=== PATIENT | male | born 1950 | race Caucasian/White ===

== ENCOUNTER 2023-10-10 11:59 | Observation (INO) ==
--- NOTE | 2023-10-10 12:56 | XRay Report ---
XR chest 1V portable HISTORY: weakness COMPARISON: Chest 01/03/2022. FINDINGS: No pneumothorax. No pleural effusions. There is a large hiatus hernia, unchanged. Left basi lar linear densities favor subsegmental atelectasis. The heart is stable in size. No evidence for pul monary edema. No acute fractures. IMPRESSION: No significant change compared to the prior study. No acute process. Large hiatus hernia again noted. ACT 112: Negative or not required by law. Electronically signed by: Damion Cantu M.D. 10/10/2023 12:55 PM
[2023-10-10 13:09] LABS: Basophils # (auto) 0.03 K/uL (0.00-0.20); Basophils % (auto) 0.5 %; Eosinophils # (auto) 0.03 K/uL (0.00-0.50); Eosinophils % (auto) 0.5 %; Hematocrit (blood only) 45.9 % (42.0-52.0); Immature Granulocytes # (auto) 0.02 K/uL (0.01-0.20); Immature Granulocytes % (auto) 0.3 %; Lymphocytes # (auto) 0.99 K/uL (1.20-3.40); Lymphocytes % (auto) 15.6 %; Mean Corpuscular Hemoglobin 31.4 pg (25.0-34.0); Mean Corpuscular Hgb Conc 32.7 g/dL (32.0-36.0); Mean Corpuscular Volume 96.2 fL (80.0-100.0); Mean Platelet Volume 10.4 fL (9.4-12.4); Monocytes # (auto) 0.91 K/uL (0.11-0.59); Monocytes % (auto) 14.3 %; Neutrophils # (auto) 4.38 K/uL (1.40-6.50); Neutrophils % (auto) 68.8 %; Platelet Count 143 K/uL (130-400); RDW Coefficient of Variation 15.2 % (11.5-14.5); RDW Standard Deviation 53.4 fL (36.4-46.3); Red Blood Count 4.77 M/uL (4.70-6.10); White Blood Count 6.36 K/ul (4.8-10.8)
[2023-10-10] MEDS: SODIUM CHLORIDE 0.9% 1,000 ML IV SCH (13:12)
[2023-10-10 13:32] LABS: Albumin Globulin Ratio 1.2 (0.9-2); Albumin Level 3.7 gm/dl (3.4-5.0); BUN Creatinine Ratio 29.5 (10-20); Bilirubin,Total 0.5 mg/dl (0.2-1.0); Creatinine Clr Calc Pharmacy 42.1 ml/min; Est GFR (African American) 57.5 ml/min; Est GFR (Non-African American) 49.6 ml/min; Globulin 3.1 gm/dl (2.5-4.0); Magnesium 2.2 mg/dl (1.7-2.4); Potassium 3.5 mmol/L (3.5-5.1); Total Protein 6.8 gm/dl (6.0-8.3)
[2023-10-10 13:35] LABS: Troponin I High Sensitivity 11.6 pg/ml (0-20)
[2023-10-10 13:44] LABS: Thyroid Stimulating Hormone 2.517 uIu/ml (0.300-4.500)
[2023-10-10 13:54] LABS: Appearance Urine Clear (Clear); Bacteria Urine Automated None Seen (None Seen); Bilirubin Urine Negative (Negative); Blood Urine Negative (Negative); Cast Urine Automated 0-2 /lpf (0-2); Color Urine Yellow; Epithelial Cell Urine Auto 0-2 /hpf (0-2); Glucose Urine UA Negative (Negative); Ketones Urine Negative (Negative); Leukocyte Esterase Urine Negative (Negative); Nitrite Urine Negative (Negative); Protein Urine 1+ (Negative); RBC Urine Automated 0-2 /hpf (0-2); Specific Gravity Urine 1.019 (1.000-1.030); Urobilinogen Urine Negative (Negative); WBC Urine Automated 0-5 /hpf (0-5); pH Urine 6.5 (4.5-7.5)
[2023-10-10] MEDS: OPTIRAY 320 125ml IV ONE (13:55)
--- NOTE | 2023-10-10 14:10 | Emergency Department Note ---
Impression & Plan Unresponsive, Hypotension ED Provider Note NAME: CARI HOWELL AGE: 73 SEX: Male INFORMANT: Patient and ED PROVIDER(S): Paul Whitaker MD CHIEF COMPLAINT: Unresponsiveness PLAN: Disposition: Admitted Outpatient prescription management: none Referral: None MEDICAL DECISION MAKING: Patient presented because of an unresponsive episode. His therapist on scene had found fairly significant hypotension and he was mildly hypotensive but improving rapidly for EMS. His mental status improved as his blood pressure improved as well. Workup was initiated. His ECG did not show any ischemia. Cardiac monitoring showed no dysrhythmia. His CBC was unremarkable without anemia or leukocytosis. Chemistry panel did not reveal any gross abnormalities other. Cardiac troponin was negative. The patient underwent CT imaging of the head and chest. Chest x-ray was also done. The patient has a hiatal hernia. CT head was negative for acute process. Discussed the cystic lesion noted on the skull. No prior history. No PE noted or other acute abnormality seen on chest CT. On reassessment the patient was still feeling well and was actually becoming more hypertensive. He did not receive direct treatment for this due to concerns about causing another episode of hypotension. His blood pressure did started to come down albeit still somewhat hypertensive. Given the episode of being unresponsive with very low blood pressures I discussed further management in the hospital with the family and patient. They were in agreement. Consultation was made with the [facility] service. Patient was evaluated in the ER and admitted for further management. Care/management discussed with: research and development manager Level of care consideration(s): After review of the information above and other included data, I feel the patient requires escalation of care to admission. Triage Nursing notes: reviewed and agree them. Vital Signs: reviewed and remarkable for hypertension Additional History obtained from: none Chronic Medical/Social Conditions affecting care: Parkinson disease Prior/ Outside/ External records reviewed: none Differential Diagnosis: Infection, dehydration, metabolic abnormality, hypo/hyperglycemia, electrolyte disturbance, anemia, hypoxia, cardiac sources, intracerebral event, toxicologic, neurologic, as well as other pathologies. Diagnostics, independently interpreted by me: ECG: Twelve-lead ECG was sinus bradycardia [address] elevation or depression. No PACs or PVCs Cardiac Monitoring: Cardiac monitoring ordered by me: The patient was placed on continuous cardiac monitoring and observed. It revealed a normal sinus rhythm at 60 beats per minute without ectopy or evidence of dysrhythmia. Medical decision rules: none Imaging studies: Head CT: A noncontrast CT scan of the head was performed and was negative for tumor, fracture, intracranial hemorrhage, or other acute pathology. Cystic lesion noted in the right frontal skull. I refer you to the EMR for further details. HPI: 73 year old Male arrives for evaluation of an unresponsive episode. This started less than an hour prior to arrival and is noted to last about 30 minutes or so. is present and helps with history. Patient does not remember the episode nor the ambulance ride to the hospital. Patient was with his speech therapist today at home. He became unresponsive. Speech therapy did take his blood pressure and noted it to be 51 systolic. states blood pressure was repeated and was still low. She contacted cardiology and was referred to the ER. EMS was summoned. Blood pressure was improving for EMS as it was 100 systolic and then normal. Patient's mental status improved with improving blood pressure. The patient also notes the following associated symptoms, none. The patient has been given no medication for relieving factors. Current pain is rated as 0/10. Pt denies headache, fevers, chills, diaphoresis, visual changes, neck pain, chest pain, breathing difficulties, nausea, vomiting, abdominal pain, back pain, melena, hematochezia, urinary symptoms, numbness, weakness, lymphadenopathy, rash, or other complaints. PAST MEDICAL HISTORY: See Below, Parkinson disease PAST SURGICAL HISTORY: See Below, SOCIAL HISTORY: See Below, HOME MEDICATIONS: See Below ALLERGIES: See Below VITALS: See Below PHYSICAL EXAMINATION: GENERAL: Awake, alert, well-appearing, in no distress HENT: Normocephalic, atraumatic. Oropharynx unremarkable. EYES: Normal conjunctiva. Sclera non-icteric. NECK: Inspection normal. Non-tender. Supple. No nuchal rigidity. FROM. No masses. RESPIRATORY: Clear to auscultation. No wheezes. No rales. Normal respiratory effort. CARDIAC: Normal rate. Normal rhythm. No murmurs. No rubs. Extremities warm and well perfused. Pulses equal. No JVD. GI: Soft, non-distended. No tenderness to palpation. No rebound or guarding. No masses. RECTAL: Deferred. MUSCULOSKELETAL: Atraumatic. Chest examination reveals no tenderness. The back is symmetrical on inspection without obvious abnormality. There is no CVA tenderness to palpation. No joint edema. LOWER EXTREMITIES: Calves are equal size bilaterally. Chronic venous discoloration. There is some slight asymmetry with the left lower extremity being slightly larger than the right. NEURO: Masked facies of Parkinson's normal sensorium. No sensory or motor deficits noted. SKIN: No rash or jaundice noted. PROCEDURES: none CRITICAL CARE: none OBSERVATION NOTE: none Past Med/Surg History Problem List (Updated 10/10/23 @ 16:31 by Damari De Leon PA-C) HTN (hypertension) Rheumatoid arthritis Parkinson's disease dementia BPH loc w urin obs/LUTS Transient hypotension Unresponsive episode Hypotension (Acute) Unresponsive (Acute) Chronic diastolic (congestive) heart failure Leg pain Chronic venous insufficiency Venous ulcer of both lower extremities with varicose veins Medical History (Updated 10/10/23 @ 16:31 by Damari De Leon PA-C) Nonrheumatic mitral valve regurgitation Spinal stenosis Surgical History Hx of laminectomy Social History Smoking Status: Never smoker Preferred Language: Urdu Feels Safe at Home: Yes Allergies Allergies Allergy/AdvReac Type Severity Reaction Status Date / Time No Known Allergies Allergy Verified 10/10/23 15:19 Home Meds Home Medications Medication Instructions Recorded Confirmed finasteride 5 mg tablet (Proscar) 5 mg PO QPM 12/03/20 10/10/23 leflunomide 20 mg tablet (Arava) 20 mg PO QAM 12/03/20 10/10/23 prednisone 5 mg tablet 5 mg PO QAM 12/03/20 10/10/23 carbamazepine 200 mg tablet 200 mg PO QID 08/03/21 10/10/23 (Tegretol) levothyroxine 75 mcg tablet 75 mcg PO DAILYBB 08/03/21 10/10/23 (Synthroid) tamsulosin 0.4 mg capsule 0.4 mg PO QPM 08/03/21 10/10/23 zonisamide 100 mg capsule 100 mg PO HS 08/03/21 10/10/23 (Zonegran) carbidopa 25 mg-levodopa 100 mg 3 tab PO QID 02/07/22 10/10/23 tablet ferrous sulfate 325 mg (65 mg 325 mg PO Q OTHER DAY 08/21/23 10/10/23 iron) tablet (FeroSul) melatonin 5 mg tablet 10 mg PO HS 08/21/23 10/10/23 entacapone 200 mg tablet 200 mg PO QID 10/10/23 10/10/23 Results & Data (ED) Vital Signs Vital Signs - 24 hr 10/10/23 12:21 10/10/23 12:27 10/10/23 12:27 Temperature 36.5 C Temperature Source Oral Pulse Rate 63 60 Pulse Rate [Right Finger] Pulse Rhythm Regular Pulse Rhythm [Right Finger] Pulse Strength Normal Pulse Strength [Right Finger] Respiratory Rate 16 Respiratory Effort / Characteristics Non-Labored Spontaneous Respiratory Depth Normal Respiratory Pattern Regular Blood Pressure 141/93 H Blood Pressure [Right Arm] Blood Pressure Mean 109 Blood Pressure Mean [Right Arm] Blood Pressure Position Semi-fowlers Blood Pressure Position [Right Arm] Pulse Oximetry 98 95 Oxygen Delivery Method Room Air Room Air Sepsis Recent Fever Within 48 Hours No Sepsis New/Unexplained Change in Mental Status N/A Sepsis Action Taken by Nursing No Action Required 10/10/23 12:27 10/10/23 12:27 10/10/23 14:15 Temperature 36.5 C 36.8 C Temperature Source Oral Oral Pulse Rate 60 Pulse Rate [Right Finger] 60 60 Pulse Rhythm Regular Pulse Rhythm [Right Finger] Regular Regular Pulse Strength Pulse Strength [Right Finger] Normal Normal Respiratory Rate 20 20 20 Respiratory Effort / Characteristics Non-Labored Spontaneous Non-Labored Spontaneous Respiratory Depth Normal Normal Respiratory Pattern Regular Regular Blood Pressure Blood Pressure [Right Arm] 141/93 H 202/109 H Blood Pressure Mean Blood Pressure Mean [Right Arm] 109 140 Blood Pressure Position Blood Pressure Position [Right Arm] Semi-fowlers Semi-fowlers Pulse Oximetry 95 96 96 Oxygen Delivery Method Room Air Room Air Room Air Sepsis Recent Fever Within 48 Hours Sepsis New/Unexplained Change in Mental Status Sepsis Action Taken by Nursing 10/10/23 15:51 Temperature Temperature Source Pulse Rate Pulse Rate [Right Finger] 69 Pulse Rhythm Pulse Rhythm [Right Finger] Pulse Strength Pulse Strength [Right Finger] Respiratory Rate 18 Respiratory Effort / Characteristics Respiratory Depth Respiratory Pattern Blood Pressure Blood Pressure [Right Arm] 133/87 Blood Pressure Mean Blood Pressure Mean [Right Arm] 102 Blood Pressure Position Blood Pressure Position [Right Arm] Pulse Oximetry 95 Oxygen Delivery Method Sepsis Recent Fever Within 48 Hours Sepsis New/Unexplained Change in Mental Status Sepsis Action Taken by Nursing Laboratory Data 10/10/23 12:24 10/10/23 12:24 Lab Results 10/10/23 10/10/23 Range/Units 12:24 13:33 WBC 6.36 (4.8-10.8) K/ul RBC 4.77 (4.70-6.10) M/uL Hgb 15.0 (14.0-18.0) g/dl Hct 45.9 (42.0-52.0) % MCV 96.2 (80.0-100.0) fL MCH 31.4 (25.0-34.0) pg MCHC 32.7 (32.0-36.0) g/dL RDW Std Deviation 53.4 H (36.4-46.3) fL RDW Coeff of Armne 15.2 H (11.5-14.5) % Plt Count 143 (130-400) K/uL MPV 10.4 (9.4-12.4) fL Immature Gran % (Auto) 0.3 % Neut % (Auto) 68.8 % Lymph % (Auto) 15.6 % [place] % (Auto) 14.3 % Eos % (Auto) 0.5 % Baso % (Auto) 0.5 % Neut # (Auto) 4.38 (1.40-6.50) K/uL Lymph # (Auto) 0.99 L (1.20-3.40) K/uL [place] # (Auto) 0.91 H (0.11-0.59) K/uL Eos # (Auto) 0.03 (0.00-0.50) K/uL Baso # (Auto) 0.03 (0.00-0.20) K/uL Immature Gran # (Auto) 0.02 (0.01-0.20) K/uL Sodium 145 (136-145) mmol/L Potassium 3.5 (3.5-5.1) mmol/L Chloride 112 H (98-107) mmol/L Carbon Dioxide 27 (21-32) mmol/L Anion Gap 6 (3-11) BUN 41 H (6-23) mg/dl Creatinine 1.39 (0.6-1.4) mg/dl Est Cr Clr Drug Dosing 42.1 ml/min Est GFR ( Amer) 57.5 ml/min Est GFR (Non-Af Amer) 49.6 ml/min BUN/Creatinine Ratio 29.5 H (10-20) Glucose 80 (70-99(Fasting)) mg/dl Calcium 9.0 (8.6-10.3) mg/dl Magnesium 2.2 (1.7-2.4) mg/dl Total Bilirubin 0.5 (0.2-1.0) mg/dl AST 21 (13-39) U/L ALT 8 (7-52) U/L Alkaline Phosphatase 71 (34-104) U/L Troponin I High Sens 11.6 (0-20) pg/ml Total Protein 6.8 (6.0-8.3) gm/dl Albumin 3.7 (3.4-5.0) gm/dl Globulin 3.1 (2.5-4.0) gm/dl Albumin/Globulin Ratio 1.2 (0.9-2) TSH 2.517 (0.300-4.500) uIu/ml Urine Color Yellow Urine Appearance Clear (Clear) Urine pH 6.5 (4.5-7.5) Ur Specific Mobile 1.019 (1.000-1.030) Urine Protein 1+ H (Negative) Urine Glucose (UA) Negative (Negative) Urine Ketones Negative (Negative) Urine Blood Negative (Negative) Urine Nitrite Negative (Negative) Urine Bilirubin Negative (Negative) Urine Urobilinogen Negative (Negative) Ur Leukocyte Esterase Negative (Negative) Urine WBC (Auto) 0-5 (0-5) /hpf Urine RBC (Auto) 0-2 (0-2) /hpf U Hyaline Cast (Auto) 0-2 (0-2) /lpf U Epithel Cells (Auto) 0-2 (0-2) /hpf Urine Bacteria (Auto) None Seen (None Seen) Administered Medications Sodium Chloride (Nss) 1,000 mls @ 125 mls/hr IV .Q8H JACQUES Stop: 10/10/23 20:29 Last Admin: 10/10/23 13:12 Dose: 125 mls/hr Documented By: CAW Discontinued Medications Ioversol (Optiray 320 125ml) 120 ml IV ONCE ONE Stop: 10/10/23 13:55 Last Admin: 10/10/23 13:55 Dose: 120 ml Documented By: [facility] Imaging Data Radiologist's Impression: Chest X-Ray 10/10/23 12:23 XR chest 1V portable HISTORY: weakness COMPARISON: Chest 01/03/2022. FINDINGS: No pneumothorax. No pleural effusions. There is a large hiatus hernia, unchanged. Left basilar linear densities favor subsegmental atelectasis. The heart is stable in size. No evidence for pulmonary edema. No acute fractures. IMPRESSION: No significant change compared to the prior study. No acute process. Large hiatus hernia again noted. ACT 112: Negative or not required by law. Electronically signed by: Damion Cantu M.D. 10/10/2023 12:[address] 10/10/23 12:23 CT OF THE HEAD WITHOUT CONTRAST CLINICAL HISTORY: Altered mental status. COMPARISON STUDY: No previous studies for comparison. TECHNIQUE: Helical axial images of the head were obtained without IV contrast. Automated exposure control was utilized for the study. A dose lowering technique was utilized adhering to the principles of ALARA. FINDINGS: No acute intracranial hemorrhage, midline shift or mass effect is present. The ventricular system is unremarkable. The basal cisterns are patent. No extra-axial collections are present. There are no findings to suggest acute dural sinus thrombosis or acute territorial infarct. Mucous retention cyst within the right maxillary sinus is partially imaged. There is a 1.9 cm lytic right frontal bone lesion on image 21 of 32. There is associated periostitis and scalp soft tissue thickening/swelling. No additional calvarial lesions are identified. IMPRESSION: 1. No acute intracranial findings. 2.. 1.9 cm lytic right frontal bone lesion with associated periostitis and scalp soft tissue thickening. This is pathologically indeterminate. If palpable, clinical follow-up to ensure stability is recommended. Otherwise, a follow-up head CT in 3 months to ensure stability is recommended. ACT 112: Negative or not required by law. Electronically signed by: Joe Jones M.D. 10/10/2023 2:14 PM Chest CTA 10/10/23 12:28 CT angio chest PE protocol CLINICAL HISTORY: hypotension, eval for PE TECHNIQUE: Multidetector row helical CT of the chest was performed with angiographic protocol. Coronal and sagittal reformations were obtained. Coronal and sagittal MIPS were obtained from the axial data set and were submitted for review. Automated dose lowering techniques and/or adjustment according to patient size were utilized for this exam. CT DOSE: 1517.47 mGy.cm Comparison: Comparison is made to chest radiograph 10/10/2023 FINDINGS: Lungs and pleura: Atelectasis is seen in the bilateral lung bases. Heart and pericardium: Heart size is normal. No pericardial effusion. Vessels: No evidence of pulmonary embolism. Severe atherosclerotic disease is seen. Mediastinum and lea: Unremarkable. Chest wall and lower neck: Unremarkable. Abdomen: Hyperdense right renal lesion is seen. There is a 31 mm hypodensity in the liver. Bones: Degenerative changes in the thoracic spine. IMPRESSION: 1. No acute abnormality and in particular no evidence of pulmonary embolus. 2. There is a 31 mm hypodensity in the liver. If not previously evaluated, a nonemergent liver protocol CT or MRI can be performed. 3. Hyperdense right renal lesion is favored to represent hemorrhagic/proteinaceous cyst. ACT 112: Negative or not required by law. Electronically signed by: Elias Tejada M.D. 10/10/2023 2:21 PM Discharge Plan Visit Data Chief Complaint: Lethargic Stated Complaint: LETHARGIC ED Provider: Paul Whitaker Discharge Problem: Unresponsive, Hypotension Forms Stand Alone Forms: My [facility] Prescriptions Prescriptions: No Action finasteride [Proscar] 5 mg tablet 5 mg PO QPM Rx Instructions: take 1/2 hour before supper leflunomide [Arava] 20 mg tablet 20 mg PO QAM prednisone 5 mg tablet 5 mg PO QAM carbidopa-levodopa 25-100 mg tablet 3 tab PO QID Rx Instructions: TAKES AT 0630, 0900, 1200, 1700 levothyroxine [Synthroid] 75 mcg tablet 75 mcg PO DAILYBB zonisamide [Zonegran] 100 mg capsule 100 mg PO HS tamsulosin 0.4 mg capsule 0.4 mg PO QPM Rx Instructions: take 1/2 hour before supper carbamazepine [Tegretol] 200 mg tablet 200 mg PO QID Rx Instructions: 0630, 1200, 1700, 2200 melatonin 5 mg tablet 10 mg PO HS ferrous sulfate [FeroSul] 325 mg (65 mg iron) tablet 325 mg PO Q OTHER DAY entacapone 200 mg tablet 200 mg PO QID Rx Instructions: 0630, 0800, 1200, 1700 Referrals Referrals: Emerald Dutton MD [Primary Care Provider] -
--- NOTE | 2023-10-10 14:16 | CT Scan Report ---
CT OF THE HEAD WITHOUT CONTRAST CLINICAL HISTORY: Altered mental status. COMPARISON STUDY: No previous studies for comparison. TECHNIQUE: Helical axial images of the head were obtained without IV contrast. Automated exposure con trol was utilized for the study. A dose lowering technique was utilized adhering to the principles o f ALARA. FINDINGS: No acute intracranial hemorrhage, midline shift or mass effect is present. The ventricular system is unremarkable. The basal cisterns are patent. No extra-axial collections are present. There are no findings to suggest acute dural sinus thrombosis or acute territorial infarct. Mucous retentio n cyst within the right maxillary sinus is partially imaged. There is a 1.9 cm lytic right frontal bautista ne lesion on image 21 of 32. There is associated periostitis and scalp soft tissue thickening/swellin g. No additional calvarial lesions are identified. IMPRESSION: 1. No acute intracranial findings. 2.. 1.9 cm lytic right frontal bone lesion with associated periostitis and scalp soft tissue thickeni ng. This is pathologically indeterminate. If palpable, clinical follow-up to ensure stability is frank mmended. Otherwise, a follow-up head CT in 3 months to ensure stability is recommended. ACT 112: Negative or not required by law. Electronically signed by: Joe Jones M.D. 10/10/2023 2:14 PM
--- NOTE | 2023-10-10 14:23 | CT Scan Report ---
CT angio chest PE protocol CLINICAL HISTORY: hypotension, eval for PE TECHNIQUE: Multidetector row helical CT of the chest was performed with angiographic protocol. Watts l and sagittal reformations were obtained. Coronal and sagittal MIPS were obtained from the axial julio a set and were submitted for review. Automated dose lowering techniques and/or adjustment according to patient size were utilized for this exam. CT DOSE: 1517.47 mGy.cm Comparison: Comparison is made to chest radiograph 10/10/2023 FINDINGS: Lungs and pleura: Atelectasis is seen in the bilateral lung bases. Heart and pericardium: Heart size is normal. No pericardial effusion. Vessels: No evidence of pulmonary embolism. Severe atherosclerotic disease is seen. Mediastinum and lea: Unremarkable. Chest wall and lower neck: Unremarkable. Abdomen: Hyperdense right renal lesion is seen. There is a 31 mm hypodensity in the liver. Bones: Degenerative changes in the thoracic spine. IMPRESSION: 1. No acute abnormality and in particular no evidence of pulmonary embolus. 2. There is a 31 mm hypodensity in the liver. If not previously evaluated, a nonemergent liver roman col CT or MRI can be performed. 3. Hyperdense right renal lesion is favored to represent hemorrhagic/proteinaceous cyst. ACT 112: Negative or not required by law. Electronically signed by: Elias Tejada M.D. 10/10/2023 2:21 PM
--- NOTE | 2023-10-10 16:26 | History & Physical Report ---
Date of Service October 10, 2023 Assessment & Plan (1) Acute metabolic encephalopathy: (2) Unresponsive episode: (3) Transient hypotension: Plan: This is a 73yo M with a PMH of Parkinson's disease, Seizure disorder, hypothyroidism, rheumatoid arthritis, chronic diastolic heart failure, HALLIE, BPH, hypogonadism on testosterone every 2 weeks and other medical problems listed below who presents after unresponsive episode and low blood pressure at home. BP normalized since arrival, most recently 133/87, continue gentle IV fluids Ddx autonomic dysfunction vs seizure vs presyncope CT head without acute intracranial findings Afebrile, no leukocytosis UA unremarkable TSH WNL Not on any antihypertensives EEG, 2D echo, orthostatics, blood culture pending although no s/sx of infection at this time Continue remainder of 1 L fluids resuscitation (4) Chronic diastolic (congestive) heart failure: Plan: noting some BLE edema, discoloration so obtaining BLE venous dopplers Will limit fluid resuscitation to 1L total, monitor volume status closely (5) Chronic venous insufficiency: Plan: Continue compression stockings (6) Rheumatoid arthritis: Plan: Continue 5mg prednisone daily, Arava Follows with [facility] rheum (7) Parkinson's disease dementia: Plan: Follows with [facility] neuro. Continue Sinemet, Entacapone PT/OT evaluations Ambulates with a walker/wheelchair at baseline (8) BPH loc w urin obs/LUTS: Plan: Continue finasteride, tamsulosin Bladder scan PRN (9) Abnormal CT scan, chest: Plan: There is a 31 mm hypodensity in the liver (hypodense liver lesions thought to be hemangiomas noted on CT from 2020). Per radiology, a nonemergent liver protocol CT or MRI can be performed - will defer to PCP Hyperdense right renal lesion also noted - is favored to represent hemorrhagic/proteinaceous cyst (hyperdense right renal mass 1.8 x 1.4 cm noted on 2020 CT abd/pelvis) - PCP for follow up (10) Abnormal CT scan, head: Plan: Per head CT, 1.9 cm lytic right frontal bone lesion with associated periostitis and scalp soft tissue thickening. This is pathologically indeterminate. If palpable, clinical follow-up to ensure stability is recommended. Otherwise, a follow-up head CT in 3 months to ensure stability is recommended - discussed with patient and . Recommend PCP follow up DVT Ppx: SQ heparin Code status: FULL PCP: [facility] Dispo: Obs tele Patient seen in collaboration with Dr. Estrada. Please see addendum. I spent a total of 75 minutes coordinating, documenting, and providing care for this patient excluding time spent in the performance of separately billed services. History of Present Illness Chief Complaint: low BP Primary Care Provider: Emerald Dutton MD This is a 73yo M with a PMH of Parkinson's disease, Seizure disorder, hypothy roidism, rheumatoid arthritis, chronic diastolic heart failure, HALLIE, BPH, hypogonadism on testosterone every 2 weeks and other medical problems listed below who presents after unresponsive episode and low blood pressure at home. History obtained from and daughter at bedside as patient is lethargic. Was in normal state of health this morning, and showered, dressed and ate breakfast as usual. When home speech therapist arrived around 10:30am, he was notably lethargic and non responsive verbally. Denies gilma loss of consciousness but states he was slouched over. Was able to drink some Gatorade, seemed to be sleeping. Denies any bowel or bladder incontinence. No new recent medication changes. BP was checked and was low with SBP reportedly in 50s. Not on any blood pressure medications. Got up a lot overnight to use the restroom. feels that patient may have overexerted himself that morning. SBP here on arrival was 200 and most recent BP 133/87. Has only been receiving IV fluids. Allergies Allergy/AdvReac Type Severity Reaction Status Date / Time No Known Allergies Allergy Verified 10/10/23 15:19 Home Medications Medication Instructions Recorded Confirmed Type finasteride 5 mg tablet (Proscar) 5 mg PO QPM 12/03/20 10/10/23 History leflunomide 20 mg tablet (Arava) 20 mg PO QAM 12/03/20 10/10/23 History prednisone 5 mg tablet 5 mg PO QAM 12/03/20 10/10/23 History carbamazepine 200 mg tablet 200 mg PO QID 08/03/21 10/10/23 History (Tegretol) levothyroxine 75 mcg tablet 75 mcg PO DAILYBB 08/03/21 10/10/23 History (Synthroid) tamsulosin 0.4 mg capsule 0.4 mg PO QPM 08/03/21 10/10/23 History zonisamide 100 mg capsule 100 mg PO HS 08/03/21 10/10/23 History (Zonegran) carbidopa 25 mg-levodopa 100 mg 3 tab PO QID 02/07/22 10/10/23 History tablet ferrous sulfate 325 mg (65 mg 325 mg PO Q OTHER DAY 08/21/23 10/10/23 History iron) tablet (FeroSul) melatonin 5 mg tablet 10 mg PO HS 08/21/23 10/10/23 History entacapone 200 mg tablet 200 mg PO QID 10/10/23 10/10/23 History Past Med/Surg History Problem List (Updated 10/10/23 @ 18:55 by Damari De Leon PA-C) Abnormal CT scan, chest Abnormal CT scan, head HTN (hypertension) Rheumatoid arthritis Parkinson's disease dementia BPH loc w urin obs/LUTS Transient hypotension Unresponsive episode Hypotension (Acute) Unresponsive (Acute) Chronic diastolic (congestive) heart failure Leg pain Chronic venous insufficiency Venous ulcer of both lower extremities with varicose veins Medical History Nonrheumatic mitral valve regurgitation Spinal stenosis Surgical History Hx of laminectomy Family History (Updated 10/10/23 @ 18:48 by Damari De Leon PA-C) Other Leukemia Lung cancer Social History Smoking Status: Never smoker Preferred Language: Scottish Feels Safe at Home: Yes Review of Systems Review of Systems: Unobtainable due to cognitive status Physical Exam Physical Exam: Please see Dr. Estrada's addendum for physical exam. Results & Data Results & Data Vital Signs (Past 12 Hours) Vital Signs Temp Pulse Pulse Resp BP BP Pulse Ox 10/10/23 15:51 69 18 133/87 95 10/10/23 14:15 36.8 C 60 20 202/109 H 96 10/10/23 12:27 60 20 96 10/10/23 12:27 36.5 C 60 20 141/93 H 95 10/10/23 12:27 95 10/10/23 12:27 36.5 C 60 16 141/93 H 98 10/10/23 12:21 63 O2 Del Method 10/10/23 15:51 10/10/23 14:15 Room Air 10/10/23 12:27 Room Air 10/10/23 12:27 Room Air 10/10/23 12:27 Room Air 10/10/23 12:27 Room Air 10/10/23 12:21 Laboratory Results Short CBC 10/10/23 Range/Units 12:24 WBC 6.36 (4.8-10.8) K/ul Hgb 15.0 (14.0-18.0) g/dl Hct 45.9 (42.0-52.0) % Plt Count 143 (130-400) K/uL BMP 10/10/23 12:24 Sodium 145 Potassium 3.5 Chloride 112 H Carbon Dioxide 27 BUN 41 H Creatinine 1.39 Glucose 80 Calcium 9.0 Liver Function 10/10/23 Range/Units 12:24 Total Bilirubin 0.5 (0.2-1.0) mg/dl AST 21 (13-39) U/L ALT 8 (7-52) U/L Alkaline Phosphatase 71 (34-104) U/L Albumin 3.7 (3.4-5.0) gm/dl Urine 10/10/23 Range/Units 13:33 Urine Color Yellow Urine Appearance Clear (Clear) Urine pH 6.5 (4.5-7.5) Ur Specific [place] 1.019 (1.000-1.030) Urine Protein 1+ H (Negative) Urine Glucose (UA) Negative (Negative) Diagnostic Findings Chest X-Ray 10/10/23 12:23 XR chest 1V portable HISTORY: weakness COMPARISON: Chest 01/03/2022. FINDINGS: No pneumothorax. No pleural effusions. There is a large hiatus hernia, unchanged. Left basilar linear densities favor subsegmental atelectasis. The heart is stable in size. No evidence for pulmonary edema. No acute fractures. IMPRESSION: No significant change compared to the prior study. No acute process. Large hiatu s hernia again noted. ACT 112: Negative or not required by law. Electronically signed by: Damion Cantu M.D. 10/10/2023 12:[address] 10/10/23 12:23 CT OF THE HEAD WITHOUT CONTRAST CLINICAL HISTORY: Altered mental status. COMPARISON STUDY: No previous studies for comparison. TECHNIQUE: Helical axial images of the head were obtained without IV contrast. Automated exposure control was utilized for the study. A dose lowering technique was utilized adhering to the principles of ALARA. FINDINGS: No acute intracranial hemorrhage, midline shift or mass effect is present. The ventricular system is unremarkable. The basal cisterns are patent. No extra-axial collections are present. There are no findings to suggest acute dural sinus thrombosis or acute territorial infarct. Mucous retention cyst within the right maxillary sinus is partially imaged. There is a 1.9 cm lytic right frontal bone lesion on image 21 of 32. There is associated periostitis and scalp soft tissue thickening/swelling. No additional calvarial lesions are identified. IMPRESSION: 1. No acute intracranial findings. 2.. 1.9 cm lytic right frontal bone lesion with associated periostitis and scalp soft tissue thickening. This is pathologically indeterminate. If palpable, clinical follow-up to ensure stability is recommended. Otherwise, a follow-up head CT in 3 months to ensure stability is recommended. ACT 112: Negative or not required by law. Electronically signed by: Joe Jones M.D. 10/10/2023 2:14 PM Chest CTA 10/10/23 12:28 CT angio chest PE protocol CLINICAL HISTORY: hypotension, eval for PE TECHNIQUE: Multidetector row helical CT of the chest was performed with angiographic protocol. Coronal and sagittal reformations were obtained. Coronal and sagittal MIPS were obtained from the axial data set and were submitted for review. Automated dose lowering techniques and/or adjustment according to patient size were utilized for this exam. CT DOSE: 1517.47 mGy.cm Comparison: Comparison is made to chest radiograph 10/10/2023 FINDINGS: Lungs and pleura: Atelectasis is seen in the bilateral lung bases. Heart and pericardium: Heart size is normal. No pericardial effusion. Vessels: No evidence of pulmonary embolism. Severe atherosclerotic disease is seen. Mediastinum and lea: Unremarkable. Chest wall and lower neck: Unremarkable. Abdomen: Hyperdense right renal lesion is seen. There is a 31 mm hypodensity in the liver. Bones: Degenerative changes in the thoracic spine. IMPRESSION: 1. No acute abnormality and in particular no evidence of pulmonary embolus. 2. There is a 31 mm hypodensity in the liver. If not previously evaluated, a nonemergent liver protocol CT or MRI can be performed. 3. Hyperdense right renal lesion is favored to represent hemorrhagic/proteinaceous cyst. ACT 112: Negative or not required by law. Electronically signed by: Elias Tejada M.D. 10/10/2023 2:21 PM Supervising Physician Co-Signing Physician Notes Patient is a 73-year-old male with history of rheumatoid arthritis, Parkinson's, diastolic heart failure, chronic venous stasis and other medical problems presents with history of unresponsive episode associated with low blood pressure while at home. Patient was noted to be lethargic and most of the history is obtained from patient's family. No known history of seizure-like activity, recent infections. Patient's blood pressure was labile. Please review HPI for complete details of presentation. Blood work fairly unremarkable. CT head showed no acute intracranial findings. Noted light thick right frontal bone lesion--incidental finding. CT chest showed 2.1 cm hypodensity in the liver, hypodense right renal lesion. Patient is admitted for management of possible syncopal episode secondary to orthostatic hypotension. Blood pressure stable during my evaluation. Orthostatics positive while in ED. Venous Doppler showed no signs of DVT. Agree with further workup including echo, EEG. Fall precautions, PT OT as able. Needs further workup for frontal bone lesion, hepatic and renal lesions as outpatient. Continue compression stockings for chronic venous stasis. ? Autonomic dysfunction secondary to Parkinson's. Physical Exam: Vitals signs as noted above General Appearance:Moderately built and nourished, no apparent distress, Elderly Head: normocephalic, Atraumatic Eyes: normal inspection, EOMI Neck: supple, Trachea midline Respiratory/Chest: Normal breath sounds, CTA, No accessory muscle use Cardiovascular: S1, S2, No murmur Abdomen/GI:Soft, Non tender, Bowel sounds present Extremities/Musculoskeletal:normal inspection, 2+ B/LE LE edema, +Venous stasis changes Neurologic/Psych:AAOX2, grossly no focal neurological deficits Skin: normal color, warm I personally interviewed and examined at bedside. Patient's care is coordinated with Damari De Leon PA-C. I have reviewed the advanced practitioner's documentation, and I agree with plan of care. Please refer to the documentation above for details of patient's presentation and for discussion of other issues. I spent a total [id number] coordinating, documenting, and providing care for this patient excluding time spent in the performance of separately billed services.
--- NOTE | 2023-10-10 16:43 | Electrocardiogram Report ---
Test Reason : Blood Pressure : / mmHG Vent. Rate : 058 BPM Atrial Rate : 058 BPM P-R Int : 134 ms QRS Dur : 078 ms QT Int : 392 ms P-R-T Axes : 036 024 036 degrees QTc Int : 384 ms Sinus bradycardia Possible Left atrial enlargement Borderline ECG When compared with ECG of 03-JAN-2022 10:54, No significant change was found Confirmed by Cory Gil ([id number]) on 10/10/2023 4:43:42 PM Referred By: REFERRED SELF Confirmed By:Cory Gli
[2023-10-10] MEDS ORDERED: ONDANSETRON INJ 2 MG/ML 2 ML VIAL IV PRN (17:16)
[2023-10-10] MEDS ORDERED: POLYETHYLENE (MIRALAX) 17 GM PACK PO PRN (17:16)
[2023-10-10] MEDS ORDERED: ACETAMINOPHEN 325 MG TAB PO PRN (17:16)
--- NOTE | 2023-10-10 18:16 | Ultrasound Report ---
BILATERAL LOWER EXTREMITY VENOUS DOPPLER CLINICAL HISTORY: stasis changes and edema COMPARISON STUDY: None available at time of interpretation. TECHNIQUE: Sonography of the deep venous system of the bilateral lower extremities was performed. Co mpression and augmentation were evaluated. FINDINGS: The bilateral common femoral, superficial femoral and popliteal veins were compressible. A ugmentation was normal. Flow was shown within the deep calf vessels. IMPRESSION: No evidence of deep venous thrombus within the bilateral lower extremities. ACT 112: Negative or not required by law. Electronically signed by: Joe Jones M.D. 10/10/2023 6:15 PM
[2023-10-10] MEDS: CARBIDOPA/LEVODOPA 25/100MG TAB PO SCH (21:51)
[2023-10-10] MEDS: ZONISAMIDE 100 MG CAPSULE PO SCH (21:51)
[2023-10-10] MEDS: HEPARIN SOD 5,000 UNIT/0.5 ML VIAL SQ SCH (21:51)
[2023-10-10] MEDS: carBAMazepine 200 MG TABLET PO SCH (21:51)
[2023-10-10] MEDS: ENTACAPONE 200 MG TAB PO SCH (21:51)
[2023-10-10] MEDS: TAMSULOSIN HCL 0.4 MG CAP PO SCH (21:51)
[2023-10-10] MEDS: FINASTERIDE 5 MG TAB PO SCH (21:51)
[2023-10-11] MEDS: LEVOTHYROXINE SODIUM 75 MCG TABLET PO SCH (06:09)
[2023-10-11 07:52] LABS: Hematocrit (blood only) 42.1 % (42.0-52.0); Hemoglobin 13.6 g/dl (14.0-18.0); Mean Corpuscular Hemoglobin 30.4 pg (25.0-34.0); Mean Corpuscular Hgb Conc 32.3 g/dL (32.0-36.0); Mean Corpuscular Volume 94.2 fL (80.0-100.0); Platelet Count 127 K/uL (130-400); RDW Coefficient of Variation 15.1 % (11.5-14.5); RDW Standard Deviation 53.1 fL (36.4-46.3); Red Blood Count 4.47 M/uL (4.70-6.10); White Blood Count 5.02 K/ul (4.8-10.8)
[2023-10-11 08:11] LABS: BUN Creatinine Ratio 28.7 (10-20); Calcium 8.3 mg/dl (8.6-10.3); Creatinine Clr Calc Pharmacy 50.9 ml/min; Est GFR (African American) 72.3 ml/min; Est GFR (Non-African American) 62.3 ml/min; Potassium 3.7 mmol/L (3.5-5.1)
[2023-10-11] MEDS: FERROUS SULFATE 325 MG TAB PO SCH (08:29)
[2023-10-11] MEDS: predniSONE 5 MG TAB PO SCH (08:29)
[2023-10-11] MEDS: LEFLUNOMIDE 10 MG TAB PO SCH (08:29)
--- NOTE | 2023-10-11 14:50 | XCELERA ---
[id number]
[2023-10-11] MEDS: NSS + 20MEQ KCL 20 MEQ/1,000 ML BAG IV SCH (16:32)
--- NOTE | 2023-10-11 16:41 | Hospitalist Progress Note ---
Date of Service October 11, 2023 Assessment & Plan (1) Acute metabolic encephalopathy: (2) Unresponsive episode: (3) Transient hypotension: Plan: This is a 73yo M with a PMH of Parkinson's disease, Seizure disorder, hypothyroidism, rheumatoid arthritis, chronic diastolic heart failure, HALLIE, BPH, hypogonadism on testosterone every 2 weeks and other medical problems listed below who presents after unresponsive episode and low blood pressure at home. Likely secondary to orthostatic hypotension Possible dehydration BP normalized since arrival, most recently 133/87, continue gentle IV fluids Ddx autonomic dysfunction with history of parkinsonism, doubt any seizures CT head without acute intracranial findings Afebrile, no leukocytosis UA unremarkable TSH WNL Not on any antihypertensives EEG, 2D echo, orthostatics, blood culture pending although no s/sx of infection at this time Continue remainder of 1 L fluids resuscitation Clinically much better this afternoon Remains orthostatic Will give more IV fluid and was advised to drink more fluid No more episodes of hypotension and/or loss of consciousness Will get PT and OT evaluation and possible discharge tomorrow (4) Chronic diastolic (congestive) heart failure: Plan: noting some BLE edema, discoloration so obtaining BLE venous dopplers Will limit fluid resuscitation to 1L total, monitor volume status closely History of diastolic heart failure will be cautious with intravenous fluid (5) Chronic venous insufficiency: Plan: Continue compression stockings (6) Rheumatoid arthritis: Plan: Continue 5mg prednisone daily, Arava Follows with [facility] rheum (7) Parkinson's disease dementia: Plan: Follows with [facility] neuro. Continue Sinemet, Entacapone PT/OT evaluations Ambulates with a walker/wheelchair at baseline (8) BPH loc w urin obs/LUTS: Plan: Continue finasteride, tamsulosin Bladder scan PRN (9) Abnormal CT scan, chest: Plan: There is a 31 mm hypodensity in the liver (hypodense liver lesions thought to be hemangiomas noted on CT from 2020). Per radiology, a nonemergent liver protocol CT or MRI can be performed - will defer to PCP Hyperdense right renal lesion also noted - is favored to represent hemorrhagic/proteinaceous cyst (hyperdense right renal mass 1.8 x 1.4 cm noted on 2020 CT abd/pelvis) - PCP for follow up (10) Abnormal CT scan, head: Plan: Per head CT, 1.9 cm lytic right frontal bone lesion with associated periostitis and scalp soft tissue thickening. This is pathologically indeterminate. If palpable, clinical follow-up to ensure stability is recommended. Otherwise, a follow-up head CT in 3 months to ensure stability is recommended - discussed with patient and . Recommend PCP follow up DVT Ppx: SQ heparin Code status: FULL PCP: [facility] Dispo: Obs tele Admission and Anticipated Discharge Date Admission Date: October 10, 2023 Subjective 10/11/2023 The patient was seen and examined in telemetry unit in the presence of the daughter and the He has been feeling much better since admission Has an episode of syncope likely secondary to postural hypotension Has been feeling better but he still remains orthostatic Review of Systems Review of Systems: All systems reviewed and are unremarkable except as noted below Physical Exam 2 Physical Exam: Sitting on a chair without any acute distress Constitutional: well developed, well nourished, + ill appearing and average body habitus Eyes: PERRL, conjunctivae normal, anicteric sclerae ENMT: external ear and nose normal, oropharynx normal Neck: trachea midline, no thyromegaly Respiratory: no respiratory distress Auscultation: + crackles; + lungs not clear to auscultation Cardiovascular: Rate/Rhythm: regular rate and regular rhythm; not tachycardic Heart Sounds: normal S1 and normal S2; no murmur Extremities: no edema Gastrointestinal (Abdomen): Inspection/Auscultation: normal bowel sounds; abdomen not distended Percussion/Palpation: abdomen soft; abdomen nontender Musculoskeletal: No acute arthritis involving any of the joints Neurologic: normal touch/pain/proprioception and moves all extremities; no focal motor deficits Lymphatic: no cervical or axillary lymphadenopathy Results & Data Results & Data Vital Signs (Past 12 Hours) Vital Signs Temp Pulse Resp BP Pulse Ox O2 Del Method 10/11/23 10:55 36.6 C 60 16 108/65 95 Room Air 10/11/23 08:30 36.9 C 68 16 176/91 H 93 Room Air 10/11/23 08:00 Room Air Laboratory Results Short CBC 10/11/23 Range/Units 07:14 WBC 5.02 (4.8-10.8) K/ul Hgb 13.6 L (14.0-18.0) g/dl Hct 42.1 (42.0-52.0) % Plt Count 127 L (130-400) K/uL BMP 10/11/23 07:14 Sodium 142 Potassium 3.7 Chloride 113 H Carbon Dioxide 25 BUN 33 H Creatinine 1.15 Glucose 87 Calcium 8.3 L Medications Administered Current Inpatient Medications Acetaminophen (Acetaminophen 325 Mg Tab) 650 mg PO Q4H PRN PRN Reason: Pain or Fever Stop: 11/09/23 17:15 Carbamazepine (Carbamazepine 200 Mg Tablet) 200 mg PO QID [facility] Stop: 11/09/23 20:59 Last Admin: 10/11/23 14:41 Dose: 200 mg Carbidopa/Levodopa (Carbidopa/Levodopa 25/100mg Tab) 3 tab PO QID [facility] Stop: 11/09/23 20:59 Last Admin: 10/11/23 13:07 Dose: 3 tab Entacapone (Entacapone 200 Mg Tab) 200 mg PO QID [facility] Stop: 11/09/23 20:59 Last Admin: 10/11/23 13:07 Dose: 200 mg Ferrous Sulfate (Ferrous Sulfate 325 Mg Tab) 325 mg PO Q2D [facility] Stop: 11/10/23 08:59 Last Admin: 10/11/23 08:29 Dose: 325 mg Finasteride (Finasteride 5 Mg Tab) 5 mg PO QPM [facility] Stop: 11/09/23 20:59 Last Admin: 10/10/23 21:51 Dose: 5 mg Heparin Sodium (Porcine) (Heparin Sod 5,000 Unit/0.5 Ml Vial) 5,000 units SQ Q8 [facility] Stop: 11/09/23 21:59 Last Admin: 10/11/23 13:07 Dose: Not Given Potassium Chloride/Sodium Chloride (Normal Saline W/20 Meq Kcl) 20 meq in 1,000 mls @ 100 mls/hr IV .Q10H [facility]; Protocol Stop: 10/12/23 20:29 Last Admin: 10/11/23 16:32 Dose: 100 mls/hr Leflunomide (Leflunomide 10 Mg Tab) 20 mg PO QAM [facility] Stop: 11/10/23 08:59 Last Admin: 10/11/23 08:29 Dose: 20 mg Levothyroxine Sodium (Levothyroxine Sodium 75 Mcg Tablet) 75 mcg PO DAILYBB [facility] Stop: 11/10/23 06:29 Last Admin: 10/11/23 06:09 Dose: 75 mcg Ondansetron HCl (Ondansetron Inj 2 Mg/Ml 2 Ml Vial) 4 mg IV Q6H PRN PRN Reason: Nausea Stop: 11/09/23 17:15 Polyethylene Glycol (Polyethylene (Miralax) 17 Gm Pack) 17 gm PO DAILY PRN PRN Reason: Constipation Stop: 11/09/23 17:15 Prednisone (Prednisone 5 Mg Tab) 5 mg PO QAM [facility] Stop: 11/10/23 08:59 Last Admin: 10/11/23 08:29 Dose: 5 mg Tamsulosin HCl (Tamsulosin Hcl 0.4 Mg Cap) 0.4 mg PO QPM [facility] Stop: 11/09/23 20:59 Last Admin: 10/10/23 21:51 Dose: 0.4 mg Zonisamide (Zonisamide 100 Mg Capsule) 100 mg PO HS [facility] Stop: 11/09/23 20:59 Last Admin: 10/10/23 21:51 Dose: 100 mg
[2023-10-12 06:39] LABS: Basophils # (auto) 0.03 K/uL (0.00-0.20); Basophils % (auto) 0.6 %; Eosinophils # (auto) 0.04 K/uL (0.00-0.50); Eosinophils % (auto) 0.7 %; Hematocrit (blood only) 39.8 % (42.0-52.0); Hemoglobin 12.8 g/dl (14.0-18.0); Immature Granulocytes # (auto) 0.04 K/uL (0.01-0.20); Immature Granulocytes % (auto) 0.7 %; Lymphocytes # (auto) 1.25 K/uL (1.20-3.40); Lymphocytes % (auto) 23.1 %; Mean Corpuscular Hemoglobin 30.7 pg (25.0-34.0); Mean Corpuscular Hgb Conc 32.2 g/dL (32.0-36.0); Mean Corpuscular Volume 95.4 fL (80.0-100.0); Monocytes # (auto) 0.58 K/uL (0.11-0.59); Monocytes % (auto) 10.7 %; Neutrophils # (auto) 3.46 K/uL (1.40-6.50); Neutrophils % (auto) 64.2 %; Platelet Count 118 K/uL (130-400); RDW Coefficient of Variation 15.3 % (11.5-14.5); RDW Standard Deviation 53.9 fL (36.4-46.3); Red Blood Count 4.17 M/uL (4.70-6.10)
[2023-10-12 07:06] LABS: BUN Creatinine Ratio 25.2 (10-20); Calcium 7.6 mg/dl (8.6-10.3); Creatinine Clr Calc Pharmacy 49.1 ml/min; Est GFR (African American) 69.3 ml/min; Est GFR (Non-African American) 59.8 ml/min
--- NOTE | 2023-10-12 12:51 | Electrocardiogram Report ---
Test Reason : Blood Pressure : / mmHG Vent. Rate : 072 BPM Atrial Rate : 072 BPM P-R Int : 150 ms QRS Dur : 090 ms QT Int : 366 ms P-R-T Axes : 073 056 052 degrees QTc Int : 400 ms Normal sinus rhythm Normal ECG When compared with ECG of 10-OCT-2023 13:05, No significant change was found Confirmed by Cory Gil ([id number]) on 10/12/2023 12:50:55 PM Referred By: REFERRED SELF Confirmed By:Cory Gil
--- NOTE | 2023-10-12 13:34 | Hospitalist Progress Note ---
Date of Service October 12, 2023 Assessment & Plan (1) Acute metabolic encephalopathy: (2) Unresponsive episode: (3) Transient hypotension: Plan: This is a 73yo M with a PMH of Parkinson's disease, Seizure disorder, hypothyroidism, rheumatoid arthritis, chronic diastolic heart failure, HALLIE, BPH, hypogonadism on testosterone every 2 weeks and other medical problems listed below who presents after unresponsive episode and low blood pressure at home. Likely secondary to orthostatic hypotension Possible dehydration BP normalized since arrival, most recently 133/87, continue gentle IV fluids Ddx autonomic dysfunction with history of parkinsonism, doubt any seizures CT head without acute intracranial findings Afebrile, no leukocytosis UA unremarkable TSH WNL Not on any antihypertensives EEG, 2D echo, orthostatics, blood culture pending although no s/sx of infection at this time Continue remainder of 1 L fluids resuscitation Clinically much better this afternoon Remains orthostatic Will give more IV fluid and was advised to drink more fluid No more episodes of hypotension and/or loss of consciousness Clinically much better today following IV fluid administration He has been eating and drinking reasonably Does not have any more orthostatic change and/or symptoms Strongly advised to drink more fluid at home Awaiting physical therapy evaluation if not possible ambulation with the nurse prior to discharge Will be discharged home this afternoon (4) Chronic diastolic (congestive) heart failure: Plan: noting some BLE edema, discoloration so obtaining BLE venous dopplers Will limit fluid resuscitation to 1L total, monitor volume status closely History of diastolic heart failure will be cautious with intravenous fluid No signs and or symptoms of fluid overload (5) Chronic venous insufficiency: Plan: Continue compression stockings (6) Rheumatoid arthritis: Plan: Continue 5mg prednisone daily, Arava Follows with [facility] rheum (7) Parkinson's disease dementia: Plan: Follows with [facility] neuro. Continue Sinemet, Entacapone PT/OT evaluations Ambulates with a walker/wheelchair at baseline (8) BPH loc w urin obs/LUTS: Plan: Continue finasteride, tamsulosin Bladder scan PRN (9) Abnormal CT scan, chest: Plan: There is a 31 mm hypodensity in the liver (hypodense liver lesions thought to be hemangiomas noted on CT from 2019). Per radiology, a nonemergent liver protocol CT or MRI can be performed - will defer to PCP Hyperdense right renal lesion also noted - is favored to represent hemorrhagic/proteinaceous cyst (hyperdense right renal mass 1.8 x 1.4 cm noted on 2019 CT abd/pelvis) - PCP for follow up (10) Abnormal CT scan, head: Plan: Per head CT, 1.9 cm lytic right frontal bone lesion with associated periostitis and scalp soft tissue thickening. This is pathologically indeterminate. If palpable, clinical follow-up to ensure stability is recommended. Otherwise, a follow-up head CT in 3 months to ensure stability is recommended - discussed with patient and . Recommend PCP follow up DVT Ppx: SQ heparin Code status: FULL PCP: [facility] Dispo: Obs tele Discussed with the daughter about the abnormal findings on the scans Will instruct the patient to have a repeat test in about 3 months to monitor dose elations Admission and Anticipated Discharge Date Admission Date: October 10, 2023 Subjective 10/11/2023 The patient was seen and examined in telemetry unit in the presence of the daughter and the He has been feeling much better since admission Has an episode of syncope likely secondary to postural hypotension Has been feeling better but he still remains orthostatic 10/12/2023 The patient was seen and examined in telemetry unit in presence of the daughter He has been feeling much better He does not have any more orthostatic symptoms or change He will be discharged home this afternoon Review of Systems Review of Systems: All systems reviewed and are unremarkable except as noted below Physical Exam Physical Exam: Sitting on a chair without any acute distress Constitutional: well developed, well nourished, + ill appearing and average body habitus Eyes: PERRL, conjunctivae normal, anicteric sclerae ENMT: external ear and nose normal, oropharynx normal Neck: trachea midline, no thyromegaly Respiratory: no respiratory distress Auscultation: + crackles; + lungs not clear to auscultation Cardiovascular: Rate/Rhythm: regular rate and regular rhythm; not tachycardic Heart Sounds: normal S1 and normal S2; no murmur Extremities: no edema Gastrointestinal (Abdomen): Inspection/Auscultation: normal bowel sounds; abdomen not distended Percussion/Palpation: abdomen soft; abdomen nontender Musculoskeletal: No acute arthritis involving any of the joints Neurologic: normal touch/pain/proprioception and moves all extremities; no focal motor deficits Lymphatic: no cervical or axillary lymphadenopathy Results & Data Results & Data Vital Signs (Past 12 Hours) Vital Signs Temp Pulse Pulse Resp BP Pulse Ox O2 Del Method 10/12/23 12:01 36.3 C L 54 L 18 133/68 95 Room Air 10/12/23 08:00 36.4 C L 63 18 191/99 H 95 Room Air 10/12/23 06:10 54 L 10/12/23 02:47 36.6 C 53 L 18 143/82 H 94 Room Air Laboratory Results Short CBC 10/12/23 Range/Units 05:57 WBC 5.40 (4.8-10.8) K/ul Hgb 12.8 L (14.0-18.0) g/dl Hct 39.8 L (42.0-52.0) % Plt Count 118 L (130-400) K/uL BMP 10/12/23 05:57 Sodium 139 Potassium 4.0 Chloride 112 H Carbon Dioxide 25 BUN 30 H Creatinine 1.19 Glucose 84 Calcium 7.6 L Medications Administered Current Inpatient Medications Acetaminophen (Acetaminophen 325 Mg Tab) 650 mg PO Q4H PRN PRN Reason: Pain or Fever Stop: 11/09/23 17:15 Carbamazepine (Carbamazepine 200 Mg Tablet) 200 mg PO QID [facility] Stop: 11/09/23 20:59 Last Admin: 10/12/23 12:17 Dose: 200 mg Carbidopa/Levodopa (Carbidopa/Levodopa 25/100mg Tab) 3 tab PO QID [facility] Stop: 11/09/23 20:59 Last Admin: 10/12/23 12:18 Dose: 3 tab Entacapone (Entacapone 200 Mg Tab) 200 mg PO QID [facility] Stop: 11/09/23 20:59 Last Admin: 10/12/23 12:18 Dose: 200 mg Ferrous Sulfate (Ferrous Sulfate 325 Mg Tab) 325 mg PO Q2D JACQUES Stop: 11/10/23 08:59 Last Admin: 10/11/23 08:29 Dose: 325 mg Finasteride (Finasteride 5 Mg Tab) 5 mg PO QPM [facility] Stop: 11/09/23 20:59 Last Admin: 10/11/23 21:25 Dose: 5 mg Heparin Sodium (Porcine) (Heparin Sod 5,000 Unit/0.5 Ml Vial) 5,000 units SQ Q8 JACQUES Stop: 11/09/23 21:59 Last Admin: 10/12/23 05:27 Dose: 5,000 units Potassium Chloride/Sodium Chloride (Normal Saline W/20 Meq Kcl) 20 meq in 1,000 mls @ 100 mls/hr IV .Q10H [facility]; Protocol Stop: 10/12/23 20:29 Last Admin: 10/12/23 12:17 Dose: 100 mls/hr Leflunomide (Leflunomide 10 Mg Tab) 20 mg PO QAM [facility] Stop: 11/10/23 08:59 Last Admin: 10/12/23 08:03 Dose: 20 mg Levothyroxine Sodium (Levothyroxine Sodium 75 Mcg Tablet) 75 mcg PO DAILYBB [facility] Stop: 11/10/23 06:29 Last Admin: 10/12/23 05:27 Dose: 75 mcg Ondansetron HCl (Ondansetron Inj 2 Mg/Ml 2 Ml Vial) 4 mg IV Q6H PRN PRN Reason: Nausea Stop: 11/09/23 17:15 Polyethylene Glycol (Polyethylene (Miralax) 17 Gm Pack) 17 gm PO DAILY PRN PRN Reason: Constipation Stop: 11/09/23 17:15 Prednisone (Pred[facility] 5 Mg Tab) [facility] Stop: 11/10/23 08:59 Last Admin: 10/12/23 08:03 Dose: 5 mg Tamsulosin HCl (Tamsulosin Hcl 0.4 Mg Cap) 0.4 mg PO QPM [facility] Stop: 11/09/23 20:59 Last Admin: 10/11/23 21:25 Dose: 0.4 mg Zonisamide (Zonisamide 100 Mg Capsule) 100 mg PO [facility] Stop: 11/09/23 20:59 Last Admin: 10/11/23 21:25 Dose: 100 mg
--- NOTE | 2023-11-12 08:37 | Discharge Summary ---
Date of Service November 12, 2023 Very delayed documentation for discharge on 10/12/2023 Admission HPI Per Admitting Provider This is a 73yo M with a PMH of Parkinson's disease, Seizure disorder, hypothyroidism, rheumatoid arthritis, chronic diastolic heart failure, HALLIE, BPH, hypogonadism on testosterone every 2 weeks and other medical problems listed below who presents after unresponsive episode and low blood pressure at home. History obtained from and daughter at bedside as patient is lethargic. Was in normal state of health this morning, and showered, dressed and ate breakfast as usual. When home speech therapist arrived around 10:30am, he was notably lethargic and non responsive verbally. Denies gilma loss of consciousness but states he was slouched over. Was able to drink some Gatorade, seemed to be sleeping. Denies any bowel or bladder incontinence. No new recent medication changes. BP was checked and was low with SBP reportedly in 50s. Not on any blood pressure medications. Got up a lot overnight to use the restroom. feels that patient may have overexerted himself that morning. SBP here on arrival was 200 and most recent BP 133/87. Has only been receiving IV fluids. Admission Exam Per Admitting Provider Vitals signs as noted above General Appearance:Moderately built and nourished, no apparent distress, Elderly Head: normocephalic, Atraumatic Eyes: normal inspection, EOMI Neck: supple, Trachea midline Respiratory/Chest: Normal breath sounds, CTA, No accessory muscle use Cardiovascular: S1, S2, No murmur Abdomen/GI:Soft, Non tender, Bowel sounds present Extremities/Musculoskeletal:normal inspection, 2+ B/LE LE edema, +Venous stasis changes Neurologic/Psych:AAOX2, grossly no focal neurological deficits Skin: normal color, warm Principal Diagnosis Acute metabolic encephalopathy-resolved, transient hypotension likely secondary to dehydration, Parkinson disease, rheumatoid arthritis Discharge Exam Sitting on a chair without any acute distress Constitutional well developed, well nourished, + ill appearing and average body habitus Eyes PERRL, conjunctivae normal, anicteric sclerae ENMT external ear and nose normal, oropharynx normal Neck trachea midline, no thyromegaly Respiratory no respiratory distress Auscultation: + crackles; + lungs not clear to auscultation Cardiovascular Rate/Rhythm: regular rate and regular rhythm; not tachycardic Heart Sounds: normal S1 and normal S2; no murmur Extremities: no edema Gastrointestinal (Abdomen) Inspection/Auscultation: normal bowel sounds; abdomen not distended Percussion/Palpation: abdomen soft; abdomen nontender Neurologic normal touch/pain/proprioception and moves all extremities; no focal motor deficits Lymphatic no cervical or axillary lymphadenopathy Discharge Data Allergies Allergy/AdvReac Type Severity Reaction Status Date / Time No Known Allergies Allergy Verified 10/10/23 15:19 Ordered Studies 10/10/23 12:23 CT head/brain wo con Stat 10/10/23 12:28 CT angio chest PE protocol Stat 10/10/23 16:40 US venous doppler LE BI Routine Hospital Course (1) Acute metabolic encephalopathy: (2) Unresponsive episode: (3) Transient hypotension: This is a 73yo M with a PMH of Parkinson's disease, Seizure disorder, hypothyroidism, rheumatoid arthritis, chronic diastolic heart failure, HALLIE, BPH, hypogonadism on testosterone every 2 weeks and other medical problems listed below who presents after unresponsive episode and low blood pressure at home. Likely secondary to orthostatic hypotension Possible dehydration BP normalized since arrival, most recently 133/87, continue gentle IV fluids Ddx autonomic dysfunction with history of parkinsonism, doubt any seizures CT head without acute intracranial findings Afebrile, no leukocytosis UA unremarkable TSH WNL Not on any antihypertensives EEG, 2D echo, orthostatics, blood culture pending although no s/sx of infection at this time Continue remainder of 1 L fluids resuscitation Clinically much better this afternoon Remains orthostatic Will give more IV fluid and was advised to drink more fluid No more episodes of hypotension and/or loss of consciousness Clinically much better today following IV fluid administration He has been eating and drinking reasonably Does not have any more orthostatic change and/or symptoms Strongly advised to drink more fluid at home Awaiting physical therapy evaluation if not possible ambulation with the nurse prior to discharge Will be discharged home this afternoon (4) Chronic diastolic (congestive) heart failure: noting some BLE edema, discoloration so obtaining BLE venous dopplers Will limit fluid resuscitation to 1L total, monitor volume status closely History of diastolic heart failure will be cautious with intravenous fluid No signs and or symptoms of fluid overload (5) Chronic venous insufficiency: Continue compression stockings (6) Rheumatoid arthritis: Continue 5mg prednisone daily, Arava Follows with [facility] (7) Parkinson's disease dementia: Follows with [facility] neuro. Continue Sinemet, Entacapone PT/OT evaluations Ambulates with a walker/wheelchair at baseline (8) BPH loc w urin obs/LUTS: Continue finasteride, tamsulosin Bladder scan PRN (9) Abnormal CT scan, chest: There is a 31 mm hypodensity in the liver (hypodense liver lesions thought to be hemangiomas noted on CT from 2019). Per radiology, a nonemergent liver protocol CT or MRI can be performed - will defer to PCP Hyperdense right renal lesion also noted - is favored to represent hemorrhagic/proteinaceous cyst (hyperdense right renal mass 1.8 x 1.4 cm noted on 2020 CT abd/pelvis) - PCP for follow up (10) Abnormal CT scan, head: Per head CT, 1.9 cm lytic right frontal bone lesion with associated periostitis and scalp soft tissue thickening. This is pathologically indeterminate. If palpable, clinical follow-up to ensure stability is recommended. Otherwise, a follow-up head CT in 3 months to ensure stability is recommended - discussed with patient and . Recommend PCP follow up DVT Ppx: SQ heparin Code status: FULL PCP: [facility] Dispo: Obs tele Discussed with the daughter about the abnormal findings on the scans Will instruct the patient to have a repeat test in about 3 months to monitor dose elations Total Time Total Time Spent Total Time Spent (In Minutes): 35 minutes Discharge Plan Discharge Items Patient Disposition: Home - Self-Care Reason For Visit: AMS, TRANSIENT HYPOTENSION Discharge Diagnosis: Acute metabolic encephalopathy-resolved, transient hypotension likely secondary to dehydration, Parkinson disease, rheumatoid arthritis Condition on Discharge: Good Activity: As commented below Activity Comment: Continue home PT and OT Non-emergency contact: Primary Care Provider Call non-emergency contact if: you have any medication questions and your symptoms worsen Follow-up/Referrals: Emerald Dutton MD [Primary Care Provider] - (Your doctor's office will give you a call with an appointment within 7 days) Diet: Regular Diet Texture: Easy to Chew Addtl Attending Provider Instructions: Please take precautions to avoid falls Take your medications as advised Try to drink more fluid Keep appointments with your healthcare providers You will need to have follow-up scans for hypodense liver lesion and lytic right frontal bone lesion Pending Studies at Discharge: No Stand-Alone Forms: My [employer], Smoking Cessation Medications and DC Order Prescriptions: Continued finasteride [Proscar] 5 mg tablet 5 mg PO QPM Rx Instructions: take 1/2 hour before supper leflunomide [Arava] 20 mg tablet 20 mg PO QAM carbidopa-levodopa 25-100 mg tablet 3 tab PO QID Rx Instructions: TAKES AT 0630, 0900, 1200, 1700 levothyroxine [Synthroid] 75 mcg tablet 75 mcg PO DAILYBB zonisamide [Zonegran] 100 mg capsule 100 mg PO HS tamsulosin 0.4 mg capsule 0.4 mg PO QPM Hold Instructions: Until further recommendations from urology Rx Instructions: take 1/2 hour before supper carbamazepine [Tegretol] 200 mg tablet 200 mg PO QID Rx Instructions: 0630, 1200, 1700, 2200 melatonin 5 mg tablet 10 mg PO HS ferrous sulfate [FeroSul] 325 mg (65 mg iron) tablet 325 mg PO Q OTHER DAY entacapone 200 mg tablet 200 mg PO QID Rx Instructions: 0630, 0800, 1200, 1700 No Action acetaminophen [Tylenol] 325 mg Tablet 500 mg PO QID PRN (Reason: Breakthrough Pain, Mild) prednisone 10 mg Tablet 10 mg PO DAILY Qty: 30 0RF ergocalciferol (vitamin D2) 1,250 mcg (50,000 unit) Capsule 1,250 mcg PO Q7D Qty: 3 0RF Rx Instructions: Every Sunday Discharge Orders: Discharge Order (Routine); Ordered 10/12/23 Ordered By: Solomon Pablo Admission Data Admit Date/Time: 10/10/23 16:17 Attending Provider: Solomon Pablo Admit Provider: Louis Estrada Primary Care Provider: Emerald Dutton Other Providers: Louis Estrada Other Interventions: Discharge Summary Assessment (RN) Last Done: 10/12/23 14:52
== END 2023-10-12 16:57 | disposition home or self-care (01) ==
LOC: ED 11:59 → EDINP 11:59 → SUATTDRO 16:17 → 4W 22:55

== ENCOUNTER 2023-10-29 16:26 | Inpatient (IN) ==
--- NOTE | 2023-10-29 16:34 | ED Triage Note ---
Date of Service October 29, 2023 Provider in Triage Author: Steven Washington History of Present Illness This patient was briefly evaluated while in triage. An abbreviated physical exam was performed. This patient is a 73-year-old Male who presents to the ED with complaint of trouble staying awake and not feeling well. The patient denies any pain anywhere, including chest pain, back pain or abdominal pain. The reports that his blood pressure was 61/44 and 62/49. The reports that he was also here about 2-1/2 weeks ago with a low blood pressure. Physical Exam CONSTITUTIONAL: Healthy and well nourished. Patient has a low spoken voice. HEENT: No scleral icterus or conjunctival injection. RESPIRATORY: Clear to auscultation bilaterally with no wheezing, crackles, rhonchi or stridor. CARDIOVASCULAR: Bradycardic rhythm with no murmurs, rubs or gallops. GASTROINTESTINAL: Bowel sounds present in all quadrants. INTEGUMENTARY: No rash or other significant dermatologic conditions noted. HEMATOLOGIC: No ecchymosis or petechiae. Initial orders for labs and / or imaging were placed and patient was placed in the waiting area until a bed is available. Please see further documentation for the full ED course.
[2023-10-29] MEDS: SODIUM CHLORIDE 0.9% 1,000 ML IV SCH (16:45)
[2023-10-29 17:28] LABS: Basophils # (auto) 0.03 K/uL (0.00-0.20); Basophils % (auto) 0.6 %; Eosinophils # (auto) 0.02 K/uL (0.00-0.50); Eosinophils % (auto) 0.4 %; Hematocrit (blood only) 41.8 % (42.0-52.0); Hemoglobin 13.8 g/dl (14.0-18.0); Immature Granulocytes # (auto) 0.04 K/uL (0.01-0.20); Immature Granulocytes % (auto) 0.8 %; Lymphocytes # (auto) 0.85 K/uL (1.20-3.40); Lymphocytes % (auto) 16.5 %; Mean Corpuscular Hemoglobin 31.4 pg (25.0-34.0); Mean Platelet Volume 9.9 fL (9.4-12.4); Monocytes # (auto) 0.56 K/uL (0.11-0.59); Monocytes % (auto) 10.9 %; Neutrophils # (auto) 3.64 K/uL (1.40-6.50); Neutrophils % (auto) 70.8 %; Platelet Count 137 K/uL (130-400); RDW Coefficient of Variation 14.8 % (11.5-14.5); RDW Standard Deviation 51.8 fL (36.4-46.3); White Blood Count 5.14 K/ul (4.8-10.8)
[2023-10-29 17:29] LABS: Albumin Level 3.4 gm/dl (3.4-5.0); BUN Creatinine Ratio 30.9 (10-20); Bilirubin Direct 0.1 mg/dl (0-0.2); Bilirubin,Total 0.5 mg/dl (0.2-1.0); Calcium 8.5 mg/dl (8.6-10.3); Creatinine Clr Calc Pharmacy 42.1 ml/min; Est GFR (African American) 57.5 ml/min; Est GFR (Non-African American) 49.6 ml/min; Magnesium 2.3 mg/dl (1.7-2.4); Potassium 3.7 mmol/L (3.5-5.1); Total Protein 6.2 gm/dl (6.0-8.3)
[2023-10-29 17:35] LABS: Troponin I High Sensitivity 6.8 pg/ml (0-20)
[2023-10-29 17:41] LABS: Partial Thromboplastin Time 27 Seconds (21-31); Prothrombin Time 10.5 Seconds (9.0-12.0)
--- NOTE | 2023-10-29 17:41 | Electrocardiogram Report ---
Test Reason : Blood Pressure : / mmHG Vent. Rate : 048 BPM Atrial Rate : 048 BPM P-R Int : 172 ms QRS Dur : 100 ms QT Int : 448 ms P-R-T Axes : 066 045 055 degrees QTc Int : 400 ms Sinus bradycardia Possible Left atrial enlargement Nonspecific ST abnormality Abnormal ECG When compared with ECG of 11-OCT-2023 04:52, Vent. rate has decreased BY 24 BPM Confirmed by Matt Albarran ([id number]) on 10/29/2023 5:40:54 PM Referred By: Confirmed By:Alberto Albarran
--- NOTE | 2023-10-29 17:56 | CT Scan Report ---
CT head/brain wo con CLINICAL HISTORY: 73 years-old Male with ams. Acutely altered mental status TECHNIQUE: Multiple axial CT images of the head were obtained without contrast. A dose lowering tech nique was utilized adhering to the principles of ALARA. CT DOSE: 1406.31 mGy.cm COMPARISON: 10/10/2023 FINDINGS: No acute intracranial hemorrhage, midline shift, intracranial mass, hydrocephalus, territorial ischem ia or abnormal extra-axial collection. Involutional changes. The study is motion degraded. The calvarium is intact. Stable lucent 1.9 cm lesion within the right frontal bone, image 28 series 5 .Mild adjacent soft tissue prominence. Mild polypoid mucosal thickening of the right maxillary sinus. IMPRESSION: 1. No acute intracranial abnormality. 2. Stable 1.9 cm lucent lesion of the right frontal bone. ACT 112: Negative or not required by law. The above report was generated using voice recognition software. It may contain grammatical, syntax o r spelling errors. Electronically signed by: Juancho Alcantara M.D. 10/29/2023 5:54 PM
[2023-10-29 18:15] LABS: Adenovirus PCR Not Detected (NotDetected); Bordetella parapertussis PCR Not Detected (NotDetected); Bordetella pertussis PCR Not Detected (NotDetected); Chlamydia pneumoniae PCR Not Detected (NotDetected); Coronavirus 229E PCR Not Detected (NotDetected); Coronavirus CoV-2 (COVID19)PCR Not Detected (NotDetected); Coronavirus HKU1 PCR Not Detected (NotDetected); Coronavirus NL63 PCR Not Detected (NotDetected); Coronavirus OC43PCR Not Detected (NotDetected); Human Metapneumovirus PCR Not Detected (NotDetected); Influenza A PCR Not Detected (NotDetected); Influenza B PCR Not Detected (NotDetected); Mycoplasma pneumoniae PCR Not Detected (NotDetected); Parainfluenza Virus 1 PCR Not Detected (NotDetected); Parainfluenza Virus 2 PCR Not Detected (NotDetected); Parainfluenza Virus 3 PCR Not Detected (NotDetected); Parainfluenza Virus 4 PCR Not Detected (NotDetected); Respiratory Syncytial VirusPCR Not Detected (NotDetected); Rhinovirus/Enterovirus PCR Not Detected (NotDetected)
--- NOTE | 2023-10-29 18:34 | XRay Report ---
XR chest 1V portable HISTORY: 73 years-old Male Sepsis acute sepsis COMPARISON: 10/10/2023 TECHNIQUE: AP view of the chest FINDINGS: Cardiac silhouette is enlarged. Large hiatal hernia. No pneumothorax or overt pulmonary edema. Small left pleural effusion with mild left basilar opacities. Bones appear grossly intact. The patient is m ildly rotated. IMPRESSION: 1. Cardiomegaly without pulmonary edema. 2. Large hiatal hernia. 3. Small pleural effusion with mild left basilar consolidation. ACT 112: Negative or not required by law. The above report was generated using voice recognition software. It may contain grammatical, syntax o r spelling errors. Electronically signed by: Juancho Alcantara M.D. 10/29/2023 6:33 PM
[2023-10-29 19:01] LABS: Appearance Urine Clear (Clear); Bacteria Urine Automated None Seen (None Seen); Bilirubin Urine Negative (Negative); Blood Urine Negative (Negative); Color Urine Dark Yellow; Epithelial Cell Urine Auto 0-2 /hpf (0-2); Glucose Urine UA Negative (Negative); Ketones Urine Trace (Negative); Leukocyte Esterase Urine Negative (Negative); Nitrite Urine Negative (Negative); Protein Urine 1+ (Negative); Specific Gravity Urine 1.021 (1.000-1.030); Urobilinogen Urine Negative (Negative)
[2023-10-29 19:22] LABS: Base Excess VBG -1.1 mEq/L; HCO3 VBG 24 mmol/L; Oxygen Saturation VBG 98.3 %; PCO2 VBG 42 mmHg (38-50); PO2 VBG 88 mmHg; pH VBG 7.37 (7.36-7.41)
[2023-10-29] MEDS: CEFEPIME 2,000 MG/20 ML VIAL IV STA (19:38)
[2023-10-29 19:59] LABS: Thyroid Stimulating Hormone 2.94 uIu/ml (0.300-4.500)
[2023-10-29] MEDS: carBAMazepine 200 MG TABLET PO STA (21:07)
--- NOTE | 2023-10-29 21:07 | History & Physical Report ---
Date of Service October 29, 2023 Assessment & Plan (1) Hypotension: Plan: 73-year-old male with past medical history significant for hypothyroidism, male hypogonadism, chronic diastolic CHF, history of liver hemangioma, nonrheumatic mitral valve regurgitation, iron deficiency, constipation, BPH, diverticulum of bladder, hip arthritis, Parkinson disease, simple partial seizures, rheumatoid arthritis of multiple sites with negative rheumatoid factor, history of lumbar laminectomy, periodic limb movements of sleep, long-term use of steroids for rheumatoid arthritis ambulates with walker comes because of hypotension and hypothermia. As per patient ate his breakfast some small amount of lunch and took a shower and slept and when the occupational therapist came he told that he was not feeling well and when checked his blood pressure it was low, systolic in 60s and was brought in here.In [place] initially blood pressure low but improved with the fluids.He was also found to hypothermic currently on Janine hugger. and family in the room. Patient is speaking in low volume but is alert and oriented x 3. Denies any headache. No blurred vision or double vision. Sometimes gets runny nose. No sore throat. No cough. No headaches. No chest pain or shortness of breath. No nausea. No abdominal pain. Last few days having some urinary incontinence. states he has appointment with urology. Normal bowel movements. Patient is also having bradycardia. Patient was in the hospital in the first week of September with acute metabolic encephalopathy and unresponsive episode and hypotension at that time thought to be dehydration and orthostatic hypotension and is blood pressure improved with gentle fluids. Echo okay at that time. CTA chest no PE at that time. Hypotension similar episode in the recent past possible dehydration possible orthostatic hypotension currently improved with the fluids rule out infectious process UA is okay, procalcitonin level okay continue gentle fluids empirically placed on Zosyn and Doxy follow cultures question of possible side effect from Tegretol follow Tegretol levels recent echo was okay monitor on telemetry patient on prednisone and random cortisol was 8 for now we will place on the empiric stress dose IV hydrocortisone consult cardiology in a.m. for further recommendations hypothermia TSH is okay continue Ajnine hugger antibiotics as above close monitor bradycardia will check for Lyme screen avoid AV lalito blocking agents consult cardiology in a.m. chronic diastolic CHF getting gentle fluids monitor for volume overload. history of Parkinson's on carbidopa levodopa, entacapone history of seizures on zonisamide and Tegretol follow levels can consider changing Tegretol rheumatoid arthritis on steroids will hold leflunomide for now hypothyroidism on Synthyroid tsh ok BPH on Flomax and Proscar having some urinary incontinence monitor for retention . Male hypogonadism gets testosterone shots every 2 weeks liver lesions and frontal lobe bone lesions needs follow-up DVT prophylaxis heparin subcu disposition telemetry full code History of Present Illness Chief Complaint: Hypertension and hypothermia Primary Care Provider: Emerald Dutton MD 73-year-old male with past medical history significant for hypothyroidism, male hypogonadism, chronic diastolic CHF, history of liver hemangioma, nonrheumatic mitral valve regurgitation, iron deficiency, constipation, BPH, diverticulum of bladder, hip arthritis, Parkinson disease, simple partial seizures, rheumatoid arthritis of multiple sites with negative rheumatoid factor, history of lumbar laminectomy, periodic limb movements of sleep, long- term use of steroids for rheumatoid arthritis ambulates with walker comes because of hypotension and hypothermia. As per patient ate his breakfast some small amount of lunch and took a shower and slept and when the occupational therapist came he told that he was not feeling well and when checked his blood pressure it was low, systolic in 60s and was brought in here.In Er initially blood pressure low but improved with the fluids.He was also found to hypothermic currently on Janine hugger. and family in the room. Patient is speaking in low volume but is alert and oriented x 3. Denies any headache. No blurred vision or double vision. Sometimes gets runny nose. No sore throat. No cough. No headaches. No chest pain or shortness of breath. No nausea. No abdominal pain. Last few days having some urinary incontinence. states he has appointment with urology. Normal bowel movements. Patient is also having bradycardia. Patient was in the hospital in the first week of September with acute metabolic encephalopathy and unresponsive episode and hypotension at that time thought to be dehydration and orthostatic hypotension and is blood pressure improved with gentle fluids. Echo okay at that time. CTA chest no PE at that time. Past medical history. As mentioned above Past surgical history. Left total knee arthroplasty. Right finger hand tendon repair. Lumbar laminectomy. Repair of inguinal hernia. Repair of nasal septum. Social history. No smoking. No alcohol use. No drug use. Family history. Father had leukemia. Mother had lung cancer. Brother had Viral encephalitis. Allergies Allergy/AdvReac Type Severity Reaction Status Date / Time No Known Allergies Allergy Verified 10/10/23 15:19 Home Medications Medication Instructions Recorded Confirmed Type finasteride 5 mg tablet (Proscar) 5 mg PO QPM 12/03/20 10/29/23 History leflunomide 20 mg tablet (Arava) 20 mg PO QAM 12/03/20 10/29/23 History prednisone 5 mg tablet 5 mg PO QAM 12/03/20 10/29/23 History carbamazepine 200 mg tablet 200 mg PO QID 08/03/21 10/29/23 History (Tegretol) levothyroxine 75 mcg tablet 75 mcg PO DAILYBB 08/03/21 10/29/23 History (Synthroid) tamsulosin 0.4 mg capsule 0.4 mg PO QPM 08/03/21 10/29/23 History zonisamide 100 mg capsule 100 mg PO HS 08/03/21 10/29/23 History (Zonegran) carbidopa 25 mg-levodopa 100 mg 3 tab PO QID 02/07/22 10/29/23 History tablet ferrous sulfate 325 mg (65 mg 325 mg PO Q OTHER DAY 08/21/23 10/29/23 History iron) tablet (FeroSul) melatonin 5 mg tablet 10 mg PO HS 08/21/23 10/29/23 History entacapone 200 mg tablet 200 mg PO QID 10/10/23 10/29/23 History acetaminophen 325 mg tablet 500 mg PO QID PRN Breakthrough 10/29/23 10/29/23 History (Tylenol) Pain, Mild Past Med/Surg History Problem List (Updated 10/29/23 @ 21:31 by Moody Parker MD) Hypothermia (Acute) Abnormal CT scan, chest Abnormal CT scan, head HTN (hypertension) Rheumatoid arthritis Parkinson's disease dementia BPH loc w urin obs/LUTS Transient hypotension Unresponsive episode Hypotension (Acute) Unresponsive (Acute) Chronic diastolic (congestive) heart failure Leg pain Chronic venous insufficiency Venous ulcer of both lower extremities with varicose veins Medical History Nonrheumatic mitral valve regurgitation Spinal stenosis Surgical History Hx of laminectomy Family History Other Leukemia Lung cancer Social History Smoking Status: Never smoker Second Hand Exposure: No; Do You Dip or Chew Tobacco: No; Hx Alcohol Use: No Hx Substance Use: No Preferred Language: Thai Communication Ability: Effective Hot Patcher Required: No Beliefs That Will Affect Care: None Current Living Situation: Spouse Other Information That Helps Us Care for You: No Feels Safe at Home: Yes Safety Concerns: Feels Safe At This Time Assistive Devices: Glasses and Walker Review of Systems Review of Systems: All systems reviewed & are unremarkable except as noted in HPI & below Physical Exam Physical Exam: General- adult Head- atraumatic Eyes- PERRL. ENT- oropharynx dry. Neck- supple, no JVD. Lungs- clear to auscultation no wheezing or crackles Heart- regular rhythm bradycardia ; no murmur, no gallop. Abdomen- normal bowel sounds, soft, nontender, no distension Extremities- pretibial edema present , no erythema seen. Neuro- alert, oriented x 3; PERRL, Speaks in low volumes no facial palsy; no dysarthria; moves extremities. Results & Data Results & Data Vital Signs (Past 12 Hours) Vital Signs Temp Pulse Pulse Resp BP BP Pulse Ox 10/29/23 19:28 44 L 14 95 10/29/23 19:17 34.7 C L 45 L 14 93 10/29/23 19:15 130/79 10/29/23 19:11 34.7 C L 43 L 14 94 10/29/23 19:02 34.6 C L 45 L 14 89 L 10/29/23 19:00 134/79 10/29/23 18:47 34.5 C L 45 L 14 90 10/29/23 18:44 34.5 C L 46 L 17 90 10/29/23 18:20 34.2 C L 44 L 13 93 10/29/23 18:02 34.2 C L 47 L 24 93 10/29/23 18:00 138/75 10/29/23 17:44 48 L 16 92 10/29/23 17:31 47 L 10/29/23 17:29 47 L 15 94 06/10/24 17:21 122/71 10/29/23 16:49 34.7 C L 50 L 12 106/70 95 10/29/23 16:26 35.3 C L 55 L 18 85/54 L 95 O2 Del Method O2 Flow Rate 10/29/23 19:28 Nasal Cannula 2 10/29/23 19:17 10/29/23 19:15 10/29/23 19:11 10/29/23 19:02 10/29/23 19:00 10/29/23 18:47 10/29/23 18:44 10/29/23 18:20 10/29/23 18:02 10/29/23 18:00 10/29/23 17:44 10/29/23 17:31 10/29/23 17:29 10/29/23 17:21 10/29/23 16:49 Room Air 10/29/23 16:26 Diagnostic Findings Laboratory Results WBC 5.14 K/ul (4.8-10.8) 10/29/23 16:41 RBC 4.40 M/uL (4.70-6.10) L 10/29/23 16:41 Hgb 13.8 g/dl (14.0-18.0) L 10/29/23 16:41 Hct 41.8 % (42.0-52.0) L 10/29/23 16:41 MCV 95.0 fL (80.0-100.0) 10/29/23 16:41 MCH 31.4 pg (25.0-34.0) 10/29/23 16:41 MCHC 33.0 g/dL (32.0-36.0) 10/29/23 16:41 RDW Std Deviation 51.8 fL (36.4-46.3) H 10/29/23 16:41 RDW Coeff of Armen 14.8 % (11.5-14.5) H 10/29/23 16:41 Plt Count 137 K/uL (130-400) 10/29/23 16:41 MPV 9.9 fL (9.4-12.4) 10/29/23 16:41 Immature Gran % (Auto) 0.8 % 10/29/23 16:41 Neut % (Auto) 70.8 % 10/29/23 16:41 Lymph % (Auto) 16.5 % 10/29/23 16:41 [place] % (Auto) 10.9 % 10/29/23 16:41 Eos % (Auto) 0.4 % 10/29/23 16:41 Baso % (Auto) 0.6 % 10/29/23 16:41 Neut # (Auto) 3.64 K/uL (1.40-6.50) 10/29/23 16:41 Lymph # (Auto) 0.85 K/uL (1.20-3.40) L 10/29/23 16:41 [place] # (Auto) 0.56 K/uL (0.11-0.59) 10/29/23 16:41 Eos # (Auto) 0.02 K/uL (0.00-0.50) 10/29/23 16:41 Baso # (Auto) 0.03 K/uL (0.00-0.20) 10/29/23 16:41 Immature Gran # (Auto) 0.04 K/uL (0.01-0.20) 10/29/23 16:41 PT 10.5 Seconds (9.0-12.0) 10/29/23 16:41 INR 1.0 (0.9-1.1) 10/29/23 16:41 APTT 27 Seconds (21-31) 10/29/23 16:41 PTT Ratio 1.0 10/29/23 16:41 VBG pH 7.37 (7.36-7.41) 10/29/23 19:13 VBG pCO2 42 mmHg (38-50) 10/29/23 19:13 VBG pO2 88 mmHg 10/29/23 19:13 VBG HCO3 24 mmol/L 10/29/23 19:13 VBG O2 Saturation 98.3 % 10/29/23 19:13 VBG Base Excess -1.1 mEq/L 10/29/23 19:13 Sodium 139 mmol/L (136-145) 10/29/23 16:41 Potassium 3.7 mmol/L (3.5-5.1) 10/29/23 16:41 Chloride 107 mmol/L (98-107) 10/29/23 16:41 Carbon Dioxide 27 mmol/L (21-32) 10/29/23 16:41 Anion Gap 5 (3-11) 10/29/23 16:41 BUN 43 mg/dl (6-23) H 10/29/23 16:41 Creatinine 1.39 mg/dl (0.6-1.4) 10/29/23 16:41 Est Cr Clr Drug Dosing 42.1 ml/min 10/29/23 16:41 Est GFR ( Amer) 57.5 ml/min 10/29/23 16:41 Est GFR (Non-Af Amer) 49.6 ml/min 10/29/23 16:41 BUN/Creatinine Ratio 30.9 (10-20) H 10/29/23 16:41 Glucose 159 mg/dl (70-99(Fasting)) H 10/29/23 16:41 Lactate 2.0 mmol/L (0.4-2.0) 10/29/23 16:58 Calcium 8.5 mg/dl (8.6-10.3) L 10/29/23 16:41 Magnesium 2.3 mg/dl (1.7-2.4) 10/29/23 16:41 Total Bilirubin 0.5 mg/dl (0.2-1.0) 10/29/23 16:41 Direct Bilirubin 0.1 mg/dl (0-0.2) 10/29/23 16:41 AST 16 U/L (13-39) 10/29/23 16:41 ALT 3 U/L (7-52) L 10/29/23 16:41 Alkaline Phosphatase 65 U/L (34-104) 10/29/23 16:41 Ammonia 34.0 umol/L (18-72) 10/29/23 19:13 Troponin I High Sens 6.8 pg/ml (0-20) 10/29/23 16:41 Total Protein 6.2 gm/dl (6.0-8.3) 10/29/23 16:41 Albumin 3.4 gm/dl (3.4-5.0) 10/29/23 16:41 Procalcitonin 0.02 ng/ml (0-0.5) 10/29/23 16:41 TSH 2.940 uIu/ml (0.300-4.500) 10/29/23 16:41 Random Cortisol 8.27 mcg/dl 10/29/23 16:41 Urine Color Dark Yellow 10/29/23 18:33 Urine Appearance Clear (Clear) 10/29/23 18:33 Urine pH 7.0 (4.5-7.5) 10/29/23 18:33 Ur Specific [place] 1.021 (1.000-1.030) 10/29/23 18:33 Urine Protein 1+ (Negative) H 10/29/23 18:33 Urine Glucose (UA) Negative (Negative) 10/29/23 18: Urine Ketones Trace (Negative) H 10/29/23 18: Urine Blood Negative (Negative) 10/29/23 18: Urine Nitrite Negative (Negative) 10/29/23 18: Urine Bilirubin Negative (Negative) 10/29/23 18: Urine Urobilinogen Negative (Negative) 10/29/23 18: Ur Leukocyte Esterase Negative (Negative) 10/29/23 18:33 Urine WBC (Auto) 6-10 /hpf (0-5) H 10/29/23 18:33 Urine RBC (Auto) 6-10 /hpf (0-2) H 10/29/23 18:33 U Hyaline Cast (Auto) 3-5 /lpf (0-2) H 10/29/23 18:33 U Epithel Cells (Auto) 0-2 /hpf (0-2) 10/29/23 18:33 Urine Bacteria (Auto) None Seen (None Seen) 10/29/23 18:33 Adenovirus (PCR) Not Detected (NotDetected) 10/29/23 16:57 B. pertussis DNA (PCR) Not Detected (NotDetected) 10/29/23 16:57 B.parapertussis DNA PCR Not Detected (NotDetected) 10/29/23 16:57 C. pneumoniae DNA (PCR) Not Detected (NotDetected) 10/29/23 16:57 Coronavirus OC43 (PCR) Not Detected (NotDetected) 10/29/23 16:57 Coronavirus HKU1 (PCR) Not Detected (NotDetected) 10/29/23 16:57 Coronavirus 229E (PCR) Not Detected (NotDetected) 10/29/23 16:57 SARS-CoV-2 (PCR) Not Detected (NotDetected) 10/29/23 16:57 Coronavirus NL63 (PCR) Not Detected (NotDetected) 10/29/23 16:57 Human Metapneumovir PCR Not Detected (NotDetected) 10/29/23 16:57 Influenza Type A (PCR) Not Detected (NotDetected) 10/29/23 16:57 Influenza Type B (PCR) Not Detected (NotDetected) 10/29/23 16:57 M. pneumoniae (PCR) Not Detected (NotDetected) 10/29/23 16:57 Parainfluenza 1 (PCR) Not Detected (NotDetected) 10/29/23 16:57 Parainfluenza 2 (PCR) Not Detected (NotDetected) 10/29/23 16:57 Parainfluenza 3 (PCR) Not Detected (NotDetected) 10/29/23 16:57 Parainfluenza 4 (PCR) Not Detected (NotDetected) 10/29/23 16:57 RSV (PCR) Not Detected (NotDetected) 10/29/23 16:57 Entero/Rhino (PCR) Not Detected (NotDetected) 10/29/23 16:57 Impressions Chest X-Ray 10/29/23 16:42 XR chest 1V portable HISTORY: 73 years-old Male Sepsis acute sepsis COMPARISON: 10/10/2023 TECHNIQUE: AP view of the chest FINDINGS: Cardiac silhouette is enlarged. Large hiatal hernia. No pneumothorax or overt pulmonary edema. Small left pleural effusion with mild left basilar opacities. Bones appear grossly intact. The patient is mildly rotated. IMPRESSION: 1. Cardiomegaly without pulmonary edema. 2. Large hiatal hernia. 3. Small pleural effusion with mild left basilar consolidation. ACT 112: Negative or not required by law. The above report was generated using voice recognition software. It may contain grammatical, syntax or spelling errors. Electronically signed by: Juancho Alcantara M.D. 10/29/2023 6:[address] 10/29/23 16:47 CT head/brain wo con CLINICAL HISTORY: 73 years-old Male with ams. Acutely altered mental status TECHNIQUE: Multiple axial CT images of the head were obtained without contrast. A dose lowering technique was utilized adhering to the principles of ALARA. CT DOSE: 1406.31 mGy.cm COMPARISON: 10/10/2023 FINDINGS: No acute intracranial hemorrhage, midline shift, intracranial mass, hydrocephalus, territorial ischemia or abnormal extra-axial collection. Involutional changes. The study is motion degraded. The calvarium is intact. Stable lucent 1.9 cm lesion within the right frontal bone, image 28 series 5.Mild adjacent soft tissue prominence. Mild polypoid mucosal thickening of the right maxillary sinus. IMPRESSION: 1. No acute intracranial abnormality. 2. Stable 1.9 cm lucent lesion of the right frontal bone. ACT 112: Negative or not required by law. The above report was generated using voice recognition software. It may contain grammatical, syntax or spelling errors. Electronically signed by: Juancho Alcantara M.D. 10/29/2023 5:54 PM ECG Additional Comments: ECG. Sinus bradycardia rate of 48. Possible left atrial lodgment. Nonspecific ST abnormalities. QTc 400. Code Status & VTE Plan VTE Prophylaxis Plan VTE Prophylaxis will be ordered: Yes
[2023-10-29] MEDS: TAMSULOSIN HCL 0.4 MG CAP PO ONE (21:08)
[2023-10-29] MEDS: CARBIDOPA/LEVODOPA 25/100MG TAB PO STA (21:08)
[2023-10-29] MEDS ORDERED: NON-FORMULARY PATIENT'S OWN MED SCH (21:30)
--- NOTE | 2023-10-29 21:32 | Emergency Department Note ---
History of Present Illness General Chief complaint: Hypotension Stated complaint: Low blood pressure Time Seen by Provider: 10/29/23 16:41 Source: patient and family () History of Present Illness Provider complaint: Weakness low blood pressure Onset (ago): day(s) 1 73-year-old male presents emergency department with for weakness and low blood pressure. reports that the patient was extremely weak today and had difficulty staying awake. reported that PT OT arrived to the house today and they told him his blood pressure was low and recommended that he come to the emergency department. No recent falls or traumas. Mild cough. No vomiting. Home Medications Medication Instructions Recorded Confirmed Type finasteride 5 mg tablet (Proscar) 5 mg PO QPM 12/03/20 10/29/23 History leflunomide 20 mg tablet (Arava) 20 mg PO QAM 12/03/20 10/29/23 History prednisone 5 mg tablet 5 mg PO QAM 12/03/20 10/29/23 History carbamazepine 200 mg tablet 200 mg PO QID 08/03/21 10/29/23 History (Tegretol) levothyroxine 75 mcg tablet 75 mcg PO DAILYBB 08/03/21 10/29/23 History (Synthroid) tamsulosin 0.4 mg capsule 0.4 mg PO QPM 08/03/21 10/29/23 History zonisamide 100 mg capsule 100 mg PO HS 08/03/21 10/29/23 History (Zonegran) carbidopa 25 mg-levodopa 100 mg 3 tab PO QID 02/07/22 10/29/23 History tablet ferrous sulfate 325 mg (65 mg 325 mg PO Q OTHER DAY 08/21/23 10/29/23 History iron) tablet (FeroSul) melatonin 5 mg tablet 10 mg PO HS 08/21/23 10/29/23 History entacapone 200 mg tablet 200 mg PO QID 10/10/23 10/29/23 History acetaminophen 325 mg tablet 500 mg PO QID PRN Breakthrough 10/29/23 10/29/23 History (Tylenol) Pain, Mild Allergies Allergy/AdvReac Type Severity Reaction Status Date / Time No Known Allergies Allergy Verified 10/10/23 15:19 Past Med/Surg History Problem List (Updated 10/29/23 @ 21:31 by Moody Parker MD) Hypothermia (Acute) Abnormal CT scan, chest Abnormal CT scan, head HTN (hypertension) Rheumatoid arthritis Parkinson's disease dementia BPH loc w urin obs/LUTS Transient hypotension Unresponsive episode Hypotension (Acute) Unresponsive (Acute) Chronic diastolic (congestive) heart failure Leg pain Chronic venous insufficiency Venous ulcer of both lower extremities with varicose veins Medical History Nonrheumatic mitral valve regurgitation Spinal stenosis Surgical History Hx of laminectomy Family History Other Leukemia Lung cancer Social History Smoking Status: Never smoker Second Hand Exposure: No; Do You Dip or Chew Tobacco: No; Hx Alcohol Use: No Hx Substance Use: No Preferred Language: French Communication Ability: Effective Training Instructor Required: No Beliefs That Will Affect Care: None Current Living Situation: Spouse Feels Safe at Home: Yes Assistive Devices: Walker Physical Exam Vital Signs Vital Signs - 24 hr 10/29/23 16:26 10/29/23 16:49 10/29/23 17:21 Temperature 35.3 C L 34.7 C L Temperature Source Temporal Artery Scan Rectal Pulse Rate 55 L Pulse Rate [Apical] 50 L Pulse Rate from SpO2 Sensor Respiratory Rate 18 12 Respiratory Effort / Characteristics Non-Labored Spontaneous Respiratory Depth Normal Respiratory Pattern Regular Blood Pressure 85/54 L 122/71 Blood Pressure [Left Arm] 106/70 Blood Pressure Mean 64 81 Blood Pressure Mean [Left Arm] 82 Blood Pressure Position [Left Arm] Semi-fowlers Pulse Oximetry 95 95 Oxygen Delivery Method Room Air Oxygen Flow Rate Sepsis Recent Fever Within 48 Hours No Sepsis New/Unexplained Change in Mental Status No Sepsis Action Taken by Nursing Physician Notified 10/29/23 17:29 10/29/23 17:31 10/29/23 17:44 Temperature Temperature Source Pulse Rate 47 L 47 L 48 L Pulse Rate [Apical] Pulse Rate from SpO2 Sensor 46 L 48 L Respiratory Rate 15 16 Respiratory Effort / Characteristics Respiratory Depth Respiratory Pattern Blood Pressure Blood Pressure [Left Arm] Blood Pressure Mean Blood Pressure Mean [Left Arm] Blood Pressure Position [Left Arm] Pulse Oximetry 94 92 Oxygen Delivery Method Oxygen Flow Rate Sepsis Recent Fever Within 48 Hours Sepsis New/Unexplained Change in Mental Status Sepsis Action Taken by Nursing 10/29/23 18:00 10/29/23 18:02 10/29/23 18:20 Temperature 34.2 C L 34.2 C L Temperature Source Pulse Rate 47 L 44 L Pulse Rate [Apical] Pulse Rate from SpO2 Sensor 47 L 44 L Respiratory Rate 24 13 Respiratory Effort / Characteristics Respiratory Depth Respiratory Pattern Blood Pressure 138/75 Blood Pressure [Left Arm] Blood Pressure Mean 89 Blood Pressure Mean [Left Arm] Blood Pressure Position [Left Arm] Pulse Oximetry 93 93 Oxygen Delivery Method Oxygen Flow Rate Sepsis Recent Fever Within 48 Hours Sepsis New/Unexplained Change in Mental Status Sepsis Action Taken by Nursing 10/29/23 18:44 10/29/23 18:47 10/29/23 19:00 Temperature 34.5 C L 34.5 C L Temperature Source Pulse Rate 46 L 45 L Pulse Rate [Apical] Pulse Rate from SpO2 Sensor 45 L 45 L Respiratory Rate 17 14 Respiratory Effort / Characteristics Respiratory Depth Respiratory Pattern Blood Pressure 134/79 Blood Pressure [Left Arm] Blood Pressure Mean 107 Blood Pressure Mean [Left Arm] Blood Pressure Position [Left Arm] Pulse Oximetry 90 90 Oxygen Delivery Method Oxygen Flow Rate Sepsis Recent Fever Within 48 Hours Sepsis New/Unexplained Change in Mental Status Sepsis Action Taken by Nursing 10/29/23 19:02 10/29/23 19:11 10/29/23 19:15 Temperature 34.6 C L 34.7 C L Temperature Source Pulse Rate 45 L 43 L Pulse Rate [Apical] Pulse Rate from SpO2 Sensor 45 L 44 L Respiratory Rate 14 14 Respiratory Effort / Characteristics Respiratory Depth Respiratory Pattern Blood Pressure 130/79 Blood Pressure [Left Arm] Blood Pressure Mean 102 Blood Pressure Mean [Left Arm] Blood Pressure Position [Left Arm] Pulse Oximetry 89 L 94 Oxygen Delivery Method Oxygen Flow Rate Sepsis Recent Fever Within 48 Hours Sepsis New/Unexplained Change in Mental Status Sepsis Action Taken by Nursing 10/29/23 19:17 10/29/23 19:28 10/29/23 20:52 Temperature 34.7 C L Temperature Source Pulse Rate 45 L 44 L 56 L Pulse Rate [Apical] Pulse Rate from SpO2 Sensor 45 L Respiratory Rate 14 14 Respiratory Effort / Characteristics Respiratory Depth Respiratory Pattern Blood Pressure Blood Pressure [Left Arm] Blood Pressure Mean Blood Pressure Mean [Left Arm] Blood Pressure Position [Left Arm] Pulse Oximetry 93 95 Oxygen Delivery Method Nasal Cannula Oxygen Flow Rate 2 Sepsis Recent Fever Within 48 Hours Sepsis New/Unexplained Change in Mental Status Sepsis Action Taken by Nursing Physical Exam HENT: Exam performed. - Head: Normocephalic and atraumatic. EYES: Conjunctivae and EOM are normal. Pupils are equal, round, and reactive to light. Right eye exhibits no discharge. Left eye exhibits no discharge. No scleral icterus. NECK: Normal range of motion. Neck supple. CV: Normal rate, regular rhythm, normal heart sounds and intact distal pulses. There is no peripheral edema. Palpable radial pulses bue. PULM/CHEST: Rhonchi bilaterally. ABD: The abdomen is soft. There is no tenderness. There is no rebound, no guarding NEURO: Motor and sensation grossly intact. Course Course 1640: The patient was evaluated in room A3. A complete history and physical exam was performed Cardiac monitoring: An order was placed for continuous cardiac monitoring. The monitor shows a rate of 60 with sinus rhythm interpreted by me Patient was found to have a low rectal temperature. Janine hugger will be applied to the patient. Blood pressure stable no tachycardia. 1910: Patient's temperature is improving with Janine hugger. Labs show white blood cell count 5.14. Hemoglobin 13.8. Coagulation studies within normal limits. VBG within normal limits. Procalcitonin within normal limits. Urinalysis shows no bacteria. BioFire negative. CT of the head shows no ICH. Chest x-ray formally read shows cardiomegaly without pulmonary edema and small pleural effusion with mild left basilar consolidation. Patient does not appear to be septic however he is still hypothermic. Empiric antibiotics cefepime ordered while blood cultures are pending. Patient will be admitted to the [facility] team. Administered Medications Discontinued Medications Carbamazepine (Carbamazepine 200 Mg Tablet) 200 mg PO NOW STA Stop: 10/29/23 20:31 Last Admin: 10/29/23 21:07 Dose: Not Given Documented By: Carbidopa/Levodopa (Carbidopa/Levodopa 25/100mg Tab) 3 tab PO NOW STA Stop: 10/29/23 20:31 Last Admin: 10/29/23 21:08 Dose: 3 tab Documented By: Sodium Chloride (Nss) 1,000 mls @ 999 mls/hr IV .Q1H1M JACQUES Stop: 10/29/23 17:45 Last Infusion: 10/29/23 18:27 Dose: Infused Documented By: Admin: 10/29/23 16:45 Dose: 999 mls/hr Documented By: Cefepime HCl (Maxipime) 2,000 mg in 20 mls @ 5 mls/min IV NOW STA; Protocol Stop: 10/29/23 19:11 Last Admin: 10/29/23 19:38 Dose: 5 mls/min Documented By: TEDDY Tamsulosin HCl (Tamsulosin Hcl 0.4 Mg Cap) 0.4 mg PO NOW ONE Stop: 10/29/23 20:31 Last Admin: 10/29/23 21:08 Dose: 0.4 mg Documented By: Critical Care Time Critical Care Time: Yes Total Critical Care Time: 47 I have personally spent greater than 47 minutes of critical care time in the direct management of this patient. This includes bedside care, interpretation of diagnostic studies, and testing, discussion with consultants, patient, and family members, and other required patient management activities. This 47 minutes is in excess of all separately billable procedures. Medical Decision Making Laboratory Data Attestation: I reviewed the patient's lab results. 10/29/23 16:41 10/29/23 16:41 Lab Results 10/29/23 10/29/23 10/29/23 Range/Units 16:41 16:57 16:58 WBC 5.14 (4.8-10.8) K/ul RBC 4.40 L (4.70-6.10) M/uL Hgb 13.8 L (14.0-18.0) g/dl Hct 41.8 L (42.0-52.0) % MCV 95.0 (80.0-100.0) fL MCH 31.4 (25.0-34.0) pg MCHC 33.0 (32.0-36.0) g/dL RDW Std Deviation 51.8 H (36.4-46.3) fL RDW Coeff of Armen 14.8 H (11.5-14.5) % Plt Count 137 (130-400) K/uL MPV 9.9 (9.4-12.4) fL Immature Gran % (Auto) 0.8 % Neut % (Auto) 70.8 % Lymph % (Auto) 16.5 % Hooker % (Auto) 10.9 % Eos % (Auto) 0.4 % Baso % (Auto) 0.6 % Neut # (Auto) 3.64 (1.40-6.50) K/uL Lymph # (Auto) 0.85 L (1.20-3.40) K/uL Hooker # (Auto) 0.56 (0.11-0.59) K/uL Eos # (Auto) 0.02 (0.00-0.50) K/uL Baso # (Auto) 0.03 (0.00-0.20) K/uL Immature Gran # (Auto) 0.04 (0.01-0.20) K/uL PT 10.5 (9.0-12.0) Seconds INR 1.0 (0.9-1.1) APTT 27 (21-31) Seconds PTT Ratio 1.0 VBG pH (7.36-7.41) VBG pCO2 (38-50) mmHg VBG pO2 mmHg VBG HCO3 mmol/L VBG O2 Saturation % VBG Base Excess mEq/L Sodium 139 (136-145) mmol/L Potassium 3.7 (3.5-5.1) mmol/L Chloride 107 (98-107) mmol/L Carbon Dioxide 27 (21-32) mmol/L Anion Gap 5 (3-11) BUN 43 H (6-23) mg/dl Creatinine 1.39 (0.6-1.4) mg/dl Est Cr Clr Drug Dosing 42.1 ml/min Est GFR ( Amer) 57.5 ml/min Est GFR (Non-Af Amer) 49.6 ml/min BUN/Creatinine Ratio 30.9 H (10-20) Glucose 159 H (70-99(Fasting)) mg/dl Lactate 2.0 (0.4-2.0) mmol/L Calcium 8.5 L (8.6-10.3) mg/dl Magnesium 2.3 (1.7-2.4) mg/dl Total Bilirubin 0.5 (0.2-1.0) mg/dl Direct Bilirubin 0.1 (0-0.2) mg/dl AST 16 (13-39) U/L ALT 3 L (7-52) U/L Alkaline Phosphatase 65 (34-104) U/L Ammonia (18-72) umol/L Troponin I High Sens 6.8 (0-20) pg/ml Total Protein 6.2 (6.0-8.3) gm/dl Albumin 3.4 (3.4-5.0) gm/dl Procalcitonin 0.02 (0-0.5) ng/ml TSH 2.940 (0.300-4.500) uIu/ml Random Cortisol 8.27 mcg/dl Urine Color Urine Appearance (Clear) Urine pH (4.5-7.5) Ur Specific [place] (1.000-1.030) Urine Protein (Negative) Urine Glucose (UA) (Negative) Urine Ketones (Negative) Urine Blood (Negative) Urine Nitrite (Negative) Urine Bilirubin (Negative) Urine Urobilinogen (Negative) Ur Leukocyte Esterase (Negative) Urine WBC (Auto) (0-5) /hpf Urine RBC (Auto) (0-2) /hpf U Hyaline Cast (Auto) (0-2) /lpf U Epithel Cells (Auto) (0-2) /hpf Urine Bacteria (Auto) (None Seen) Adenovirus (PCR) Not Detected (NotDetected) B. pertussis DNA (PCR) Not Detected (NotDetected) B.parapertussis DNA PCR Not Detected (NotDetected) C. pneumoniae DNA (PCR) Not Detected (NotDetected) Coronavirus OC43 (PCR) Not Detected (NotDetected) Coronavirus HKU1 (PCR) Not Detected (NotDetected) Coronavirus 229E (PCR) Not Detected (NotDetected) SARS-CoV-2 (PCR) Not Detected (NotDetected) Coronavirus NL63 (PCR) Not Detected (NotDetected) Human Metapneumovir PCR Not Detected (NotDetected) Influenza Type A (PCR) Not Detected (NotDetected) Influenza Type B (PCR) Not Detected (NotDetected) M. pneumoniae (PCR) Not Detected (NotDetected) Parainfluenza 1 (PCR) Not Detected (NotDetected) Parainfluenza 2 (PCR) Not Detected (NotDetected) Parainfluenza 3 (PCR) Not Detected (NotDetected) Parainfluenza 4 (PCR) Not Detected (NotDetected) RSV (PCR) Not Detected (NotDetected) Entero/Rhino (PCR) Not Detected (NotDetected) 10/29/23 10/29/23 Range/Units 18:33 19:13 WBC (4.8-10.8) K/ul RBC (4.70-6.10) M/uL Hgb (14.0-18.0) g/dl Hct (42.0-52.0) % MCV (80.0-100.0) fL MCH (25.0-34.0) pg MCHC (32.0-36.0) g/dL RDW Std Deviation (36.4-46.3) fL RDW Coeff of Armen (11.5-14.5) % Plt Count (130-400) K/uL MPV (9.4-12.4) fL Immature Gran % (Auto) % Neut % (Auto) % Lymph % (Auto) % Hooker % (Auto) % Eos % (Auto) % Baso % (Auto) % Neut # (Auto) (1.40-6.50) K/uL Lymph # (Auto) (1.20-3.40) K/uL [place] # (Auto) (0.11-0.59) K/uL Eos # (Auto) (0.00-0.50) K/uL Baso # (Auto) (0.00-0.20) K/uL Immature Gran # (Auto) (0.01-0.20) K/uL PT (9.0-12.0) Seconds INR (0.9-1.1) APTT (21-31) Seconds PTT Ratio VBG pH 7.37 (7.36-7.41) VBG pCO2 42 (38-50) mmHg VBG pO2 88 mmHg VBG HCO3 24 mmol/L VBG O2 Saturation 98.3 % VBG Base Excess -1.1 mEq/L Sodium (136-145) mmol/L Potassium (3.5-5.1) mmol/L Chloride (98-107) mmol/L Carbon Dioxide (21-32) mmol/L Anion Gap (3-11) BUN (6-23) mg/dl Creatinine (0.6-1.4) mg/dl Est Cr Clr Drug Dosing ml/min Est GFR ( Amer) ml/min Est GFR (Non-Af Amer) ml/min BUN/Creatinine Ratio (10-20) Glucose (70-99(Fasting)) mg/dl Lactate (0.4-2.0) mmol/L Calcium (8.6-10.3) mg/dl Magnesium (1.7-2.4) mg/dl Total Bilirubin (0.2-1.0) mg/dl Direct Bilirubin (0-0.2) mg/dl AST (13-39) U/L ALT (7-52) U/L Alkaline Phosphatase (34-104) U/L Ammonia 34.0 (18-72) umol/L Troponin I High Sens (0-20) pg/ml Total Protein (6.0-8.3) gm/dl Albumin (3.4-5.0) gm/dl Procalcitonin (0-0.5) ng/ml TSH (0.300-4.500) uIu/ml Random Cortisol mcg/dl Urine Color Dark Yellow Urine Appearance Clear (Clear) Urine pH 7.0 (4.5-7.5) Ur Specific [place] 1.021 (1.000-1.030) Urine Protein 1+ H (Negative) Urine Glucose (UA) Negative (Negative) Urine Ketones Trace H (Negative) Urine Blood Negative (Negative) Urine Nitrite Negative (Negative) Urine Bilirubin Negative (Negative) Urine Urobilinogen Negative (Negative) Ur Leukocyte Esterase Negative (Negative) Urine WBC (Auto) 6-10 H (0-5) /hpf Urine RBC (Auto) 6-10 H (0-2) /hpf U Hyaline Cast (Auto) 3-5 H (0-2) /lpf U Epithel Cells (Auto) 0-2 (0-2) /hpf Urine Bacteria (Auto) None Seen (None Seen) Adenovirus (PCR) (NotDetected) B. pertussis DNA (PCR) (NotDetected) B.parapertussis DNA PCR (NotDetected) C. pneumoniae DNA (PCR) (NotDetected) Coronavirus OC43 (PCR) (NotDetected) Coronavirus HKU1 (PCR) (NotDetected) Coronavirus 229E (PCR) (NotDetected) SARS-CoV-2 (PCR) (NotDetected) Coronavirus NL63 (PCR) (NotDetected) Human Metapneumovir PCR (NotDetected) Influenza Type A (PCR) (NotDetected) Influenza Type B (PCR) (NotDetected) M. pneumoniae (PCR) (NotDetected) Parainfluenza 1 (PCR) (NotDetected) Parainfluenza 2 (PCR) (NotDetected) Parainfluenza 3 (PCR) (NotDetected) Parainfluenza 4 (PCR) (NotDetected) RSV (PCR) (NotDetected) Entero/Rhino (PCR) (NotDetected) Imaging Data Attestation: I personally reviewed and interpreted this imaging study as follows: My Impression: CT head: No ICH Radiologist's Impression: Chest X-Ray 10/29/23 16:42 XR chest 1V portable HISTORY: 73 years-old Male Sepsis acute sepsis COMPARISON: 10/10/2023 TECHNIQUE: AP view of the chest FINDINGS: Cardiac silhouette is enlarged. Large hiatal hernia. No pneumothorax or overt pulmonary edema. Small left pleural effusion with mild left basilar opacities. Bones appear grossly intact. The patient is mildly rotated. IMPRESSION: 1. Cardiomegaly without pulmonary edema. 2. Large hiatal hernia. 3. Small pleural effusion with mild left basilar consolidation. ACT 112: Negative or not required by law. The above report was generated using voice recognition software. It may contain grammatical, syntax or spelling errors. Electronically signed by: Juancho Alcantara M.D. 10/29/2023 6:[address] 10/29/23 16:47 CT head/brain wo con CLINICAL HISTORY: 73 years-old Male with ams. Acutely altered mental status TECHNIQUE: Multiple axial CT images of the head were obtained without contrast. A dose lowering technique was utilized adhering to the principles of ALARA. CT DOSE: 1406.31 mGy.cm COMPARISON: 10/10/2023 FINDINGS: No acute intracranial hemorrhage, midline shift, intracranial mass, hydrocephalus, territorial ischemia or abnormal extra-axial collection. Involutional changes. The study is motion degraded. The calvarium is intact. Stable lucent 1.9 cm lesion within the right frontal bone, image 28 series 5.Mild adjacent soft tissue prominence. Mild polypoid mucosal thickening of the right maxillary sinus. IMPRESSION: 1. No acute intracranial abnormality. 2. Stable 1.9 cm lucent lesion of the right frontal bone. ACT 112: Negative or not required by law. The above report was generated using voice recognition software. It may contain grammatical, syntax or spelling errors. Electronically signed by: Juancho Alcantara M.D. 10/29/2023 5:54 PM ECG Data Attestation: I personally reviewed and interpreted this ECG as follows: Additional Comments: EKG #1 at 1646: Sinus bradycardia with rate of 48. ID QRS and QTc intervals within normal limits. No ST elevation or ST depression. EKG #2 at 2106: Sinus rhythm with rate of 60. ID QRS and QTc intervals within normal limits. No ST elevation or ST depression. [facility] Narrative 1641: The patient was evaluated in room A3. A complete history and physical exam was performed Cardiac monitoring: An order was placed for continuous cardiac monitoring. The monitor shows a rate of 60 with sinus rhythm interpreted by me Patient was found to have a low rectal temperature. Janine hugger will be applied to the patient. Blood pressure is stable. No tachycardia. 1910: Patient's temperature is improving with Janine hugger. Labs show white blood cell count 5.14. Hemoglobin 13.8. Coagulation studies within normal limits. VBG within normal limits. Procalcitonin within normal limits. Urinalysis shows no bacteria. BioFire negative. CT of the head shows no ICH. Chest x-ray formally read shows cardiomegaly without pulmonary edema and small pleural effusion with mild left basilar consolidation. Patient does not appear to be septic however he is still hypothermic. Empiric antibiotics cefepime ordered while blood cultures are pending. Patient will be admitted to the [facility] team. Impression & Plan Hypothermia Discharge Plan Visit Data Chief Complaint: Hypotension Stated Complaint: Low blood pressure ED Provider: Moody Parker Discharge Problem: Hypothermia Patient Disposition: Admitted As Inpatient Forms Stand Alone Forms: My [facility] Prescriptions Prescriptions: No Action finasteride [Proscar] 5 mg tablet 5 mg PO QPM Rx Instructions: take 1/2 hour before supper leflunomide [Arava] 20 mg tablet 20 mg PO QAM prednisone 5 mg tablet 5 mg PO QAM carbidopa-levodopa 25-100 mg tablet 3 tab PO QID Rx Instructions: TAKES AT 0630, 0900, 1200, 1700 levothyroxine [Synthroid] 75 mcg tablet 75 mcg PO DAILYBB zonisamide [Zonegran] 100 mg capsule 100 mg PO HS tamsulosin 0.4 mg capsule 0.4 mg PO QPM Rx Instructions: take 1/2 hour before supper carbamazepine [Tegretol] 200 mg tablet 200 mg PO QID Rx Instructions: 0630, 1200, 1700, 2200 melatonin 5 mg tablet 10 mg PO HS ferrous sulfate [FeroSul] 325 mg (65 mg iron) tablet 325 mg PO Q OTHER DAY entacapone 200 mg tablet 200 mg PO QID Rx Instructions: 0630, 0800, 1200, 1700 acetaminophen [Tylenol] 325 mg Tablet 500 mg PO QID PRN (Reason: Breakthrough Pain, Mild) Referrals Referrals: Emerald Dutton MD [Primary Care Provider] - Discharge Problem: Hypothermia Qualifiers: Encounter type: initial encounter Qualified Code(s): T68.XXXA - Hypothermia, initial encounter
[2023-10-29] MEDS: ZONISAMIDE 100 MG CAPSULE PO ONE (22:14)
[2023-10-29] MEDS: ENTACAPONE 200 MG TAB PO ONE (22:14)
[2023-10-29] MEDS ORDERED: ZONISAMIDE 100 MG PO SCH (22:43)
[2023-10-29] MEDS ORDERED: NITROGLYCERIN SL 0.4 MG/TAB TAB SL PRN (22:43)
[2023-10-29] MEDS ORDERED: POLYETHYLENE (MIRALAX) 17 GM PACK PO PRN (22:43)
[2023-10-29] MEDS: FINASTERIDE 5 MG TAB PO STA (23:35)
[2023-10-29] MEDS: HEPARIN SOD 5,000 UNIT/0.5 ML VIAL SQ SCH (23:35)
[2023-10-29] MEDS: MELATONIN 3 MG TAB PO STA (23:43)
[2023-10-29] MEDS: HYDROCORTISONE SOD SUCCINATE 100 MG/2 ML VIAL IV STA (23:43)
[2023-10-30] MEDS: SODIUM CHLORIDE 0.9% 1,000 ML IV SCH (00:04)
[2023-10-30] MEDS: PIPERACILLIN/TAZOBACTAM 4.5 GM/100 ML BAG IV STA (01:03)
[2023-10-30] MEDS: DOXYCYCLINE HYCLATE 100 MG in DEXTROSE 5% MINI-B 100 ML IV SCH (01:50)
[2023-10-30] MEDS: ACETAMINOPHEN 325 MG TAB PO PRN (04:53)
[2023-10-30] MEDS: PIPERACILLIN/TAZOBACTAM 4.5 GM in DEXTROSE 5% MINI-B 100 ML IV SCH (04:53)
[2023-10-30] MEDS: CARBIDOPA/LEVODOPA 25/100MG TAB PO SCH (06:39)
[2023-10-30] MEDS: carBAMazepine 200 MG TABLET PO SCH (06:39)
[2023-10-30] MEDS: ENTACAPONE 200 MG TAB PO SCH (06:40)
[2023-10-30] MEDS: LEVOTHYROXINE SODIUM 75 MCG TABLET PO SCH (06:41)
[2023-10-30] MEDS: oxyCODONE HCL IR 5 MG TAB (IMMEDIATE RELEASE) PO STA (07:15)
[2023-10-30 07:45] LABS: Basophils # (auto) 0.02 K/uL (0.00-0.20); Basophils % (auto) 0.2 %; Eosinophils # (auto) 0.01 K/uL (0.00-0.50); Eosinophils % (auto) 0.1 %; Hematocrit (blood only) 42.7 % (42.0-52.0); Hemoglobin 13.9 g/dl (14.0-18.0); Immature Granulocytes # (auto) 0.05 K/uL (0.01-0.20); Immature Granulocytes % (auto) 0.6 %; Lymphocytes # (auto) 0.59 K/uL (1.20-3.40); Lymphocytes % (auto) 7.4 %; Mean Corpuscular Hemoglobin 30.9 pg (25.0-34.0); Mean Corpuscular Hgb Conc 32.6 g/dL (32.0-36.0); Mean Corpuscular Volume 94.9 fL (80.0-100.0); Mean Platelet Volume 9.9 fL (9.4-12.4); Monocytes # (auto) 0.63 K/uL (0.11-0.59); Monocytes % (auto) 7.9 %; Neutrophils # (auto) 6.71 K/uL (1.40-6.50); Neutrophils % (auto) 83.8 %; Platelet Count 130 K/uL (130-400); RDW Coefficient of Variation 14.6 % (11.5-14.5); RDW Standard Deviation 50.4 fL (36.4-46.3); White Blood Count 8.01 K/ul (4.8-10.8)
[2023-10-30] MEDS ORDERED: HYDROCORTISONE SOD SUCCINATE 100 MG/2 ML VIAL IV SCH (08:00)
[2023-10-30 08:04] LABS: BUN Creatinine Ratio 27.9 (10-20); Calcium 8.2 mg/dl (8.6-10.3); Creatinine Clr Calc Pharmacy 52.7 ml/min; Est GFR (African American) 75.4 ml/min; Est GFR (Non-African American) 65.1 ml/min; Magnesium 1.9 mg/dl (1.7-2.4); Potassium 3.8 mmol/L (3.5-5.1)
[2023-10-30] MEDS: FERROUS SULFATE 325 MG TAB PO SCH (08:56)
[2023-10-30] MEDS: HYDROCORTISONE SOD 50 MG in SYRINGE 0 ML IV SCH (08:56)
[2023-10-30] MEDS: LEFLUNOMIDE 10 MG TAB PO SCH (08:56)
[2023-10-30] MEDS ORDERED: ENTACAPONE 200 MG TAB PO SCH (09:00)
--- NOTE | 2023-10-30 15:00 | Cardiology Consultation ---
Date of Consultation October 30, 2023 Assessment & Plan (1) Hypotension: (2) Chronic diastolic (congestive) heart failure: (3) Chronic venous insufficiency: Plan 1. Hypotension: The patient documented hypotension which appears to have responded well to volume administration and stress dose steroids. He has had several of these episodes over the years, 1 just a few weeks ago. These generally associated with fatigue, lethargy and some mental status changes. Unclear precipitant. Not positional in nature. This could certainly be related to an occult infection insomnia on chronic steroids was adrenally insufficient, but no infection has been identified. Procalcitonin is normal. On empiric antibiotics in any event. I do not think this is likely cardiac in nature. No compensatory rise in heart rate. Known to have normal cardiac function. Think this is more related to autonomic dysfunction. The symptoms appear to occur at rest and are not associated with compensatory rise in heart rate. Possibly exacerbated by some of his medications, including tamsulosin. He should continue conservative measures which involves liberalizing sodium intake, maintaining good hydration in using compression stockings. Get plasma norepinephrine level can be drawn in the morning to see if he would benefit from midodrine, droxidopa or atomoxetine. 2. Chronic heart failure with preserved ejection fraction: He appears well compensated. Seems most of his symptoms in the past related to lower extremity edema. This was likely a combination heart failure and venous insufficiency. He has not been on daily or regular diuretics. I do not believe he requires any additional diuretic therapy. He will with volume administration there has been no symptoms of dyspnea, pulmonary congestion or lower extremity edema. History of Present Illness Reason for Consultation: Hypotension Requesting Physician: Ryan Attending Physician: Solomon Pablo MD History of Present Illness The patient is a 73-year-old gentleman with a history of heart failure with preserved ejection fraction, venous insufficiency and valvular heart disease who was admitted to the hospital with an episode hypotension. Patient also suffers from Parkinson's disease. According to his was present for today's interview he had been feeling well for most of the day. However, when it was time for occupational therapy he would become quite tired and lethargic. He was also less responsive. He was noted by the occupational therapist to have a systolic blood pressure in the 60s and was subsequently transported to the hospital for evaluation. Patient received volume administration as well as stress dose steroids. He was started empirically on antibiotics for possible infection. His hemodynamics improved significantly. According to family members were present for today's interview he is also more interactive today and has more energy. However, still quite lethargic and not his usual self. Patient was admitted to the hospital in September for similar symptoms. At that time he was administered IV fluids and discharged. According to the the patient is generally active and ambulatory at home. He did describe some symptoms of dizziness there were unknown to his . However, these episodes occur at rest according to the patient. He is not seem to have difficulty getting up or down out of bed or chair. He is ambulatory with a walker at home. Generally speaking he is quite interactive. No recent history of fevers or chills. No breathing difficulty. No coughing. No sense of palpitation. He does have a history of lower extremity edema, but this appears to have been well controlled subsequent to venous ablation and use of compression stockings. He reports eating and drinking normally. Allergies Allergy/AdvReac Type Severity Reaction Status Date / Time No Known Allergies Allergy Verified 10/10/23 15:19 Home Medications Medication Instructions Recorded Confirmed Type finasteride 5 mg tablet (Proscar) 5 mg PO QPM 12/03/20 10/29/23 History leflunomide 20 mg tablet (Arava) 20 mg PO QAM 12/03/20 10/29/23 History prednisone 5 mg tablet 5 mg PO QAM 12/03/20 10/29/23 History carbamazepine 200 mg tablet 200 mg PO QID 08/03/21 10/29/23 History (Tegretol) levothyroxine 75 mcg tablet 75 mcg PO DAILYBB 08/03/21 10/29/23 History (Synthroid) tamsulosin 0.4 mg capsule 0.4 mg PO QPM 08/03/21 10/29/23 History zonisamide 100 mg capsule 100 mg PO HS 08/03/21 10/29/23 History (Zonegran) carbidopa 25 mg-levodopa 100 mg 3 tab PO QID 02/07/22 10/29/23 History tablet ferrous sulfate 325 mg (65 mg 325 mg PO Q OTHER DAY 08/21/23 10/29/23 History iron) tablet (FeroSul) melatonin 5 mg tablet 10 mg PO HS 08/21/23 10/29/23 History entacapone 200 mg tablet 200 mg PO QID 10/10/23 10/29/23 History acetaminophen 325 mg tablet 500 mg PO QID PRN Breakthrough 10/29/23 10/29/23 History (Tylenol) Pain, Mild Patient History Medical History Nonrheumatic mitral valve regurgitation Spinal stenosis Surgical History Hx of laminectomy Family History Other Leukemia Lung cancer Social History Smoking Status: Never smoker Second Hand Exposure: No; Do You Dip or Chew Tobacco: No; Hx Alcohol Use: No Hx Substance Use: No Preferred Language: Pakistani Communication Ability: Effective [employer] Supervisor Required: No Beliefs That Will Affect Care: None Current Living Situation: Spouse Other Information That Helps Us Care for You: No Feels Safe at Home: Yes Safety Concerns: Feels Safe At This Time Assistive Devices: Glasses, Walker and Wheelchair Review of Systems Review of Systems: Per HPI. Patient reportedly has some difficulty moving his right arm earlier today. Currently normal. Physical Exam Physical Exam: The patient is alert and oriented. Mood and affect appeared normal. He answered all questions appropriately. He seems lethargic. Poor posture. HEENT: Pupils are equal and reactive to light and accommodation. Extraocular movements are intact. The sclerae are anicteric. Periorbital edema noted Neuro: Cranial nerves intact Lungs: Clear to auscultation bilaterally. He has good air movement without use of accessory muscles. No rales wheezes or rhonchi. Cardiac: Heart demonstrates a regular rate and rhythm. Normal S1 and S2. No murmurs on examination. Pulses: The patient has palpable radial pulses bilaterally that are equal in intensity Extremities: There was no evidence of hypoperfusion. There is no cyanosis or clubbing. There is no edema. Skin: I did not appreciate any rashes on examination today. Results & Data Vital Signs (Past 12 Hours) Vital Signs Temp Pulse Pulse Resp BP BP BP 10/30/23 12:12 37.2 C 10/30/23 11:53 57 L 18 107/66 10/30/23 09:06 68 10 L 113/73 10/30/23 09:03 71 13 10/30/23 08:00 54 L 14 103/58 L 10/30/23 07:39 60 10/30/23 07:15 68 19 10/30/23 07:12 54 L 126/72 10/30/23 03:05 93 H 12 132/72 Pulse Ox O2 Del Method O2 Flow Rate 10/30/23 12:12 10/30/23 11:53 93 Room Air 10/30/23 09:06 93 Room Air 10/30/23 09:03 94 10/30/23 08:00 95 Nasal Cannula 2 10/30/23 07:39 10/30/23 07:15 98 10/30/23 07:12 96 2 10/30/23 03:05 93 Room Air Laboratory Results Abnormal Lab Results 10/29/23 10/29/23 10/29/23 16:41 16:57 16:58 WBC 5.14 RBC 4.40 L Hgb 13.8 L Hct 41.8 L MCV 95.0 MCH 31.4 MCHC 33.0 RDW Std Deviation 51.8 H RDW Coeff of Armen 14.8 H Plt Count 137 MPV 9.9 Immature Gran % (Auto) 0.8 Neut % (Auto) 70.8 Lymph % (Auto) 16.5 [place] % (Auto) 10.9 Eos % (Auto) 0.4 Baso % (Auto) 0.6 Neut # (Auto) 3.64 Lymph # (Auto) 0.85 L [place] # (Auto) 0.56 Eos # (Auto) 0.02 Baso # (Auto) 0.03 Immature Gran # (Auto) 0.04 PT 10.5 INR 1.0 APTT 27 PTT Ratio 1.0 VBG pH VBG pCO2 VBG pO2 VBG HCO3 VBG O2 Saturation VBG Base Excess Sodium 139 Potassium 3.7 Chloride 107 Carbon Dioxide 27 Anion Gap 5 BUN 43 H Creatinine 1.39 Est Cr Clr Drug Dosing 42.1 Est GFR ( Amer) 57.5 Est GFR (Non-Af Amer) 49.6 BUN/Creatinine Ratio 30.9 H Glucose 159 H Lactate 2.0 Calcium 8.5 L Magnesium 2.3 Total Bilirubin 0.5 Direct Bilirubin 0.1 AST 16 ALT 3 L Alkaline Phosphatase 65 Ammonia Troponin I High Sens 6.8 Total Protein 6.2 Albumin 3.4 25-OH Vitamin D Total Procalcitonin 0.02 TSH 2.940 Random Cortisol 8.27 Cortisol AM Sample Urine Color Urine Appearance Urine pH Ur Specific [place] Urine Protein Urine Glucose (UA) Urine Ketones Urine Blood Urine Nitrite Urine Bilirubin Urine Urobilinogen Ur Leukocyte Esterase Urine WBC (Auto) Urine RBC (Auto) U Hyaline Cast (Auto) U Epithel Cells (Auto) Urine Bacteria (Auto) Adenovirus (PCR) Not Detected B. pertussis DNA (PCR) Not Detected B.parapertussis DNA PCR Not Detected Lyme Disease Screen C. pneumoniae DNA (PCR) Not Detected Coronavirus OC43 (PCR) Not Detected Coronavirus HKU1 (PCR) Not Detected Coronavirus 229E (PCR) Not Detected SARS-CoV-2 (PCR) Not Detected Coronavirus NL63 (PCR) Not Detected Human Metapneumovir PCR Not Detected Influenza Type A (PCR) Not Detected Influenza Type B (PCR) Not Detected M. pneumoniae (PCR) Not Detected Parainfluenza 1 (PCR) Not Detected Parainfluenza 2 (PCR) Not Detected Parainfluenza 3 (PCR) Not Detected Parainfluenza 4 (PCR) Not Detected RSV (PCR) Not Detected Entero/Rhino (PCR) Not Detected 10/29/23 10/29/23 10/30/23 18:33 19:13 07:08 WBC 8.01 RBC 4.50 L Hgb 13.9 L Hct 42.7 MCV 94.9 MCH 30.9 MCHC 32.6 RDW Std Deviation 50.4 H RDW Coeff of Armen 14.6 H Plt Count 130 MPV 9.9 Immature Gran % (Auto) 0.6 Neut % (Auto) 83.8 Lymph % (Auto) 7.4 [place] % (Auto) 7.9 Eos % (Auto) 0.1 Baso % (Auto) 0.2 Neut # (Auto) 6.71 H Lymph # (Auto) 0.59 L [place] # (Auto) 0.63 H Eos # (Auto) 0.01 Baso # (Auto) 0.02 Immature Gran # (Auto) 0.05 PT INR APTT PTT Ratio VBG pH 7.37 VBG pCO2 42 VBG pO2 88 VBG HCO3 24 VBG O2 Saturation 98.3 VBG Base Excess -1.1 Sodium 137 Potassium 3.8 Chloride 107 Carbon Dioxide 24 Anion Gap 6 BUN 31 H Creatinine 1.11 Est Cr Clr Drug Dosing 52.7 Est GFR ( Amer) 75.4 Est GFR (Non-Af Amer) 65.1 BUN/Creatinine Ratio 27.9 H Glucose 121 H Lactate Calcium 8.2 L Magnesium 1.9 Total Bilirubin Direct Bilirubin AST ALT Alkaline Phosphatase Ammonia 34.0 Troponin I High Sens Total Protein Albumin 25-OH Vitamin D Total 21.4 L Procalcitonin TSH Random Cortisol Cortisol AM Sample 12.03 Urine Color Dark Yellow Urine Appearance Clear Urine pH 7.0 Ur Specific [place] 1.021 Urine Protein 1+ H Urine Glucose (UA) Negative Urine Ketones Trace H Urine Blood Negative Urine Nitrite Negative Urine Bilirubin Negative Urine Urobilinogen Negative Ur Leukocyte Esterase Negative Urine WBC (Auto) 6-10 H Urine RBC (Auto) 6-10 H U Hyaline Cast (Auto) 3-5 H U Epithel Cells (Auto) 0-2 Urine Bacteria (Auto) None Seen Adenovirus (PCR) B. pertussis DNA (PCR) B.parapertussis DNA PCR Lyme Disease Screen Negative C. pneumoniae DNA (PCR) Coronavirus OC43 (PCR) Coronavirus HKU1 (PCR) Coronavirus 229E (PCR) SARS-CoV-2 (PCR) Coronavirus NL63 (PCR) Human Metapneumovir PCR Influenza Type A (PCR) Influenza Type B (PCR) M. pneumoniae (PCR) Parainfluenza 1 (PCR) Parainfluenza 2 (PCR) Parainfluenza 3 (PCR) Parainfluenza 4 (PCR) RSV (PCR) Entero/Rhino (PCR) Diagnostic Findings Chest x-ray obtained the time admission did not reveal any pulmonary edema. He had hiatal hernia and cardiomegaly. Head CT obtained the time admission did not reveal any acute intracranial process. Echocardiogram 10/11/2023: Normal LV systolic function with ejection fraction of 60 65%. No significant valvular heart disease. ECG Additional Comments: EKG obtained the time admission revealed sinus bradycardia. PG Care Time/CCT Total # of Minutes Spent Total Time Spent with Patient: Total time spent is greater than 50% in coordination of care (as documented) at patient's floor/unit and/or counseling patient: Coding Level of Care Code 35631 INT INP/OBS CARE 3/75MIN Diagnoses Hypotension I95.9 Chronic diastolic (congestive) heart failure I50.32 Chronic venous insufficiency I87.2
[2023-10-30] MEDS: FINASTERIDE 5 MG TAB PO SCH (16:28)
[2023-10-30] MEDS: TAMSULOSIN HCL 0.4 MG CAP PO SCH (16:28)
--- NOTE | 2023-10-30 16:53 | Hospitalist Progress Note ---
Date of Service October 30, 2023 Assessment & Plan (1) Hypotension: Plan: 73-year-old male with past medical history significant for hypothyroidism, male hypogonadism, chronic diastolic CHF, history of liver hemangioma, nonrheumatic mitral valve regurgitation, iron deficiency, constipation, BPH, diverticulum of bladder, hip arthritis, Parkinson disease, simple partial seizures, rheumatoid arthritis of multiple sites with negative rheumatoid factor, history of lumbar laminectomy, periodic limb movements of sleep, long-term use of steroids for rheumatoid arthritis ambulates with walker comes because of hypotension and hypothermia. As per patient ate his breakfast some small amount of lunch and took a shower and slept and when the occupational therapist came he told that he was not feeling well and when checked his blood pressure it was low, systolic in 60s and was brought in here.In Er initially blood pressure low but improved with the fluids.He was also found to hypothermic currently on Janine hugger. and family in the room. Patient is speaking in low volume but is alert and oriented x 3. Denies any headache. No blurred vision or double vision. Sometimes gets runny nose. No sore throat. No cough. No headaches. No chest pain or shortness of breath. No nausea. No abdominal pain. Last few days having some urinary incontinence. states he has appointment with urology. Normal bowel movements. Patient is also having bradycardia. Patient was in the hospital in the first week of September with acute metabolic encephalopathy and unresponsive episode and hypotension at that time thought to be dehydration and orthostatic hypotension and is blood pressure improved with gentle fluids. Echo okay at that time. CTA chest no PE at that time. Hypotension Possible neurogenic orthostatic hypotension d/t Parkinson's Disease Autonomic neuropathy Likely contributed by dehydration with history of similar episode in recent past Condition improved following intravenous fluid administration in the emergency room With hypothermia will try to rule out any infective process-UA and chest x-ray are unremarkable and procalcitonin is normal Has been getting Zosyn empirically and will continue gentle intravenous fluid Random cortisol is 8 and received a stress dose of Cardizem Appreciate cardiology input and recommendation-possible Shy-Drager symptoms, multisystem failure Family is concerned about drug interactions-which needs to be checked Noted to have bradycardia Heart rate went down to 60s Lyme screen and other viral serology have been negative Will avoid use of any AV lalito blocking agents Chronic diastolic CHF Echo from 10/11/2023 was fairly unremarkable Will not give any diuretics He has been on gentle IV fluid Parkinson's disease Has been on on carbidopa levodopa, entacapone for a long time Will need to have in person follow-up with the neurologist as an outpatient on discharge History of of seizures On zonisamide and Tegretol Will check levels Rheumatoid arthritis On steroids Will hold leflunomide for now Cortisol level has been 8 Received stress dose of steroid Will continue current dose of his steroid Hypothyroidism On Synthyroid BPH On Flomax and Proscar Having urinary incontinence Will need to follow-up appointment with urologist as an outpatient Male hypogonadism Gets testosterone shots every 2 weeks Liver lesions and frontal lobe bone lesions needs follow-up DVT prophylaxis heparin subcu disposition telemetry full code Admission and Anticipated Discharge Date Admission Date: October 29, 2023 Subjective 10/30/2023 The patient was seen and examined in telemetry unit He was brought in as he was not feeling well following breakfast and was noted to have very low blood pressure and low temperature Received IV fluid in the emergency room and also stress dose of steroid and has been feeling much better during my examination He feels generally weak and lethargic but denies any other significant symptoms Review of Systems Review of Systems: All systems reviewed and are unremarkable except as noted below Physical Exam Physical Exam: Lying in bed comfortably Constitutional: + ill appearing and average body habitus Eyes: PERRL, conjunctivae normal, anicteric sclerae ENMT: external ear and nose normal, oropharynx normal Neck: trachea midline, no thyromegaly Respiratory: no respiratory distress Auscultation: + diminished lung sounds; no crackles Cardiovascular: Rate/Rhythm: regular rate and regular rhythm Heart Sounds: normal S1 and normal S2; no murmur Extremities: no edema Gastrointestinal (Abdomen): Inspection/Auscultation: normal bowel sounds; abdomen not distended Percussion/Palpation: abdomen soft; abdomen nontender Musculoskeletal: No acute arthritis involving any of the joint. Does have changes due to rheumatoid arthritis Neurologic: normal touch/pain/proprioception and moves all extremities; no focal motor deficits Generally very weak and lethargic Lymphatic: no cervical or axillary lymphadenopathy Results & Data Results & Data Vital Signs (Past 12 Hours) Vital Signs Temp Pulse Pulse Resp BP BP BP 10/30/23 15:46 36.7 C 68 18 123/72 10/30/23 12:12 37.2 C 10/30/23 11:53 57 L 18 107/66 10/30/23 09:06 68 10 L 113/73 10/30/23 09:03 71 13 10/30/23 08:00 54 L 14 103/58 L 10/30/23 07:39 60 10/30/23 07:15 68 19 10/30/23 07:12 54 L 126/72 Pulse Ox O2 Del Method O2 Flow Rate 10/30/23 15:46 94 Room Air 10/30/23 12:12 10/30/23 11:53 93 Room Air 10/30/23 09:06 93 Room Air 10/30/23 09:03 94 10/30/23 08:00 95 Nasal Cannula 2 10/30/23 07:39 10/30/23 07:15 98 10/30/23 07:12 96 2 Laboratory Results Short CBC 10/29/23 10/30/23 Range/Units 16:41 07:08 WBC 5.14 8.01 (4.8-10.8) K/ul Hgb 13.8 L 13.9 L (14.0-18.0) g/dl Hct 41.8 L 42.7 (42.0-52.0) % Plt Count 137 130 (130-400) K/uL BMP 10/29/23 10/30/23 16:41 07:08 Sodium 139 137 Potassium 3.7 3.8 Chloride 107 107 Carbon Dioxide 27 24 BUN 43 H 31 H Creatinine 1.39 1.11 Glucose 159 H 121 H Calcium 8.5 L 8.2 L Liver Function 10/29/23 Range/Units 16:41 Total Bilirubin 0.5 (0.2-1.0) mg/dl Direct Bilirubin 0.1 (0-0.2) mg/dl AST 16 (13-39) U/L ALT 3 L (7-52) U/L Alkaline Phosphatase 65 (34-104) U/L Albumin 3.4 (3.4-5.0) gm/dl Urine 10/29/23 Range/Units 18:33 Urine Color Dark Yellow Urine Appearance Clear (Clear) Urine pH 7.0 (4.5-7.5) Ur Specific [place] 1.021 (1.000-1.030) Urine Protein 1+ H (Negative) Urine Glucose (UA) Negative (Negative) Medications Administered Current Inpatient Medications Acetaminophen (Acetaminophen 325 Mg Tab) 650 mg PO Q4H PRN PRN Reason: Pain or Fever Stop: 11/28/23 22:42 Last Admin: 10/30/23 04:53 Dose: 650 mg Carbamazepine (Carbamazepine 200 Mg Tablet) 200 mg PO QID@0630,1200,1700,2200 [facility] Stop: 11/29/23 06:29 Last Admin: 10/30/23 16:29 Dose: 200 mg Carbidopa/Levodopa (Carbidopa/Levodopa 25/100mg Tab) 3 tab PO QID@0630,0900,1200,1700 [facility] Stop: 11/29/23 06:29 Last Admin: 10/30/23 16:29 Dose: 3 tab Entacapone (Entacapone 200 Mg Tab) 200 mg PO QID@0630,0900,1200,1700 [facility] Stop: 11/29/23 06:29 Last Admin: 10/30/23 16:30 Dose: 200 mg Ferrous Sulfate (Ferrous Sulfate 325 Mg Tab) 325 mg PO Q48H [facility] Stop: 11/29/23 08:59 Last Admin: 10/30/23 08:56 Dose: 325 mg Finasteride (Finasteride 5 Mg Tab) 5 mg PO QDD [facility] Stop: 11/29/23 16:29 Last Admin: 10/30/23 16:28 Dose: 5 mg Heparin Sodium (Porcine) (Heparin Sod 5,000 Unit/0.5 Ml Vial) 5,000 units SQ Q12 [facility] Stop: 11/28/23 22:42 Last Admin: 10/30/23 08:56 Dose: 5,000 units Sodium Chloride (Nss) 1,000 mls @ 75 mls/hr IV .[id number] [facility] Stop: 11/28/23 22:42 Last Admin: 10/30/23 15:08 Dose: 75 mls/hr Piperacillin Sod/Tazobactam (Sod 4.5 gm/ Dextrose) 100 mls @ 25 mls/hr IV Q8H [facility]; Protocol Stop: 11/01/23 03:59 Last Admin: 10/30/23 13:09 Dose: 25 mls/hr Doxycycline Hyclate 100 mg/ (Dextrose) 100 mls @ 50 mls/hr IV Q12H [facility] Stop: 10/31/23 22:59 Last Infusion: 10/30/23 14:00 Dose: Infused Hydrocortisone Sodium (Succinate 50 mg/ Syringe) 1 mls @ 4 mls/min IV Q6H [facility] Stop: 11/29/23 07:59 Last Admin: 10/30/23 15:08 Dose: 4 mls/min Leflunomide (Leflunomide 10 Mg Tab) 20 mg PO QAM [facility] Stop: 11/29/23 08:59 Last Admin: 10/30/23 08:56 Dose: 20 mg Levothyroxine Sodium (Levothyroxine Sodium 75 Mcg Tablet) 75 mcg PO DAILYBB [facility] Stop: 11/29/23 06:29 Last Admin: 10/30/23 06:41 Dose: 75 mcg Melatonin (Melatonin 3 Mg Tab) 9 mg PO HS [facility] Stop: 11/29/23 20:59 Nitroglycerin (Nitroglycerin Sl 0.4 Mg/Tab Tab) 0.4 mg SL Q5M PRN PRN Reason: Chest Pain Stop: 11/28/23 22:42 Polyethylene Glycol (Polyethylene (Miralax) 17 Gm Pack) 17 gm PO DAILY PRN PRN Reason: Constipation Stop: 11/28/23 22:42 Tamsulosin HCl (Tamsulosin Hcl 0.4 Mg Cap) 0.4 mg PO QDD [facility] Stop: 11/29/23 16:29 Last Admin: 10/30/23 16:28 Dose: 0.4 mg Zonisamide (Zonisamide 100 Mg Capsule) 100 mg PO HS [facility] Stop: 11/29/23 20:59
--- NOTE | 2023-10-30 17:13 | Electrocardiogram Report ---
Test Reason : Blood Pressure : / mmHG Vent. Rate : 060 BPM Atrial Rate : 060 BPM P-R Int : 162 ms QRS Dur : 094 ms QT Int : 420 ms P-R-T Axes : 039 028 028 degrees QTc Int : 420 ms Normal sinus rhythm Possible Left atrial enlargement Nonspecific ST abnormality Abnormal ECG When compared with ECG of 29-OCT-2023 16:46, No significant change was found Confirmed by Matt Albarran ([id number]) on 10/30/2023 5:13:26 PM Referred By: Alberto Rivas Confirmed By:Alberto Albarran
[2023-10-30] MEDS: ERGOCALCIFEROL 1250 MCG (50,000 UNITS) CAP PO SCH (18:45)
[2023-10-30] MEDS: ZONISAMIDE 100 MG CAPSULE PO SCH (20:45)
[2023-10-30] MEDS: MELATONIN 3 MG TAB PO SCH (20:46)
[2023-10-30] MEDS ORDERED: ZONISAMIDE 100 MG CAPSULE PO SCH (21:00)
[2023-10-31] MEDS: PHENAZOPYRIDINE HCL 200 MG TAB PO STA (01:12)
--- NOTE | 2023-10-31 11:56 | Neurology Consultation ---
Date of Consultation October 31, 2023 Assessment & Plan (1) Hypotension: Suspect that his hypotension is multifactorial, Parkinson's disease, Parkinson's disease medications, hypocortisolism, lack of enough fluid and salt intake. Tegretol can contribute to bradycardia Cannot rule out underlying UTI that would contribute to his low blood pressure. Association with bowel or bladder movements Plan Check for UTI. And treat if positive Follow-up Tegretol level. Might contribute to bradycardia Consider abdominal elastic band. Consider increasing prednisone 5 mg to 10 mg. (Home dose) Recommended encouraging salt intake and water intake given that the patient t akes no salt in his diet. Please follow-up with Tegretol levels, consider decreasing the dose. Telehealth Consultation Telehealth Information Telehealth Information: I performed this visit using a real-time telehealth connection between my location and the patients location ([facility]). After connecting through interactive tele-video, patient was identified by name and date of and/or wristband check.Patient (or authorized healthcare entry level account representative) was informed that this was a telemedicine visit and it was being conducted confidentially over secure lines. My office door was closed and no one else was present in the room with me.Patient (or authorized healthcare entry level account representative) provided consent to proceed with the visit, expressed an understanding of privacy and security of the telemedicine visit, and gave permission to have a hospital entry level account representative in the room in order to assist with the visit and to conduct portions of the visit, as needed. I informed the patient (or authorized healthcare entry level account representative) that I reviewed their record and presented the opportunity for them to ask any questions regarding the visit today. The patient agreed to participate. History of Present Illness Reason for Consultation: Hypotension Requesting Physician: Louis Estrada MD Attending Physician: Louis Estrada MD History of Present Illness 73-year-old male patient with PMH of Parkinson's disease, maintained on carbidopa levodopa, entacapone, history of seizure disorder maintained on zonisamide 100 mg nightly in addition to carbamazepine 200 mg 4 times a day. The patient has been having episodes of dropping blood pressures with associated bradycardia at times. He was recently hospitalized for the same. The day of admission the patient has had his lunch, and went to the bathroom had a bowel movement, came back and retired waiting for his occupational therapist, when she arrived the patient was severely tired, and they noted that his blood pressure was very low in the 50s. His heart rate was not checked however on EKG is in the 60s. Prior EKGs reviewed with heart rates in the 45's. The patient does have a history of orthostatic hypotension and wears elastic stockings. After the past hospitalization the was trying to get him hydrated with about 50 ounces of water/fluids per day. They still do not add salt to the water or food. She reports that he has lost about 40 pounds and his Tegretol level has not been changed. She also reports that he has been having urinary incontinence and stress incontinence feels that his urine is dribbling over the past several days prior to presentation. He does have a history of BPH and he is on finasteride. There is no reported fever chills or upper respiratory symptoms, no focal weakness or numbness, the patient does not report blurry vision he just feels generally fatigued when these symptoms occur. Allergies Allergy/AdvReac Type Severity Reaction Status Date / Time No Known Allergies Allergy Verified 10/10/23 15:19 Home Medications Medication Instructions Recorded Confirmed Type finasteride 5 mg tablet (Proscar) 5 mg PO QPM 12/03/20 10/29/23 History leflunomide 20 mg tablet (Arava) 20 mg PO QAM 12/03/20 10/29/23 History prednisone 5 mg tablet 5 mg PO QAM 12/03/20 10/29/23 History carbamazepine 200 mg tablet 200 mg PO QID 08/03/21 10/29/23 History (Tegretol) levothyroxine 75 mcg tablet 75 mcg PO DAILYBB 08/03/21 10/29/23 History (Synthroid) tamsulosin 0.4 mg capsule 0.4 mg PO QPM 08/03/21 10/29/23 History zonisamide 100 mg capsule 100 mg PO HS 08/03/21 10/29/23 History (Zonegran) carbidopa 25 mg-levodopa 100 mg 3 tab PO QID 02/07/22 10/29/23 History tablet ferrous sulfate 325 mg (65 mg 325 mg PO Q OTHER DAY 08/21/23 10/29/23 History iron) tablet (FeroSul) melatonin 5 mg tablet 10 mg PO HS 08/21/23 10/29/23 History entacapone 200 mg tablet 200 mg PO QID 10/10/23 10/29/23 History acetaminophen 325 mg tablet 500 mg PO QID PRN Breakthrough 10/29/23 10/29/23 History (Tylenol) Pain, Mild Patient History Medical History Nonrheumatic mitral valve regurgitation Spinal stenosis Surgical History Hx of laminectomy Family History Other Leukemia Lung cancer Social History Smoking Status: Never smoker Second Hand Exposure: No; Do You Dip or Chew Tobacco: No; Hx Alcohol Use: No Hx Substance Use: No Preferred Language: Slovak Communication Ability: Effective 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 Physical Exam General Constitutional: Appearance normally developed Head and face: normocephalic and atraumatic Eyes: no ptosis, no anisocoria, and no dysconjugate gaze Respiratory: normal effort Cardiovascular: regular rhythm and regular rate Abdomen: non distended Skin: no rashes, lesions, or ulcers noted Psychiatric: normal judgement and insight, normal mood, and normal affect NEUROLOGIC EXAMINATION: Mental Status:alert, oriented to place, person, not to time, normal attention span, normal language and normal fund of knowledge. could not provide detailed history Cranial Nerves: CN 2 - no visual defect on confrontation and pupils round, equal, reactive to light CN 3, 4, 6 - extra-ocular movements intact and no nystagmus CN 5 - facial sensation intact CN 7 - no facial asymmetry CN 8 - intact hearing CN 9, 10 - palate symmetric, normal gag CN 11 - good shoulder shrug CN 12 - tongue midline MOTOR: Strength was at least antigravity throughout, Pronator drift was absent and There were no abnormal movements SENSATION: intact and symmetric to pinprick, light touch, vibration and joint position GAIT: stable, no ataxia and can perform tandem walking COORDINATION: no ataxia with finger to nose testing and heel to sevilla testing REFLEXES: cannot assess over telemedicine Results & Data Vital Signs (Past 12 Hours) Vital Signs Temp Pulse Pulse Resp BP Pulse Ox O2 Del Method 10/31/23 11:06 36.3 C L 59 L 18 143/79 H 92 Room Air 10/31/23 09:00 62 10/31/23 07:44 36.5 C 62 20 163/87 H 92 Room Air 10/31/23 03:16 36.7 C 72 18 177/96 H 91 Room Air Laboratory Results Laboratory Results - last 24 hr 10/31/23 06:57 Miscellaneous Test Pending Upon presentation on 10/28/2021, BUN was 43, creatinine was 1.39 with BUN over creatinine ratio 30.9, this improved to BUN/cr of 27.9 the next day. Tegretol level and zonisamide level are still pending. WBCs with no apparent infections WBC: 8.0, hemoglobin 13.9, hematocrit 42.7, platelet count 130. Diagnostic Findings CT scan of the head dated 10/28/2021 with no acute abnormalities.Chronic right frontal lucency. Medications Administered Home Medications Medication Instructions Recorded Confirmed Last Taken finasteride 5 mg tablet (Proscar) 5 mg PO QPM 12/03/20 10/29/23 10/09/23 leflunomide 20 mg tablet (Arava) 20 mg PO QAM 12/03/20 10/29/23 10/29/23 prednisone 5 mg tablet 5 mg PO QAM 12/03/20 10/29/23 10/29/23 carbamazepine 200 mg tablet 200 mg PO QID 08/03/21 10/29/23 10/29/23 (Tegretol) took am dose of meds levothyroxine 75 mcg tablet 75 mcg PO DAILYBB 08/03/21 10/29/23 10/29/23 (Synthroid) tamsulosin 0.4 mg capsule 0.4 mg PO QPM 08/03/21 10/29/23 10/09/23 zonisamide 100 mg capsule 100 mg PO HS 08/03/21 10/29/23 10/09/23 (Zonegran) carbidopa 25 mg-levodopa 100 mg 3 tab PO QID 02/07/22 10/29/23 10/29/23 tablet ferrous sulfate 325 mg (65 mg 325 mg PO Q OTHER DAY 08/21/23 10/29/23 10/09/23 iron) tablet (FeroSul) melatonin 5 mg tablet 10 mg PO HS 08/21/23 10/29/23 10/09/23 entacapone 200 mg tablet 200 mg PO QID 10/10/23 10/29/23 10/29/23 acetaminophen 325 mg tablet 500 mg PO QID PRN Breakthrough 10/29/23 10/29/23 Unknown (Tylenol) Pain, Mild Active Medications Generic Name Dose Route Start Last Admin Trade Name Freq PRN Reason Stop Dose Admin Acetaminophen 650 mg 10/29/23 22:43 10/31/23 01:12 Acetaminophen 325 Mg Tab PO 11/28/23 22:42 650 mg Q4H PRN Administration Pain or Fever Carbamazepine 200 mg 10/30/23 06:30 10/31/23 11:59 Carbamazepine 200 Mg Tablet PO 11/29/23 06:29 200 mg QID@0630,1200,1700,2200 JACQUES Administration Carbidopa/Levodopa 3 tab 10/30/23 06:30 10/31/23 12:00 Carbidopa/Levodopa 25/100mg Tab PO 11/29/23 06:29 3 tab QID@0630,0900,1200,1700 JACQUES Administration Entacapone 200 mg 10/30/23 06:30 10/31/23 11:59 Entacapone 200 Mg Tab PO 11/29/23 06:29 200 mg QID@0630,0900,1200,1700 JACQUES Administration Ergocalciferol 1,250 mcg 10/30/23 18:00 10/30/23 18:45 Ergocalciferol 1250 Mcg (50,000 Units) Cap PO 11/29/23 17:59 1,250 mcg Q7D JACQUES Administration Ferrous Sulfate 325 mg 10/30/23 09:00 10/30/23 08:56 Ferrous Sulfate 325 Mg Tab PO 11/29/23 08:59 325 mg Q48H JACQUES Administration Finasteride 5 mg 10/30/23 16:30 10/30/23 16:28 Finasteride 5 Mg Tab PO 11/29/23 16:29 5 mg QDD JACQUES Administration Heparin Sodium (Porcine) 5,000 units 10/29/23 22:43 10/31/23 08:34 Heparin Sod 5,000 Unit/0.5 Ml Vial SQ 11/28/23 22:42 5,000 units Q12 JACQUES Administration Piperacillin Sod/Tazobactam 100 mls @ 25 mls/hr 10/30/23 04:00 10/31/23 12:00 Sod 4.5 gm/ Dextrose IV 11/01/23 03:59 28 mls/hr Q8H JACQUES Administration Protocol Doxycycline Hyclate 100 mg/ 100 mls @ 50 mls/hr 10/29/23 23:00 10/31/23 11:59 Dextrose IV 10/31/23 22:59 50 mls/hr Q12H JACQUES Administration Leflunomide 20 mg 10/30/23 09:00 10/31/23 08:35 Leflunomide 10 Mg Tab PO 11/29/23 08:59 20 mg QAM JACQUES Administration Levothyroxine Sodium 75 mcg 10/30/23 06:30 10/31/23 04:30 Levothyroxine Sodium 75 Mcg Tablet PO 11/29/23 06:29 75 mcg DAILYBB JACQUES Administration Melatonin 9 mg 10/30/23 21:00 10/30/23 20:46 Melatonin 3 Mg Tab PO 11/29/23 20:59 9 mg HS JACQUES Administration Tamsulosin HCl 0.4 mg 10/30/23 16:30 10/30/23 16:28 Tamsulosin Hcl 0.4 Mg Cap PO 11/29/23 16:29 0.4 mg QDD JACQUES Administration Zonisamide 100 mg 10/30/23 21:00 10/30/23 20:45 Zonisamide 100 Mg Capsule PO 11/29/23 20:59 100 mg HS JACQUES Administration
--- NOTE | 2023-10-31 19:23 | Hospitalist Progress Note ---
Date of Service October 31, 2023 Assessment & Plan (1) Hypotension: Plan: 73-year-old male with past medical history significant for hypothyroidism, male hypogonadism, chronic diastolic CHF, history of liver hemangioma, nonrheumatic mitral valve regurgitation, iron deficiency, constipation, BPH, diverticulum of bladder, hip arthritis, Parkinson disease, simple partial seizures, rheumatoid arthritis of multiple sites with negative rheumatoid factor, history of lumbar laminectomy, periodic limb movements of sleep, long-term use of steroids for rheumatoid arthritis ambulates with walker comes because of hypotension and hypothermia. As per patient ate his breakfast some small amount of lunch and took a shower and slept and when the occupational therapist came he told that he was not feeling well and when checked his blood pressure it was low, systolic in 60s and was brought in here.In Er initially blood pressure low but improved with the fluids.He was also found to hypothermic currently on Janine hugger. and family in the room. Patient is speaking in low volume but is alert and oriented x 3. Denies any headache. No blurred vision or double vision. Sometimes gets runny nose. No sore throat. No cough. No headaches. No chest pain or shortness of breath. No nausea. No abdominal pain. Last few days having some urinary incontinence. states he has appointment with urology. Normal bowel movements. Patient is also having bradycardia. Patient was in the hospital in the first week of September with acute metabolic encephalopathy and unresponsive episode and hypotension at that time thought to be dehydration and orthostatic hypotension and is blood pressure improved with gentle fluids. Echo okay at that time. CTA chest no PE at that time. Hypotension Likely multifactorial Secondary to Parkinson's disease, medications, suspected adrenal insufficiency, low fluid, salt intake Hold Flomax for now Also on finasteride--continue for now Blood pressure improved with IV steroids Taper down steroids and transition to prednisone--plan to increase to 10 mg daily Advised to follow-up with endocrine as outpatient Liberalize salt in diet Appreciate neurology input Urine analysis not suggestive of UTI Monitor BP closely Bradycardia ? Secondary to Tegretol Lyme screen and other viral serology have been negative Avoid AV lalito blocking agents Tegretol levels pending Will need to adjust Tegretol dose if Tegretol levels elevated Chronic diastolic CHF Echo from 10/11/2023 was fairly unremarkable No signs of volume overload Monitor volume status Urinary retention H/O BPH Voiding trial Will need follow-up with urology on discharge Continue finasteride for now Parkinson's disease On carbidopa levodopa, entacapone for a long time Needs follow-up with urology on discharge History of of seizures On zonisamide and Tegretol Tegretol, zonisamide level pending Rheumatoid arthritis On steroids Will hold leflunomide for now Cortisol level has been 8 Will increase prednisone to 10 mg daily as able Hypothyroidism Continue levothyroxine BPH On Flomax Proscar on hold Male hypogonadism Gets testosterone shots every 2 weeks Liver lesions Frontal lobe bone lesions Follow-up as outpatient DVT Px: Heparin SQ CODE STATUS Full code Admission and Anticipated Discharge Date Admission Date: October 29, 2023 Subjective Patient is seen and examined at bedside Offers no new complaints Discussed with patient's family at bedside Blood pressure much improved Discussed with neurology today Review of Systems Review of Systems: All systems reviewed & are unremarkable except as noted in Subjective Physical Exam Physical Exam: Physical Exam: Vitals signs as noted above General Appearance:Moderately built and nourished, no apparent distress, chronic ill-appearing Head: normocephalic, Atraumatic Eyes: normal inspection, EOMI Neck: supple, Trachea midline Respiratory/Chest:Decreased breath sounds, CTA, No accessory muscle use Cardiovascular: S1, S2, No murmur Abdomen/GI:Soft, Non tender, Bowel sounds present Extremities/Musculoskeletal:normal inspection, Trace edema, RA changes Neurologic/Psych:AAOX3, grossly no focal neurological deficits Skin: normal color, warm Results & Data Results & Data Vital Signs (Past 12 Hours) Vital Signs Temp Pulse Pulse Resp BP Pulse Ox O2 Del Method 10/31/23 14:28 36.6 C 62 19 171/89 H 94 Room Air 10/31/23 11:06 36.3 C L 59 L 18 143/79 H 92 Room Air 10/31/23 09:00 62 10/31/23 07:44 36.5 C 62 20 163/87 H 92 Room Air
[2023-10-31] MEDS ORDERED: HYDROCORTISONE SOD 50 MG in SYRINGE 0 ML IV SCH (21:00)
[2023-11-01 01:21] LABS: Hematocrit (blood only) 39.1 % (42.0-52.0)
[2023-11-01 07:54] LABS: Hematocrit (blood only) 39.8 % (42.0-52.0); Hemoglobin 13.1 g/dl (14.0-18.0); Mean Corpuscular Hemoglobin 30.9 pg (25.0-34.0); Mean Corpuscular Hgb Conc 32.9 g/dL (32.0-36.0); Mean Corpuscular Volume 93.9 fL (80.0-100.0); Mean Platelet Volume 9.7 fL (9.4-12.4); Platelet Count 142 K/uL (130-400); RDW Coefficient of Variation 14.7 % (11.5-14.5); RDW Standard Deviation 50.9 fL (36.4-46.3); Red Blood Count 4.24 M/uL (4.70-6.10); White Blood Count 5.32 K/ul (4.8-10.8)
[2023-11-01 08:06] LABS: BUN Creatinine Ratio 23.3 (10-20); Calcium 8.1 mg/dl (8.6-10.3); Creatinine Clr Calc Pharmacy 48.7 ml/min; Est GFR (African American) 68.6 ml/min; Est GFR (Non-African American) 59.2 ml/min; Potassium 3.5 mmol/L (3.5-5.1)
[2023-11-01] MEDS: HYDROCORTISONE SOD 50 MG in SYRINGE 0 ML IV SCH (08:27)
--- NOTE | 2023-11-01 16:47 | Hospitalist Progress Note ---
Date of Service November 01, 2023 Assessment & Plan (1) Hypotension: Plan: 73-year-old male with past medical history significant for hypothyroidism, male hypogonadism, chronic diastolic CHF, history of liver hemangioma, nonrheumatic mitral valve regurgitation, iron deficiency, constipation, BPH, diverticulum of bladder, hip arthritis, Parkinson disease, simple partial seizures, rheumatoid arthritis of multiple sites with negative rheumatoid factor, history of lumbar laminectomy, periodic limb movements of sleep, long-term use of steroids for rheumatoid arthritis ambulates with walker comes because of hypotension and hypothermia. As per patient ate his breakfast some small amount of lunch and took a shower and slept and when the occupational therapist came he told that he was not feeling well and when checked his blood pressure it was low, systolic in 60s and was brought in here.In Er initially blood pressure low but improved with the fluids.He was also found to hypothermic currently on Janine hugger. and family in the room. Patient is speaking in low volume but is alert and oriented x 3. Denies any headache. No blurred vision or double vision. Sometimes gets runny nose. No sore throat. No cough. No headaches. No chest pain or shortness of breath. No nausea. No abdominal pain. Last few days having some urinary incontinence. states he has appointment with urology. Normal bowel movements. Patient is also having bradycardia. Patient was in the hospital in the first week of September with acute metabolic encephalopathy and unresponsive episode and hypotension at that time thought to be dehydration and orthostatic hypotension and is blood pressure improved with gentle fluids. Echo okay at that time. CTA chest no PE at that time. Hypotension Likely multifactorial Secondary to Parkinson's disease, medications, suspected adrenal insufficiency, low fluid, salt intake Hold Flomax for now Also on finasteride--continue for now Blood pressure improved with IV steroids IV hydrocortisone discontinued Advised to follow-up with endocrine as outpatient Liberalize salt in diet Appreciate neurology input Urine analysis not suggestive of UTI Monitor BP closely Plan to resume prednisone at increased dose 10 mg daily tomorrow Bradycardia ? Secondary to Tegretol Lyme screen and other viral serology have been negative Avoid AV lalito blocking agents Tegretol levels pending Will need to adjust Tegretol dose if Tegretol levels elevated Chronic diastolic CHF Echo from 10/11/2023 was fairly unremarkable No signs of volume overload Monitor volume status Urinary retention H/O BPH Will need follow-up with urology on discharge Continue finasteride for now Continue voiding trial Monitor with bladder scan Parkinson's disease On carbidopa levodopa, entacapone for a long time Needs follow-up with urology on discharge History of of seizures On zonisamide and Tegretol Tegretol, zonisamide level pending Rheumatoid arthritis On steroids Will hold leflunomide for now Cortisol level has been 8 Will increase prednisone to 10 mg daily as above Hypothyroidism Continue levothyroxine BPH Flomax held Continue finasteride for now Male hypogonadism Gets testosterone shots every 2 weeks Liver lesions Frontal lobe bone lesions Follow-up as outpatient DVT Px: Heparin SQ CODE STATUS Full code Admission and Anticipated Discharge Date Admission Date: October 29, 2023 Subjective Patient is seen and examined at bedside States feeling better today Offers no specific complaints Discussed with patient's at bedside Urinating with no issues currently Review of Systems Review of Systems: All systems reviewed & are unremarkable except as noted in Subjective Physical Exam Physical Exam: Physical Exam: Vitals signs as noted above General Appearance:Moderately built and nourished, no apparent distress, chronic ill-appearing Head: normocephalic, Atraumatic Eyes: normal inspection, EOMI Neck: supple, Trachea midline Respiratory/Chest:Decreased breath sounds, CTA, No accessory muscle use Cardiovascular: S1, S2, No murmur Abdomen/GI:Soft, Non tender, Bowel sounds present Extremities/Musculoskeletal:normal inspection, Trace edema, RA changes Neurologic/Psych:AAOX3, grossly no focal neurological deficits Skin: normal color, warm Results & Data Results & Data Vital Signs (Past 12 Hours) Vital Signs Temp Pulse Pulse Resp BP BP Pulse Ox 11/01/23 15:20 36.3 C L 58 L 20 119/72 98 11/01/23 15:08 60 11/01/23 12:55 36.9 C 69 16 140/70 98 11/01/23 10:33 92 11/01/23 10:23 48 L 16 156/80 H 11/01/23 08:20 36.6 C 49 L 16 137/80 91 11/01/23 07:37 47 L 11/01/23 07:29 O2 Del Method 11/01/23 15:20 Room Air 11/01/23 15:08 11/01/23 12:55 Room Air 11/01/23 10:33 Room Air 11/01/23 10:23 11/01/23 08:20 Room Air 11/01/23 07:37 11/01/23 07:29 Room Air Laboratory Results Short CBC 11/01/23 11/01/23 Range/Units 00:29 07:22 WBC 5.32 (4.8-10.8) K/ul Hgb 13.0 L 13.1 L (14.0-18.0) g/dl Hct 39.1 L 39.8 L (42.0-52.0) % Plt Count 142 (130-400) K/uL BMP 11/01/23 07:22 Sodium 139 Potassium 3.5 Chloride 110 H Carbon Dioxide 27 BUN 28 H Creatinine 1.20 Glucose 89 Calcium 8.1 L
[2023-11-02 07:32] LABS: BUN Creatinine Ratio 20.9 (10-20); Calcium 8.2 mg/dl (8.6-10.3); Creatinine Clr Calc Pharmacy 50.9 ml/min; Est GFR (African American) 72.3 ml/min; Est GFR (Non-African American) 62.3 ml/min; Potassium 3.9 mmol/L (3.5-5.1)
[2023-11-02] MEDS: predniSONE 10 MG TABLET PO SCH (09:08)
--- NOTE | 2023-11-02 13:54 | Hospitalist Progress Note ---
Date of Service November 02, 2023 Assessment & Plan (1) Hypotension: Plan: 73-year-old male with past medical history significant for hypothyroidism, male hypogonadism, chronic diastolic CHF, history of liver hemangioma, nonrheumatic mitral valve regurgitation, iron deficiency, constipation, BPH, diverticulum of bladder, hip arthritis, Parkinson disease, simple partial seizures, rheumatoid arthritis of multiple sites with negative rheumatoid factor, history of lumbar laminectomy, periodic limb movements of sleep, long-term use of steroids for rheumatoid arthritis ambulates with walker comes because of hypotension and hypothermia. As per patient ate his breakfast some small amount of lunch and took a shower and slept and when the occupational therapist came he told that he was not feeling well and when checked his blood pressure it was low, systolic in 60s and was brought in here.In Er initially blood pressure low but improved with the fluids.He was also found to hypothermic currently on Janine hugger. and family in the room. Patient is speaking in low volume but is alert and oriented x 3. Denies any headache. No blurred vision or double vision. Sometimes gets runny nose. No sore throat. No cough. No headaches. No chest pain or shortness of breath. No nausea. No abdominal pain. Last few days having some urinary incontinence. states he has appointment with urology. Normal bowel movements. Patient is also having bradycardia. Patient was in the hospital in the first week of September with acute metabolic encephalopathy and unresponsive episode and hypotension at that time thought to be dehydration and orthostatic hypotension and is blood pressure improved with gentle fluids. Echo okay at that time. CTA chest no PE at that time. Hypotension Likely multifactorial Secondary to Parkinson's disease, medications, suspected adrenal insufficiency, low fluid, salt intake Hold Flomax for now Also on finasteride--continue for now Blood pressure improved with IV steroids IV hydrocortisone discontinued Advised to follow-up with endocrine as outpatient Liberalize salt in diet Added Teds Appreciate neurology input Urine analysis not suggestive of UTI Monitor BP closely Resumed prednisone at increased dose 10 mg daily Advised to follow-up with neurology, endocrine upon discharge for further recommendations Bradycardia ? Secondary to Tegretol Lyme screen and other viral serology have been negative Avoid AV lalito blocking agents Tegretol levels pending Will need to adjust Tegretol dose if Tegretol levels elevated Needs follow-up with neurology on discharge Chronic diastolic CHF Echo from 10/11/2023 was fairly unremarkable No signs of volume overload Monitor volume status Urinary retention H/O BPH Will need follow-up with urology on discharge Continue finasteride for now Monitor with bladder scan Voiding with no issues Parkinson's disease On carbidopa levodopa, entacapone for a long time Needs follow-up with urology on discharge History of of seizures On zonisamide and Tegretol Tegretol, zonisamide level pending Rheumatoid arthritis On steroids, leflunomide Cortisol level has been 8 Will increase prednisone to 10 mg daily as above Hypothyroidism Continue levothyroxine BPH Flomax held Continue finasteride for now Male hypogonadism Gets testosterone shots every 2 weeks Liver lesions Frontal lobe bone lesions Follow-up as outpatient Discussed with neurology--advised to follow-up as outpatient DVT Px: Heparin SQ CODE STATUS Full code Disposition Home with home health Admission and Anticipated Discharge Date Admission Date: October 29, 2023 Subjective Patient is seen and examined at bedside No new complaints Discussed in detail with family at bedside No urinary retention currently Plan to be discharged home today Review of Systems Review of Systems: All systems reviewed & are unremarkable except as noted in Subjective Physical Exam Physical Exam: Physical Exam: Vitals signs as noted above General Appearance:Moderately built and nourished, no apparent distress, chronic ill-appearing Head: normocephalic, Atraumatic Eyes: normal inspection, EOMI Neck: supple, Trachea midline Respiratory/Chest:Decreased breath sounds, CTA, No accessory muscle use Cardiovascular: S1, S2, No murmur Abdomen/GI:Soft, Non tender, Bowel sounds present Extremities/Musculoskeletal:normal inspection, Trace edema, RA changes Neurologic/Psych:AAOX3, grossly no focal neurological deficits Skin: normal color, warm Results & Data Results & Data Vital Signs (Past 12 Hours) Vital Signs Temp Pulse Pulse Resp BP Pulse Ox O2 Del Method 11/02/23 12:47 36.8 C 58 L 19 139/82 94 Room Air 11/02/23 10:19 105/65 11/02/23 08:00 Room Air 11/02/23 07:44 36.6 C 64 20 205/99 H 95 Room Air 11/02/23 07:00 67 11/02/23 03:13 36.4 C L 18 93 Room Air Laboratory Results [facility] 11/02/23 06:52 Sodium 141 Potassium 3.9 Chloride 110 H Carbon Dioxide 27 BUN 24 H Creatinine 1.15 Glucose 85 Calcium 8.2 L
--- NOTE | 2023-11-02 14:17 | Discharge Summary ---
Date of Service November 02, 2023 Admission HPI Per Admitting Provider 73-year-old male with past medical history significant for hypothyroidism, male hypogonadism, chronic diastolic CHF, history of liver hemangioma, nonrheumatic mitral valve regurgitation, iron deficiency, constipation, BPH, diverticulum of bladder, hip arthritis, Parkinson disease, simple partial seizures, rheumatoid arthritis of multiple sites with negative rheumatoid factor, history of lumbar laminectomy, periodic limb movements of sleep, long- term use of steroids for rheumatoid arthritis ambulates with walker comes because of hypotension and hypothermia. As per patient ate his breakfast some small amount of lunch and took a shower and slept and when the occupational therapist came he told that he was not feeling well and when checked his blood pressure it was low, systolic in 60s and was brought in here.In Er initially blood pressure low but improved with the fluids.He was also found to hypothermic currently on Janine hugger. and family in the room. Patient is speaking in low volume but is alert and oriented x 3. Denies any headache. No blurred vision or double vision. Sometimes gets runny nose. No sore throat. No cough. No headaches. No chest pain or shortness of breath. No nausea. No abdominal pain. Last few days having some urinary incontinence. states he has appointment with urology. Normal bowel movements. Patient is also having bradycardia. Patient was in the hospital in the first week of September with acute metabolic encephalopathy and unresponsive episode and hypotension at that time thought to be dehydration and orthostatic hypotension and is blood pressure improved with gentle fluids. Echo okay at that time. CTA chest no PE at that time. Past medical history. As mentioned above Past surgical history. Left total knee arthroplasty. Right finger hand tendon repair. Lumbar laminectomy. Repair of inguinal hernia. Repair of nasal septum. Social history. No smoking. No alcohol use. No drug use. Family history. Father had leukemia. Mother had lung cancer. Brother had Viral encephalitis. Admission Exam Per Admitting Provider General- adult Head- atraumatic Eyes- PERRL. ENT- oropharynx dry. Neck- supple, no JVD. Lungs- clear to auscultation no wheezing or crackles Heart- regular rhythm bradycardia ; no murmur, no gallop. Abdomen- normal bowel sounds, soft, nontender, no distension Extremities- pretibial edema present , no erythema seen. Neuro- alert, oriented x 3; PERRL, Speaks in low volumes no facial palsy; no dysarthria; moves extremities. Principal Diagnosis Hypotension Bradycardia Urinary retention Vitamin D deficiency Discharge Data Allergies Allergy/AdvReac Type Severity Reaction Status Date / Time No Known Allergies Allergy Verified 10/10/23 15:19 Consultations 10/29/23 19:10 ED Decision to Admit Stat 10/30/23 08:00 Consult Cardiology Routine 10/30/23 18:07 Consult Neurology Routine Procedures Performed Laboratory Results WBC 5.32 K/ul (4.8-10.8) 11/01/23 07:22 RBC 4.24 M/uL (4.70-6.10) L 11/01/23 07:22 Hgb 13.1 g/dl (14.0-18.0) L 11/01/23 07:22 Hct 39.8 % (42.0-52.0) L 11/01/23 07:22 MCV 93.9 fL (80.0-100.0) 11/01/23 07:22 MCH 30.9 pg (25.0-34.0) 11/01/23 07:22 MCHC 32.9 g/dL (32.0-36.0) 11/01/23 07:22 RDW Std Deviation 50.9 fL (36.4-46.3) H 11/01/23 07:22 RDW Coeff of Armen 14.7 % (11.5-14.5) H 11/01/23 07:22 Plt Count 142 K/uL (130-400) 11/01/23 07:22 MPV 9.7 fL (9.4-12.4) 11/01/23 07:22 Immature Gran % (Auto) 0.6 % 10/30/23 07:08 Neut % (Auto) 83.8 % 10/30/23 07:08 Lymph % (Auto) 7.4 % 10/30/23 07:08 [place] % (Auto) 7.9 % 10/30/23 07:08 Eos % (Auto) 0.1 % 10/30/23 07:08 Baso % (Auto) 0.2 % 10/30/23 07:08 Neut # (Auto) 6.71 K/uL (1.40-6.50) H 10/30/23 07:08 Lymph # (Auto) 0.59 K/uL (1.20-3.40) L 10/30/23 07:08 [place] # (Auto) 0.63 K/uL (0.11-0.59) H 10/30/23 07:08 Eos # (Auto) 0.01 K/uL (0.00-0.50) 10/30/23 07:08 Baso # (Auto) 0.02 K/uL (0.00-0.20) 10/30/23 07:08 Immature Gran # (Auto) 0.05 K/uL (0.01-0.20) 10/30/23 07:08 PT 10.5 Seconds (9.0-12.0) 10/29/23 16:41 INR 1.0 (0.9-1.1) 10/29/23 16:41 APTT 27 Seconds (21-31) 10/29/23 16:41 PTT Ratio 1.0 10/29/23 16:41 VBG pH 7.37 (7.36-7.41) 10/29/23 19:13 VBG pCO2 42 mmHg (38-50) 10/29/23 19:13 VBG pO2 88 mmHg 10/29/23 19:13 VBG HCO3 24 mmol/L 10/29/23 19:13 VBG O2 Saturation 98.3 % 10/29/23 19:13 VBG Base Excess -1.1 mEq/L 10/29/23 19:13 Sodium 141 mmol/L (136-145) 11/02/23 06:52 Potassium 3.9 mmol/L (3.5-5.1) 11/02/23 06:52 Chloride 110 mmol/L (98-107) H 11/02/23 06:52 Carbon Dioxide 27 mmol/L (21-32) 11/02/23 06:52 Anion Gap 4 (3-11) 11/02/23 06:52 BUN 24 mg/dl (6-23) H 11/02/23 06:52 Creatinine 1.15 mg/dl (0.6-1.4) 11/02/23 06:52 Est Cr Clr Drug Dosing 50.9 ml/min 11/02/23 06:52 Est GFR ( Amer) 72.3 ml/min 11/02/23 06:52 Est GFR (Non-Af Amer) 62.3 ml/min 11/02/23 06:52 BUN/Creatinine Ratio 20.9 (10-20) H 11/02/23 06:52 Glucose 85 mg/dl (70-99(Fasting)) 11/02/23 06:52 Lactate 2.0 mmol/L (0.4-2.0) 10/29/23 16:58 Calcium 8.2 mg/dl (8.6-10.3) L 11/02/23 06:52 Magnesium 1.9 mg/dl (1.7-2.4) 10/30/23 07:08 Total Bilirubin 0.5 mg/dl (0.2-1.0) 10/29/23 16:41 Direct Bilirubin 0.1 mg/dl (0-0.2) 10/29/23 16:41 AST 16 U/L (13-39) 10/29/23 16:41 ALT 3 U/L (7-52) L 10/29/23 16:41 Alkaline Phosphatase 65 U/L (34-104) 10/29/23 16:41 Ammonia 34.0 umol/L (18-72) 10/29/23 19:13 Troponin I High Sens 6.8 pg/ml (0-20) 10/29/23 16:41 Total Protein 6.2 gm/dl (6.0-8.3) 10/29/23 16:41 Albumin 3.4 gm/dl (3.4-5.0) 10/29/23 16:41 25-OH Vitamin D Total 21.4 ng/ml (30-100) L 10/30/23 07:08 Procalcitonin 0.02 ng/ml (0-0.5) 10/29/23 16:41 TSH 2.940 uIu/ml (0.300-4.500) 10/29/23 16:41 Random Cortisol 8.27 mcg/dl 10/29/23 16:41 Cortisol AM Sample 12.03 mcg/dl (6.2-22.6) 10/30/23 07:08 Urine Color Dark Yellow 10/29/23 18:33 Urine Appearance Clear (Clear) 10/29/23 18:33 Urine pH 7.0 (4.5-7.5) 10/29/23 18:33 Ur Specific [place]ell 1.021 (1.000-1.030) 10/29/23 18:33 Urine Protein 1+ (Negative) H 10/29/23 18:33 Urine Glucose (UA) Negative (Negative) 10/29/23 18:33 Urine Ketones Trace (Negative) H 10/29/23 18:33 Urine Blood Negative (Negative) 10/29/23 18:33 Urine Nitrite Negative (Negative) 10/29/23 18: Urine Bilirubin Negative (Negative) 10/29/23 18:33 Urine Urobilinogen Negative (Negative) 10/29/23 18:33 Ur Leukocyte Esterase Negative (Negative) 10/29/23 18:33 Urine WBC (Auto) 6-10 /hpf (0-5) H 10/29/23 18: Urine RBC (Auto) 6-10 /hpf (0-2) H 10/29/23 18:33 U Hyaline Cast (Auto) 3-5 /lpf (0-2) H 10/29/23 18:33 U Epithel Cells (Auto) 0-2 /hpf (0-2) 10/29/23 18:33 Urine Bacteria (Auto) None Seen (None Seen) 10/29/23 18:33 Stl C. diff Tox B Gene Negative Cdiff Gene (Neg) 11/01/23 Unknown Adenovirus (PCR) Not Detected (NotDetected) 10/29/23 16:57 B. pertussis DNA (PCR) Not Detected (NotDetected) 10/29/23 16:57 B.parapertussis DNA PCR Not Detected (NotDetected) 10/29/23 16:57 Lyme Disease Screen Negative (Negative) 10/30/23 07:08 C. pneumoniae DNA (PCR) Not Detected (NotDetected) 10/29/23 16:57 Coronavirus OC43 (PCR) Not Detected (NotDetected) 10/29/23 16:57 Coronavirus HKU1 (PCR) Not Detected (NotDetected) 10/29/23 16:57 Coronavirus 229E (PCR) Not Detected (NotDetected) 10/29/23 16:57 SARS-CoV-2 (PCR) Not Detected (NotDetected) 10/29/23 16:57 Coronavirus NL63 (PCR) Not Detected (NotDetected) 10/29/23 16:57 Human Metapneumovir PCR Not Detected (NotDetected) 10/29/23 16:57 Influenza Type A (PCR) Not Detected (NotDetected) 10/29/23 16:57 Influenza Type B (PCR) Not Detected (NotDetected) 10/29/23 16:57 M. pneumoniae (PCR) Not Detected (NotDetected) 10/29/23 16:57 Parainfluenza 1 (PCR) Not Detected (NotDetected) 10/29/23 16:57 Parainfluenza 2 (PCR) Not Detected (NotDetected) 10/29/23 16:57 Parainfluenza 3 (PCR) Not Detected (NotDetected) 10/29/23 16:57 Parainfluenza 4 (PCR) Not Detected (NotDetected) 10/29/23 16:57 RSV (PCR) Not Detected (NotDetected) 10/29/23 16:57 Entero/Rhino (PCR) Not Detected (NotDetected) 10/29/23 16:57 Blood Type AB Positive 11/01/23 00:29 Antibody Screen NEGATIVE 11/01/23 00:29 Impressions Chest X-Ray 10/29/23 16:42 XR chest 1V portable HISTORY: 73 years-old Male Sepsis acute sepsis COMPARISON: 10/10/2023 TECHNIQUE: AP view of the chest FINDINGS: Cardiac silhouette is enlarged. Large hiatal hernia. No pneumothorax or overt pulmonary edema. Small left pleural effusion with mild left basilar opacities. Bones appear grossly intact. The patient is mildly rotated. IMPRESSION: 1. Cardiomegaly without pulmonary edema. 2. Large hiatal hernia. 3. Small pleural effusion with mild left basilar consolidation. ACT 112: Negative or not required by law. The above report was generated using voice recognition software. It may contain grammatical, syntax or spelling errors. Electronically signed by: Juancho Alcantara M.D. 10/29/2023 6:[address] 10/29/23 16:47 CT head/brain wo con CLINICAL HISTORY: 73 years-old Male with ams. Acutely altered mental status TECHNIQUE: Multiple axial CT images of the head were obtained without contrast. A dose lowering technique was utilized adhering to the principles of ALARA. CT DOSE: 1406.31 mGy.cm COMPARISON: 10/10/2023 FINDINGS: No acute intracranial hemorrhage, midline shift, intracranial mass, hydrocephalus, territorial ischemia or abnormal extra-axial collection. Involutional changes. The study is motion degraded. The calvarium is intact. Stable lucent 1.9 cm lesion within the right frontal bone, image 28 series 5.Mild adjacent soft tissue prominence. Mild polypoid mucosal thickening of the right maxillary sinus. IMPRESSION: 1. No acute intracranial abnormality. 2. Stable 1.9 cm lucent lesion of the right frontal bone. ACT 112: Negative or not required by law. The above report was generated using voice recognition software. It may contain grammatical, syntax or spelling errors. Electronically signed by: Juancho Alcantara M.D. 10/29/2023 5:54 PM Ordered Studies 10/29/23 16:47 CT head/brain wo con Stat Hospital Course (1) Hypotension: 73-year-old male with past medical history significant for hypothyroidism, male hypogonadism, chronic diastolic CHF, history of liver hemangioma, nonrheumatic mitral valve regurgitation, iron deficiency, constipation, BPH, diverticulum of bladder, hip arthritis, Parkinson disease, simple partial seizures, rheumatoid arthritis of multiple sites with negative rheumatoid factor, history of lumbar laminectomy, periodic limb movements of sleep, long-term use of steroids for rheumatoid arthritis ambulates with walker comes because of hypotension and hypothermia. As per patient ate his breakfast some small amount of lunch and took a shower and slept and when the occupational therapist came he told that he was not feeling well and when checked his blood pressure it was low, systolic in 60s and was brought in here.In Er initially blood pressure low but improved with the fluids.He was also found to hypothermic currently on Janine hugger. and family in the room. Patient is speaking in low volume but is alert and oriented x 3. Denies any headache. No blurred vision or double vision. Sometimes gets runny nose. No sore throat. No cough. No headaches. No chest pain or shortness of breath. No nausea. No abdominal pain. Last few days having some urinary incontinence. states he has appointment with urology. Normal bowel movements. Patient is also having bradycardia. Patient was in the hospital in the first week of September with acute metabolic encephalopathy and unresponsive episode and hypotension at that time thought to be dehydration and orthostatic hypotension and is blood pressure improved with gentle fluids. Echo okay at that time. CTA chest no PE at that time. Hypotension Likely multifactorial Secondary to Parkinson's disease, medications, suspected adrenal insufficiency, low fluid, salt intake Hold Flomax for now Also on finasteride--continue for now Blood pressure improved with IV steroids IV hydrocortisone discontinued Advised to follow-up with endocrine as outpatient Liberalize salt in diet Added Teds Appreciate neurology input Urine analysis not suggestive of UTI Monitor BP closely Resumed prednisone at increased dose 10 mg daily Advised to follow-up with neurology, endocrine upon discharge for further recommendations Bradycardia ? Secondary to Tegretol Lyme screen and other viral serology have been negative Avoid AV lalito blocking agents Tegretol levels pending Will need to adjust Tegretol dose if Tegretol levels elevated Needs follow-up with neurology on discharge Chronic diastolic CHF Echo from 10/11/2023 was fairly unremarkable No signs of volume overload Monitor volume status Urinary retention H/O BPH Will need follow-up with urology on discharge Continue finasteride for now Monitor with bladder scan Voiding with no issues Parkinson's disease On carbidopa levodopa, entacapone for a long time Needs follow-up with urology on discharge History of of seizures On zonisamide and Tegretol Tegretol, zonisamide level pending Rheumatoid arthritis On steroids, leflunomide Cortisol level has been 8 Will increase prednisone to 10 mg daily as above Hypothyroidism Continue levothyroxine BPH Flomax held Continue finasteride for now Male hypogonadism Gets testosterone shots every 2 weeks Liver lesions Frontal lobe bone lesions Follow-up as outpatient Discussed with neurology--advised to follow-up as outpatient Vitamin D deficiency Continue vitamin D supplements DVT Px: Heparin SQ CODE STATUS Full code Disposition Home with home health Total Time Total Time Spent Total Time Spent (In Minutes): 58 minutes Discharge Plan Discharge Items Patient Disposition: Home - Home Health Services Reason For Visit: HPOTENSION, HYPOTHERMIA Discharge Diagnosis: Hypotension Bradycardia Urinary retention Vitamin D deficiency Activity: Per Instructions section Exercise/Sports: Gradually increase as tolerated Non-emergency contact: Primary Care Provider, Specialist, Neurologist and Urologist Call non-emergency contact if: you have any medication questions, your symptoms worsen, your pain is concerning for you and you have a fever Follow-up/Referrals: Emerald Dutton MD [Primary Care Provider] - (Date & Time 11/08/2023 10:20 AM Provider Emerald Dutton MD Department General Internal Medicine [facility] ) Diet: Regular Addtl Attending Provider Instructions: Follow-up with your primary care physician on 11/08/2023 10:20 AM Follow-up with your neurologist Dr. Mustafa in 2 weeks Follow-up with your rodent exterminator for further evaluation of possible adrenal insufficiency Follow-up with your urologist as needed for any urinary retention Follow-up with your primary care physician/neurologist for further evaluation of frontal bone/liver lesions which were incidentally noted --- Your Flomax is discontinued for now given low blood pressure --Start taking prednisone 10 mg daily for now until further recommendations from your primary care physician/rodent exterminator --Liberalize salt in diet as recommended --Use Teds/abdominal elastic band to help with orthostatic hypotension --Tegretol, zonisamide levels pending at the time of discharge. Follow-up with your neurologist for results and further adjustment of medications as needed -- Get vitamin D levels checked in 4 to 6 weeks and follow-up with your physician for further instructions Seek immediate medical attention if your symptoms reoccur or worsen Please take all medications as instructed on discharge list below. Please call if you have any questions or problems. You can reach a [facility] hospitalist on duty at [facility] [address] 24 hours a day by calling [phone] Pending Studies at Discharge: Yes Studies:: Zonisamide, carbamazepine levels pending Stand-Alone Forms: [facility], Smoking Cessation Medications and DC Order Prescriptions: New prednisone 10 mg Tablet 10 mg PO DAILY Qty: 30 0RF ergocalciferol (vitamin D2) 1,250 mcg (50,000 unit) Capsule 1,250 mcg PO Q7D Qty: 3 0RF Rx Instructions: Every Sunday Continued finasteride [Proscar] 5 mg tablet 5 mg PO QPM Rx Instructions: take 1/2 hour before supper leflunomide [Arava] 20 mg tablet 20 mg PO QAM carbidopa-levodopa 25-100 mg tablet 3 tab PO QID Rx Instructions: TAKES AT 0630, 0900, 1200, 1700 levothyroxine [Synthroid] 75 mcg tablet 75 mcg PO DAILYBB zonisamide [Zonegran] 100 mg capsule 100 mg PO HS carbamazepine [Tegretol] 200 mg tablet 200 mg PO QID Rx Instructions: 0630, 1200, 1700, 2200 melatonin 5 mg tablet 10 mg PO HS ferrous sulfate [FeroSul] 325 mg (65 mg iron) tablet 325 mg PO Q OTHER DAY entacapone 200 mg tablet 200 mg PO QID Rx Instructions: 0630, 0800, 1200, 1700 acetaminophen [Tylenol] 325 mg Tablet 500 mg PO QID PRN (Reason: Breakthrough Pain, Mild) Held tamsulosin 0.4 mg capsule 0.4 mg PO QPM Hold Instructions: Until further recommendations from urology Rx Instructions: take 1/2 hour before supper Discontinued prednisone 5 mg tablet 5 mg PO QAM Discharge Orders: Discharge Order (Routine); Ordered 11/02/23 Ordered By: Louis Estrada Admission Data Admit Date/Time: 10/29/23 20:26 Attending Provider: Louis Estrada Admit Provider: Godwin Kirk Primary Care Provider: Emerald Dutton Other Providers: Godwin Kirk; Matt Rivas; Audrey Courtney; Paul Mustafa; Audrey Hurd; Larry Grace; Jesus Dinero; Albert Harrell; Rachid Tobias; Magali Walsh; Pipe Muñiz; Zia Parham; Murray Zacarias; Jimi Rodriguez; Viviane Valentino; Ruthann Rosales; Rachid Villarreal
== END 2023-11-02 15:45 | disposition home health service (06) | DRG 57 ==
LOC: ED 16:26 → SUATTDRO 20:26 → EDINP 20:26 → 4W 22:43

== ENCOUNTER 2024-11-09 15:32 | Inpatient (IN) ==
--- NOTE | 2024-11-09 16:31 | Emergency Department Note ---
Impression & Plan Generalized weakness, ACTH deficiency, Hypertensive urgency, Parkinson disease, Acute UTI ED Provider Note CHIEF COMPLAINT: Weakness, lethargy HISTORY OF PRESENTING ILLNESS: Patient is 74-year-old male who presents to the emergency department today for evaluation of weakness, lethargy. He has a significant history of RA, Parkinson's, intermittent hypotension, mitral valve regurgitation, BPH, adrenal insufficiency, left lower extremity edema, hypothyroidism, seizures. He follows with multiple different specialist within [facility] in [facility]. He is a very poor historian and is not interested in talking or answering questions. Patient's is at bedside and is able to answer and speak for him. She states this is a significant change in his condition from his baseline. The patient also reports that he has had fluctuating blood pressures at home. He does take midodrine 3 times a day and 1 as needed dose if systolic is less than 100. He denies any numbness and tingling in all 4 extremities. He denies any headaches or visual changes. He denies chest pain, sob, breathing difficulties, abdominal pain, fevers/chills, blood in stool or urine, any recent illness, or any recent travel. REVIEW OF SYSTEMS: See HPI for pertinent positives and pertinent negatives. ALLERGIES: No known allergies MEDICATIONS: Significant list, see below PAST MEDICAL HISTORY: Significant list, see below PHYSICAL EXAM: VITALS: Vitals are noted on the nurse's note and reviewed by myself. GENERAL: Patient peers to be very fatigued and uninterested in conversation. Non toxic, in no acute distress, non-diaphoretic. SKIN: Capillary refill <2 sec. EYES: PERRLA. EOMI. Conjunctivae without injection, sclerae without icterus. NOSE: Patent without discharge. MOUTH: Mucous membranes moist. Uvula midline. Airway patent. No signs of dehydration. NECK: Supple without nuchal rigidity. HEART: Regular rate and rhythm without murmurs gallops or rubs. LUNGS: Clear to auscultation bilaterally without wheezes, rales or rhonchi. No retractions or accessory muscle use. ABDOMEN: Positive bowel sounds x 4. Normal tympanic percussion. Soft, nontender to palpation. No masses or hepatosplenomegaly. Catherine sign negative. No CVA tenderness. No guarding, rigidity, or rebound tenderness. No focal RLQ or LLQ tenderness. MUSCULOSKELETAL: Minor contractures are noted. Patient does lean to the left which is normal. He reports normal sensation and range of motion of all 4 extremities. NEURO: Patient was alert and oriented. No focal neurological deficits. DIFFERENTIAL DIAGNOSIS: Infection, sepsis, stroke, trauma, adrenal insufficiency, among others ED COURSE AND MEDICAL DECISION MAKING: HISTORY FROM INDEPENDENT HISTORIAN: History was provided by the patient and his who is at bedside. MEDICATIONS GIVEN: An IV lock was placed. The patient was given 1 L sodium chloride. MONITOR: Continuous buffer nickel: Order was placed for continuous buffer nickel. Patient was placed on the buffer nickel and continuous pulse ox. Patient was noted to be in normal sinus rhythm at an initial rate of 80 bpm per my interpretation. EKG: EKG was interpreted by myself as normal sinus rhythm. INTERPRETATION OF LABS: I interpreted the labs with full lab results as below in the lab section of this note. Laboratory results pertinent to the emergent complaint are discussed in the MDM section below. The patient was advised to follow up with their PCP and/or specialist(s) for further outpatient monitoring and management of any abnormal results. INTERPRETATION OF IMAGING: Imaging studies were interpreted by myself and read by radiology as per the imaging section of this note. The patient was advised to follow up with their PCP and/or specialist(s) for further outpatient management of any non-emergent abnormal findings. EXTERNAL RECORDS REVIEWED: Patient's cardiology and endocrinology records, previous ER records. CHRONIC MEDICAL/SOCIAL CONDITIONS AFFECTING CARE: No social concerns were identified as barriers to patients care. ESCALATION OF CARE CONSIDERED: I considered admission on this patient due to desatting on ambulation. CONSULTATIONS: I had a meaningful discussion about this patient with Dr. Munoz who agrees with my assessment and the treatment plan. SUMMARY: I examined the patient for complaints of lethargy and weakness. A physical exam and history were performed. Nursing notes, EMR, and medication list were personally reviewed. On assessment the patient is a poor historian and and is not answering questions. The patient's is at bedside he was able to answer questions for the patient. CBC is normal. CMP did show a chloride of 110 which appears to be baseline for the patient. BUN was 41. The patient was given a liter normal saline. ALT was 4 and albumin was 2.2. Urinalysis did show a trace amount of leukocytes and some white blood cells with 4+ bacteria. Viral panel was negative. Chest x-ray shows stable large hiatal hernia with chronic left basilar atelectasis and pleural thickening and effusion. Head CT was negative for any acute findings but did show cerebral atrophy with no acute changes. And increasing periosteal reaction and soft tissue swelling over the right frontal bone lytic lesion. Chest CT did show a hiatal hernia containing gastric fishes similar to prior study with interval increasing multisegmental left lower lobe atelectasis and new left lower lobe segmental atelectasis with elements of interstitial and airspace disease and moderate pleural effusion. Pneumonia must be considered. It also showed an incompletely elevated left liver lobe lesion favorable to represent a hemangioma. The patient was given a road test by nursing and did note to desat into the upper 80s with ambulation. With the patient significant medical history I did consider admission of the patient and consulted with hospitalist Dr. Pablo who did accept the patient for admission to the hospital. The patient and his were made aware of all the findings. The patient was admitted in good condition with no further questions or concerns. DIAGNOSIS: Weakness, ambulatory dysfunction, oxygen desaturation on ambulation, urinary tract infection TREATMENT PLAN/DISCHARGE INSTRUCTIONS: Admit to hospitalist services by Dr. Pablo. Past Med/Surg History Problem List (Updated 11/09/24 @ 23:48 by ADRIÁN Gibbs) Acute UTI (Acute) Parkinson disease (Acute) Hypertensive urgency (Acute) Generalized weakness (Acute) Chronic steroid use ACTH deficiency (Acute) Postural hypotension Rheumatoid arthritis Parkinson's disease dementia BPH loc w urin obs/LUTS Chronic diastolic (congestive) heart failure Medical History History of venous stasis ulcer of lower extremity Hypothermia Chronic venous insufficiency Nonrheumatic mitral valve regurgitation Spinal stenosis Surgical History Hx of laminectomy Family History Other Leukemia Lung cancer Social History Smoking Status: Never smoker Second Hand Exposure: No; Do You Dip or Chew Tobacco: No; Hx Alcohol Use: No Hx Substance Use: No Preferred Language: Hong Konger Communication Ability: Effective Public Health Teacher Required: No Beliefs That Will Affect Care: None Current Living Situation: Spouse Feels Safe at Home: Yes Assistive Devices: Glasses, Walker and Wheelchair Allergies Allergies Allergy/AdvReac Type Severity Reaction Status Date / Time No Known Allergies Allergy Verified 11/09/24 17:21 Home Meds Home Medications Medication Instructions Recorded Confirmed finasteride 5 mg tablet (Proscar) 5 mg PO QDD 12/03/20 11/09/24 leflunomide 20 mg tablet (Arava) 20 mg PO QDB 12/03/20 11/09/24 carbamazepine 200 mg tablet 200 mg PO QID 08/03/21 11/09/24 (Tegretol) levothyroxine 75 mcg tablet 75 mcg PO DAILYBB 08/03/21 11/09/24 (Synthroid) tamsulosin 0.4 mg capsule 0.4 mg PO QDD 08/03/21 11/09/24 zonisamide 100 mg capsule 100 mg PO HS 08/03/21 11/09/24 (Zonegran) carbidopa 25 mg-levodopa 100 mg 3 tab PO QID 02/07/22 11/09/24 tablet melatonin 5 mg tablet 10 mg PO HS PRN Sleep 08/21/23 11/09/24 entacapone 200 mg tablet 200 mg PO QID 10/10/23 11/09/24 acetaminophen 325 mg tablet 500 mg PO QID PRN Breakthrough 10/29/23 11/09/24 (Tylenol) Pain, Mild midodrine 2.5 mg tablet 2.5 mg PO TID 02/21/24 11/09/24 testosterone cypionate 200 mg/mL 100 mg IM DIRECTED PRN NEEDED 03/27/24 11/09/24 intramuscular oil cholecalciferol (vitamin D3) 25 25 mcg PO DAILYBB 08/25/24 11/09/24 mcg (1,000 unit) tablet ferrous sulfate 325 mg (65 mg 325 mg PO [id number] 08/25/24 11/09/24 iron) tablet (FeroSul) calcium carbonate (Calcium 600) 600 mg PO QDB 11/09/24 11/09/24 cholecalciferol (vitamin D3) 25 25 mcg PO QDB 11/09/24 11/09/24 mcg (1,000 unit) capsule (Vitamin D3) prednisone 10 mg tablet 10 mg PO QDB 11/09/24 11/09/24 Results & Data (ED) Vital Signs Vital Signs - 24 hr 11/09/24 15:40 11/09/24 16:19 11/09/24 16:34 Temperature 36.6 C Temperature Source Temporal Artery Scan Pulse Rate 76 67 Pulse Rate [Apical] Respiratory Rate 18 Respiratory Effort / Characteristics Non-Labored Spontaneous Respiratory Depth Normal Respiratory Pattern Blood Pressure 144/84 H Blood Pressure [Right Arm] Blood Pressure Mean 104 Blood Pressure Mean [Right Arm] Pulse Oximetry 93 91 Oxygen Delivery Method Room Air Room Air Sepsis Recent Fever Within 48 Hours No Sepsis New/Unexplained Change in Mental Status No Sepsis Action Taken by Nursing No Action Required 11/09/24 17:00 11/09/24 18:00 11/09/24 19:01 Temperature Temperature Source Pulse Rate Pulse Rate [Apical] 68 67 70 Respiratory Rate 18 18 24 Respiratory Effort / Characteristics Non-Labored Spontaneous Non-Labored Spontaneous Non-Labored Accessory Muscle Use Respiratory Depth Normal Normal Normal Respiratory Pattern Regular Regular Blood Pressure Blood Pressure [Right Arm] 207/111 H 194/104 H 205/115 H Blood Pressure Mean Blood Pressure Mean [Right Arm] 143 134 145 Pulse Oximetry 94 94 93 Oxygen Delivery Method Room Air Room Air Room Air Sepsis Recent Fever Within 48 Hours Sepsis New/Unexplained Change in Mental Status Sepsis Action Taken by Nursing Laboratory Data 11/09/24 16:02 11/09/24 16:02 Lab Results 11/09/24 11/09/24 11/09/24 Range/Units 16:02 17:12 17:35 WBC 9.49 (4.8-10.8) K/ul RBC 4.48 L (4.70-6.10) M/uL Hgb 14.0 (14.0-18.0) g/dl Hct 42.7 (42.0-52.0) % MCV 95.3 (80.0-100.0) fL MCH 31.3 (25.0-34.0) pg MCHC 32.8 (32.0-36.0) g/dL RDW Std Deviation 51.6 H (36.4-46.3) fL RDW Coeff of Armen 14.6 H (11.5-14.5) % Plt Count 175 (130-400) K/uL MPV 9.9 (9.4-12.4) fL Immature Gran % (Auto) 1.5 % Neut % (Auto) 79.3 % Lymph % (Auto) 6.8 % Hartley % (Auto) 11.7 % Eos % (Auto) 0.4 % Baso % (Auto) 0.3 % Neut # (Auto) 7.52 H (1.40-6.50) K/uL Lymph # (Auto) 0.65 L (1.20-3.40) K/uL Hartley # (Auto) 1.11 H (0.11-0.59) K/uL Eos # (Auto) 0.04 (0.00-0.50) K/uL Baso # (Auto) 0.03 (0.00-0.20) K/uL Immature Gran # (Auto) 0.14 (0.01-0.20) K/uL PT 10.3 (9.0-12.0) Seconds INR 0.9 (0.9-1.1) Sodium 143 (136-145) mmol/L Potassium 4.1 (3.5-5.1) mmol/L Chloride 110 H (98-107) mmol/L Carbon Dioxide 26 (21-32) mmol/L Anion Gap 7 (3-11) BUN 41 H (6-23) mg/dl Creatinine 1.26 (0.6-1.4) mg/dl Est Cr Clr Drug Dosing Not Reportable eGFR 59.48 BUN/Creatinine Ratio 32.5 H (10-20) Glucose 112 H (70-99(Fasting)) mg/dl Calcium 9.0 (8.6-10.3) mg/dl Magnesium 2.2 (1.7-2.4) mg/dl Total Bilirubin 0.5 (0.2-1.0) mg/dl AST 18 (13-39) U/L ALT 4 L (7-52) U/L Alkaline Phosphatase 95 (34-104) U/L Troponin I High Sens 9.9 (0-20) pg/ml Total Protein 6.9 (6.0-8.3) gm/dl Albumin 3.2 L (3.4-5.0) gm/dl Globulin 3.7 (2.5-4.0) gm/dl Albumin/Globulin Ratio 0.9 (0.9-2) Lipase 45 (11-82) U/L TSH 1.397 (0.300-4.500) uIu/ml Urine Color Dark Yellow Urine Appearance Clear (Clear) Urine pH 5.5 (4.5-7.5) Ur Specific [place] 1.030 (1.000-1.030) Urine Protein 2+ H (Negative) Urine Glucose (UA) Negative (Negative) Urine Ketones 1+ H (Negative) Urine Blood Negative (Negative) Urine Nitrite Negative (Negative) Urine Bilirubin 1+ H (Negative) Urine Urobilinogen Negative (Negative) Ur Leukocyte Esterase Trace H (Negative) Urine WBC (Auto) 11-20 H (0-5) /hpf Urine RBC (Auto) 0-2 (0-2) /hpf U Hyaline Cast (Auto) 0-2 (0-2) /lpf U Epithel Cells (Auto) 0-2 (0-2) /hpf Urine Bacteria (Auto) 4+ H (None Seen) Urine Comment Adenovirus (PCR) Not Detected (NotDetected) B. pertussis DNA (PCR) Not Detected (NotDetected) B.parapertussis DNA PCR Not Detected (NotDetected) Lyme Disease Screen Negative (Negative) C. pneumoniae DNA (PCR) Not Detected (NotDetected) Coronavirus OC43 (PCR) Not Detected (NotDetected) Coronavirus HKU1 (PCR) Not Detected (NotDetected) Coronavirus 229E (PCR) Not Detected (NotDetected) SARS-CoV-2 (PCR) Not Detected (NotDetected) Coronavirus NL63 (PCR) Not Detected (NotDetected) Human Metapneumovir PCR Not Detected (NotDetected) Influenza Type A (PCR) Not Detected (NotDetected) Influenza Type B (PCR) Not Detected (NotDetected) M. pneumoniae (PCR) Not Detected (NotDetected) Parainfluenza 1 (PCR) Not Detected (NotDetected) Parainfluenza 2 (PCR) Not Detected (NotDetected) Parainfluenza 3 (PCR) Not Detected (NotDetected) Parainfluenza 4 (PCR) Not Detected (NotDetected) RSV (PCR) Not Detected (NotDetected) Entero/Rhino (PCR) Not Detected (NotDetected) Administered Medications Acetaminophen (Acetaminophen 500 Mg Tab) 500 mg PO QID PRN PRN Reason: Breakthrough Pain, Mild Stop: 12/09/24 21:44 Last Admin: 11/09/24 22:44 Dose: 500 mg Documented By: CARMEL Carbamazepine (Carbamazepine 200 Mg Tablet) 200 mg PO 0630,1200,1700,2200 [facility] Stop: 12/09/24 21:59 Last Admin: 11/09/24 22:45 Dose: 200 mg Documented By: CARMEL Carbidopa/Levodopa (Carbidopa/Levodopa 25/100mg Tab) 3 tab PO QID@0630,0900,1200,1700 [facility] Stop: 12/09/24 21:44 Last Admin: 11/09/24 22:47 Dose: 3 tab Documented By: CARMEL Entacapone (Entacapone 200 Mg Tab) 200 mg PO QID@0630,0800,1200,1700 [facility] Stop: 12/09/24 21:44 Last Admin: 11/09/24 22:46 Dose: 200 mg Documented By: CARMEL Heparin Sodium (Porcine) (Heparin Sod 5,000 Unit/0.5 Ml Vial) 5,000 units SQ Q12 JACQUES Stop: 12/09/24 20:59 Last Admin: 11/09/24 22:45 Dose: 5,000 units Documented By: CARMEL Hydralazine HCl (Hydralazine Hcl 20 Mg/Ml Vial) 10 mg IV Q6H PRN PRN Reason: Blood Pressure - High Stop: 12/09/24 19:30 Last Admin: 11/09/24 23:01 Dose: 10 mg Documented By: CARMEL Sodium Chloride (Nss) 1,000 mls @ 80 mls/hr IV .[id number] [facility] Stop: 11/10/24 07:44 Last Admin: 11/09/24 19:30 Dose: 80 mls/hr Documented By: RAMIN Melatonin (Melatonin 3 Mg Tab) 9 mg PO HS PRN PRN Reason: Sleep Stop: 12/09/24 22:31 Last Admin: 11/09/24 22:44 Dose: 9 mg Documented By: CARMEL Nitroglycerin (Nitroglycerin 2% Ointment 30gm Tube) 1 inch EXT Q6H JACQUES Stop: 12/09/24 19:14 Last Admin: 11/09/24 19:28 Dose: 1 inch Documented By: RAMIN Zonisamide (Zonisamide 100 Mg Capsule) 100 mg PO HS JACQUES Stop: 12/09/24 21:44 Last Admin: 11/09/24 22:45 Dose: 100 mg Documented By: CARMEL Discontinued Medications Hydralazine HCl (Hydralazine Hcl 20 Mg/Ml Vial) 10 mg IV NOW STA Stop: 11/09/24 19:13 Last Admin: 11/09/24 19:33 Dose: 10 mg Documented By: RAMIN Sodium Chloride (Nss) 1,000 mls @ 999 mls/hr IV .Q1H1M ONE Stop: 11/09/24 17:56 Last Infusion: 11/09/24 18:11 Dose: Infused Documented By: Admin: 11/09/24 17:10 Dose: 999 mls/hr Documented By: DARYA Ceftriaxone Sodium (Rocephin) 2,000 mg in 50 mls @ 100 mls/hr IV NOW STA Stop: 11/09/24 19:43 Last Infusion: 11/09/24 20:22 Dose: Infused Documented By: Admin: 11/09/24 19:30 Dose: 100 mls/hr Documented By: RAMIN Ioversol (Optiray 320 100ml) 92 ml IV ONCE ONE Stop: 11/09/24 19:21 Last Admin: 11/09/24 19:20 Dose: 92 ml Documented By: WILSON Labetalol HCl (Labetalol Hcl Iv 5 Mg/Ml 20ml) 10 mg IV NOW STA Stop: 11/09/24 19:35 Last Admin: 11/09/24 20:35 Dose: Not Given Documented By: RAMIN Imaging Data Radiologist's Impression: Chest X-Ray 11/09/24 16:22 EXAM: Radiographs of the Chest 2 Views INDICATION: Wheezing. Fatigue. TECHNIQUE: Frontal and lateral views of the chest. COMPARISON: No relevant prior studies available. FINDINGS: Lungs and pleural spaces: No change left pleural effusion/thickening and airspace consolidation in the left lung base likely reflecting compression from large hiatal hernia. There is crowded vasculature from shallow inspiration in the right lung base. No pneumothorax. Heart: Stable large cardiac shadow. Mediastinum: See above. Bones/joints: No fracture, erosion or dislocation. IMPRESSION: Stable large hiatal hernia with chronic left basilar atelectasis and pleural thickening/effusion. ACT 112: N/A Electronically signed by Marina Donnelly 11-09-2024 5:[address] 11/09/24 16:22 EXAM: CT Head Without Intravenous Contrast INDICATION: Pain TECHNIQUE: Axial computed tomography images of the head/brain without intravenous contrast. Sagittal and/or coronal reformats are provided. Sagittal and coronal reformatted images were created and reviewed. This CT exam was performed using one or more of the following dose reduction techniques: automated exposure control, adjustment of the mA and/or kV according to patient size, and/or use of iterative reconstruction technique. COMPARISON: 10/29/2023 FINDINGS: Limitations: None. Brain and extra-axial spaces: There is age appropriate cortical atrophy and chronic ischemic periventricular white matter hypodensity. No acute infarct, hemorrhage or mass noted. Bones/joints: No fracture. Soft tissues: There is increasing periosteal reaction and soft tissue swelling over the right frontal bone lytic lesion. Vasculature: No acute abnormality noted. Sinuses: No layering fluid in the visualized portions of the paranasal sinuses. Mastoid air cells: No mastoid effusion. Orbits: No significant abnormality noted. IMPRESSION: 1. Cerebral atrophy. No acute changes in the brain. 2. There is increasing periosteal reaction and soft tissue swelling over the right frontal bone lytic lesion. Correlate clinically. ACT 112: Positive. There are findings on this exam that require communication between the performing entity and the patient following Patient Test Result Information Act ([place] ACT 112) guidelines. Electronically signed by Marina Donnelly 11-09-2024 5:[address] 11/09/24 18:48 CT chest with contrast. History: Decreased oxygenation. Comparison: October 10, 2023. Technique: Helical CT imaging of the chest performed with IV contrast Dose reduction techniques were achieved by using automatic exposure control and/or adjustment of mA and/or kV according to patient size and/or use of iterative reconstruction technique. Findings: [employer] film demonstrates opacified left pulmonary base with obscuration left hemidiaphragm and heart border. Lung windows demonstrate prominent pulmonary vasculature. Groundglass attenuation and densities consistent with left upper lobe subsegmental and left lower lobe multisegmental atelectasis. This has progressed when compared to prior study. Soft tissue windows demonstrate calcified atherosclerotic changes coronary vasculature. Mild cardiomegaly. Small pericardial effusion. Trace right and moderate size left pleural effusion. Left pleural effusion is new when compared to prior study. Hiatal hernia containing the gastric viscus with mass effect on the dorsal heart is noted. Findings similar to prior study. Partially included peripheral nodular enhancing hypodensity left liver lobe. This is incompletely evaluated on this exam. Favor hemangioma. Bone windows demonstrate no acute osseous process. Impression: 1. Hiatal hernia containing gastric viscus similar to prior study with interval increasing multisegmental left lower lobe atelectasis and new left upper lobe subsegmental atelectasiswith elements of interstitial and airspace disease and moderate pleural effusion. Pneumonia must be considered. 2. Incompletely evaluated left liver lobe lesion favored to represent a hemangioma. Please see above for details. Electronically signed by Alfonso Haas 11-09-2024 8:27 PM Discharge Plan Visit Data Chief Complaint: Illness Stated Complaint: POSS DEHYDRATION, FEELS BAD,FATIGUE, HIGH/LOW BP ED Provider: Sotero Munoz ED Midlevel Provider: Marion Birch Discharge Problem: Generalized weakness, ACTH deficiency, Hypertensive urgency, Parkinson disease, Acute UTI Patient Disposition: Admitted As Inpatient Condition: Fair Discharge Instructions Interventions: ED Discharge Assessment Last Done: 11/09/24 21:24 Addendum November 10, 2024 02:02 I was consulted by the Advanced Practice Provider and was substantively involved in the patient's visit.This includes aspects of the HPI, MDM, diagnostic interpretations, and disposition/plan. I discussed the case with the ABHINAV and agree with the findings and plan as documented in ABHINAV Eyal's note. Discharge Problem: Parkinson disease Qualifiers: Dyskinesia presence: unspecified whether dyskinesia Fluctuating manifestations: unspecified whether manifestations fluctuate Qualified Code(s): G20.A1 - Parkinson's disease without dyskinesia, without mention of fluctuations
[2024-11-09 16:56] LABS: Hematocrit (blood only) 42.7 % (42.0-52.0); Hemoglobin 14.0 g/dl (14.0-18.0); Immature Granulocytes # (auto) 0.14 K/uL (0.01-0.20); Immature Granulocytes % (auto) 1.5 %; Mean Corpuscular Hemoglobin 31.3 pg (25.0-34.0); Mean Corpuscular Volume 95.3 fL (80.0-100.0); Platelet Count 175 K/uL (130-400); RDW Standard Deviation 51.6 fL (36.4-46.3); Red Blood Count 4.48 M/uL (4.70-6.10); White Blood Count 9.49 K/ul (4.8-10.8)
[2024-11-09 17:05] LABS: Alanine Aminotransferase 4 U/L (7-52); Albumin Globulin Ratio 0.9 (0.9-2); Alkaline Phosphatase 95 U/L (34-104); Anion Gap 7 (3-11); Bilirubin,Total 0.5 mg/dl (0.2-1.0); Blood Urea Nitrogen 41 mg/dl (6-23); Calcium 9.0 mg/dl (8.6-10.3); Carbon Dioxide 26 mmol/L (21-32); Chloride 110 mmol/L (98-107); Globulin 3.7 gm/dl (2.5-4.0); Glucose 112 mg/dl (70-99(Fasting)); Lipase 45 U/L (11-82); Magnesium 2.2 mg/dl (1.7-2.4); Potassium 4.1 mmol/L (3.5-5.1); Sodium 143 mmol/L (136-145); Total Protein 6.9 gm/dl (6.0-8.3)
[2024-11-09] MEDS: SODIUM CHLORIDE 0.9% 1,000 ML IV ONE (17:10)
[2024-11-09 17:21] LABS: Thyroid Stimulating Hormone 1.397 uIu/ml (0.300-4.500)
--- NOTE | 2024-11-09 17:26 | XRay Report ---
EXAM: Radiographs of the Chest 2 Views INDICATION: Wheezing. Fatigue. TECHNIQUE: Frontal and lateral views of the chest. COMPARISON: No relevant prior studies available. FINDINGS: Lungs and pleural spaces: No change left pleural effusion/thickening and airspace consolidation in the left lung base likely reflecting compression from large hiatal hernia. There is crowded vasculature from shallow inspiration in the right lung base. No pneumothorax. Heart: Stable large cardiac shadow. Mediastinum: See above. Bones/joints: No fracture, erosion or dislocation. IMPRESSION: Stable large hiatal hernia with chronic left basilar atelectasis and pleural thickening/effusion. ACT 112: N/A Electronically signed by Marina Donnelly 11-09-2024 5:26 PM
[2024-11-09 17:28] LABS: INR 0.9 (0.9-1.1); Prothrombin Time 10.3 Seconds (9.0-12.0)
[2024-11-09 17:52] LABS: Appearance Urine Clear (Clear); Bacteria Urine Automated 4+ (None Seen); Cast Urine Automated 0-2 /lpf (0-2); Epithelial Cell Urine Auto 0-2 /hpf (0-2); Glucose Urine UA Negative (Negative); RBC Urine Automated 0-2 /hpf (0-2)
--- NOTE | 2024-11-09 17:54 | CT Scan Report ---
EXAM: CT Head Without Intravenous Contrast INDICATION: Pain TECHNIQUE: Axial computed tomography images of the head/brain without intravenous contrast. Sagittal and/or coronal reformats are provided. Sagittal and coronal reformatted images were created and reviewed. This CT exam was performed using one or more of the following dose reduction techniques: automated exposure control, adjustment of the mA and/or kV according to patient size, and/or use of iterative reconstruction technique. COMPARISON: 10/29/2023 FINDINGS: Limitations: None. Brain and extra-axial spaces: There is age appropriate cortical atrophy and chronic ischemic periventricular white matter hypodensity. No acute infarct, hemorrhage or mass noted. Bones/joints: No fracture. Soft tissues: There is increasing periosteal reaction and soft tissue swelling over the right frontal bone lytic lesion. Vasculature: No acute abnormality noted. Sinuses: No layering fluid in the visualized portions of the paranasal sinuses. Mastoid air cells: No mastoid effusion. Orbits: No significant abnormality noted. IMPRESSION: 1. Cerebral atrophy. No acute changes in the brain. 2. There is increasing periosteal reaction and soft tissue swelling over the right frontal bone lytic lesion. Correlate clinically. ACT 112: Positive. There are findings on this exam that require communication between the performing entity and the patient following Patient Test Result Information Act ([place] ACT 112) guidelines. Electronically signed by Marina Donnelly 11-09-2024 5:54 PM
[2024-11-09 18:15] LABS: Chlamydia pneumoniae PCR Not Detected (NotDetected); Coronavirus 229E PCR Not Detected (NotDetected); Coronavirus CoV-2 (COVID19)PCR Not Detected (NotDetected); Coronavirus HKU1 PCR Not Detected (NotDetected); Coronavirus NL63 PCR Not Detected (NotDetected); Coronavirus OC43PCR Not Detected (NotDetected); Human Metapneumovirus PCR Not Detected (NotDetected); Parainfluenza Virus 1 PCR Not Detected (NotDetected); Parainfluenza Virus 2 PCR Not Detected (NotDetected); Parainfluenza Virus 3 PCR Not Detected (NotDetected); Parainfluenza Virus 4 PCR Not Detected (NotDetected); Respiratory Syncytial VirusPCR Not Detected (NotDetected); Rhinovirus/Enterovirus PCR Not Detected (NotDetected)
[2024-11-09] MEDS: OPTIRAY 320 100ml IV ONE (19:20)
[2024-11-09] MEDS: NITROGLYCERIN 2% OINTMENT 30GM TUBE EXT SCH (19:28)
[2024-11-09] MEDS: cefTRIAXone SODIUM 2,000 MG/50 ML BAG IV STA (19:30)
[2024-11-09] MEDS: SODIUM CHLORIDE 0.9% 1,000 ML IV SCH (19:30)
--- NOTE | 2024-11-09 19:31 | History & Physical Report ---
Date of Service November 09, 2024 Assessment & Plan (1) Generalized weakness: Plan: History of Parkinson disease seems to have progression of the disease Generalized weakness may be secondary to mild dehydration and possible UTI Will get PT and OT evaluation prior to discharge Will give cautious amount of intravenous fluid to combat dehydration He was advised to drink more fluid Possible UTI Urine has been sent for culture Ceftriaxone has been started (2) Hypertensive urgency: Plan: Blood pressure has been running high at home systolic more than 180 at times Blood pressure noted to be high in the emergency room at 205/115 Midodrine will be on hold Nitropaste has been applied and will give hydralazine every 6 hours as needed (3) Parkinson's disease dementia: Plan: Seems to have progression of the disease Continue current medications (4) Rheumatoid arthritis: Plan: Has been taking Arava and will continue No acute arthritis involving any joint (5) Chronic steroid use: (6) Chronic diastolic (congestive) heart failure: Plan: No evidence of diastolic heart failure or fluid overload Will give a small dose of IV fluid and monitor for fluid any fluid overload (7) Spinal stenosis: Plan: Chronic back pain but no acute (8) Chronic venous insufficiency: Plan DVT prophylaxis Subcu heparin CODE STATUS Full code Discussed with the in detail History of Present Illness Chief Complaint: Generalized weakness for 2 days, fluctuating hypertension Primary Care Provider: Emerald Dutton MD Is a 74-year-old male with significant past medical history of Parkinson's disease,hypothyroidism, chronic diastolic heart failure, history of liver hemangioma, nonrheumatic mitral valve regurgitation, history of simple partial seizure rheumatoid arthritis long-term steroid therapy was brought into the emergency room with progressive weakness and tiredness for the last 2 days. He also complained of nonspecific pain in the left shoulder and weakness got worse this morning. He felt feverish but no documented temperature. The has been noting fluctuating blood pressure at home without any chest pain and/or palpitation, any headache or blurring of vision or any numbness or tingling involving any of the extremities. He denies any abdominal pain, any nausea or vomiting but recently has noted to have desaturation with minimal movement and that happened also in the emergency room He was noted to have possible UTI and will have a CAT scan of the chest to evaluate any further disease in the chest. Will be admitted to medical telemetry unit for continuation of care. Allergies Allergy/AdvReac Type Severity Reaction Status Date / Time No Known Allergies Allergy Verified 11/09/24 17:21 Home Medications Medication Instructions Recorded Confirmed Type finasteride 5 mg tablet (Proscar) 5 mg PO QDD 12/03/20 11/09/24 History leflunomide 20 mg tablet (Arava) 20 mg PO QDB 12/03/20 11/09/24 History carbamazepine 200 mg tablet 200 mg PO QID 08/03/21 11/09/24 History (Tegretol) levothyroxine 75 mcg tablet 75 mcg PO DAILYBB 08/03/21 11/09/24 History (Synthroid) tamsulosin 0.4 mg capsule 0.4 mg PO QDD 08/03/21 11/09/24 History zonisamide 100 mg capsule 100 mg PO HS 08/03/21 11/09/24 History (Zonegran) carbidopa 25 mg-levodopa 100 mg 3 tab PO QID 02/07/22 11/09/24 History tablet melatonin 5 mg tablet 10 mg PO HS PRN Sleep 08/21/23 11/09/24 History entacapone 200 mg tablet 200 mg PO QID 10/10/23 11/09/24 History acetaminophen 325 mg tablet 500 mg PO QID PRN Breakthrough 10/29/23 11/09/24 History (Tylenol) Pain, Mild midodrine 2.5 mg tablet 2.5 mg PO TID 02/21/24 11/09/24 History testosterone cypionate 200 mg/mL 100 mg IM DIRECTED PRN NEEDED 03/27/24 11/09/24 History intramuscular oil cholecalciferol (vitamin D3) 25 25 mcg PO DAILYBB 08/25/24 11/09/24 History mcg (1,000 unit) tablet ferrous sulfate 325 mg (65 mg 325 mg PO 5XWK 08/25/24 11/09/24 History iron) tablet (FeroSul) calcium carbonate (Calcium 600) 600 mg PO QDB 11/09/24 11/09/24 History cholecalciferol (vitamin D3) 25 25 mcg PO QDB 11/09/24 11/09/24 History mcg (1,000 unit) capsule (Vitamin D3) prednisone 10 mg tablet 10 mg PO QDB 11/09/24 11/09/24 History Past Med/Surg History Problem List (Updated 06/22/25 @ 19:27 by Solomon Pablo MD) Hypertensive urgency Generalized weakness Chronic steroid use ACTH deficiency Postural hypotension Rheumatoid arthritis Parkinson's disease dementia BPH loc w urin obs/LUTS Chronic diastolic (congestive) heart failure Medical History History of venous stasis ulcer of lower extremity Hypothermia Chronic venous insufficiency Nonrheumatic mitral valve regurgitation Spinal stenosis Surgical History Hx of laminectomy Family History Other Leukemia Lung cancer Social History Smoking Status: Never smoker Second Hand Exposure: No; Do You Dip or Chew Tobacco: No; Hx Alcohol Use: No Hx Substance Use: No Preferred Language: [place]ican Communication Ability: Effective Bible Teacher Required: No Beliefs That Will Affect Care: None Current Living Situation: Spouse Feels Safe at Home: Yes Assistive Devices: Glasses, Walker and Wheelchair Review of Systems Review of Systems: All systems reviewed and are unremarkable except as noted below Physical Exam Physical Exam: Lying in bed looking tired and lethargic with no apparent distress Constitutional: well developed, well nourished, + ill appearing and average body habitus Eyes: PERRL, conjunctivae normal, anicteric sclerae ENMT: external ear and nose normal, oropharynx normal Neck: trachea midline, no thyromegaly Respiratory: no respiratory distress Auscultation: lungs clear to auscultation bilaterally and + diminished lung sounds (On the left lower lung) Cardiovascular: Rate/Rhythm: regular rate and regular rhythm; not tachycardic Heart Sounds: normal S1 and normal S2; no murmur Extremities: no edema Gastrointestinal (Abdomen): Inspection/Auscultation: normal bowel sounds; abdomen not distended Percussion/Palpation: abdomen soft; abdomen nontender Musculoskeletal: Has arthritic changes involving the extremities but no acute arthritis Neurologic: normal touch/pain/proprioception and moves all extremities; no focal motor deficits Generally weak and lethargic Lymphatic: no cervical or axillary lymphadenopathy Results & Data Results & Data Vital Signs (Past 12 Hours) Vital Signs Temp Pulse Pulse Resp BP BP Pulse Ox 11/09/24 19:01 70 24 205/115 H 93 11/09/24 18:00 67 18 194/104 H 94 11/09/24 17:00 68 18 207/111 H 94 11/09/24 16:34 91 11/09/24 16:19 67 11/09/24 15:40 36.6 C 76 18 144/84 H 93 O2 Del Method 11/09/24 19:01 Room Air 11/09/24 18:00 Room Air 11/09/24 17:00 Room Air 11/09/24 16:34 Room Air 11/09/24 16:19 11/09/24 15:40 Room Air Laboratory Results Short CBC 11/09/24 Range/Units 16:02 WBC 9.49 (4.8-10.8) K/ul Hgb 14.0 (14.0-18.0) g/dl Hct 42.7 (42.0-52.0) % Plt Count 175 (130-400) K/uL BMP 11/09/24 16:02 Sodium 143 Potassium 4.1 Chloride 110 H Carbon Dioxide 26 BUN 41 H Creatinine 1.26 Glucose 112 H Calcium 9.0 Liver Function 11/09/24 Range/Units 16:02 Total Bilirubin 0.5 (0.2-1.0) mg/dl AST 18 (13-39) U/L ALT 4 L (7-52) U/L Alkaline Phosphatase 95 (34-104) U/L Albumin 3.2 L (3.4-5.0) gm/dl Urine 11/09/24 Range/Units 17:35 Urine Color Dark Yellow Urine Appearance Clear (Clear) Urine pH 5.5 (4.5-7.5) Ur Specific [place] 1.030 (1.000-1.030) Urine Protein 2+ H (Negative) Urine Glucose (UA) Negative (Negative) Okay Medications Administered Current Inpatient Medications Heparin Sodium (Porcine) (Heparin Sod 5,000 Unit/0.5 Ml Vial) 5,000 units SQ Q12 JACQUES Stop: 12/09/24 20:59 Ceftriaxone Sodium (Rocephin) 2,000 mg in 50 mls @ 100 mls/hr IV Q24H JACQUES Stop: 11/15/24 19:14 Ceftriaxone Sodium (Rocephin) 2,000 mg in 50 mls @ 100 mls/hr IV NOW STA Stop: 11/09/24 19:43 Sodium Chloride (Nss) 1,000 mls @ 80 mls/hr IV .[id number] JACQUES Stop: 11/10/24 07:44 Nitroglycerin (Nitroglycerin 2% Ointment 30gm Tube) 1 inch EXT Q6H JACQUES Stop: 12/09/24 19:14 Code Status & VTE Plan VTE Prophylaxis Plan VTE Prophylaxis will be ordered: Yes
--- NOTE | 2024-11-09 20:27 | CT Scan Report ---
CT chest with contrast. History: Decreased oxygenation. Comparison: October 10, 2023. Technique: Helical CT imaging of the chest performed with IV contrast Dose reduction techniques were achieved by using automatic exposure control and/or adjustment of mA and/or kV according to patient size and/or use of iterative reconstruction technique. Findings: Electronics Department Manager film demonstrates opacified left pulmonary base with obscuration left hemidiaphragm and heart border. Lung windows demonstrate prominent pulmonary vasculature. Groundglass attenuation and densities consistent with left upper lobe subsegmental and left lower lobe multisegmental atelectasis. This has progressed when compared to prior study. Soft tissue windows demonstrate calcified atherosclerotic changes coronary vasculature. Mild cardiomegaly. Small pericardial effusion. Trace right and moderate size left pleural effusion. Left pleural effusion is new when compared to prior study. Hiatal hernia containing the gastric viscus with mass effect on the dorsal heart is noted. Findings similar to prior study. Partially included peripheral nodular enhancing hypodensity left liver lobe. This is incompletely evaluated on this exam. Favor hemangioma. Bone windows demonstrate no acute osseous process. Impression: 1. Hiatal hernia containing gastric viscus similar to prior study with interval increasing multisegmental left lower lobe atelectasis and new left upper lobe subsegmental atelectasiswith elements of interstitial and airspace disease and moderate pleural effusion. Pneumonia must be considered. 2. Incompletely evaluated left liver lobe lesion favored to represent a hemangioma. Please see above for details. Electronically signed by Alfonso Haas 11-09-2024 8:27 PM
[2024-11-09] MEDS: LABETALOL HCL IV 5 MG/ML 20ML IV STA (20:35)
[2024-11-09] MEDS: ACETAMINOPHEN 500 MG TAB PO PRN (22:44)
[2024-11-09] MEDS: MELATONIN 3 MG TAB PO PRN (22:44)
[2024-11-09] MEDS: HEPARIN SOD 5,000 UNIT/0.5 ML VIAL SQ SCH (22:45)
[2024-11-09] MEDS: ZONISAMIDE 100 MG CAPSULE PO SCH (22:45)
[2024-11-09] MEDS: ENTACAPONE 200 MG TAB PO SCH (22:46)
[2024-11-09] MEDS: CARBIDOPA/LEVODOPA 25/100MG TAB PO SCH (22:47)
[2024-11-10] MEDS: CHOLECALCIFEROL 25 MCG (1000 UNITS) TAB PO SCH (06:06)
[2024-11-10] MEDS: LEVOTHYROXINE SODIUM 75 MCG TABLET PO SCH (06:06)
[2024-11-10 06:27] LABS: Hematocrit (blood only) 40.1 % (42.0-52.0); Hemoglobin 13.1 g/dl (14.0-18.0); Immature Granulocytes # (auto) 0.15 K/uL (0.01-0.20); Immature Granulocytes % (auto) 1.9 %; Mean Corpuscular Hemoglobin 30.8 pg (25.0-34.0); Mean Corpuscular Volume 94.4 fL (80.0-100.0); Platelet Count 172 K/uL (130-400); RDW Standard Deviation 49.9 fL (36.4-46.3); Red Blood Count 4.25 M/uL (4.70-6.10); White Blood Count 8.00 K/ul (4.8-10.8)
[2024-11-10 06:42] LABS: Anion Gap 7.0 (3-11); Blood Urea Nitrogen 30.0 mg/dl (6-23); Calcium 8.4 mg/dl (8.6-10.3); Carbon Dioxide 22.0 mmol/L (21-32); Chloride 113.0 mmol/L (98-107); Creatinine Clr Calc Pharmacy 52.8 ml/min; Glucose 93.0 mg/dl (70-99(Fasting)); Magnesium 2.0 mg/dl (1.7-2.4); Potassium 3.7 mmol/L (3.5-5.1); Sodium 142.0 mmol/L (136-145)
[2024-11-10] MEDS ORDERED: CHOLECALCIFEROL 25 MCG (1000 UNITS) TAB PO SCH (07:30)
[2024-11-10] MEDS: LEFLUNOMIDE 10 MG TAB PO SCH (07:38)
[2024-11-10] MEDS: FERROUS SULFATE 325 MG TAB PO SCH (07:38)
--- NOTE | 2024-11-10 09:13 | Neurology Consultation ---
Date of Consultation November 10, 2024 Assessment & Plan (1) Parkinson disease: Terrence Aguilar is a 74 yo M presenting with essentially failure to thrive at home secondary to advancing PD. Do not suspect parkinson's dementia, at least based on my encounter, but rather bradyphrenia and bradykinesia making communic ation delayed and difficult for the patient. He needs close follow-up with outpatient movement disorders for his advanced PD. Would keep him on his current sinemet regimen but could trial addition of amantadine 100mg BID for now. Stop if he has any complaint of hallucinations. Always reasonable to start goals of care conversations when patient is advancing through their otherwise incurable disease process. -- Trial of amantadine 100mg BID -- Therapy evals for likely placement -- Goals of care discussion -- Close outpatient movement disorders follow-up Telehealth Consultation Telehealth Information Telehealth Information: I performed this visit using a real-time telehealth connection between my location and the patients location ([facility]). After connecting through interactive tele-video, patient was identified by name and date of and/or wristband check.Patient (or authorized healthcare b2b sales representative) was informed that this was a telemedicine visit and it was being conducted confidentially over secure lines. My office door was closed and no one else was present in the room with me.Patient (or authorized healthcare b2b sales representative) provided consent to proceed with the visit, expressed an understanding of privacy and security of the telemedicine visit, and gave permission to have a hospital b2b sales representative in the room in order to assist with the visit and to conduct portions of the visit, as needed. I informed the patient (or authorized healthcare b2b sales representative) that I reviewed their record and presented the opportunity for them to ask any questions regarding the visit today. The patient agreed to participate. History of Present Illness Reason for Consultation: Advancing parkinsons Requesting Physician: Dr. Cristina Attending Physician: Steven Cristina MD History of Present Illness Terrence Aguilar is a 74 yo M presenting with generalized weakness, fatigue, difficulty managing at home with his . He reports he is not doing well overall and reports that his has to do everything for him. He denies any recent seizures, no loss of consciousness, no falls. Generally weak. He is able to tell me where he is and knows which medications he takes. Overall has noticed a decline in function over the past year. Denies any specific episodes of confusion, no hallucinations on his current med regimen. Allergies Allergy/AdvReac Type Severity Reaction Status Date / Time No Known Allergies Allergy Verified 11/09/24 17:21 Home Medications Medication Instructions Recorded Confirmed Type finasteride 5 mg tablet (Proscar) 5 mg PO QDD 12/03/20 11/09/24 History leflunomide 20 mg tablet (Arava) 20 mg PO QDB 12/03/20 11/09/24 History carbamazepine 200 mg tablet 200 mg PO QID 08/03/21 11/09/24 History (Tegretol) levothyroxine 75 mcg tablet 75 mcg PO DAILYBB 08/03/21 11/09/24 History (Synthroid) tamsulosin 0.4 mg capsule 0.4 mg PO QDD 08/03/21 11/09/24 History zonisamide 100 mg capsule 100 mg PO HS 08/03/21 11/09/24 History (Zonegran) carbidopa 25 mg-levodopa 100 mg 3 tab PO QID 02/07/22 11/09/24 History tablet melatonin 5 mg tablet 10 mg PO HS PRN Sleep 08/21/23 11/09/24 History entacapone 200 mg tablet 200 mg PO QID 10/10/23 11/09/24 History acetaminophen 325 mg tablet 500 mg PO QID PRN Breakthrough 10/29/23 11/09/24 History (Tylenol) Pain, Mild midodrine 2.5 mg tablet 2.5 mg PO TID 02/21/24 11/09/24 History testosterone cypionate 200 mg/mL 100 mg IM DIRECTED PRN NEEDED 03/27/24 11/09/24 History intramuscular oil cholecalciferol (vitamin D3) 25 25 mcg PO DAILYBB 08/25/24 11/09/24 History mcg (1,000 unit) tablet ferrous sulfate 325 mg (65 mg 325 mg PO 5XWK 08/25/24 11/09/24 History iron) tablet (FeroSul) calcium carbonate (Calcium 600) 600 mg PO QDB 11/09/24 11/09/24 History cholecalciferol (vitamin D3) 25 25 mcg PO QDB 11/09/24 11/09/24 History mcg (1,000 unit) capsule (Vitamin D3) prednisone 10 mg tablet 10 mg PO QDB 11/09/24 11/09/24 History Patient History Medical History History of venous stasis ulcer of lower extremity Hypothermia Chronic venous insufficiency Nonrheumatic mitral valve regurgitation Spinal stenosis Surgical History Hx of laminectomy Family History Other Leukemia Lung cancer Social History Smoking Status: Never smoker Second Hand Exposure: No; Do You Dip or Chew Tobacco: No; Hx Alcohol Use: No Hx Substance Use: No Preferred Language: Serbian Communication Ability: Effective Progress Clerk Required: No Beliefs That Will Affect Care: None Current Living Situation: Spouse Feels Safe at Home: Yes Assistive Devices: Glasses, Walker and Wheelchair Review of Systems +weakness Physical Exam Neurological Examination: Mental Status: Awake and alert. Oriented to person, place. Fluent with significant delay in responses and paucity of speech. Bradyphrenia. Comprehension intact. Affect appropriate. Cranial Nerves: Face symmetric with mask like faces, decreased blink. hearing intact Motor: Strength was antigravity and bradykinetic. no resting tremor noted, dyskinetic finger taps Reflexes: Unable to assess over telemedicine Results & Data Vital Signs (Past 12 Hours) Vital Signs Temp Pulse Pulse Resp BP BP Pulse Ox 11/10/24 07:45 36.4 C L 77 16 138/82 93 11/10/24 04:03 36.5 C 71 171/95 H 95 11/10/24 02:25 36.5 C 66 18 167/86 H 94 11/10/24 00:10 36.7 C 87 18 137/81 95 11/09/24 23:54 83 126/72 11/09/24 23:01 88 207/110 H 11/09/24 22:21 79 11/09/24 21:45 11/09/24 21:45 36.6 C 83 16 192/93 H 95 O2 Del Method 11/10/24 07:45 Room Air 11/10/24 04:03 Room Air 11/10/24 02:25 Room Air 11/10/24 00:10 Room Air 11/09/24 23:54 11/09/24 23:01 11/09/24 22:21 11/09/24 21:45 Room Air 11/09/24 21:45 Room Air Laboratory Results Abnormal lab results 11/09/24 11/09/24 11/10/24 Range/Units 16:02 17:35 05:44 RBC 4.48 L 4.25 L (4.70-6.10) M/uL Hgb 13.1 L (14.0-18.0) g/dl Hct 40.1 L (42.0-52.0) % RDW Std Deviation 51.6 H 49.9 H (36.4-46.3) fL RDW Coeff of Armen 14.6 H (11.5-14.5) % Neut # (Auto) 7.52 H (1.40-6.50) K/uL Lymph # (Auto) 0.65 L 1.10 L (1.20-3.40) K/uL [place] # (Auto) 1.11 H 0.83 H (0.11-0.59) K/uL Chloride 110 H 113 H (98-107) mmol/L BUN 41 H 30 H (6-23) mg/dl BUN/Creatinine Ratio 32.5 H 27.5 H (10-20) Glucose 112 H (70-99(Fasting)) mg/dl Calcium 8.4 L (8.6-10.3) mg/dl Phosphorus 2.0 L (2.5-4.9) mg/dl ALT 4 L (7-52) U/L Albumin 3.2 L (3.4-5.0) gm/dl Urine Protein 2+ H (Negative) Urine Ketones 1+ H (Negative) Urine Bilirubin 1+ H (Negative) Ur Leukocyte Esterase Trace H (Negative) Urine WBC (Auto) 11-20 H (0-5) /hpf Urine Bacteria (Auto) 4+ H (None Seen) (1) Parkinson disease Dyskinesia presence: unspecified whether dyskinesia Fluctuating manifestations: unspecified whether manifestations fluctuate Qualified Code(s): G20.A1 - Parkinson's disease without dyskinesia, without mention of fluctuations
--- NOTE | 2024-11-10 11:15 | Hospitalist Progress Note ---
Date of Service November 10, 2024 Assessment & Plan (1) Generalized weakness: Plan: This is a 74-year-old male with significant past medical history of Parkinson's disease,hypothyroidism, chronic diastolic heart failure, history of liver hemangioma, nonrheumatic mitral valve regurgitation, history of simple partial seizure rheumatoid arthritis long-term steroid therapy who presents to ED with generalized weakness. In setting of Parkinson's disease with likely progression Mild dehydration and possible UTI may be contributing as well Consulted neurology - failure to thrive picture 2/2 advancing Parkinson's recommending continue Sinemet regimen and trial of amantadine 100mg BID for now - stop if develops component of hallucinations Plan for goals of care discussion with family at bedside tomorrow PT/OT evals - OT recommending rehab, awaiting PT Possible UTI Urine culture growing preliminary Enterococcus faecalis Prophylactic ceftriaxone does not cover, will transition to amoxicillin 500mg BID per discussion with pharmacy CAP, possible TEE consolidation CT chest revealing possible TEE infiltrate with significant atelectasis noted Starting doxycycline for 5 day course, amoxicillin as above Incentive spirometry (2) Parkinson's disease dementia: Plan: Seems to have progression of the disease Continue current medications, appreciate neuro input as above (3) Rheumatoid arthritis: Plan: Has been taking Arava and will continue (4) Chronic steroid use: (5) Chronic diastolic (congestive) heart failure: Plan: No evidence of diastolic heart failure or fluid overload Monitor volume status closely (6) Spinal stenosis: Plan: Chronic back pain, no acute change (7) Chronic venous insufficiency: (8) Labile hypertension: Plan: SBP ranging from 80s-200s at home, elevated in ED In setting of autonomic dysfunction 2/2 Parkinson's Midodrine held for now - can resume if indicated Plan DVT prophylaxis: SQ heparin Code: FULL Dispo: Admitted to med/tele Patient seen in collaboration with Dr. Cristina. Please see addendum. I spent a total of 45 minutes coordinating, documenting, and providing care for this patient excluding time spent in the performance of separately billed se rvices or time spent by another provider/QHP. Admission and Anticipated Discharge Date Admission Date: November 09, 2024 Supervising Physician Co-Signing Physician Notes Patient seen and examined at bedside. patient doing ok today, long discussion with at bedside. Discussed his journey with Parkinsons disease, current clinical condition, and scheduling a family meeting tomorrow at 11 am to discuss goals and values, and paths moving forward. She was very appreciative of the update. Chart review: follows with Dr. Mustafa for advanced Parkinson disease (on carbidopa/levodopa and entacapone), c/b significant bradykinesia/rigidity, orthostatic hypotension, per Dr. Mustafa "has such advanced Parkinsons disease we really are not going to change his treatments", follows with Dr. Dutton for primary care--->periodic limb movements of sleep treated with iron supplements, RA managed by rheumatology on chronic prednisone and lefluonamide, seizure disorder on carbamazepine and zonisamide follows with Dr Mustafa, follows with Dr. Birch urology for hypogonadism and BPH on testosterone recently stopped tamulosin due to orthostasis, follows with Dr. Ortez for labile blood pressures On exam, no cogwheeling or other rigidity noted, drooling noted on exam, significant hypomimia noted, hoarseness noted, trace wheezing on exam. CT chest revealing possible TEE infiltriate with significant atelectasis noted, UA suggestive of bactiuria given no burning with urination or other symptoms. Had long conversation with , daughter, and patient about the trajectory of Parkinson disease, concern for disease progression, and expectations about the next few months/year. Discussed concern for possible aspiration, worsening drooling and progressive decline in symptoms. Discussed hope that he will improve with treatment of acute illness, discussed concern that this may be a "harbinger" of things to come (repeat hospitalizations, aspiration events, progressive weakness/decline). They were appreciate of the update. Patient presented with metabolic encephalopathy likely 2/2 TEE CAP and dehydration, complicated by likely progression of Parkinsons disease. Metabolic encephalopathy improving with abx and fluids. Start doxycycline for 5 day course. Neurology consulted given concern for progression of disease process, appreciate recs, hold amantanine in shared decision making with family (they would like to discuss with outpatient neurologist). -Per 2 different evaluations patient not candidate for deep brain stimulation. MAO inhibitors, pramipexole side effect profile likely outweighs benefit. Same with anticholinergics. Already on zonisamide which can help with motor fluctuations. Istradefylline can help with off time but that does not appear to be primary concern at this time. I have seen and discussed the case with the collaborating advanced practitioner. I agree with the above H&P. I have reviewed and confirmed the patients medical history, the findings on physical examination, and the patients diagnosis and treatment plan with Damari De Leon PA-C and agree with the information documented. I spent a total of 70 minutes coordinating, documenting, and providing care for this patient excluding time spent in the performance of separately billed services. All of the aforementioned completed outside of collaborating with the assigned advanced practitioner for a full treatment plan. I have reviewed the advanced practitioner's documentation, and I agree with, and take responsibility for the plan of care Subjective Seen and examined in 282-2 with at bedside. Feeling slightly improved from yesterday but still weaker than prevous. Patient with decline over past few months but still ambulatory with walker, denies swallowing difficulties. at bedside provides considerable support and help at home. BP was stable until 10 days ago when he started to feel more poorly with labile reads (SBP ranging from 80s-200s per BP log). Also endorsing poor appetite over last few days. Follows with Dr. Mustafa for neurology, no recent changes to medication. No F/C, lightheadedness, CP, SOB, N/V, abd pain, diarrhea or constipation. Review of Systems Review of Systems: At least ten systems reviewed and negative except as noted in the HPI. Physical Exam Physical Exam: Gen: WD/WN, NAD, sitting up in bed, propped with pillows, A&Ox2 HEENT: Normocephalic, atraumatic, mucous membranes moist Lung: Clear to Auscultation bilaterally Heart: Regular rate, regular rhythm Abdomen: Soft, NT, ND +BS x 4 Extremities: no edema Neuro: Masked facies, slowed but clear speech, bradykinesia Skin: Warm, no rash Results & Data Results & Data Vital Signs (Past 12 Hours) Vital Signs Temp Pulse Resp BP BP Pulse Ox O2 Del Method 11/10/24 07:45 36.4 C L 77 16 138/82 93 Room Air 11/10/24 04:03 36.5 C 71 171/95 H 95 Room Air 11/10/24 02:25 36.5 C 66 18 167/86 H 94 Room Air 11/10/24 00:10 36.7 C 87 18 137/81 95 Room Air 11/09/24 23:54 83 126/72 Laboratory Results Short CBC 11/09/24 11/10/24 Range/Units 16:02 05:44 WBC 9.49 8.00 (4.8-10.8) K/ul Hgb 14.0 13.1 L (14.0-18.0) g/dl Hct 42.7 40.1 L (42.0-52.0) % Plt Count 175 172 (130-400) K/uL BMP 11/09/24 11/10/24 16:02 05:44 Sodium 143 142 Potassium 4.1 3.7 Chloride 110 H 113 H Carbon Dioxide 26 22 BUN 41 H 30 H Creatinine 1.26 1.09 Glucose 112 H 93 Calcium 9.0 8.4 L Liver Function 11/09/24 Range/Units 16:02 Total Bilirubin 0.5 (0.2-1.0) mg/dl AST 18 (13-39) U/L ALT 4 L (7-52) U/L Alkaline Phosphatase 95 (34-104) U/L Albumin 3.2 L (3.4-5.0) gm/dl Urine 11/09/24 Range/Units 17:35 Urine Color Dark Yellow Urine Appearance Clear (Clear) Urine pH 5.5 (4.5-7.5) Ur Specific Harris 1.030 (1.000-1.030) Urine Protein 2+ H (Negative) Urine Glucose (UA) Negative (Negative) Diagnostic Findings Chest X-Ray 11/09/24 16:22 EXAM: Radiographs of the Chest 2 Views INDICATION: Wheezing. Fatigue. TECHNIQUE: Frontal and lateral views of the chest. COMPARISON: No relevant prior studies available. FINDINGS: Lungs and pleural spaces: No change left pleural effusion/thickening and airspace consolidation in the left lung base likely reflecting compression from large hiatal hernia. There is crowded vasculature from shallow inspiration in the right lung base. No pneumothorax. Heart: Stable large cardiac shadow. Mediastinum: See above. Bones/joints: No fracture, erosion or dislocation. IMPRESSION: Stable large hiatal hernia with chronic left basilar atelectasis and pleural thickening/effusion. ACT 112: N/A Electronically signed by Marina Donnelly 11-09-2024 5:[address] 11/09/24 16:22 EXAM: CT Head Without Intravenous Contrast INDICATION: Pain TECHNIQUE: Axial computed tomography images of the head/brain without intravenous contrast. Sagittal and/or coronal reformats are provided. Sagittal and coronal reformatted images were created and reviewed. This CT exam was performed using one or more of the following dose reduction techniques: automated exposure control, adjustment of the mA and/or kV according to patient size, and/or use of iterative reconstruction technique. COMPARISON: 10/29/2023 FINDINGS: Limitations: None. Brain and extra-axial spaces: There is age appropriate cortical atrophy and chronic ischemic periventricular white matter hypodensity. No acute infarct, hemorrhage or mass noted. Bones/joints: No fracture. Soft tissues: There is increasing periosteal reaction and soft tissue swelling over the right frontal bone lytic lesion. Vasculature: No acute abnormality noted. Sinuses: No layering fluid in the visualized portions of the paranasal sinuses. Mastoid air cells: No mastoid effusion. Orbits: No significant abnormality noted. IMPRESSION: 1. Cerebral atrophy. No acute changes in the brain. 2. There is increasing periosteal reaction and soft tissue swelling over the right frontal bone lytic lesion. Correlate clinically. ACT 112: Positive. There are findings on this exam that require communication between the performing entity and the patient following Patient Test Result Information Act ([place] ACT 112) guidelines. Electronically signed by Marina Donnelly 11-09-2024 5:[address] 11/09/24 18:48 CT chest with contrast. History: Decreased oxygenation. Comparison: October 10, 2023. Technique: Helical CT imaging of the chest performed with IV contrast Dose reduction techniques were achieved by using automatic exposure control and/or adjustment of mA and/or kV according to patient size and/or use of iterative reconstruction technique. Findings: Shift Supervisor Rn film demonstrates opacified left pulmonary base with obscuration left hemidiaphragm and heart border. Lung windows demonstrate prominent pulmonary vasculature. Groundglass attenuation and densities consistent with left upper lobe subsegmental and left lower lobe multisegmental atelectasis. This has progressed when compared to prior study. Soft tissue windows demonstrate calcified atherosclerotic changes coronary vasculature. Mild cardiomegaly. Small pericardial effusion. Trace right and moderate size left pleural effusion. Left pleural effusion is new when compared to prior study. Hiatal hernia containing the gastric viscus with mass effect on the dorsal heart is noted. Findings similar to prior study. Partially included peripheral nodular enhancing hypodensity left liver lobe. This is incompletely evaluated on this exam. Favor hemangioma. Bone windows demonstrate no acute osseous process. Impression: 1. Hiatal hernia containing gastric viscus similar to prior study with interval increasing multisegmental left lower lobe atelectasis and new left upper lobe subsegmental atelectasiswith elements of interstitial and airspace disease and moderate pleural effusion. Pneumonia must be considered. 2. Incompletely evaluated left liver lobe lesion favored to represent a hemangioma. Please see above for details. Electronically signed by Alfonso aHas 11-09-2024 8:27 PM
[2024-11-10] MEDS: POT PHOSPHATE MONOBASIC W/ SOD TAB PO SCH (12:28)
[2024-11-10] MEDS: FOLIC ACID 1 MG TAB PO SCH (12:29)
[2024-11-10] MEDS: THIAMINE HCL 100 MG TAB PO SCH (12:29)
[2024-11-10] MEDS: AMANTADINE HCL 100 MG CAPSULE PO SCH (13:20)
[2024-11-10] MEDS ORDERED: TAMSULOSIN HCL 0.4 MG CAP PO SCH (16:30)
[2024-11-10] MEDS: CALCIUM CARBONATE 1250MG TAB PO SCH (16:38)
[2024-11-10] MEDS: FINASTERIDE 5 MG TAB PO SCH (16:42)
[2024-11-10] MEDS: ALBUT/IPRATROP 3MG/0.5MG NEB 3 ML VIAL NEB SCH (18:15)
[2024-11-10] MEDS: MIDODRINE HCL 2.5 MG TAB PO SCH (18:24)
[2024-11-10] MEDS ORDERED: cefTRIAXone SODIUM 2,000 MG/50 ML BAG IV SCH (19:00)
--- NOTE | 2024-11-10 19:27 | XRay Report ---
EXAM: Portable AP chest radiograph TECHNIQUE: AP portable radiograph of the chest was obtained. INDICATION: Shortness of breath Comparison: Chest CT November 09, 2024 FINDINGS: LINES and TUBES: CARDIOVASCULAR: Cardiac silhouette is stably enlarged in size. LUNGS/PLEURA: No focal consolidation identified. Small pleural fluids. No discernible pneumothorax. Bilateral pulmonary embolism was better identified in the CT thorax from 1 day previous. OSSEOUS/OTHER: Large hiatal hernia is again seen. No displaced acute osseous process identified. IMPRESSION: Unchanged cardiomegaly and large hiatal hernia redemonstrated. Bilateral pulmonary embolism was better identified in the CT thorax from 1 day previous. Notification to clinician of alert: Ian Granado was notified about above findings by phone on November 10, 2024 at 7:25 PM by Benedicto Medina MD. Readback confirmation was obtained. Electronically signed by Benedicto Medina 11-10-2024 7:26 PM
--- NOTE | 2024-11-10 19:35 | Communication Note ---
Date of Service: November 10, 2024 Notified by RN of chest x-ray result. Patient with SOB symptoms earlier Unchanged cardiomegaly and large hiatal hernia redemonstrated. Bilateral pulmonary embolism was better identified in the CT thorax from 1 day previous. AP Acute PE IV heparin
[2024-11-10 19:36] LABS: HCO3 ABG 22 mmol/L (19-24); Oxygen Saturation ABG 99.9 % (90-95); PCO2 ABG 31 mmHg (35-46); PO2 ABG 118 mmHg (80-95)
[2024-11-10 19:39] LABS: Allen Test Pos (Pos)
[2024-11-10 20:26] LABS: Partial Thromboplastin Time 30 Seconds (21-31)
[2024-11-10] MEDS: HEPARIN 25000 UNIT/500 ML D5W 25,000 UNITS/500 ML BAG IV SCH (20:49)
[2024-11-10] MEDS: Heparin IV Adult Wt-Based Standard *NO* INITIAL Bolus Protocol IV STA (20:54)
[2024-11-10] MEDS: DOXYCYCLINE HYCLATE 100 MG CAP PO SCH (20:59)
[2024-11-10] MEDS ORDERED: MELATONIN 3 MG TAB PO PRN (21:00)
[2024-11-10] MEDS: AMOXICILLIN 500 MG CAP PO SCH (21:00)
[2024-11-10] MEDS: ACETAMINOPHEN 1,000 MG/100 ML VIAL IV STA (22:35)
[2024-11-11 03:20] LABS: Hematocrit (blood only) 39.0 % (42.0-52.0); Hemoglobin 12.9 g/dl (14.0-18.0); Mean Corpuscular Hemoglobin 30.5 pg (25.0-34.0); Mean Corpuscular Volume 92.2 fL (80.0-100.0); Platelet Count 176 K/uL (130-400); RDW Standard Deviation 48.8 fL (36.4-46.3); Red Blood Count 4.23 M/uL (4.70-6.10); White Blood Count 9.45 K/ul (4.8-10.8)
[2024-11-11 03:29] LABS: ANTI-Xa, UFH(UnfractionatedHep 0.28 IU/ml (0.3-0.7)
[2024-11-11 03:35] LABS: Anion Gap 9.0 (3-11); Calcium 8.0 mg/dl (8.6-10.3); Carbon Dioxide 22.0 mmol/L (21-32); Chloride 107.0 mmol/L (98-107); Magnesium 1.9 mg/dl (1.7-2.4); Potassium 3.8 mmol/L (3.5-5.1); Sodium 138.0 mmol/L (136-145)
[2024-11-11 03:51] LABS: Blood Urea Nitrogen 33.0 mg/dl (6-23); Creatinine Clr Calc Pharmacy 45.0 ml/min; Glucose 134.0 mg/dl (70-99(Fasting))
[2024-11-11] MEDS: ALBUT/IPRATROP 3MG/0.5MG NEB 3 ML VIAL NEB STA (05:08)
[2024-11-11] MEDS: MAGNESIUM SULFATE / D5W 1 GM/100 ML BAG IV ONE (05:31)
--- NOTE | 2024-11-11 08:54 | Ultrasound Report ---
BILATERAL LOWER EXTREMITY VENOUS DOPPLER HISTORY: pe COMPARISON STUDY: 10/10/2023 FINDINGS: No evidence of DVT seen at the right lower extremity. At the left leg there is thrombus in the distal femoral vein, popliteal vein, posterior tibial vein, and peroneal vein. IMPRESSION: DVT at the left lower extremity as described. ACT 112: Negative or not required by law. Electronically signed by: Larry Burnham M.D. 11/11/2024 8:52 AM
--- NOTE | 2024-11-11 09:22 | Hospitalist Progress Note ---
Date of Service November 11, 2024 Assessment & Plan (1) Parkinson disease: (2) Generalized weakness: Plan: This is a 74-year-old male with significant past medical history of Parkinson's disease,hypothyroidism, chronic diastolic heart failure, history of liver taya ngioma, nonrheumatic mitral valve regurgitation, history of simple partial seizure rheumatoid arthritis long-term steroid therapy who presents to ED with generalized weakness. In setting of Parkinson's disease with likely progression Mild dehydration and possible UTI may be contributing as well Consulted neurology - failure to thrive picture 2/2 advancing Parkinson's recommending continue Sinemet regimen and trial of amantadine 100mg BID Based on discussion with family and acute illness, will hold off on amantadine trial for now Long discussion at bedside with family regarding acute health course as well as progression of Parkinson's Disease -decided on DNR/DNI PT/OT evals - OT recommending rehab, awaiting PT eval when patient feeling better Speech evaluation for suspected silent aspiration Continue aspiration precautions, repositioning (3) Bilateral pulmonary embolism: Plan: CT chest from 11/09 without mention of PEs but CXR ordered last evening given worsening respiratory status - "Bilateral pulmonary embolism better identified in CT thorax from day 1" Started on IV heparin overnight Not a good DOAC candidate given interaction with carbamazepine Plan to start coumadin this afternoon. Trend daily INR and continue IV heparin until therapeutic 2D echo obtained to eval for heart strain Saturating at 94% on room air (4) Enterococcus UTI: Plan: Urine culture growing Enterococcus faecalis, sensitive to amoxicillin, on day #2 (5) CAP (community acquired pneumonia): Plan: CT chest revealing possible TEE infiltrate with significant atelectasis noted Day 2 of doxycycline, amoxicillin as above S/p IV solumedrol 60mg x 1 11/10 Incentive spirometry, Duonebs QIDR Weaned off supplemental 2L NC O2 started overnight (6) Rheumatoid arthritis: (7) Chronic steroid use: Plan: Has been taking Arava and daily prednisone at home, continue (8) Chronic diastolic (congestive) heart failure: Plan: No evidence of diastolic heart failure or fluid overload Monitor volume status closely Daily weights - stable trend so far (9) Spinal stenosis: Plan: Chronic back pain, no acute change (10) Chronic venous insufficiency: (11) Labile hypertension: Plan: SBP ranging from 80s-200s at home, elevated in ED In setting of autonomic dysfunction 2/2 Parkinson's Midodrine resume last evening, BP 123/75 this afternoon Plan DVT prophylaxis: IV heparin Code: DNR/DNI per discussion at bedside today Dispo: Admitted to med/tele Patient seen in collaboration with Dr. Cristina. Please see addendum. I spent a total of 50 minutes coordinating, documenting, and providing care for this patient excluding time spent in the performance of separately billed services or time spent by another provider/QHP. Admission and Anticipated Discharge Date Admission Date: November 09, 2024 Supervising Physician Co-Signing Physician Notes Patient seen and examined at bedside. Patient doing well this morning, eating yogurt. Discussed finding of a PE on prior CT chest and that this is the likely cause of his SOB and recent decline, also has DVT which is likely source. Discussed code status at length, risks and benefits explained at length. Given advanced nature of Parkinson's disease and poor functional status at baseline, resuscitation would not be recommended at this time. He states he would not want to suffer at end of life. Full note coming in [facility] addendum. Chart review: follows with Dr. Mustafa for advanced Parkinson disease (on carbidopa/levodopa and entacapone), c/b significant bradykinesia/rigidity, orthostatic hypotension, per Dr. Mustafa "has such advanced Parkinsons disease we really are not going to change his treatments", follows with Dr. Dutton for primary care--->periodic limb movements of sleep treated with iron supplements, RA managed by rheumatology on chronic prednisone and lefluonamide, seizure disorder on carbamazepine and zonisamide follows with Dr Mustafa, follows with Dr. Birch urology for hypogonadism and BPH on testosterone recently stopped tamulosin due to orthostasis, follows with Dr. Ortez for labile blood pressures On exam, no cogwheeling or other rigidity noted, drooling noted on exam, significant hypomimia noted, hoarseness noted. Patient presented with metabolic encephalopathy likely 2/2 acute bilateral pulmonary emboli, TEE CAP and dehydration, complicated by likely progression of Parkinsons disease. Metabolic encephalopathy improved with abx and fluids. Started on heparin for DVT/PE. Continue breathing treatments and symptomatic management of CAP and bilateral PE. Continue doxycycline for 5 day course. Neurology consulted given concern for progression of disease process, appreciate recs. -hold amantanine in shared decision making with family (they would like to discuss with outpatient neurologist). Will rescan chest with CTPE protocol given confusion regarding reads and occasional desaturations without obvious cause. I have seen and discussed the case with the collaborating advanced practitioner. I agree with the above H&P. I have reviewed and confirmed the patients medical history, the findings on physical examination, and the patients diagnosis and treatment plan with Damari De Leon PA-C and agree with the information documented. I spent a total of 50 minutes coordinating, documenting, and providing care for this patient excluding time spent in the performance of separately billed services. All of the aforementioned completed outside of collaborating with the assigned advanced practitioner for a full treatment plan. I have reviewed the advanced practitioner's documentation, and I agree with, and take responsibility for the plan of care Subjective Seen and examined in 282-2 with at bedside. Last evening patient developed tachypnea and increased work of breathing, requiring 2L N O2. Duonebs QIDR and solumedrol started, abx continued for TEE opacity. CXR obtained by covering provider unchanged cardiomegaly and "bilateral pulmonary embolism better identified in CT thorax from day 1)". Based on this result communicated overnight, patient was started on IV heparin. This AM, patient was lethargic and difficult to waken aside from tactile stimuli. Improved after breathing treatment and able to sit up and eat breakfa st, speak with and daughter at bedside. Feeling slightly better than yesterday. Saturating on room air, no CP, N/V, abd pain. Some pain in heels from pressure on bed. Review of Systems Review of Systems: At least ten systems reviewed and negative except as noted in the HPI. Physical Exam Physical Exam: Gen: WD/WN, NAD, sitting up in bed eating yogurt, family at bedside, A&Ox3 HEENT: Normocephalic, atraumatic, hoarse voice Lung: Coarse breath sounds with scattered rhonchi Heart: Regular rate, regular rhythm Abdomen: Soft, NT, ND +BS x 4 Extremities: no edema Neuro: Masked facies, slowed but clear speech, bradykinesia Skin: Warm, no rash Results & Data Results & Data Vital Signs (Past 12 Hours) Vital Signs Temp Pulse Pulse Resp BP BP Pulse Ox 11/11/24 08:10 36.8 C 88 18 148/77 H 91 11/11/24 08:08 85 11/11/24 07:19 86 18 97 11/11/24 05:08 77 18 95 11/11/24 02:37 36.7 C 81 17 184/97 H 93 11/10/24 23:57 36.5 C 80 16 184/102 H 92 11/10/24 23:38 11/10/24 22:58 80 O2 Del Method O2 Flow Rate 11/11/24 08:10 Room Air 11/11/24 08:08 11/11/24 07:19 Room Air 11/11/24 05:08 Nasal Cannula 2 11/11/24 02:37 Room Air 11/10/24 23:57 Nasal Cannula 2 11/10/24 23:38 Nasal Cannula 2 11/10/24 22:58 Laboratory Results Short CBC 11/11/24 Range/Units 03:10 WBC 9.45 (4.8-10.8) K/ul Hgb 12.9 L (14.0-18.0) g/dl Hct 39.0 L (42.0-52.0) % Plt Count 176 (130-400) K/uL BMP 11/11/24 03:10 Sodium 138 Potassium 3.8 Chloride 107 Carbon Dioxide 22 BUN 33 H Creatinine 1.28 Glucose 134 H Calcium 8.0 L Diagnostic Findings Chest X-Ray 11/09/24 16:22 EXAM: Radiographs of the Chest 2 Views INDICATION: Wheezing. Fatigue. TECHNIQUE: Frontal and lateral views of the chest. COMPARISON: No relevant prior studies available. FINDINGS: Lungs and pleural spaces: No change left pleural effusion/thickening and airspace consolidation in the left lung base likely reflecting compression from large hiatal hernia. There is crowded vasculature from shallow inspiration in the right lung base. No pneumothorax. Heart: Stable large cardiac shadow. Mediastinum: See above. Bones/joints: No fracture, erosion or dislocation. IMPRESSION: Stable large hiatal hernia with chronic left basilar atelectasis and pleural thickening/effusion. ACT 112: N/A Electronically signed by Marina Donnelly 11-09-2024 5:[address] 11/09/24 16:22 EXAM: CT Head Without Intravenous Contrast INDICATION: Pain TECHNIQUE: Axial computed tomography images of the head/brain without intravenous contrast. Sagittal and/or coronal reformats are provided. Sagittal and coronal reformatted images were created and reviewed. This CT exam was performed using one or more of the following dose reduction techniques: automated exposure control, adjustment of the mA and/or kV according to patient size, and/or use of iterative reconstruction technique. COMPARISON: 10/29/2023 FINDINGS: Limitations: None. Brain and extra-axial spaces: There is age appropriate cortical atrophy and chronic ischemic periventricular white matter hypodensity. No acute infarct, hemorrhage or mass noted. Bones/joints: No fracture. Soft tissues: There is increasing periosteal reaction and soft tissue swelling over the right frontal bone lytic lesion. Vasculature: No acute abnormality noted. Sinuses: No layering fluid in the visualized portions of the paranasal sinuses. Mastoid air cells: No mastoid effusion. Orbits: No significant abnormality noted. IMPRESSION: 1. Cerebral atrophy. No acute changes in the brain. 2. There is increasing periosteal reaction and soft tissue swelling over the right frontal bone lytic lesion. Correlate clinically. ACT 112: Positive. There are findings on this exam that require communication between the performing entity and the patient following Patient Test Result Information Act ([place] ACT 112) guidelines. Electronically signed by Marina Donnelly 11-09-2024 5:[address] 11/09/24 18:48 CT chest with contrast. History: Decreased oxygenation. Comparison: October 10, 2023. Technique: Helical CT imaging of the chest performed with IV contrast Dose reduction techniques were achieved by using automatic exposure control and/or adjustment of mA and/or kV according to patient size and/or use of iterative reconstruction technique. Findings: Instant Printer Operator film demonstrates opacified left pulmonary base with obscuration left hemidiaphragm and heart border. Lung windows demonstrate prominent pulmonary vasculature. Groundglass attenuation and densities consistent with left upper lobe subsegmental and left lower lobe multisegmental atelectasis. This has progressed when compared to prior study. Soft tissue windows demonstrate calcified atherosclerotic changes coronary vasculature. Mild cardiomegaly. Small pericardial effusion. Trace right and moderate size left pleural effusion. Left pleural effusion is new when compared to prior study. Hiatal hernia containing the gastric viscus with mass effect on the dorsal heart is noted. Findings similar to prior study. Partially included peripheral nodular enhancing hypodensity left liver lobe. This is incompletely evaluated on this exam. Favor hemangioma. Bone windows demonstrate no acute osseous process. Impression: 1. Hiatal hernia containing gastric viscus similar to prior study with interval increasing multisegmental left lower lobe atelectasis and new left upper lobe subsegmental atelectasiswith elements of interstitial and airspace disease and moderate pleural effusion. Pneumonia must be considered. 2. Incompletely evaluated left liver lobe lesion favored to represent a hemangioma. Please see above for details. Electronically signed by RadmaxAlfonso 11-09-2024 8:27 PM Chest X-Ray 11/10/24 18:25 EXAM: Portable AP chest radiograph TECHNIQUE: AP portable radiograph of the chest was obtained. INDICATION: Shortness of breath Comparison: Chest CT November 09, 2024 FINDINGS: LINES and TUBES: CARDIOVASCULAR: Cardiac silhouette is stably enlarged in size. LUNGS/PLEURA: No focal consolidation identified. Small pleural fluids. No discernible pneumothorax. Bilateral pulmonary embolism was better identified in the CT thorax from 1 day previous. OSSEOUS/OTHER: Large hiatal hernia is again seen. No displaced acute osseous process identified. IMPRESSION: Unchanged cardiomegaly and large hiatal hernia redemonstrated. Bilateral pulmonary embolism was better identified in the CT thorax from 1 day previous. Notification to clinician of alert: Ian Granado was notified about above findings by phone on November 10, 2024 at 7:25 PM by Benedicto Medina MD. Readback confirmation was obtained. Electronically signed by Benedicto Medina 11-10-2024 7:26 PM Venous Doppler Study 11/11/24 08:00 BILATERAL LOWER EXTREMITY VENOUS DOPPLER HISTORY: pe COMPARISON STUDY: 10/10/2023 FINDINGS: No evidence of DVT seen at the right lower extremity. At the left leg there is thrombus in the distal femoral vein, popliteal vein, posterior tibial vein, and peroneal vein. IMPRESSION: DVT at the left lower extremity as described. ACT 112: Negative or not required by law. Electronically signed by: Larry Burnham M.D. 11/11/2024 8:52 AM (1) Parkinson disease Dyskinesia presence: unspecified whether dyskinesia Fluctuating manifestations: unspecified whether manifestations fluctuate Qualified Code(s): G20.A1 - Parkinson's disease without dyskinesia, without mention of fluctuations
[2024-11-11 10:26] LABS: ANTI-Xa, UFH(UnfractionatedHep 0.26 IU/ml (0.3-0.7)
[2024-11-11] MEDS: ALBUT/IPRATROP 3MG/0.5MG NEB 3 ML VIAL NEB PRN (13:29)
[2024-11-11] MEDS: OPTIRAY 320 125ml IV ONE (16:16)
--- NOTE | 2024-11-11 16:40 | CT Scan Report ---
EXAMINATION: [facility] CT angio chest PE CLINICAL HISTORY: Known pulmonary embolism PRIORS: 11/09/2024 CT TECHNIQUE: Contiguous axial images were obtained through the chest with the use of intravenous contrast. Sagittal and coronal reformations are supplied. FINDINGS: Motion artifact noted. The pulmonary arteries are well evaluated. Again noted is mild to moderate pulmonary embolism within the right lower lobe segmental and subsegmental pulmonary arteries, unchanged. No additional pulmonary embolism identified. Allowing for arms within the [id number] and beam hardening artifact, enlargement of the heart is noted. No flattening of the interventricular septum or features of heart strain. Atherosclerotic disease of the coronary arteries present. Elevation of the left hemidiaphragm with large hiatal hernia present and intrathoracic stomach. This creates localized left lower lobe hypoventilatory changes and atelectasis/airspace consolidation in the left upper and lower lobes, unchanged. Mild airspace consolidation in the right lower lobe, appearing in the interval. A moderate left pleural effusion is present, unchanged. No adenopathy is identified. Trachea and mainstem bronchi are patent. Limited visualization of the upper abdomen shows no acute abnormality. No acute osseous abnormality. IMPRESSION: 1. Right segmental and subsegmental lower lobe pulmonary embolism, with small clot burden and no CT evidence of heart strain. This is unchanged when compared to examination from 11/09/2024. 2. Large intrathoracic hiatal hernia with elevation of the left hemidiaphragm and compressive atelectasis in the left lung. 3. Moderate left pleural effusion, unchanged. Electronically signed by Magaly Meade 11-11-2024 4:40 PM
[2024-11-11] MEDS: WARFARIN SOD 5 MG TAB PO SCH (17:39)
[2024-11-11 19:48] LABS: ANTI-Xa, UFH(UnfractionatedHep 0.19 IU/ml (0.3-0.7)
[2024-11-11] MEDS: HEPARIN SOD (PORCINE) 1000 UNIT/ML IV ONE (20:30)
[2024-11-11] MEDS: MIDODRINE HCL 2.5 MG TAB PO SCH (21:00)
[2024-11-12 04:30] LABS: ANTI-Xa, UFH(UnfractionatedHep 0.35 IU/ml (0.3-0.7)
[2024-11-12 06:17] LABS: Hematocrit (blood only) 35.0 % (42.0-52.0); Hemoglobin 11.6 g/dl (14.0-18.0); Mean Corpuscular Hemoglobin 30.5 pg (25.0-34.0); Mean Corpuscular Volume 92.1 fL (80.0-100.0); Platelet Count 200 K/uL (130-400); RDW Standard Deviation 48.5 fL (36.4-46.3); Red Blood Count 3.80 M/uL (4.70-6.10); White Blood Count 7.85 K/ul (4.8-10.8)
[2024-11-12 06:35] LABS: Anion Gap 6.0 (3-11); Blood Urea Nitrogen 28.0 mg/dl (6-23); Calcium 7.9 mg/dl (8.6-10.3); Carbon Dioxide 26.0 mmol/L (21-32); Chloride 108.0 mmol/L (98-107); Creatinine Clr Calc Pharmacy 47.2 ml/min; Glucose 84.0 mg/dl (70-99(Fasting)); Potassium 3.6 mmol/L (3.5-5.1); Sodium 140.0 mmol/L (136-145)
[2024-11-12 06:44] LABS: INR 1.0 (0.9-1.1); Prothrombin Time 10.8 Seconds (9.0-12.0)
--- NOTE | 2024-11-12 08:53 | Pulmonary Consultation ---
Date of Consultation November 12, 2024 Assessment & Plan (1) Bilateral pulmonary embolism: (2) Pleural effusion: (3) Paraesophageal hernia: Plan Impression: 74-year-old male with advanced Parkinson's disease and Parkinson's dementia with large paraesophageal hernia and atelectasis of the left lower lobe with associated small left-sided effusion and significant right sided thromboembolic disease. He is anticoagulated and hemodynamically stable. He is on no oxygen currently. Recommendations: 1. Pleural effusion:. Effusion is small and located at the apex. It is not amenable to thoracentesis by myself. I do not think that the effusion is big enough to warrant tapping at this point in time as the left lung is unlikely to reexpand given its significant compression due to the large paraesophageal hernia. If thoracentesis were to be contemplated, would recommend consultation with interventional radiology. The patient is appropriately anticoagulated on heparin for his acute PE which would preclude any invasive procedures currently. Again I do not feel that this effusion needs to be sampled in the acute setting. 2. Paraesophageal hernia: Management per primary admitting service. This is causing respiratory compromise and may be contributing to some of the patient's respiratory issues. It also increases his risk for aspiration. Per primary service. 3. PE: Patient is currently on heparin. Given that this is an unprovoked event and the patient's mobility is limited, would recommend lifelong anticoagulation unless contraindication or bleeding complications develop. Patient appears stable from a pulmonary standpoint. Again no plans for pulmonary procedures or intervention during this hospitalization. Will sign off at this point in time. Feel free to contact us with questions or concerns History of Present Illness Attending Physician: Marshal Alejandra MD History of Present Illness Asked by hospitalist to evaluate this patient with pleural effusion identified on CT scan. History is obtained from review of electronic medical record as well as discussion with the patient. Patient is a 74-year-old male with severe Parkinson's disease. He was admitted to the hospital 11/09/2024 with complaints of generalized weakness and possible urinary tract infection. He has autonomic instability and has been seen by cardiology in the past. There is also some underlying neurocognitive dysfunction related to his Parkinson's disease. He is also has rheumatoid arthritis and is on chronic steroids. Patient is had intermittent episodes of hypoxemia. CT angiogram was performed which revealed a filling defect consistent with thromboembolic disease. He was initiated on heparin. He also has a very large paraesophageal hernia but is obviously not a surgical candidate for any intervention. There was an apical left-sided small pleural effusion which prompted pulmonary consultation. Patient reports that he is doing okay. Reportedly according to the bedside nurse there were periods of altered sensorium overnight. He states he occasionally feels some shortness of breath. Unclear if aspiration could be playing a role. He has not been febrile. He is not on oxygen currently. He denies any chest pain. Allergies Allergy/AdvReac Type Severity Reaction Status Date / Time No Known Allergies Allergy Verified 11/09/24 17:21 Home Medications Medication Instructions Recorded Confirmed Type finasteride 5 mg tablet (Proscar) 5 mg PO QDD 12/03/20 11/09/24 History leflunomide 20 mg tablet (Arava) 20 mg PO QDB 12/03/20 11/09/24 History carbamazepine 200 mg tablet 200 mg PO QID 08/03/21 11/09/24 History (Tegretol) levothyroxine 75 mcg tablet 75 mcg PO DAILYBB 08/03/21 11/09/24 History (Synthroid) tamsulosin 0.4 mg capsule 0.4 mg PO QDD 08/03/21 11/09/24 History zonisamide 100 mg capsule 100 mg PO HS 08/03/21 11/09/24 History (Zonegran) carbidopa 25 mg-levodopa 100 mg 3 tab PO QID 02/07/22 11/09/24 History tablet melatonin 5 mg tablet 10 mg PO HS PRN Sleep 08/21/23 11/09/24 History entacapone 200 mg tablet 200 mg PO QID 10/10/23 11/09/24 History acetaminophen 325 mg tablet 500 mg PO QID PRN Breakthrough 10/29/23 11/09/24 History (Tylenol) Pain, Mild midodrine 2.5 mg tablet 2.5 mg PO TID 02/21/24 11/09/24 History testosterone cypionate 200 mg/mL 100 mg IM DIRECTED PRN NEEDED 03/27/24 11/09/24 History intramuscular oil cholecalciferol (vitamin D3) 25 25 mcg PO DAILYBB 08/25/24 11/09/24 History mcg (1,000 unit) tablet ferrous sulfate 325 mg (65 mg 325 mg PO 5XWK 08/25/24 11/09/24 History iron) tablet (FeroSul) calcium carbonate (Calcium 600) 600 mg PO QDB 11/09/24 11/09/24 History cholecalciferol (vitamin D3) 25 25 mcg PO QDB 11/09/24 11/09/24 History mcg (1,000 unit) capsule (Vitamin D3) prednisone 10 mg tablet 10 mg PO QDB 11/09/24 11/09/24 History Patient History Medical History History of venous stasis ulcer of lower extremity Hypothermia Chronic venous insufficiency Nonrheumatic mitral valve regurgitation Spinal stenosis Surgical History Hx of laminectomy Family History Other Leukemia Lung cancer Social History Smoking Status: Never smoker Second Hand Exposure: No; Do You Dip or Chew Tobacco: No; Hx Alcohol Use: No Hx Substance Use: No Preferred Language: Kittitian Communication Ability: Effective Supervisor Color Paste Mixing Required: No Beliefs That Will Affect Care: None Current Living Situation: Spouse Feels Safe at Home: Yes Assistive Devices: Walker Review of Systems 2 Review of Systems: Please refer to admission H&P Physical Exam 2 Physical Exam: The patient is alert and oriented. Mood and affect appeared normal. He answered all questions appropriately. He seems lethargic. Poor posture. HEENT: Pupils are equal and reactive to light and accommodation. Extraocular movements are intact. The sclerae are anicteric. Periorbital edema noted Neuro: Parkinsonian changes noted Lungs: No respiratory distress. No rhonchi. Few crackles at the bases. Cardiac: Heart demonstrates a regular rate and rhythm. Normal S1 and S2. No murmurs on examination. Pulses: The patient has palpable radial pulses bilaterally that are equal in intensity Extremities: There was no evidence of hypoperfusion. There is no cyanosis or clubbing. There is no edema. Skin: I did not appreciate any rashes on examination today. Results & Data Results & Data Vital Signs (Past 12 Hours) Vital Signs Temp Pulse Pulse Resp BP BP Pulse Ox 11/12/24 07:53 36.3 C L 74 22 143/83 H 94 11/12/24 07:04 58 L 16 92 11/12/24 03:50 36.5 C 66 18 163/90 H 91 11/11/24 23:39 36.7 C 72 18 150/85 H 91 11/11/24 21:56 85 11/11/24 21:43 O2 Del Method 11/12/24 07:53 Room Air 11/12/24 07:04 Room Air 11/12/24 03:50 Room Air 11/11/24 23:39 Room Air 11/11/24 21:56 11/11/24 21:43 Room Air Laboratory Results 11/12/24 05:35 11/12/24 05:35 Diagnostic Findings Echocardiogram from 11/11/2024 showed an EF of 70% with normal right ventricular size and systolic function. Trace TR. Trivial loculated anterior and apical pericardial effusion without tamponade. CT of the chest from 11/07/2024 was independently reviewed. There are filling defects within the right segmental and subsegmental pulmonary arteries. No evidence of heart strain. Large paraesophageal hernia on the left with near complete left lung atelectasis. Small apical left effusion. PG Care Time/CCT Total # of Minutes Spent Total Time Spent with Patient: Total time spent is greater than 50% in coordination of care (as documented) at patient's floor/unit and/or counseling patient: Coding Level of Care Code 71536 IN/OBS CONSULT LVL 4,60M Diagnoses Bilateral pulmonary embolism I26.99 Pleural effusion J90 Paraesophageal hernia K44.9
[2024-11-12] MEDS: 4.5GM X1 IV STA (09:57)
[2024-11-12 11:45] LABS: ANTI-Xa, UFH(UnfractionatedHep 0.32 IU/ml (0.3-0.7)
--- NOTE | 2024-11-12 12:44 | Electrocardiogram Report ---
Test Reason : Blood Pressure : */* mmHG Vent. Rate : 68 BPM Atrial Rate : 68 BPM P-R Int : 152 ms QRS Dur : 82 ms QT Int : 384 ms P-R-T Axes : 53 45 58 degrees QTcB Int : 408 ms Normal sinus rhythm Possible Left atrial enlargement Borderline ECG When compared with ECG of 29-Oct-2023 21:06, Nonspecific T wave abnormality no longer evident in Inferior leads Confirmed by Albert Correia ([id number]) on 11/12/2024 12:44:07 PM Referred By: REFERRED SELF Confirmed By: Albert Correia
--- NOTE | 2024-11-12 13:04 | Hospitalist Progress Note ---
Date of Service November 12, 2024 Assessment & Plan (1) Parkinson disease: (2) Generalized weakness: Plan: This is a 74-year-old male with significant past medical history of Parkinson's disease,hypothyroidism, chronic diastolic heart failure, history of liver taya ngioma, nonrheumatic mitral valve regurgitation, history of simple partial seizure rheumatoid arthritis long-term steroid therapy who presents to ED with generalized weakness. In setting of Parkinson's disease with likely progression - on sinemet and entacapone c/b significant bradykinesia/rigidity, orthostatic hypotension, per Dr. Mustafa "has such advanced Parkinsons disease we really are not going to change his treatments" Mild dehydration, b/l PE and possible UTI may be contributing as well Consulted neurology - failure to thrive picture 2/ advancing Parkinson's recommending continue Sinemet regimen and trial of amantadine 100mg BID Based on discussion with family and acute illness, will hold off on amantadine trial for now as they wish to discuss this with his primary neurologist PT/OT anali -recommending re laureen today s pt much improved Speech evaluation for suspected silent aspiration - VFSS scheduled for tomorrow Continue aspiration precautions, repositioning (3) Bilateral pulmonary embolism: Plan: Started on IV heparin overnight Not a good DOAC candidate given interaction with carbamazepine Warfarin started, Trend daily INR and continue IV heparin until therapeutic 2D echo EF > 70%, rvsf normal, trace TR, no right heart strain Saturating well on room air (4) Enterococcus UTI: Plan: Urine culture growing Enterococcus faecalis, sensitive to amoxicillin, on day #3 Amoxicillin switched to augmentin to allow for aspiration coverage as well through 11/15 (5) CAP (community acquired pneumonia): Plan: CT chest revealing possible TEE infiltrate with significant atelectasis noted Day 3 of doxycycline, augmentin as above S/p IV solumedrol 60mg x 1 11/10 Incentive spirometry, Duonebs QIDR Weaned off supplemental 2L NC O2 started overnight (6) Rheumatoid arthritis: (7) Chronic steroid use: Plan: Has been taking Arava and daily prednisone at home, continue (8) Chronic diastolic (congestive) heart failure: Plan: No evidence of diastolic heart failure or fluid overload Monitor volume status closely Daily weights - stable trend so far (9) Labile hypertension: Plan: Orthostatic hypotension in setting of autonomic dysfunction in relation to PD Nephro started on midodrine BP mildly elevated, appears pt has duplicate order for midodrine which may be resulting in higher than normal bp continue 2.5mg tid Plan DVT prophylaxis: IV heparin Code: DNR/DNI Dispo: Admitted to PCU, will continue and if remains stable can likely downgrade tomorrow Patient seen in collaboration with Dr. Alejandra. Please see addendum. I spent a total of 52 minutes coordinating, documenting, and providing care for this patient excluding time spent in the performance of separately billed services or time spent by another provider/QHP. Admission and Anticipated Discharge Date Admission Date: November 09, 2024 Supervising Physician Co-Signing Physician Notes Attending Addendum: Case reviewed with the advanced practitioner. I have reviewed the advanced practitioner's documentation on the date of service referenced in note, and I agree with, and take responsibility for the plan of care. please refer to her notes for full details patient seen and examined, records reviewed by myself as well diagnoses and plan of care as per advanced practitioner's notes I spent a total of 45 minutes coordinating, documenting, and providing care for this patient, excluding time spent in the performance of separately billed services or time spent by another provider/QHP. Marshal Alejandra MD Subjective Pt seen and examined in room 207 with at bedside. Discussed with nurse Bessy at nursing station that pt was already OOB and to the chair. Pt reports feeling stronger today. He still c/o SOB, but feels it is improving. Denies f/c/s, chest pain, n/v. He ate breakfast. reports pt gets worked up easily over providers coming in and tell him new findings. It makes him anxious. Review of Systems Review of Systems: All systems reviewed & are unremarkable except as noted in HPI & below Physical Exam Physical Exam: Gen: WD/WN, NAD, A&O x3 HEENT: Normocephalic, atraumatic, conjunctivae moist, sclerae anicteric, mucous membranes moist. Lung: Clear to Auscultation bilaterally, no wheezes/rales/rhonchi Heart: Regular rate, regular rhythm, no murmurs, rubs, or gallops Abdomen: Soft, NT, ND +BS x 4 Extremities: No edema Skin: Warm, no rash, negative turgor. Results & Data Results & Data Vital Signs (Past 12 Hours) Vital Signs Temp Pulse Pulse Resp BP BP Pulse Ox 11/12/24 10:42 67 18 94 11/12/24 10:37 36.5 C 62 17 151/90 H 93 11/12/24 07:53 36.3 C L 74 22 143/83 H 94 11/12/24 07:04 58 L 16 92 11/12/24 07:00 73 11/12/24 03:50 36.5 C 66 18 163/90 H 91 O2 Del Method 11/12/24 10:42 Room Air 11/12/24 10:37 Room Air 11/12/24 07:53 Room Air 11/12/24 07:04 Room Air 11/12/24 07:00 11/12/24 03:50 Room Air Laboratory Results I have independently reviewed and interpreted patient's CBC, bmp, pt/inr, Xa Short CBC 11/12/24 Range/Units 05:35 WBC 7.85 (4.8-10.8) K/ul Hgb 11.6 L (14.0-18.0) g/dl Hct 35.0 L (42.0-52.0) % Plt Count 200 (130-400) K/uL BMP 11/12/24 05:35 Sodium 140 Potassium 3.6 Chloride 108 H Carbon Dioxide 26 BUN 28 H Creatinine 1.22 Glucose 84 Calcium 7.9 L Medications Administered Current Inpatient Medications Acetaminophen (Acetaminophen 500 Mg Tab) 500 mg PO QID PRN PRN Reason: Breakthrough Pain, Mild Stop: 12/09/24 21:44 Last Admin: 11/12/24 06:02 Dose: 500 mg Albuterol (Albut/Ipratrop 3mg/0.5mg Neb 3 Ml Vial) 3 ml NEB QIDR [facility]; Protocol Stop: 12/10/24 18:59 Last Admin: 11/12/24 10:40 Dose: 3 ml Albuterol (Albut/Ipratrop 3mg/0.5mg Neb 3 Ml Vial) 3 ml NEB Q2H PRN; Protocol PRN Reason: sob wheeze Stop: 12/11/24 04:37 Last Admin: 11/11/24 13:29 Dose: 3 ml Amoxicillin/Clavulanate Potassium (Amoxicillin/Clavulanate 875 Mg Tab) 1 tab PO BIDM [facility]; Protocol Stop: 11/15/24 17:01 Carbamazepine (Carbamazepine 200 Mg Tablet) 200 mg PO 0630,1200,1700,2200 [facility] Stop: 12/09/24 21:59 Last Admin: 11/12/24 13:03 Dose: 200 mg Carbidopa/Levodopa (Carbidopa/Levodopa 25/100mg Tab) 3 tab PO QID@0630,0900,1200,1700 [facility] Stop: 12/09/24 21:44 Last Admin: 11/12/24 13:03 Dose: 3 tab Doxycycline Hyclate (Doxycycline Hyclate 100 Mg Cap) 100 mg PO BID [facility] Stop: 11/15/24 20:59 Last Admin: 11/12/24 08:41 Dose: 100 mg Entacapone (Entacapone 200 Mg Tab) 200 mg PO QID@0630,0800,1200,1700 [facility] Stop: 12/09/24 21:44 Last Admin: 11/12/24 13:03 Dose: 200 mg Finasteride (Finasteride 5 Mg Tab) 5 mg PO QDD [facility] Stop: 12/10/24 16:29 Last Admin: 11/11/24 17:39 Dose: 5 mg Folic Acid (Folic Acid 1 Mg Tab) 1 mg PO QAM [facility] Stop: 12/10/24 08:59 Last Admin: 11/12/24 08:41 Dose: 1 mg Guaifenesin (Guaifenesin Sugar Free 100 Mg/5 Ml Udc) 100 mg PO Q6 [facility] Stop: 12/10/24 18:29 Last Admin: 11/12/24 13:03 Dose: 100 mg Heparin Sodium/Dextrose (Heparin 39890 Unit/500 Ml D5w) 25,000 units in 500 mls @ 29 mls/hr IV .[id number] [facility]; Protocol Stop: 12/10/24 19:59 Last Admin: 11/12/24 09:59 Dose: 1,450 units/hr, 29 mls/hr Lactobacillus Acidophilus (Advanced Probiotic 625 Mg Capsule) 1,250 mg PO DAILY [facility] Stop: 12/13/24 08:59 Leflunomide (Leflunomide 10 Mg Tab) 20 mg PO QDB [facility] Stop: 12/10/24 07:29 Last Admin: 11/12/24 08:41 Dose: 20 mg Levothyroxine Sodium (Levothyroxine Sodium 75 Mcg Tablet) 75 mcg PO DAILYBB [facility] Stop: 12/10/24 06:29 Last Admin: 11/12/24 05:42 Dose: 75 mcg Melatonin (Melatonin 3 Mg Tab) 3 mg PO HS PRN PRN Reason: Sleep Stop: 12/09/24 20:59 Midodrine (Midodrine Hcl 2.5 Mg Tab) 2.5 mg PO TID@0800,1200,1700 [facility] Stop: 12/10/24 16:59 Last Admin: 11/12/24 13:03 Dose: 2.5 mg Midodrine (Midodrine Hcl 2.5 Mg Tab) 2.5 mg PO TID [facility] Stop: 12/11/24 20:59 Last Admin: 11/12/24 09:57 Dose: 2.5 mg Pantoprazole Sodium (Pantoprazole 40 Mg Tab) 40 mg PO QAM [facility] Stop: 12/12/24 10:29 Last Admin: 11/12/24 11:32 Dose: 40 mg Prednisone (Prednisone 10 Mg Tablet) 10 mg PO QDB [facility] Stop: 12/10/24 07:29 Last Admin: 11/12/24 08:42 Dose: 10 mg Thiamine HCl (Thiamine Hcl 100 Mg Tab) 100 mg PO QAM [facility] Stop: 12/10/24 08:59 Last Admin: 11/12/24 08:42 Dose: 100 mg Vitamin D (Cholecalciferol 25 Mcg (1000 Units) Tab) 25 mcg PO DAILYBB [facility] Stop: 12/10/24 06:29 Last Admin: 11/12/24 05:43 Dose: 25 mcg Warfarin Sodium (Warfarin Sod 5 Mg Tab) 5 mg PO DAILY@1600 [facility] Stop: 12/11/24 16:04 Last Admin: 11/11/24 17:39 Dose: 5 mg Zonisamide (Zonisamide 100 Mg Capsule) 100 mg PO HS [facility] Stop: 12/09/24 21:44 Last Admin: 11/11/24 21:00 Dose: 100 mg (1) Parkinson disease Dyskinesia presence: unspecified whether dyskinesia Fluctuating manifestatio ns: unspecified whether manifestations fluctuate Qualified Code(s): G20.A1 - Parkinson's disease without dyskinesia, without mention of fluctuations
[2024-11-12] MEDS ORDERED: PIPERACILLIN/TAZOBACTAM 4.5 GM/100 ML BAG IV SCH (14:00)
[2024-11-12] MEDS: AMOXICILLIN/CLAVULANATE 875 MG TAB PO SCH (17:19)
[2024-11-12] MEDS: MIDODRINE HCL 2.5 MG TAB PO SCH (17:20)
[2024-11-13] MEDS: METOPROLOL TARTRATE 1 MG/ML VIAL IV STA (01:57)
[2024-11-13] MEDS: ALBUT/IPRATROP 3MG/0.5MG NEB 3 ML VIAL NEB STA (02:50)
[2024-11-13] MEDS: MAGNESIUM SULFATE / D5W 1 GM/100 ML BAG IV ONE (03:55)
--- NOTE | 2024-11-13 04:06 | XRay Report ---
EXAM: XR chest 1V portable CLINICAL HISTORY: sob TECHNIQUE: An X-ray image of the chest is obtained in AP projection. COMPARISON: 11/11/2024. FINDINGS: Pulmonary Parenchyma: Still noted obliteraion of the left costophrenic angle with left basal parenchymal opacification and mediastinal shift to the left, denoting left lung volume loss. Still noted minimal right pleural effusion in the form of right costophrenic angle obliteration. Still noted bilateral peribronchial thickening possibly related to the ongoing bronchiectasis (stable). Still noted sliding hiatus hernia (stable). Heart and Mediastinum: Suggested cardiomegaly (stable). No mediastinal widening or masses. No hilar or mediastinal lymphadenopathy. Bony Thorax: Bony thorax appears intact without fractures or deformities. Soft Tissues: Soft tissues overlying the chest wall are unremarkable. IMPRESSION: 1. Left moderate and right minimal pleural effusion. (stable) 2. Still noted left basal opacity with mediastinal shift to the left. 3. Still noted bilateral peribronchial thickening possibly related to the ongoing bronchiectasis (stable). 4. Still noted sliding hiatus hernia (stable). 5. Suggested cardiomegaly (stable). Electronically signed by Juventino Zapata 11-13-2024 04:05 AM
[2024-11-13 06:48] LABS: Hematocrit (blood only) 36.8 % (42.0-52.0); Hemoglobin 12.0 g/dl (14.0-18.0); Immature Granulocytes # (auto) 0.41 K/uL (0.01-0.20); Immature Granulocytes % (auto) 4.9 %; Mean Corpuscular Hemoglobin 30.6 pg (25.0-34.0); Mean Corpuscular Volume 93.9 fL (80.0-100.0); Platelet Count 219 K/uL (130-400); RDW Standard Deviation 49.5 fL (36.4-46.3); Red Blood Count 3.92 M/uL (4.70-6.10); White Blood Count 8.43 K/ul (4.8-10.8)
[2024-11-13 07:10] LABS: Alanine Aminotransferase 14.0 U/L (7-52); Albumin Globulin Ratio 1.0 (0.9-2); Alkaline Phosphatase 105.0 U/L (34-104); Anion Gap 6.0 (3-11); Bilirubin,Total 0.5 mg/dl (0.2-1.0); Blood Urea Nitrogen 24.0 mg/dl (6-23); Calcium 8.2 mg/dl (8.6-10.3); Carbon Dioxide 26.0 mmol/L (21-32); Chloride 107.0 mmol/L (98-107); Creatinine Clr Calc Pharmacy 52.8 ml/min; Globulin 3.2 gm/dl (2.5-4.0); Glucose 92.0 mg/dl (70-99(Fasting)); Magnesium 2.5 mg/dl (1.7-2.4); Potassium 4.1 mmol/L (3.5-5.1); Sodium 139.0 mmol/L (136-145); Total Protein 6.3 gm/dl (6.0-8.3)
[2024-11-13 07:20] LABS: ANTI-Xa, UFH(UnfractionatedHep 0.25 IU/ml (0.3-0.7)
[2024-11-13 07:24] LABS: INR 1.0 (0.9-1.1); Prothrombin Time 10.5 Seconds (9.0-12.0)
[2024-11-13] MEDS: FUROSEMIDE INJ 20 MG/2 ML VIAL IV ONE (07:45)
[2024-11-13] MEDS: ADVANCED PROBIOTIC 625 MG CAPSULE PO SCH (10:02)
[2024-11-13] MEDS: TROLAMINE SALICYLATE 10% CRM 255 APPLN/85 GM TUBE EXT SCH (10:22)
[2024-11-13] MEDS: LIDOCAINE 5% 1 PATCH TD SCH (10:22)
--- NOTE | 2024-11-13 11:14 | Hospitalist Progress Note ---
Date of Service November 13, 2024 Assessment & Plan (1) Parkinson disease: (2) Generalized weakness: Plan: This is a 74-year-old male with significant past medical history of Parkinson's disease,hypothyroidism, chronic diastolic heart failure, history of liver taya ngioma, nonrheumatic mitral valve regurgitation, history of simple partial seizure rheumatoid arthritis long-term steroid therapy who presents to ED with generalized weakness. In setting of Parkinson's disease with likely progression - on sinemet and entacapone c/b significant bradykinesia/rigidity, orthostatic hypotension, per Dr. Mustafa "has such advanced Parkinsons disease we really are not going to change his treatments" Mild dehydration, b/l PE and possible UTI may be contributing as well Consulted neurology - failure to thrive picture 2/2 advancing Parkinson's recommending continue Sinemet regimen and trial of amantadine 100mg BID Based on discussion with family and acute illness, will hold off on amantadine trial for now as they wish to discuss this with his primary neurologist PT/OT anali -recommending re eval today s pt much improved Speech evaluation for suspected silent aspiration - VFSS scheduled for tomorrow Continue aspiration precautions, repositioning (3) Hypoxia: Plan: around 3-4 a.m. pt was heard gasping for air, pt recalls events and reports awaking feeling SOB. He required up to 5L of oxygen. A nebulizer tx was ordered. CXR w/o acute change He is now OFF oxygen this morning during my evaluation will trial 20mg IV lasix x 1 today as he is net positive fluid balances, despite stable weight he is to go for swallow study today ? if hiatal hernia/aspiration causing issue obtain nocturnal sleep study (4) Bilateral pulmonary embolism: Plan: Started on IV heparin overnight Not a good DOAC candidate given interaction with carbamazepine Warfarin started, Trend daily INR and continue IV heparin until therapeutic 2D echo EF > 70%, rvsf normal, trace TR, no right heart strain increase warfarin to 10mg daily (5) Enterococcus UTI: Plan: Urine culture growing Enterococcus faecalis, sensitive to amoxicillin, on day #4 Amoxicillin switched to augmentin to allow for aspiration coverage as well through 11/15 (6) CAP (community acquired pneumonia): Plan: CT chest revealing possible TEE infiltrate with significant atelectasis noted, likely in setting of HH Day 4 of doxycycline, augmentin as above S/p IV solumedrol 60mg x 1 11/10 Incentive spirometry, Duonebs QIDR (7) Rheumatoid arthritis: (8) Chronic steroid use: Plan: Has been taking Arava and daily prednisone at home, continue (9) Chronic diastolic (congestive) heart failure: Plan: Pt with stable weights but net + fluid Given hypoxia overnight will trial 20mg IV lasix x 1 today He does not look overtly volume overloaded (10) Labile hypertension: Plan: Orthostatic hypotension in setting of autonomic dysfunction in relation to PD Nephro started on midodrine BP mildly elevated, appears pt has duplicate order for midodrine which may be resulting in higher than normal bp continue 2.5mg tid Plan DVT prophylaxis: IV heparin Code: DNR/DNI Dispo: Admitted to PCU, will continue given intermittent resp decline Patient seen in collaboration with Dr. Alejandra. Please see addendum. I spent a total of 55 minutes coordinating, documenting, and providing care for this patient excluding time spent in the performance of separately billed services or time spent by another provider/QHP. Admission and Anticipated Discharge Date Admission Date: November 09, 2024 Supervising Physician Co-Signing Physician Notes Attending Addendum: Case reviewed with the advanced practitioner. I have reviewed the advanced practitioner's documentation on the date of service referenced in note, and I agree with, and take responsibility for the plan of care. please refer to her notes for full details patient seen and examined, records reviewed by myself as well diagnoses and plan of care as per advanced practitioner's notes I spent a total of 45 minutes coordinating, documenting, and providing care for this patient, excluding time spent in the performance of separately billed services or time spent by another provider/QHP. Marshal Alejandra MD Subjective Pt seen and examined in room 207. Discussed with nurse Temple. Apparently around 3-4 a.m. pt woke up gasping for air. Pt reports significant SOB and it awoke him from sleep. Nurse also reports they had to change beds 5 x due to him being wet. Currently he is very drowsy but not sleeping last night. Feels his breathing is much better. Denies f/c/s, chest pain, sob, n/v. Nursing reports no other concerns. Hx obtained from pt, and daughter at bedside. Review of Systems Review of Systems: All systems reviewed & are unremarkable except as noted in HPI & below Physical Exam Physical Exam: Gen: WD/WN, NAD, A&O x3, sitting up in bed, drowsy but awakes easily. HEENT: Normocephalic, atraumatic, conjunctivae moist, sclerae anicteric, mucous membranes moist. Neck: +kyphotic posture, neck pain + paraspinal muscle tenderness on R lower back, + tenderness to touch to L SCM, base of occiput Lung: Clear to Auscultation bilaterally, diminished breath sounds at bases Heart: Regular rate, regular rhythm, no murmurs, rubs, or gallops Abdomen: Soft, NT, ND +BS x 4 Extremities: No edema Skin: Warm, no rash, negative turgor. Results & Data Results & Data Vital Signs (Past 12 Hours) Vital Signs Temp Pulse Pulse Pulse Resp BP BP 11/13/24 08:07 36.6 C 77 18 126/72 11/13/24 07:30 79 18 11/13/24 05:38 143/115 H 11/13/24 04:19 170/103 H 11/13/24 03:15 88 20 11/13/24 02:52 36.6 C 71 17 173/110 H 11/13/24 02:28 163/94 H 11/13/24 01:57 82 185/99 H 11/13/24 01:45 185/99 H 11/13/24 01:39 82 11/13/24 00:36 36.6 C 74 24 183/112 H Pulse Ox O2 Del Method O2 Flow Rate 11/13/24 08:07 90 Room Air 11/13/24 07:30 94 Oxymask 5 11/13/24 05:38 11/13/24 04:19 11/13/24 03:15 96 Oxymask 5 11/13/24 02:52 97 Nebulizer 11/13/24 02:28 11/13/24 01:57 11/13/24 01:45 11/13/24 01:39 11/13/24 00:36 94 Room Air Laboratory Results I have independently reviewed and interpreted patient's CBC, CMP, ionized ca, Diagnostic Findings Chest X-Ray 11/13/24 02:45 EXAM: XR chest 1V portable CLINICAL HISTORY: sob TECHNIQUE: An X-ray image of the chest is obtained in AP projection. COMPARISON: 11/11/2024. FINDINGS: Pulmonary Parenchyma: Still noted obliteraion of the left costophrenic angle with left basal parenchymal opacification and mediastinal shift to the left, denoting left lung volume loss. Still noted minimal right pleural effusion in the form of right costophrenic angle obliteration. Still noted bilateral peribronchial thickening possibly related to the ongoing bronchiectasis (stable). Still noted sliding hiatus hernia (stable). Heart and Mediastinum: Suggested cardiomegaly (stable). No mediastinal widening or masses. No hilar or mediastinal lymphadenopathy. Bony Thorax: Bony thorax appears intact without fractures or deformities. Soft Tissues: Soft tissues overlying the chest wall are unremarkable. IMPRESSION: 1. Left moderate and right minimal pleural effusion. (stable) 2. Still noted left basal opacity with mediastinal shift to the left. 3. Still noted bilateral peribronchial thickening possibly related to the ongoing bronchiectasis (stable). 4. Still noted sliding hiatus hernia (stable). 5. Suggested cardiomegaly (stable). Electronically signed by Juventino Zapata 11-13-2024 04:05 AM Medications Administered Current Inpatient Medications Acetaminophen (Acetaminophen 500 Mg Tab) 500 mg PO QID PRN PRN Reason: Breakthrough Pain, Mild Stop: 12/09/24 21:44 Last Admin: 11/12/24 06:02 Dose: 500 mg Albuterol (Albut/Ipratrop 3mg/0.5mg Neb 3 Ml Vial) 3 ml NEB QIDR [facility]; Protocol Stop: 12/10/24 18:59 Last Admin: 11/13/24 11:18 Dose: Not Given Albuterol (Albut/Ipratrop 3mg/0.5mg Neb 3 Ml Vial) 3 ml NEB Q2H PRN; Protocol PRN Reason: sob wheeze Stop: 12/11/24 04:37 Last Admin: 11/11/24 13:29 Dose: 3 ml Amoxicillin/Clavulanate Potassium (Amoxicillin/Clavulanate 875 Mg Tab) 1 tab PO BIDM [facility]; Protocol Stop: 11/15/24 17:01 Last Admin: 11/13/24 07:48 Dose: 1 tab Carbamazepine (Carbamazepine 200 Mg Tablet) 200 mg PO 0630,1200,1700,2200 [facility] Stop: 12/09/24 21:59 Last Admin: 11/13/24 06:06 Dose: 200 mg Carbidopa/Levodopa (Carbidopa/Levodopa 25/100mg Tab) 3 tab PO QID@0630,0900,1200,1700 [facility] Stop: 12/09/24 21:44 Last Admin: 11/13/24 10:00 Dose: 3 tab Doxycycline Hyclate (Doxycycline Hyclate 100 Mg Cap) 100 mg PO BID [facility] Stop: 11/15/24 20:59 Last Admin: 11/13/24 10:02 Dose: 100 mg Entacapone (Entacapone 200 Mg Tab) 200 mg PO QID@0630,0800,1200,1700 [facility] Stop: 12/09/24 21:44 Last Admin: 11/13/24 07:48 Dose: 200 mg Finasteride (Finasteride 5 Mg Tab) 5 mg PO QDD [facility] Stop: 12/10/24 16:29 Last Admin: 11/12/24 17:19 Dose: 5 mg Folic Acid (Folic Acid 1 Mg Tab) 1 mg PO QAM [facility] Stop: 12/10/24 08:59 Last Admin: 11/13/24 10:02 Dose: 1 mg Guaifenesin (Guaifenesin Sugar Free 100 Mg/5 Ml Udc) 100 mg PO Q6 [facility] Stop: 12/10/24 18:29 Last Admin: 11/13/24 06:06 Dose: 100 mg Heparin Sodium/Dextrose (Heparin 95094 Unit/500 Ml D5w) 25,000 units in 500 mls @ 29 mls/hr IV .[id number] [facility]; Protocol Stop: 12/10/24 19:59 Last Titration: 11/13/24 07:01 Dose: 1,450 units/hr, 29 mls/hr Lactobacillus Acidophilus (Advanced Probiotic 625 Mg Capsule) 1,250 mg PO DAILY [facility] Stop: 12/13/24 08:59 Last Admin: 11/13/24 10:02 Dose: 1,250 mg Leflunomide (Leflunomide 10 Mg Tab) 20 mg PO QDB [facility] Stop: 12/10/24 07:29 Last Admin: 11/13/24 07:45 Dose: 20 mg Levothyroxine Sodium (Levothyroxine Sodium 75 Mcg Tablet) 75 mcg PO DAILYBB [facility] Stop: 12/10/24 06:29 Last Admin: 06/26/25 06:05 Dose: 75 mcg Lidocaine (Lidocaine 5% 1 Patch) 1 patch TD QAM [facility] Stop: 12/13/24 09:29 Last Admin: 11/13/24 10:22 Dose: 1 patch Melatonin (Melatonin 3 Mg Tab) 3 mg PO HS PRN PRN Reason: Sleep Stop: 12/09/24 20:59 Midodrine (Midodrine Hcl 2.5 Mg Tab) 2.5 mg PO TID@0630,1200,1700 [facility] Stop: 12/12/24 16:59 Last Admin: 11/13/24 05:43 Dose: Not Given Miscellaneous (Remove Lidoderm Patch) 1 each N/A DAILY@2100 [facility] Stop: 12/13/24 20:59 Pantoprazole Sodium (Pantoprazole 40 Mg Tab) 40 mg PO QAM [facility] Stop: 12/12/24 10:29 Last Admin: 11/13/24 10:03 Dose: 40 mg Prednisone (Prednisone 10 Mg Tablet) 10 mg PO QDB [facility] Stop: 12/10/24 07:29 Last Admin: 11/13/24 07:52 Dose: 10 mg Thiamine HCl (Thiamine Hcl 100 Mg Tab) 100 mg PO QAM [facility] Stop: 12/10/24 08:59 Last Admin: 11/13/24 10:03 Dose: 100 mg Trolamine Salicylate (Trolamine Salicylate 10% Crm 255 Appln/85 Gm Tube) 1 appln EXT BID [facility] Stop: 12/13/24 09:29 Last Admin: 11/13/24 10:22 Dose: 1 appln Vitamin D (Cholecalciferol 25 Mcg (1000 Units) Tab) 25 mcg PO DAILYBB [facility] Stop: 12/10/24 06:29 Last Admin: 11/13/24 06:05 Dose: 25 mcg Warfarin Sodium (Warfarin Sod 10 Mg Tab) 10 mg PO DAILY@1600 [facility] Stop: 12/13/24 15:59 Zonisamide (Zonisamide 100 Mg Capsule) 100 mg PO HS [facility] Stop: 12/09/24 21:44 Last Admin: 11/12/24 21:05 Dose: 100 mg (1) Parkinson disease Dyskinesia presence: unspecified whether dyskinesia Fluctuating manifestations: unspecified whether manifestations fluctuate Qualified Code(s): G20.A1 - Parkinson's disease without dyskinesia, without mention of fluctuations
--- NOTE | 2024-11-13 13:48 | Fluoroscopy Report ---
FL video swallow CLINICAL HISTORY: r/o aspiration. TECHNIQUE: Video fluoroscopic evaluation of swallowing was performed in the AP and lateral projection s by the speech pathology staff. The patient is fed nectar-thick and thin liquid barium, a barium coa john wafer, and barium pudding. FLUOROSCOPY TIME: 29 seconds. COMPARISON: None FINDINGS: No aspiration demonstrated with any barium consistency. IMPRESSION: No aspiration seen. ACT 112: Negative or not required by law. Electronically signed by: Larry Burnham M.D. 11/13/2024 1:47 PM
--- NOTE | 2024-11-13 15:39 | XRay Report ---
XR cervical spine 2 or 3V CLINICAL HISTORY: pain COMPARISON STUDY: None FINDINGS: Exam is limited due to patient inability to cooperate with the exam. Shoulders obscure the lower cervical spine on the lateral view. C7 is completely obscured and C6 is partially obscured. The re is degenerative disc disease most severe at C5-6. There is grade 1 anterolisthesis of C3 on 4 and C4 on 5. No fracture seen at the visualized cervical spine. IMPRESSION: 1. Limited exam. 2. No fracture seen at the cervical spine. 3. Degenerative changes and alignment abnormality. ACT 112: Negative or not required by law. Electronically signed by: Larry Burnham M.D. 11/13/2024 3:37 PM
[2024-11-13 16:21] LABS: HCO3 ABG 26 mmol/L (19-24); Oxygen Saturation ABG 97.3 % (90-95); PCO2 ABG 37 mmHg (35-46); PO2 ABG 74 mmHg (80-95)
[2024-11-13 16:22] LABS: Allen Test Pos (Pos)
--- NOTE | 2024-11-13 16:25 | CT Scan Report ---
CT HEAD: HISTORY: Trauma TECHNIQUE: Noncontrast CT examination of the head is performed. Coronal and sagittal reformats were created. COMPARISON: Brain CT 4 days previous FINDINGS: There is no evidence of intracranial hemorrhage, focal mass effect or midline shift. No fluid collection is identified. The ventricular system is midline and symmetric. No evidence of acute major vascular territory infarction. Age-related involutional changes of the brain and chronic white matter ischemic changes. No calvarial fracture is identified. 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 The mastoids are well aerated. IMPRESSION: No acute intracranial process identified. 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
--- NOTE | 2024-11-13 16:27 | CT Scan Report ---
CT CERVICAL SPINE WITHOUT CONTRAST: HISTORY: Trauma TECHNIQUE: Noncontrast CT examination of the cervical spine is performed. Coronal and sagittal reformats were created. COMPARISON: Thoracic CT November 11, 2024 FINDINGS: CERVICAL SPINE: There is no significant vertebral body height loss. No acute traumatic fracture identified. Mild anterior offsets of C3 on C4 and C4 on C5. Mild posterior offsets of C5 on C6 and C6 on C7 Multilevel degenerative changes characterized by disc osteophyte complex, bilateral facet and uncovertebral hypertrophy resulting and neural foraminal narrowing at multiple levels, worst at Visualized soft tissues of neck are unremarkable. Redemonstrated loculated large left pleural fluid, better delineated in the recent thoracic CT dated November 11, 2024 IMPRESSION: No acute traumatic fracture of the cervical spine. Multilevel degenerative changes as above. Redemonstrated loculated large left pleural fluid, better delineated in the recent thoracic CT dated November 11, 2024 Electronically signed by Benedicto Medina 11-13-2024 4:25 PM
[2024-11-13 16:40] LABS: Hematocrit (blood only) 37.5 % (42.0-52.0); Hemoglobin 12.1 g/dl (14.0-18.0); Mean Corpuscular Hemoglobin 30.3 pg (25.0-34.0); Mean Corpuscular Volume 94.0 fL (80.0-100.0); Platelet Count 214 K/uL (130-400); RDW Standard Deviation 50.5 fL (36.4-46.3); Red Blood Count 3.99 M/uL (4.70-6.10); White Blood Count 8.42 K/ul (4.8-10.8)
[2024-11-13 17:00] LABS: Alanine Aminotransferase 3.0 U/L (7-52); Albumin Globulin Ratio 0.9 (0.9-2); Alkaline Phosphatase 108.0 U/L (34-104); Anion Gap 7.0 (3-11); Bilirubin,Total 0.4 mg/dl (0.2-1.0); Blood Urea Nitrogen 28.0 mg/dl (6-23); Calcium 8.0 mg/dl (8.6-10.3); Carbon Dioxide 26.0 mmol/L (21-32); Chloride 105.0 mmol/L (98-107); Creatinine Clr Calc Pharmacy 48.0 ml/min; Globulin 3.2 gm/dl (2.5-4.0); Glucose 98.0 mg/dl (70-99(Fasting)); Magnesium 2.3 mg/dl (1.7-2.4); Potassium 3.9 mmol/L (3.5-5.1); Sodium 138.0 mmol/L (136-145); Total Protein 6.2 gm/dl (6.0-8.3)
--- NOTE | 2024-11-13 17:03 | Communication Note ---
Date of Service: November 13, 2024 Around 1530 was called to bedside as pt was at neck xr when he became unresponsive and turned purple. He returned to room, VSS, normoxic, BSG 108. Pt unresponsive to sternal rub, pain, touch or voice. He was sent for CT head/neck which was negative for hemorrhage. He was placed on 2L of oxygen prior to CT scans. Upon returning from CT scan pt able to arouse to verbal stimuli and answer questions. He states, "unable to get air." He reports flexing his neck when this occurred. Per XR pt turned ppl. No seizure like activity. Pt with seizure hx and is tonic clonic in nature. Pt was witnessed returning from initial neck XR with L arm/leg tremoring, but states thats not normal for his seizure activity. Pt denies any current pain, f/c/s, chest pain, n/v. ? syncopal episode from hypoxia vs post ictal state? Will re consult neurology given significant neurologic hx EEG, CBC, CMP, Ammonia, ABG ordered Discussed with daughter and at bedside. All questions were answered. He will remain on 2L of oxygen for now Alyson Ayers PA-C
[2024-11-13 17:06] LABS: Immature Granulocytes # (auto) 0.43 K/uL (0.01-0.20); Immature Granulocytes % (auto) 5.1 %; Polychromasia 1+
--- NOTE | 2024-11-13 17:43 | Neurology Consultation ---
Date of Consultation November 13, 2024 Assessment & Plan (1) Parkinson disease: Terrence Aguilar is a 74 yo M presenting with essentially failure to thrive at home secondary to advancing PD. Do not suspect parkinson's dementia, at least based on my encounter, but rather bradyphrenia and bradykinesia making communic ation delayed and difficult for the patient. He needs close follow-up with outpatient movement disorders for his advanced PD. Would keep him on his current sinemet regimen but could trial addition of amantadine 100mg BID for now. Stop if he has any complaint of hallucinations. Always reasonable to start goals of care conversations when patient is advancing through their otherwise incurable disease process. Now notable hypoactive delirium secondary to his medical conditions. -- Conservative mesures for delirium, natural light, reorientation, up during the day. -- Trial of amantadine 100mg BID - will defer to after discharge -- Therapy evals for likely placement -- Outpatient movement disorders follow-up Telehealth Consultation Telehealth Information Telehealth Information: I performed this visit using a real-time telehealth connection between my location and the patients location ([facility]). After connecting through interactive tele-video, patient was identified by name and date of and/or wristband check.Patient (or authorized healthcare accounting representative) was informed that this was a telemedicine visit and it was being conducted confidentially over secure lines. My office door was closed and no one else was present in the room with me.Patient (or authorized healthcare accounting representative) provided consent to proceed with the visit, expressed an understanding of privacy and security of the telemedicine visit, and gave permission to have a hospital accounting representative in the room in order to assist with the visit and to conduct portions of the visit, as needed. I informed the patient (or authorized healthcare accounting representative) that I reviewed their record and presented the opportunity for them to ask any questions regarding the visit today. The patient agreed to participate. History of Present Illness Reason for Consultation: Unresponsiveness Attending Physician: Marshal Alejandra MD History of Present Illness Neurology was reconsulted on Terrence Aguilar who is a 74 yo M presenting with hypoxia secondary to PE and pneumonia. He has had a few episodes of hypoxia over the last 24 hours and continued fluctuation of his mental status. At times he is at his baseline and was able to eat lunch today. Then became fully unresponsive for a few hours and is now close to his baseline again per family at bedside. He has had similar but less severe episodes of unresponsiveness in the past. He has a history of seizures but no seizures in many years on his current regimen. Allergies Allergy/AdvReac Type Severity Reaction Status Date / Time No Known Allergies Allergy Verified 11/09/24 17:21 Home Medications Medication Instructions Recorded Confirmed Type finasteride 5 mg tablet (Proscar) 5 mg PO QDD 12/03/20 11/09/24 History leflunomide 20 mg tablet (Arava) 20 mg PO QDB 12/03/20 11/09/24 History carbamazepine 200 mg tablet 200 mg PO QID 08/03/21 11/09/24 History (Tegretol) levothyroxine 75 mcg tablet 75 mcg PO DAILYBB 08/03/21 11/09/24 History (Synthroid) tamsulosin 0.4 mg capsule 0.4 mg PO QDD 08/03/21 11/09/24 History zonisamide 100 mg capsule 100 mg PO HS 08/03/21 11/09/24 History (Zonegran) carbidopa 25 mg-levodopa 100 mg 3 tab PO QID 02/07/22 11/09/24 History tablet melatonin 5 mg tablet 10 mg PO HS PRN Sleep 08/21/23 11/09/24 History entacapone 200 mg tablet 200 mg PO QID 10/10/23 11/09/24 History acetaminophen 325 mg tablet 500 mg PO QID PRN Breakthrough 10/29/23 11/09/24 History (Tylenol) Pain, Mild midodrine 2.5 mg tablet 2.5 mg PO TID 02/21/24 11/09/24 History testosterone cypionate 200 mg/mL 100 mg IM DIRECTED PRN NEEDED 03/27/24 11/09/24 History intramuscular oil cholecalciferol (vitamin D3) 25 25 mcg PO DAILYBB 08/25/24 11/09/24 History mcg (1,000 unit) tablet ferrous sulfate 325 mg (65 mg 325 mg PO 5XWK 08/25/24 11/09/24 History iron) tablet (FeroSul) calcium carbonate (Calcium 600) 600 mg PO QDB 11/09/24 11/09/24 History cholecalciferol (vitamin D3) 25 25 mcg PO QDB 11/09/24 11/09/24 History mcg (1,000 unit) capsule (Vitamin D3) prednisone 10 mg tablet 10 mg PO QDB 11/09/24 11/09/24 History Patient History Medical History History of venous stasis ulcer of lower extremity Hypothermia Chronic venous insufficiency Nonrheumatic mitral valve regurgitation Spinal stenosis Surgical History Hx of laminectomy Family History Other Leukemia Lung cancer Social History Smoking Status: Never smoker Second Hand Exposure: No; Do You Dip or Chew Tobacco: No; Hx Alcohol Use: No Hx Substance Use: No Preferred Language: German Communication Ability: Effective 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 Oriented to person, place. Fluent with significant delay in responses and paucity of speech. Bradyphrenia. Comprehension intact. Affect appropriate. Cranial Nerves: Face symmetric with mask like faces, decreased blink. hearing intact Motor: Strength was antigravity and bradykinetic. no resting tremor noted, dyskinetic finger taps Reflexes: Unable to assess over telemedicine Results & Data Vital Signs (Past 12 Hours) Vital Signs Temp Pulse Pulse Resp BP BP Pulse Ox 11/13/24 16:23 62 18 140/83 89 L 11/13/24 14:25 74 18 92 11/13/24 14:14 94 11/13/24 13:00 80 11/13/24 12:43 36.6 C 82 18 105/69 94 11/13/24 08:07 36.6 C 77 18 126/72 90 11/13/24 07:30 79 18 94 11/13/24 05:43 72 11/13/24 05:38 143/115 H O2 Del Method O2 Flow Rate 11/13/24 16:23 Oxymask 4 11/13/24 14:25 Room Air 11/13/24 14:14 11/13/24 13:00 11/13/24 12:43 Room Air 11/13/24 08:07 Room Air 11/13/24 07:30 Oxymask 5 11/13/24 05:43 11/13/24 05:38 (1) Parkinson disease Dyskinesia presence: unspecified whether dyskinesia Fluctuating manifestations: unspecified whether manifestations fluctuate Qualified Code(s): G20.A1 - Parkinson's disease without dyskinesia, without mention of fluctuations
[2024-11-13] MEDS: WARFARIN SOD 10 MG TAB PO SCH (17:49)
[2024-11-13] MEDS: REMOVE LIDODERM PATCH SCH (21:44)
[2024-11-13 22:07] LABS: ANTI-Xa, UFH(UnfractionatedHep 0.26 IU/ml (0.3-0.7)
[2024-11-14 05:54] LABS: ANTI-Xa, UFH(UnfractionatedHep 0.31 IU/ml (0.3-0.7)
[2024-11-14 06:07] LABS: INR 1.0 (0.9-1.1); Prothrombin Time 11.0 Seconds (9.0-12.0)
[2024-11-14] MEDS: METOPROLOL TARTRATE 1 MG/ML VIAL IV STA (06:27)
[2024-11-14 08:30] LABS: Hematocrit (blood only) 37.6 % (42.0-52.0); Hemoglobin 12.1 g/dl (14.0-18.0); Mean Corpuscular Hemoglobin 30.2 pg (25.0-34.0); Mean Corpuscular Volume 93.8 fL (80.0-100.0); Platelet Count 227 K/uL (130-400); RDW Standard Deviation 49.9 fL (36.4-46.3); Red Blood Count 4.01 M/uL (4.70-6.10); White Blood Count 7.04 K/ul (4.8-10.8)
[2024-11-14 08:49] LABS: Alanine Aminotransferase 4.0 U/L (7-52); Albumin Globulin Ratio 1.0 (0.9-2); Alkaline Phosphatase 111.0 U/L (34-104); Anion Gap 5.0 (3-11); Bilirubin,Total 0.5 mg/dl (0.2-1.0); Blood Urea Nitrogen 26.0 mg/dl (6-23); Calcium 8.2 mg/dl (8.6-10.3); Carbon Dioxide 26.0 mmol/L (21-32); Chloride 105.0 mmol/L (98-107); Creatinine Clr Calc Pharmacy 52.4 ml/min; Globulin 3.2 gm/dl (2.5-4.0); Glucose 102.0 mg/dl (70-99(Fasting)); Potassium 3.8 mmol/L (3.5-5.1); Sodium 136.0 mmol/L (136-145); Total Protein 6.4 gm/dl (6.0-8.3)
[2024-11-14 10:00] LABS: Immature Granulocytes # (auto) 0.36 K/uL (0.01-0.20); Immature Granulocytes % (auto) 5.1 %; Polychromasia 1+
--- NOTE | 2024-11-14 13:44 | Hospitalist Progress Note ---
Date of Service November 14, 2024 Assessment & Plan (1) Parkinson disease: (2) Generalized weakness: Plan: This is a 74-year-old male with significant past medical history of Parkinson's disease,hypothyroidism, chronic diastolic heart failure, history of liver taya ngioma, nonrheumatic mitral valve regurgitation, history of simple partial seizure rheumatoid arthritis long-term steroid therapy who presents to ED with generalized weakness. In setting of Parkinson's disease with likely progression - on sinemet and entacapone c/b significant bradykinesia/rigidity, orthostatic hypotension, per Dr. Mustafa "has such advanced Parkinsons disease we really are not going to change his treatments" Mild dehydration, b/l PE and possible UTI may be contributing as well Consulted neurology - failure to thrive picture 2/2 advancing Parkinson's recommending continue Sinemet regimen and trial of amantadine 100mg BID Based on discussion with family and acute illness, will hold off on amantadine trial for now as they wish to discuss this with his primary neurologist PT/OT evals Speech evaluation and Video swallow with mild oropharyngeal dysphagia that does not impact the safety of patient's swallowing function Continue aspiration precautions, repositioning (3) Unresponsiveness: (4) Hypoxia: Plan: Pt with intermittent episodes of unresponsiveness. Early on in hospital stay was accompanied with hyperventilation and hypoxia, but of recent has not been accompanied with either but more of a profound state of unarousability raising the question of possible seizure likely activity and post ictal state vs syncope. These events typically occur in late afternoon. Last episode 11/13 while sitting in wheel chair upright with kyphotic posturing and head tucked into chest Recent CXR is stable He remains off oxygen He received 1 dose of IV Lasix 20mg on 11/13 negative fluid balance over last 24hrs, weights are stable ? if hiatal hernia vs kypotic posturing/chin tucking causing patient to become hypoxic and result in syncope vs seizure like activity I strongly encourage pt to work on head/neck posture nocturnal sleep study negative EEG study ordered (5) Bilateral pulmonary embolism: Plan: Started on IV heparin overnight Not a good DOAC candidate given interaction with carbamazepine Warfarin started, Trend daily INR and continue IV heparin until therapeutic 2D echo EF > 70%, rvsf normal, trace TR, no right heart strain increased warfarin to 10mg daily on 11/14, INR still 1.0, if tomorrow INR still 1.0 recommend 15mg daily (6) Enterococcus UTI: Plan: Urine culture growing Enterococcus faecalis, sensitive to amoxicillin, on day #6 Amoxicillin switched to augmentin to allow for aspiration coverage as well through 11/15 (7) CAP (community acquired pneumonia): Plan: CT chest revealing possible TEE infiltrate with significant atelectasis noted, likely in setting of HH Day 6 of doxycycline, augmentin as above, will complete tomorrow S/p IV solumedrol 60mg x 1 11/10 Incentive spirometry, [place] QIDR (8) Rheumatoid arthritis: (9) Chronic steroid use: Plan: Has been taking Arava and daily prednisone at home, continue (10) Chronic diastolic (congestive) heart failure: Plan: Pt with stable weights but net + fluid lasix 20mg IV x 1 given on 11/13 He does not look overtly volume overloaded (11) Labile hypertension: Plan: Orthostatic hypotension in setting of autonomic dysfunction in relation to PD Nephro started on midodrine BP significantly elevates overnight to ranges above 190 systolic Will reduce midodrine 2.5mg BID 0900/1500 and monitor Plan DVT prophylaxis: IV heparin Code: DNR/DNI Dispo: Admitted to PCU, will continue given intermittent resp decline, if remains stable could consider rehab d/c over weekend Patient seen in collaboration with Dr. Alejandra. Please see addendum. I spent a total of 54 minutes coordinating, documenting, and providing care for this patient excluding time spent in the performance of separately billed services or time spent by another provider/QHP. Admission and Anticipated Discharge Date Admission Date: November 09, 2024 Supervising Physician Co-Signing Physician Notes Attending Addendum: Case reviewed with the advanced practitioner. I have reviewed the advanced practitioner's documentation on the date of service referenced in note, and I agree with, and take responsibility for the plan of care. please refer to her notes for full details patient seen and examined, records reviewed by myself as well diagnoses and plan of care as per advanced practitioner's notes I spent a total of 35 minutes coordinating, documenting, and providing care for this patient, excluding time spent in the performance of separately billed services or time spent by another provider/QHP. Marshal Alejandra MD Subjective Pt seen and examined in room 207. Pt was sleeping in bed and easily arousable during my visit. He states he feels okay this morning. He is having pain in his b/l knees. He feels his breathing is stable. Denies f/c/s, chest pain, n/v. No further hypoxic or unresponsive episodes. Review of Systems Review of Systems: All systems reviewed & are unremarkable except as noted in HPI & below Physical Exam Physical Exam: Gen: WD/WN, NAD, A&O x3, sitting up in bed, drowsy but awakes easily. HEENT: Normocephalic, atraumatic, conjunctivae moist, sclerae anicteric, mucous membranes moist. Neck: +kyphotic posture, neck flexed to chin Lung: Clear to Auscultation bilaterally, diminished breath sounds at bases Heart: Regular rate, regular rhythm, no murmurs, rubs, or gallops Abdomen: Soft, NT, ND +BS x 4 Extremities: No edema, b/l knees with out effusion, erythema or warmth, active ROM Skin: Warm, no rash, negative turgor. Results & Data Results & Data Vital Signs (Past 12 Hours) Vital Signs Temp Pulse Pulse Pulse Resp BP BP 11/14/24 11:08 36.7 C 103 H 18 11/14/24 10:25 60 18 11/14/24 08:17 36.5 C 71 18 106/71 11/14/24 07:19 58 L 18 11/14/24 06:42 63 164/95 H 11/14/24 06:42 164/95 H 11/14/24 06:27 70 184/107 H 11/14/24 05:45 184/107 H 11/14/24 05:38 70 11/14/24 04:17 167/102 H 11/14/24 03:23 82 11/14/24 03:05 36.5 C 72 21 192/103 H 11/14/24 02:48 79 BP Pulse Ox Pulse Ox O2 Del Method O2 Del Method O2 Flow Rate 11/14/24 11:08 136/86 95 Room Air 11/14/24 10:25 96 Room Air 11/14/24 08:17 93 Room Air 11/14/24 07:19 93 Room Air 11/14/24 06:42 11/14/24 06:42 11/14/24 06:27 11/14/24 05:45 11/14/24 05:38 11/14/24 04:17 11/14/24 03:23 93 Room Air 11/14/24 03:05 92 Nasal Cannula 4 11/14/24 02:48 94 Room Air Laboratory Results I have independently reviewed and interpreted patient's cbc, bmp Short CBC 11/13/24 11/14/24 Range/Units 16:08 08:12 WBC 8.42 7.04 (4.8-10.8) K/ul Hgb 12.1 L 12.1 L (14.0-18.0) g/dl Hct 37.5 L 37.6 L (42.0-52.0) % Plt Count 214 227 (130-400) K/uL BMP 11/13/24 11/14/24 16:08 08:12 Sodium 138 136 Potassium 3.9 3.8 Chloride 105 105 Carbon Dioxide 26 26 BUN 28 H 26 H Creatinine 1.20 1.10 Glucose 98 102 H Calcium 8.0 L 8.2 L Liver Function 11/13/24 11/14/24 Range/Units 16:08 08:12 Total Bilirubin 0.4 0.5 (0.2-1.0) mg/dl AST 30 25 (13-39) U/L ALT 3 L 4 L (7-52) U/L Alkaline Phosphatase 108 H 111 H (34-104) U/L Albumin 3.0 L 3.2 L (3.4-5.0) gm/dl Medications Administered Current Inpatient Medications Acetaminophen (Acetaminophen 500 Mg Tab) 500 mg PO QID PRN PRN Reason: Breakthrough Pain, Mild Stop: 12/09/24 21:44 Last Admin: 11/14/24 13:43 Dose: 500 mg Albuterol (Albut/Ipratrop 3mg/0.5mg Neb 3 Ml Vial) 3 ml NEB QIDR JACQUES; Protocol Stop: 12/10/24 18:59 Last Admin: 11/14/24 10:24 Dose: 3 ml Albuterol (Albut/Ipratrop 3mg/0.5mg Neb 3 Ml Vial) 3 ml NEB Q2H PRN; Protocol PRN Reason: sob wheeze Stop: 12/11/24 04:37 Last Admin: 11/11/24 13:29 Dose: 3 ml Amoxicillin/Clavulanate Potassium (Amoxicillin/Clavulanate 875 Mg Tab) 1 tab PO BIDM [facility]; Protocol Stop: 11/15/24 17:01 Last Admin: 11/14/24 07:28 Dose: 1 tab Carbamazepine (Carbamazepine 200 Mg Tablet) 200 mg PO 0630,1200,1700,2200 [facility] Stop: 12/09/24 21:59 Last Admin: 11/14/24 12:14 Dose: 200 mg Carbidopa/Levodopa (Carbidopa/Levodopa 25/100mg Tab) 3 tab PO QID@0630,0900,1200,1700 [facility] Stop: 12/09/24 21:44 Last Admin: 11/14/24 12:15 Dose: 3 tab Doxycycline Hyclate (Doxycycline Hyclate 100 Mg Cap) 100 mg PO BID [facility] Stop: 11/15/24 20:59 Last Admin: 11/14/24 10:02 Dose: 100 mg Entacapone (Entacapone 200 Mg Tab) 200 mg PO QID@0630,0800,1200,1700 [facility] Stop: 12/09/24 21:44 Last Admin: 11/14/24 12:15 Dose: 200 mg Finasteride (Finasteride 5 Mg Tab) 5 mg PO QDD [facility] Stop: 12/10/24 16:29 Last Admin: 11/13/24 17:51 Dose: 5 mg Folic Acid (Folic Acid 1 Mg Tab) 1 mg PO QAM [facility] Stop: 12/10/24 08:59 Last Admin: 11/14/24 10:03 Dose: 1 mg Guaifenesin (Guaifenesin Sugar Free 100 Mg/5 Ml Udc) 100 mg PO Q6 [facility] Stop: 12/10/24 18:29 Last Admin: 11/14/24 12:16 Dose: 100 mg Heparin Sodium/Dextrose (Heparin 23754 Unit/500 Ml D5w) 25,000 units in 500 mls @ 31 mls/hr IV .Q16H8M [facility]; Protocol Stop: 12/10/24 19:59 Last Titration: 11/14/24 06:54 Dose: 1,550 units/hr, 31 mls/hr Lactobacillus Acidophilus (Advanced Probiotic 625 Mg Capsule) 1,250 mg PO DAILY [facility] Stop: 12/13/24 08:59 Last Admin: 11/14/24 10:02 Dose: 1,250 mg Leflunomide (Leflunomide 10 Mg Tab) 20 mg PO QDB [facility] Stop: 12/10/24 07:29 Last Admin: 11/14/24 07:28 Dose: 20 mg Levothyroxine Sodium (Levothyroxine Sodium 75 Mcg Tablet) 75 mcg PO DAILYBB [facility] Stop: 12/10/24 06:29 Last Admin: 11/14/24 05:44 Dose: 75 mcg Lidocaine (Lidocaine 5% 1 Patch) 1 patch TD QAM [facility] Stop: 12/13/24 09:29 Last Admin: 11/14/24 10:02 Dose: 1 patch Melatonin (Melatonin 3 Mg Tab) 3 mg PO HS PRN PRN Reason: Sleep Stop: 12/09/24 20:59 Midodrine (Midodrine Hcl 2.5 Mg Tab) 2.5 mg PO TID@0630,1200,1700 [facility] Stop: 12/12/24 16:59 Last Admin: 11/14/24 12:15 Dose: 2.5 mg Miscellaneous (Remove Lidoderm Patch) 1 each N/A DAILY@2100 [facility] Stop: 12/13/24 20:59 Last Admin: 11/13/24 21:44 Dose: 1 each Pantoprazole Sodium (Pantoprazole 40 Mg Tab) [facility] [place]: 12/12/24 10:29 Last Admin: 11/14/24 10:03 Dose: 40 mg Prednisone (Prednisone 10 Mg Tablet) 10 mg PO QDB [facility] Stop: 12/10/24 07:29 Last Admin: 11/14/24 07:29 Dose: 10 mg Thiamine HCl (Thiamine Hcl 100 Mg Tab) [facility] [place] [place] Stop: 12/10/24 08:59 Last Admin: 11/14/24 10:02 Dose: 100 mg Trolamine Salicylate (Trolamine Salicylate 10% Crm 255 Appln/85 Gm Tube) 1 appln EXT BID [facility] Stop: 12/13/24 09:29 Last Admin: 11/14/24 10:02 Dose: 1 appln Vitamin D (Cholecalciferol 25 Mcg (1000 Units) Tab) 25 mcg PO DAILYBB [facility] Stop: 12/10/24 06:29 Last Admin: 11/14/24 05:44 Dose: 25 mcg Warfarin Sodium (Warfarin Sod 10 Mg Tab) 10 mg PO DAILY@1600 [facility] Stop: 12/13/24 15:59 Last Admin: 11/13/24 17:49 Dose: 10 mg Zonisamide (Zonisamide 100 Mg Capsule) 100 mg PO [facility] Stop: 12/09/24 21:44 Last Admin: 11/13/24 21:45 Dose: 100 mg (1) Parkinson disease Dyskinesia presence: unspecified whether dyskinesia Fluctuating manifestations: unspecified whether manifestations fluctuate Qualified Code(s): G20.A1 - Parkinson's disease without dyskinesia, without mention of fluctuations
[2024-11-14] MEDS ORDERED: ACETAMINOPHEN 500 MG TAB PO PRN (15:42)
[2024-11-14] MEDS ORDERED: MELATONIN 3 MG TAB PO PRN (15:56)
[2024-11-14] MEDS: MIDODRINE HCL 2.5 MG TAB PO SCH (15:56)
[2024-11-15 06:43] LABS: Hematocrit (blood only) 42.7 % (42.0-52.0); Hemoglobin 13.8 g/dl (14.0-18.0); Mean Corpuscular Hemoglobin 30.5 pg (25.0-34.0); Mean Corpuscular Volume 94.3 fL (80.0-100.0); Platelet Count 234 K/uL (130-400); RDW Standard Deviation 50.4 fL (36.4-46.3); Red Blood Count 4.53 M/uL (4.70-6.10); White Blood Count 8.00 K/ul (4.8-10.8)
--- NOTE | 2024-11-15 07:05 | Hospitalist Progress Note ---
Date of Service November 15, 2024 Assessment & Plan (1) Parkinson disease: (2) Generalized weakness: Plan: This is a 74-year-old male with significant past medical history of Parkinson's disease,hypothyroidism, chronic diastolic heart failure, history of liver taya ngioma, nonrheumatic mitral valve regurgitation, history of simple partial seizure rheumatoid arthritis long-term steroid therapy who presents to ED with generalized weakness. In setting of Parkinson's disease with likely progression - on sinemet and entacapone c/b significant bradykinesia/rigidity, orthostatic hypotension, per Dr. Mustafa "has such advanced Parkinsons disease we really are not going to change his treatments" Mild dehydration, b/l PE and possible UTI may be contributing as well Consulted neurology - failure to thrive picture / advancing Parkinson's recommending continue Sinemet regimen and trial of amantadine 100mg BID Based on discussion with family and acute illness, will hold off on amantadine trial for now as they wish to discuss this with his primary neurologist PT/OT evals Speech evaluation and Video swallow with mild oropharyngeal dysphagia that does not impact the safety of patient's swallowing function Continue aspiration precautions, repositioning (3) Unresponsiveness: (4) Hypoxia: Plan: Pt with intermittent episodes of unresponsiveness. Early on in hospital stay was accompanied with hyperventilation and hypoxia, but of recent has not been accompanied with either but more of a profound state of unarousability raising the question of possible seizure likely activity and post ictal state vs syncope. These events typically occur in late afternoon. Last episode 11/13 while sitting in wheel chair upright with kyphotic posturing and head tucked into chest; no episodes today. Repeat CXR today; comparatively some improvement from 11/13 Remains on RA; He received 1 dose of IV Lasix 20mg on 11/13 Weights remain stable. ? if hiatal hernia vs kypotic posturing/chin tucking causing patient to become hypoxic and result in syncope vs seizure like activity I strongly encourage pt to work on head/neck posture nocturnal sleep study negative EEG study ordered, no results yet (5) Bilateral pulmonary embolism: Plan: Started on IV heparin overnight Not a good DOAC candidate given interaction with carbamazepine 2D echo EF > 70%, rvsf normal, trace TR, no right heart strain INR 1.3 on 11/15; continue Coumadin 10 mg today with Heparin gtt until therapeutic (6) Enterococcus UTI: Plan: Urine culture growing Enterococcus faecalis, sensitive to amoxicillin, on day #6 Augmentin completion today, 11/15 (7) CAP (community acquired pneumonia): Plan: CT chest revealing possible TEE infiltrate with significant atelectasis noted, likely in setting of HH Day 6 of doxycycline, augmentin as above, will complete tomorrow S/p IV solumedrol 60mg x 1 11/10 Incentive spirometry, Duonebs QIDR CXR shows improvement 11/15 vs 11/13 (8) Rheumatoid arthritis: (9) Chronic steroid use: Plan: Has been taking Arava and daily prednisone at home, continue (10) Chronic diastolic (congestive) heart failure: Plan: Pt with stable weights but net + fluid lasix 20mg IV x 1 given on 11/13 He does not look overtly volume overloaded (11) Labile hypertension: Plan: Orthostatic hypotension in setting of autonomic dysfunction in relation to PD Nephro started on midodrine BP significantly elevates overnight to ranges above 190-200 systolic Will reduce midodrine 2.5mg to daily and monitor; is on TID at home. Plan DVT prophylaxis: IV heparin Code: DNR/DNI Dispo: Admitted to PCU, will continue given intermittent resp decline, if remains stable could consider rehab d/c over weekend, maybe Friday 11/17 Patient seen in collaboration with Dr. Alejandra. Please see addendum. I spent a total of 49 minutes coordinating, documenting, and providing care for this patient excluding time spent in the performance of separately billed services or time spent by another provider/QHP. Admission and Anticipated Discharge Date Admission Date: November 09, 2024 Supervising Physician Co-Signing Physician Notes Attending Addendum: Case reviewed with the advanced practitioner. I have reviewed the advanced practitioner's documentation on the date of service referenced in note, and I agree with, and take responsibility for the plan of care. please refer to her notes for full details patient seen and examined, records reviewed by myself as well diagnoses and plan of care as per advanced practitioner's notes I spent a total of 30 minutes coordinating, documenting, and providing care for this patient, excluding time spent in the performance of separately billed services or time spent by another provider/QHP. Marshal Alejandra MD Subjective Pt seen and examined in room 207; FAUSTINO Temple at bedside. Pt was sleeping in bed and easily arousable during my visit. Per nursing, he ate breakfast relatively independent this AM No ectopy or cardiac concerns overnight per tele; SR 70's He feels that his breathing is ok; no acute reports of chest pain, N/V, abdominal pain. No further hypoxic or unresponsive episodes. Review of Systems Review of Systems: At least ten systems reviewed and negative except as noted in the HPI. Physical Exam Physical Exam: Neuro: AAOx3, PERRLA, no aphagia, memory changes, CNII-XII grossly intact HEENT: head normocephalic, moist mucus membranes CV: S1/S2, (-) M/G/R, (-) edema, cap refill < 3 seconds Resp: (+) kyphotic posture, neck permanently flexed to chin; Lungs CTA in all mott. On RA GI: Abdomen S/NT/ND, Ax4 bowel sounds, (-) CVA tenderness Musculoskeletal: 5/5 B/L UE strength, 5/5 B/L LE strength. contractures Skin: (-) rashes , (-) erythema. Psych: flat mood Results & Data Results & Data Vital Signs (Past 12 Hours) Vital Signs Temp Pulse Pulse Resp BP Pulse Ox O2 Del Method 11/15/24 04:26 71 163/97 H 11/15/24 02:45 36.5 C 72 14 203/111 H 94 Room Air 11/15/24 00:00 62 11/14/24 23:20 36.4 C L 60 14 164/87 H 93 Room Air 11/14/24 20:00 Room Air 11/14/24 19:54 64 17 94 Room Air 11/14/24 19:40 36.4 C L 64 20 128/85 95 Room Air Laboratory Results Short CBC 11/14/24 11/15/24 Range/Units 08:12 06:21 WBC 7.04 8.00 (4.8-10.8) K/ul Hgb 12.1 L 13.8 L (14.0-18.0) g/dl Hct 37.6 L 42.7 (42.0-52.0) % Plt Count 227 234 (130-400) K/uL BMP 11/14/24 08:12 Sodium 136 Potassium 3.8 Chloride 105 Carbon Dioxide 26 BUN 26 H Creatinine 1.10 Glucose 102 H Calcium 8.2 L Liver Function 06/27/25 Range/Units 08:12 Total Bilirubin 0.5 (0.2-1.0) mg/dl AST 25 (13-39) U/L ALT 4 L (7-52) U/L Alkaline Phosphatase 111 H (34-104) U/L Albumin 3.2 L (3.4-5.0) gm/dl (1) Parkinson disease Dyskinesia presence: unspecified whether dyskinesia Fluctuating manifestations: unspecified whether manifestations fluctuate Qualified Code(s): G20.A1 - Parkinson's disease without dyskinesia, without mention of fluctuations
[2024-11-15 07:06] LABS: Anion Gap 6.0 (3-11); Blood Urea Nitrogen 24.0 mg/dl (6-23); Calcium 8.6 mg/dl (8.6-10.3); Carbon Dioxide 28.0 mmol/L (21-32); Chloride 105.0 mmol/L (98-107); Creatinine Clr Calc Pharmacy 51.9 ml/min; Glucose 82.0 mg/dl (70-99(Fasting)); Potassium 3.8 mmol/L (3.5-5.1); Sodium 139.0 mmol/L (136-145)
[2024-11-15 07:08] LABS: ANTI-Xa, UFH(UnfractionatedHep 0.39 IU/ml (0.3-0.7)
[2024-11-15 07:11] LABS: INR 1.3 (0.9-1.1); Prothrombin Time 14.0 Seconds (9.0-12.0)
[2024-11-15 07:30] LABS: Immature Granulocytes # (auto) 0.41 K/uL (0.01-0.20); Immature Granulocytes % (auto) 5.1 %; Polychromasia 1+
[2024-11-15] MEDS: ACETAMINOPHEN 500 MG TAB PO PRN (07:34)
--- NOTE | 2024-11-15 08:20 | XRay Report ---
XR chest 1V portable HISTORY: 74 years-old Male volume overload acute shortness of breath COMPARISON: 11/13/2024 TECHNIQUE: AP view of the chest FINDINGS: Study is limited secondary to positioning of the patient's head and neck. Large hiatal hernia redemon strated. Cardiomegaly. Left greater than right pleural effusions with left lung volume loss and left greater than right bibasilar consolidation redemonstrated. Pulmonary vascular congestion with interst itial coarsening has slightly progressed. IMPRESSION: 1. Cardiomegaly with suggestion of mild interstitial pulmonary edema. 2. Left greater than right pleural effusions with left basilar predominant consolidation again noted. 3. Large hiatal hernia. ACT 112: Negative or not required by law. The above report was generated using voice recognition software. It may contain grammatical, syntax o r spelling errors. Electronically signed by: Juancho Alcantara M.D. 11/15/2024 8:18 AM
[2024-11-16 06:50] LABS: ANTI-Xa, UFH(UnfractionatedHep 0.44 IU/ml (0.3-0.7)
[2024-11-16 08:39] LABS: Anion Gap 6.0 (3-11); Blood Urea Nitrogen 22.0 mg/dl (6-23); Calcium 8.9 mg/dl (8.6-10.3); Carbon Dioxide 27.0 mmol/L (21-32); Chloride 105.0 mmol/L (98-107); Creatinine Clr Calc Pharmacy 53.8 ml/min; Glucose 80.0 mg/dl (70-99(Fasting)); Potassium 4.1 mmol/L (3.5-5.1); Sodium 138.0 mmol/L (136-145)
[2024-11-16 08:44] LABS: Hematocrit (blood only) 43.2 % (42.0-52.0); Hemoglobin 13.9 g/dl (14.0-18.0); Mean Corpuscular Hemoglobin 30.2 pg (25.0-34.0); Mean Corpuscular Volume 93.9 fL (80.0-100.0); Platelet Count 272 K/uL (130-400); RDW Standard Deviation 50.2 fL (36.4-46.3); Red Blood Count 4.60 M/uL (4.70-6.10); White Blood Count 7.36 K/ul (4.8-10.8)
[2024-11-16] MEDS: MIDODRINE HCL 2.5 MG TAB PO SCH (10:45)
[2024-11-16 11:51] LABS: INR 2.2 (0.9-1.1); Prothrombin Time 22.0 Seconds (9.0-12.0)
--- NOTE | 2024-11-16 12:24 | Hospitalist Progress Note ---
Date of Service November 16, 2024 Assessment & Plan (1) Parkinson disease: (2) Generalized weakness: Plan: This is a 74-year-old male with significant past medical history of Parkinson's disease,hypothyroidism, chronic diastolic heart failure, history of liver taya ngioma, nonrheumatic mitral valve regurgitation, history of simple partial seizure rheumatoid arthritis long-term steroid therapy who presents to ED with generalized weakness. In setting of Parkinson's disease with likely progression - on sinemet and entacapone c/b significant bradykinesia/rigidity, orthostatic hypotension, per Dr. Mustafa "has such advanced Parkinsons disease we really are not going to change his treatments" b/l PE and possible UTI may be contributing as well Consulted neurology - failure to thrive picture / advancing Parkinson's recommending continue Sinemet regimen and trial of amantadine 100mg BID Based on discussion with family and acute illness, will hold off on amantadine trial for now as they wish to discuss this with his primary neurologist PT/OT evals Speech evaluation and Video swallow with mild oropharyngeal dysphagia that does not impact the safety of patient's swallowing function Continue aspiration precautions, repositioning Pt does have more increased excessive daytime sleepiness; suspecting this to be more of a nonmotor symptom of his PD. This can worsen during hospital stay Would benefit from sleep hygeine, increased PT when able and environmental modifications (more challenging in PCU setting) for sleep/wake cycles. (3) Unresponsiveness: (4) Hypoxia: Plan: Pt with intermittent episodes of unresponsiveness. Early on in hospital stay was accompanied with hyperventilation and hypoxia, but of recent has not been accompanied with either but more of a profound state of unarousability raising the question of possible seizure likely activity and post ictal state vs syncope. These events typically occur in late afternoon. Last episode 11/13 while sitting in wheel chair upright with kyphotic posturing and head tucked into chest; no episodes today. Repeat CXR today; comparatively some improvement from 11/13 Remains on RA; He received 1 dose of IV Lasix 20mg on 11/13; administer another dose of IV lasix 20 mg today and monitor. External catheter in place. Weights remain stable. ? if hiatal hernia vs kypotic posturing/chin tucking causing patient to become hypoxic and result in syncope vs seizure like activity nocturnal sleep study negative EEG study ordered, no results yet (5) Bilateral pulmonary embolism: Plan: Continues on Heparin infusion; not a good DOAC candidate given interaction with carbamazepine 2D echo EF > 70%, rvsf normal, trace TR, no right heart strain INR 2.2 today; jumped from 1.3 yesterday. Will reduce Coumadin to 5 mg today 11/17 and continue heparin gtt until 11/17. Plan to discontinue Heparin gtt 11/17 pending INR review on 11/17 (6) Enterococcus UTI: Plan: Urine culture growing Enterococcus faecalis, sensitive to amoxicillin, on day #6 Augmentin completion today, 11/15 No leukocytosis 7.36 (7) CAP (community acquired pneumonia): Plan: CT chest revealing possible TEE infiltrate with significant atelectasis noted, likely in setting of HH Day 6 of doxycycline, augmentin as above, will complete tomorrow S/p IV solumedrol 60mg x 1 11/10 Incentive spirometry, Duonebs QIDR CXR shows improvement 11/15 vs 11/13 (8) Rheumatoid arthritis: (9) Chronic steroid use: Plan: Has been taking Arava and daily prednisone at home, continue (10) Chronic diastolic (congestive) heart failure: Plan: Pt with stable weights but net + fluid lasix 20mg IV x 1 given on 11/13 He does not look overtly volume overloaded (11) Labile hypertension: Plan: Orthostatic hypotension in setting of autonomic dysfunction in relation to PD Nephro started on midodrine BP significantly elevates overnight to ranges above 190-200 systolic Will reduce midodrine 2.5mg to daily and monitor; is on TID at home. Plan DVT prophylaxis: IV heparin Code: DNR/DNI Dispo: Admitted to PCU, will continue given intermittent resp decline, if remains stable could consider rehab d/c over weekend, maybe Friday 11/17 Patient seen in collaboration with Dr. Alejandra. Please see addendum. I spent a total of 49 minutes coordinating, documenting, and providing care for this patient excluding time spent in the performance of separately billed services or time spent by another provider/QHP. Admission and Anticipated Discharge Date Admission Date: November 09, 2024 Subjective Pt seen and examined in room 207; FAUSTINO Temple at bedside. Pt was sleeping in bed and was arousable after repositioning. He did eat breakfast and take his pills Pt at bedside; lengthy conversation regarding her concerns and his progress moving forward Pt does have more increased excessive daytime sleepiness; suspecting this to be more of a nonmotor symptom of his PD No ectopy or cardiac concerns overnight per tele; SR 70's He feels that his breathing is ok; no acute reports of chest pain, N/V, abdominal pain. No further hypoxic or unresponsive episodes. Review of Systems Review of Systems: Unobtainable due to cognitive status Pt does say that he is not in pain and answers some questions yes/no. Was responding more to his this afternoon. Physical Exam 2 Physical Exam: Neuro: AAOx3, PERRLA, no aphagia, memory changes, CNII-XII grossly intact HEENT: head normocephalic, moist mucus membranes CV: S1/S2, (-) M/G/R, (-) edema, cap refill < 3 seconds Resp: (+) kyphotic posture, neck permanently flexed to chin; Lungs CTA in all mott. On RA GI: Abdomen S/NT/ND, Ax4 bowel sounds, (-) CVA tenderness Musculoskeletal: 5/5 B/L UE strength, 5/5 B/L LE strength. contractures Skin: (-) rashes , (-) erythema. Psych: flat mood Results & Data Results & Data Vital Signs (Past 12 Hours) Vital Signs Temp Pulse Resp BP BP Pulse Ox O2 Del Method 11/16/24 11:56 36.5 C 79 18 109/68 94 Room Air 11/16/24 07:45 36.5 C 81 14 107/70 93 Room Air 11/16/24 07:23 70 16 93 Room Air 11/16/24 03:25 36.4 C L 69 14 187/101 H 94 Room Air 11/16/24 03:19 187/101 H Laboratory Results Short CBC 11/16/24 Range/Units 06:09 WBC 7.36 (4.8-10.8) K/ul Hgb 13.9 L (14.0-18.0) g/dl Hct 43.2 (42.0-52.0) % Plt Count 272 (130-400) K/uL BMP 11/16/24 06:09 Sodium 138 Potassium 4.1 Chloride 105 Carbon Dioxide 27 BUN 22 Creatinine 1.07 Glucose 80 Calcium 8.9 (1) Parkinson disease Dyskinesia presence: unspecified whether dyskinesia Fluctuating manifestations: unspecified whether manifestations fluctuate Qualified Code(s): G20.A1 - Parkinson's disease without dyskinesia, without mention of fluctuations
[2024-11-16] MEDS: FUROSEMIDE INJ 20 MG/2 ML VIAL IV ONE (16:51)
[2024-11-16] MEDS: WARFARIN SOD 5 MG TAB PO SCH (17:03)
--- NOTE | 2024-11-16 19:40 | Communication Note ---
Date of Service: November 16, 2024 Family witnessed 15-second seizure episode as per staff. Staff not present during episode. Patient currently without complaints. AP Breakthrough seizure Ongoing IV heparin/Coumadin anticoagulation for blood clot Seizure precautions CT head Hold heparin and Coumadin for now, resume anticoagulation if CT head negative for bleed Check Tegret[place] [place] Increase Zonegran dose from 100 mg to 200 mg p.o. at bedtime Update Neurology of development
[2024-11-16] MEDS: ZONISAMIDE 100 MG CAPSULE PO SCH (21:04)
--- NOTE | 2024-11-16 23:41 | CT Scan Report ---
Exam(s): CT HEAD Without Contrast EXAM: CT Head Without Intravenous Contrast CLINICAL HISTORY: Reason for exam: sz, heparin. TECHNIQUE: Axial computed tomography images of the head/brain without intravenous contrast. CTDI is 38.78 mGy and DLP is 468.31 mGy-cm. Automated exposure control was utilized for the study. A dose lowering technique was utilized adhering to the principles of ALARA. COMPARISON: Prior head CT from December 13, 2024. FINDINGS: This study is limited secondary to motion artifact. Brain: Unremarkable. No hemorrhage. No significant white matter disease. No edema. Ventricles: Unremarkable. No ventriculomegaly. Bones/joints: Unremarkable. No acute fracture. Soft tissues: Unremarkable. Sinuses: Unremarkable as visualized. No acute sinusitis. Mastoid air cells: Unremarkable as visualized. No mastoid effusion. IMPRESSION: No evidence of acute intracranial pathology in this limited study. Electronically signed by: Yuki Sam MD 11/16/24 23:40 PM
[2024-11-17 03:50] LABS: Hematocrit (blood only) 41.7 % (42.0-52.0); Hemoglobin 14.0 g/dl (14.0-18.0); Mean Corpuscular Hemoglobin 31.2 pg (25.0-34.0); Mean Corpuscular Volume 92.9 fL (80.0-100.0); Platelet Count 248 K/uL (130-400); RDW Standard Deviation 49.1 fL (36.4-46.3); Red Blood Count 4.49 M/uL (4.70-6.10); White Blood Count 7.98 K/ul (4.8-10.8)
[2024-11-17 04:07] LABS: Anion Gap 7.0 (3-11); Blood Urea Nitrogen 31.0 mg/dl (6-23); Calcium 8.8 mg/dl (8.6-10.3); Carbon Dioxide 26.0 mmol/L (21-32); Chloride 104.0 mmol/L (98-107); Creatinine Clr Calc Pharmacy 37.2 ml/min; Glucose 84.0 mg/dl (70-99(Fasting)); Potassium 4.0 mmol/L (3.5-5.1); Sodium 137.0 mmol/L (136-145)
[2024-11-17 04:13] LABS: ANTI-Xa, UFH(UnfractionatedHep < 0.10 IU/ml (0.3-0.7)
[2024-11-17 04:25] LABS: INR 2.5 (0.9-1.1); Prothrombin Time 25.1 Seconds (9.0-12.0)
--- NOTE | 2024-11-17 12:26 | Hospitalist Progress Note ---
Date of Service November 17, 2024 Assessment & Plan (1) Parkinson disease: (2) Generalized weakness: Plan: This is a 74-year-old male with significant past medical history of Parkinson's disease,hypothyroidism, chronic diastolic heart failure, history of liver taya ngioma, nonrheumatic mitral valve regurgitation, history of simple partial seizure rheumatoid arthritis long-term steroid therapy who presents to ED with generalized weakness. In setting of Parkinson's disease with likely progression - on sinemet and entacapone c/b significant bradykinesia/rigidity, orthostatic hypotension, per Dr. Mustafa "has such advanced Parkinsons disease we really are not going to change his treatments" -B/l PE and possible UTI may be contributing as well -Consulted neurology - failure to thrive picture 2/2 advancing Parkinson's recommending continue Sinemet regimen and trial of amantadine 100mg BID -Based on discussion with family and acute illness, will hold off on amantadine trial for now as they wish to discuss this with his primary neurologist -PT/OT evals - recommending rehab -Speech evaluation and Video swallow with mild oropharyngeal dysphagia that does not impact the safety of patient's swallowing function -Continue aspiration precautions, repositioning -Pt does have more increased excessive daytime sleepiness; suspecting this to be more of a nonmotor symptom of his PD. This can worsen during hospital stay -Would benefit from sleep hygiene, increased PT when able and environmental modifications (more challenging in PCU setting) for sleep/wake cycles. (3) Seizure-like activity: Plan: Family at bedside reporting seizure-like activity last evening around 1900, not witnessed by staff Tonic clonic movements lasting approx. [address] head obtained - negative for intracranial abnormality Stat Tegretol level sent - 10.3 in Epic, within normal range (not yet in [employer]) Given increased Zonegran dose last night 200mg HS Discussed with Dr. Tobias today - does not feel consistent with seizure-like activity. Suspects related to hospital based delirium - does not recommend any medication changes at this time, continue home regimen EEG obtained and read pending - Dr. Harrell to read later today (4) Unresponsiveness: Plan: Pt with intermittent episodes of unresponsiveness. Early on in hospital stay was accompanied with hyperventilation and hypoxia, but of recent has not been accompanied with either but more of a profound state of unarousability raising the question of possible seizure likely activity and post ictal state vs hospital based delirium in setting of progressed PD Previous episode 11/13 while sitting in wheel chair upright with kyphotic posturing and head tucked into chest, have typically occurred in PM Nocturnal sleep study negative Occurred again this am : 10:30-11:30 AM. Hypersomnolence, VSS stable and O2 sats 95% on room air, sleeping and difficult to arouse Obtained repeat stat CT head with read "Motion limited exam. Artifact versus trace subdural hemorrhages. Recommend follow-up head CT in 12 to 24 hours to reevaluate, or sooner if clinically indicated." Reviewed with neurology- feels consistent with artifact, clinically alert and talkative now. Will hold PM dose of coumadin and review imaging with radiology. Plan to repeat CT head overnight or sooner if clinical deterioration (5) Hypoxia: Plan: Resolved. Saturating at 95% on room air (6) Bilateral pulmonary embolism: Plan: Continues on Heparin infusion; not a good DOAC candidate given interaction with carbamazepine 2D echo EF > 70%, rvsf normal, trace TR, no right heart strain INR 2.2 today; jumped from 1.3 yesterday. Will reduce Coumadin to 5 mg today 11/17 and continue heparin gtt until 11/17 INR 2.5, discontinued IV heparin (7) Enterococcus UTI: Plan: Urine culture growing Enterococcus faecalis, sensitive to amoxicillin, on day #6 Augmentin completion today, 11/15 No leukocytosis 7.36 (8) CAP (community acquired pneumonia): Plan: CT chest revealing possible TEE infiltrate with significant atelectasis noted, likely in setting of HH Day 6 of doxycycline, augmentin as above, completing abx treatment today S/p IV solumedrol 60mg x 1 11/10 Incentive spirometry, Duonebs QIDR CXR shows improvement 11/15 vs 11/13 (9) Rheumatoid arthritis: (10) Chronic steroid use: Plan: Has been taking Arava and daily prednisone at home, continue (11) Chronic diastolic (congestive) heart failure: Plan: Pt with stable weights but net + fluid lasix 20mg IV x 1 given on 11/13 (12) Labile hypertension: Plan: Orthostatic hypotension in setting of autonomic dysfunction in relation to PD Nephro started on midodrine BP significantly elevates overnight to ranges above 190-200 systolic Will reduce midodrine 2.5mg to daily and monitor; is on TID at home. Plan DVT prophylaxis: coumadin Code: DNR/DNI Dispo: Admitted to PCU, will continue given intermittent periods of hypersomnolence. PT/OT re-evaluating with dispo plans for inpatient rehab Patient seen in collaboration with Dr. Alejandra. Please see addendum. I spent a total of 60 minutes coordinating, documenting, and providing care for this patient excluding time spent in the performance of separately billed services or time spent by another provider/QHP. Admission and Anticipated Discharge Date Admission Date: November 09, 2024 Supervising Physician Co-Signing Physician Notes delayed entry date of service noted above Attending Addendum: Case reviewed with the advanced practitioner. I have reviewed the advanced practitioner's documentation on the date of service referenced in note, and I agree with, and take responsibility for the plan of care. please refer to her notes for full details patient seen and examined, records reviewed by myself as well diagnoses and plan of care as per advanced practitioner's notes I spent a total of 35 minutes coordinating, documenting, and providing care for this patient, excluding time spent in the performance of separately billed services or time spent by another provider/QHP. Marshal Alejandra MD Subjective Pt seen and examined in room 207. Around 0900, patient was sitting upright and eating breakfast. Answered questions appropriately, not in pain. Still feeling tired. No F/C, CP, SOB, N/V, abd pain. Asked to reassess patient around 11:40AM - patient very drowsy and difficult to arouse, family concerned. VSS with BP 131/76, HR 60, puls ox 95% on room air. At bedside patient hypersomnolent but VSS. Discussed with family and ordered stat CT head. Following CT head around 1300 alerted by nursing that patient alert and talking, participating with therapy. Review of Systems Review of Systems: At least ten systems reviewed and negative except as noted in the HPI. Physical Exam Physical Exam: Gen: WD/WN, NAD, sitting upright in bed, A&Ox3, HEENT: Kyphotic posture, Normocephalic, atraumatic, conjunctivae moist, sclerae anicteric, mucous membranes moist Lung: Clear to Auscultation bilaterally, diminished breath sounds at bases Heart: Regular rate, regular rhythm Abdomen: Soft, NT, ND +BS x 4 Neuro: Masked facies, slowed but clear speech, bradykinesia Extremities: no edema Skin: Warm, no rash Results & Data Results & Data Vital Signs (Past 12 Hours) Vital Signs Temp Pulse Pulse Resp BP Pulse Ox O2 Del Method 11/17/24 11:55 Room Air 11/17/24 11:34 36.2 C L 60 19 131/76 95 Room Air 11/17/24 08:01 69 11/17/24 07:59 36.8 C 67 19 146/79 H 94 Room Air 11/17/24 03:00 36.6 C 63 12 180/83 H 94 Room Air Laboratory Results Short CBC 11/17/24 Range/Units 03:28 WBC 7.98 (4.8-10.8) K/ul Hgb 14.0 (14.0-18.0) g/dl Hct 41.7 L (42.0-52.0) % Plt Count 248 (130-400) K/uL BMP 11/17/24 03:28 Sodium 137 Potassium 4.0 Chloride 104 Carbon Dioxide 26 BUN 31 H Creatinine 1.55 H D Glucose 84 Calcium 8.8 Diagnostic Findings Chest X-Ray 11/09/24 16:22 EXAM: Radiographs of the Chest 2 Views INDICATION: Wheezing. Fatigue. TECHNIQUE: Frontal and lateral views of the chest. COMPARISON: No relevant prior studies available. FINDINGS: Lungs and pleural spaces: No change left pleural effusion/thickening and airspace consolidation in the left lung base likely reflecting compression from large hiatal hernia. There is crowded vasculature from shallow inspiration in the right lung base. No pneumothorax. Heart: Stable large cardiac shadow. Mediastinum: See above. Bones/joints: No fracture, erosion or dislocation. IMPRESSION: Stable large hiatal hernia with chronic left basilar atelectasis and pleural thickening/effusion. ACT 112: N/A Electronically signed by Marina Donnelly 11-09-2024 5:[address] 11/09/24 16:22 EXAM: CT Head Without Intravenous Contrast INDICATION: Pain TECHNIQUE: Axial computed tomography images of the head/brain without intravenous contrast. Sagittal and/or coronal reformats are provided. Sagittal and coronal reformatted images were created and reviewed. This CT exam was performed using one or more of the following dose reduction techniques: automated exposure control, adjustment of the mA and/or kV according to patient size, and/or use of iterative reconstruction technique. COMPARISON: 10/29/2023 FINDINGS: Limitations: None. Brain and extra-axial spaces: There is age appropriate cortical atrophy and chronic ischemic periventricular white matter hypodensity. No acute infarct, hemorrhage or mass noted. Bones/joints: No fracture. Soft tissues: There is increasing periosteal reaction and soft tissue swelling over the right frontal bone lytic lesion. Vasculature: No acute abnormality noted. Sinuses: No layering fluid in the visualized portions of the paranasal sinuses. Mastoid air cells: No mastoid effusion. Orbits: No significant abnormality noted. IMPRESSION: 1. Cerebral atrophy. No acute changes in the brain. 2. There is increasing periosteal reaction and soft tissue swelling over the right frontal bone lytic lesion. Correlate clinically. ACT 112: Positive. There are findings on this exam that require communication between the performing entity and the patient following Patient Test Result Information Act ([place] ACT 112) guidelines. Electronically signed by Marina Donnelly 11-09-2024 5:[address] 11/09/24 18:48 CT chest with contrast. History: Decreased oxygenation. Comparison: October 10, 2023. Technique: Helical CT imaging of the chest performed with IV contrast Dose reduction techniques were achieved by using automatic exposure control and/or adjustment of mA and/or kV according to patient size and/or use of iterative reconstruction technique. Findings: Computer Numerical Control Operator film demonstrates opacified left pulmonary base with obscuration left hemidiaphragm and heart border. Lung windows demonstrate prominent pulmonary vasculature. Groundglass attenuation and densities consistent with left upper lobe subsegmental and left lower lobe multisegmental atelectasis. This has progressed when compared to prior study. Soft tissue windows demonstrate calcified atherosclerotic changes coronary vasculature. Mild cardiomegaly. Small pericardial effusion. Trace right and moderate size left pleural effusion. Left pleural effusion is new when compared to prior study. Hiatal hernia containing the gastric viscus with mass effect on the dorsal heart is noted. Findings similar to prior study. Partially included peripheral nodular enhancing hypodensity left liver lobe. This is incompletely evaluated on this exam. Favor hemangioma. Bone windows demonstrate no acute osseous process. Impression: 1. Hiatal hernia containing gastric viscus similar to prior study with interval increasing multisegmental left lower lobe atelectasis and new left upper lobe subsegmental atelectasiswith elements of interstitial and airspace disease and moderate pleural effusion. Pneumonia must be considered. 2. Incompletely evaluated left liver lobe lesion favored to represent a hemangioma. Please see above for details. Electronically signed by Alfonso Haas 11-09-2024 8:27 PM Chest X-Ray 11/10/24 18:25 EXAM: Portable AP chest radiograph TECHNIQUE: AP portable radiograph of the chest was obtained. INDICATION: Shortness of breath Comparison: Chest CT November 09, 2024 FINDINGS: LINES and TUBES: CARDIOVASCULAR: Cardiac silhouette is stably enlarged in size. LUNGS/PLEURA: No focal consolidation identified. Small pleural fluids. No discernible pneumothorax. Bilateral pulmonary embolism was better identified in the CT thorax from 1 day previous. OSSEOUS/OTHER: Large hiatal hernia is again seen. No displaced acute osseous process identified. IMPRESSION: Unchanged cardiomegaly and large hiatal hernia redemonstrated. Bilateral pulmonary embolism was better identified in the CT thorax from 1 day previous. Notification to clinician of alert: Ian Granado was notified about above findings by phone on November 10, 2024 at 7:25 PM by Benedicto Medina MD. Readback confirmation was obtained. Electronically signed by Benedicto Medina 11-10-2024 7:26 PM Venous Doppler Study 11/11/24 08:00 BILATERAL LOWER EXTREMITY VENOUS DOPPLER HISTORY: pe COMPARISON STUDY: 10/10/2023 FINDINGS: No evidence of DVT seen at the right lower extremity. At the left leg there is thrombus in the distal femoral vein, popliteal vein, posterior tibial vein, and peroneal vein. IMPRESSION: DVT at the left lower extremity as described. ACT 112: Negative or not required by law. Electronically signed by: Larry Burnham M.D. 11/11/2024 8:52 AM Chest CTA 11/11/24 15:39 EXAMINATION: Estela CT angio chest PE CLINICAL HISTORY: Known pulmonary embolism PRIORS: 11/09/2024 CT TECHNIQUE: Contiguous axial images were obtained through the chest with the use of intravenous contrast. Sagittal and coronal reformations are supplied. FINDINGS: Motion artifact noted. The pulmonary arteries are well evaluated. Again noted is mild to moderate pulmonary embolism within the right lower lobe segmental and subsegmental pulmonary arteries, unchanged. No additional pulmonary embolism identified. Allowing for arms within the [id number] and beam hardening artifact, enlargement of the heart is noted. No flattening of the interventricular septum or features of heart strain. Atherosclerotic disease of the coronary arteries present. Elevation of the left hemidiaphragm with large hiatal hernia present and intrathoracic stomach. This creates localized left lower lobe hypoventilatory changes and atelectasis/airspace consolidation in the left upper and lower lobes, unchanged. Mild airspace consolidation in the right lower lobe, appearing in the interval. A moderate left pleural effusion is present, unchanged. No adenopathy is identified. Trachea and mainstem bronchi are patent. Limited visualization of the upper abdomen shows no acute abnormality. No acute osseous abnormality. IMPRESSION: 1. Right segmental and subsegmental lower lobe pulmonary embolism, with small clot burden and no CT evidence of heart strain. This is unchanged when compared to examination from 11/09/2024. 2. Large intrathoracic hiatal hernia with elevation of the left hemidiaphragm and compressive atelectasis in the left lung. 3. Moderate left pleural effusion, unchanged. Electronically signed by Magaly Meade 11-11-2024 4:40 PM Chest X-Ray 11/13/24 02:45 EXAM: XR chest 1V portable CLINICAL HISTORY: sob TECHNIQUE: An X-ray image of the chest is obtained in AP projection. COMPARISON: 11/11/2024. FINDINGS: Pulmonary Parenchyma: Still noted obliteraion of the left costophrenic angle with left basal parenchymal opacification and mediastinal shift to the left, denoting left lung volume loss. Still noted minimal right pleural effusion in the form of right costophrenic angle obliteration. Still noted bilateral peribronchial thickening possibly related to the ongoing bronchiectasis (stable). Still noted sliding hiatus hernia (stable). Heart and Mediastinum: Suggested cardiomegaly (stable). No mediastinal widening or masses. No hilar or mediastinal lymphadenopathy. Bony Thorax: Bony thorax appears intact without fractures or deformities. Soft Tissues: Soft tissues overlying the chest wall are unremarkable. IMPRESSION: 1. Left moderate and right minimal pleural effusion. (stable) 2. Still noted left basal opacity with mediastinal shift to the left. 3. Still noted bilateral peribronchial thickening possibly related to the ongoing bronchiectasis (stable). 4. Still noted sliding hiatus hernia (stable). 5. Suggested cardiomegaly (stable). Electronically signed by Juventino Zapata 11-13-2024 04:05 AM Videofluoroscopic Swallow 11/13/24 10:30 FL video swallow CLINICAL HISTORY: r/o aspiration. TECHNIQUE: Video fluoroscopic evaluation of swallowing was performed in the AP and lateral projections by the speech pathology staff. The patient is fed nectar-thick and thin liquid barium, a barium coated wafer, and barium pudding. FLUOROSCOPY TIME: 29 seconds. COMPARISON: None FINDINGS: No aspiration demonstrated with any barium consistency. IMPRESSION: No aspiration seen. ACT 112: Negative or not required by law. Electronically signed by: Larry Burnham M.D. 11/13/2024 1:47 PM Cervical Spine X-Ray 11/13/24 14:10 XR cervical spine 2 or 3V CLINICAL HISTORY: pain COMPARISON STUDY: None FINDINGS: Exam is limited due to patient inability to cooperate with the exam. Shoulders obscure the lower cervical spine on the lateral view. C7 is completely obscured and C6 is partially obscured. There is degenerative disc disease most severe at C5-6. There is grade 1 anterolisthesis of C3 on 4 and C4 on 5. No fracture seen at the visualized cervical spine. IMPRESSION: 1. Limited exam. 2. No fracture seen at the cervical spine. 3. Degenerative changes and alignment abnormality. ACT 112: Negative or not required by law. Electronically signed by: Larry Burnham M.D. 11/13/2024 3:[address] 11/13/24 15:34 CT HEAD: HISTORY: Trauma TECHNIQUE: Noncontrast CT examination of the head is performed. Coronal and sagittal reformats were created. COMPARISON: Brain CT 4 days previous FINDINGS: There is no evidence of intracranial hemorrhage, focal mass effect or midline shift. No fluid collection is identified. The ventricular system is midline and symmetric. No evidence of acute major vascular territory infarction. Age-related involutional changes of the brain and chronic white matter ischemic changes. No calvarial fracture is identified. 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 The mastoids are well aerated. IMPRESSION: No acute intracranial process identified. 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 11/13/24 15:42 CT CERVICAL SPINE WITHOUT CONTRAST: HISTORY: Trauma TECHNIQUE: Noncontrast CT examination of the cervical spine is performed. Coronal and sagittal reformats were created. COMPARISON: Thoracic CT November 11, 2024 FINDINGS: CERVICAL SPINE: There is no significant vertebral body height loss. No acute traumatic fracture identified. Mild anterior offsets of C3 on C4 and C4 on C5. Mild posterior offsets of C5 on C6 and C6 on C7 Multilevel degenerative changes characterized by disc osteophyte complex, bilateral facet and uncovertebral hypertrophy resulting and neural foraminal narrowing at multiple levels, worst at Visualized soft tissues of neck are unremarkable. Redemonstrated loculated large left pleural fluid, better delineated in the recent thoracic CT dated November 11, 2024 IMPRESSION: No acute traumatic fracture of the cervical spine. Multilevel degenerative changes as above. Redemonstrated loculated large left pleural fluid, better delineated in the recent thoracic CT dated November 11, 2024 Electronically signed by Benedicto Medina 11-13-2024 4:25 PM Chest X-Ray 11/15/24 07:35 XR chest 1V portable HISTORY: 74 years-old Male volume overload acute shortness of breath COMPARISON: 11/13/2024 TECHNIQUE: AP view of the chest FINDINGS: Study is limited secondary to positioning of the patient's head and neck. Large hiatal hernia redemonstrated. Cardiomegaly. Left greater than right pleural effusions with left lung volume loss and left greater than right bibasilar consolidation redemonstrated. Pulmonary vascular congestion with interstitial coarsening has slightly progressed. IMPRESSION: 1. Cardiomegaly with suggestion of mild interstitial pulmonary edema. 2. Left greater than right pleural effusions with left basilar predominant consolidation again noted. 3. Large hiatal hernia. ACT 112: Negative or not required by law. The above report was generated using voice recognition software. It may contain grammatical, syntax or spelling errors. Electronically signed by: Juancho Alcantara M.D. 11/15/2024 8:[address] 11/16/24 19:25 Exam(s): CT HEAD Without Contrast EXAM: CT Head Without Intravenous Contrast CLINICAL HISTORY: Reason for exam: sz, heparin. TECHNIQUE: Axial computed tomography images of the head/brain without intravenous contrast. CTDI is 38.78 mGy and DLP is 468.31 mGy-cm. Automated exposure control was utilized for the study. A dose lowering technique was utilized adhering to the principles of ALARA. COMPARISON: Prior head CT from December 13, 2024. FINDINGS: This study is limited secondary to motion artifact. Brain: Unremarkable. No hemorrhage. No significant white matter disease. No edema. Ventricles: Unremarkable. No ventriculomegaly. Bones/joints: Unremarkable. No acute fracture. Soft tissues: Unremarkable. Sinuses: Unremarkable as visualized. No acute sinusitis. Mastoid air cells: Unremarkable as visualized. No mastoid effusion. IMPRESSION: No evidence of acute intracranial pathology in this limited study. Electronically signed by: Yuki Sam MD 11/16/24 23:[address] 11/17/24 12:16 CT head/brain wo con CLINICAL HISTORY: lethargic. TECHNIQUE: Multiple axial CT images of the head were obtained without contrast. A dose lowering technique was utilized adhering to the principles of ALARA. COMPARISON: 11/16/2024 FINDINGS: There is motion artifact. There are small areas of increased density at the left temporoparietal subdural space in the right parietal subdural space which could represent trace subdural hemorrhage or artifact. No other intracranial hemorrhage seen. No mass effect, midline shift, or hydrocephalus. 2 cm oval mildly expansile lucent lesion at the right frontal skull is stable. No skull fracture seen. Visualized paranasal sinuses and mastoid air cells are clear. IMPRESSION: 1. Motion limited exam. 2. Artifact versus trace subdural hemorrhages. Recommend follow-up head CT in 12 to 24 hours to reevaluate, or sooner if clinically indicated. ACT 112: Negative or not required by law. The above report was generated using voice recognition software. It may contain grammatical, syntax or spelling errors. Electronically signed by: Larry Burnham M.D. 11/17/2024 1:48 PM (1) Parkinson disease Dyskinesia presence: unspecified whether dyskinesia Fluctuating manifestations: unspecified whether manifestations fluctuate Qualified Code(s): G20.A1 - Parkinson's disease without dyskinesia, without mention of fluctuations
--- NOTE | 2024-11-17 13:50 | CT Scan Report ---
CT head/brain wo con CLINICAL HISTORY: lethargic. TECHNIQUE: Multiple axial CT images of the head were obtained without contrast. A dose lowering tech nique was utilized adhering to the principles of ALARA. COMPARISON: 11/16/2024 FINDINGS: There is motion artifact. There are small areas of increased density at the left temporopar ietal subdural space in the right parietal subdural space which could represent trace subdural hemorr bekah or artifact. No other intracranial hemorrhage seen. No mass effect, midline shift, or hydrocepha elza. 2 cm oval mildly expansile lucent lesion at the right frontal skull is stable. No skull fracture seen. Visualized paranasal sinuses and mastoid air cells are clear. IMPRESSION: 1. Motion limited exam. 2. Artifact versus trace subdural hemorrhages. Recommend follow-up head CT in 12 to 24 hours to reeva luate, or sooner if clinically indicated. ACT 112: Negative or not required by law. The above report was generated using voice recognition software. It may contain grammatical, syntax o r spelling errors. Electronically signed by: Larry Burnham M.D. 11/17/2024 1:48 PM
--- NOTE | 2024-11-17 15:46 | Communication Note ---
Date of Service: November 17, 2024 Patient continues to have fluctuating mental status. Repeat CT head today was read by radiology as trace bilateral subdurals. I was able to personally review the CT head and disagree. There is no evidence of subdurals, the hyperdensities are beam artifacts through the temporal bone. Recommend radiology second opinion vs repeating the study to confirm the artifact. No change in medical therapy recommended.
[2024-11-17 16:36] LABS: Base Excess VBG -0.2 mEq/L; HCO3 VBG 24 mmol/L; Oxygen Saturation VBG 89.8 %; PCO2 VBG 37 mmHg (38-50); PO2 VBG 61 mmHg; pH VBG 7.42 (7.36-7.41)
[2024-11-17] MEDS: SODIUM CHLORIDE 0.9% 500 ML IV SCH (17:37)
[2024-11-17] MEDS: CARBAMAZEPINE 200 MG PO SCH (17:51)
--- NOTE | 2024-11-17 19:26 | Electroencephalogram ---
EEG Procedure Note Date of Service November 13, 2024 Start / End Times Start Time: 601 End Time: 621 Referring Physician Damari De Leon History A 74 yo M w fluctuating mental status. EEG performed for evaluation of epileptiform acitvity. Home Medication List Medication Instructions Recorded Confirmed Type finasteride 5 mg tablet (Proscar) 5 mg PO QDD 12/03/20 11/09/24 History leflunomide 20 mg tablet (Arava) 20 mg PO QDB 12/03/20 11/09/24 History carbamazepine 200 mg tablet 200 mg PO QID 08/03/21 11/09/24 History (Tegretol) levothyroxine 75 mcg tablet 75 mcg PO DAILYBB 08/03/21 11/09/24 History (Synthroid) tamsulosin 0.4 mg capsule 0.4 mg PO QDD 08/03/21 11/09/24 History zonisamide 100 mg capsule 100 mg PO HS 08/03/21 11/09/24 History (Zonegran) carbidopa 25 mg-levodopa 100 mg 3 tab PO QID 02/07/22 11/09/24 History tablet melatonin 5 mg tablet 10 mg PO HS PRN Sleep 08/21/23 11/09/24 History entacapone 200 mg tablet 200 mg PO QID 10/10/23 11/09/24 History acetaminophen 325 mg tablet 500 mg PO QID PRN Breakthrough 10/29/23 11/09/24 History (Tylenol) Pain, Mild midodrine 2.5 mg tablet 2.5 mg PO TID 02/21/24 11/09/24 History testosterone cypionate 200 mg/mL 100 mg IM DIRECTED PRN NEEDED 03/27/24 11/09/24 History intramuscular oil cholecalciferol (vitamin D3) 25 25 mcg PO DAILYBB 08/25/24 11/09/24 History mcg (1,000 unit) tablet ferrous sulfate 325 mg (65 mg 325 mg PO [id number] 08/25/24 11/09/24 History iron) tablet (FeroSul) calcium carbonate (Calcium 600) 600 mg PO QDB 11/09/24 11/09/24 History cholecalciferol (vitamin D3) 25 25 mcg PO QDB 11/09/24 11/09/24 History mcg (1,000 unit) capsule (Vitamin D3) prednisone 10 mg tablet 10 mg PO QDB 11/09/24 11/09/24 History Inpatient Medication List Acetaminophen (Acetaminophen 500 Mg Tab) 1,000 mg PO Q8H PRN PRN Reason: Pain Stop: 12/14/24 15:41 Last Admin: 11/17/24 14:55 Dose: 1,000 mg Documented By: Admin: 11/15/24 07:34 Dose: 1,000 mg Documented By: IVY Albuterol (Albut/Ipratrop 3mg/0.5mg Neb 3 Ml Vial) 3 ml NEB Q2H PRN; Protocol PRN Reason: sob wheeze Stop: 12/11/24 04:37 Last Admin: 11/11/24 13:29 Dose: 3 ml Documented By: MAAME Carbamazepine (Patient's Own Med - Carbamazepine 200 Mg Tablet) 200 mg PO 0630,1200,1700,2200 JACQU[facility]; Protocol Stop: 12/17/24 16:59 Last Admin: 11/17/24 17:51 Dose: 200 mg Documented By: MARIAM Carbidopa/Levodopa (Carbidopa/Levodopa 25/100mg Tab) 3 tab PO QID@0630,0900,1200,1700 [facility] Stop: 12/09/24 21:44 Last Admin: 11/17/24 17:52 Dose: 3 tab Documented By: Admin: 11/17/24 13:25 Dose: 3 tab Documented By: Admin: 11/17/24 13:25 Dose: Not Given Documented By: Admin: 11/17/24 05:52 Dose: 3 tab Documented By: Admin: 11/16/24 16:52 Dose: 3 tab Documented By: Admin: 11/16/24 12:29 Dose: 3 tab Documented By: Admin: 11/16/24 10:43 Dose: 3 tab Documented By: Admin: 11/16/24 06:07 Dose: 3 tab Documented By: Admin: 11/15/24 17:17 Dose: 3 tab Documented By: Admin: 11/15/24 12:41 Dose: 3 tab Documented By: Admin: 11/15/24 09:35 Dose: 3 tab Documented By: Admin: 11/15/24 05:41 Dose: 3 tab Documented By: Admin: 11/14/24 17:33 Dose: 3 tab Documented By: Admin: 11/14/24 12:15 Dose: 3 tab Documented By: Admin: 11/14/24 10:02 Dose: 3 tab Documented By: Admin: 11/14/24 05:44 Dose: 3 tab Documented By: Admin: 11/13/24 17:51 Dose: 3 tab Documented By: Admin: 11/13/24 12:46 Dose: 3 tab Documented By: Admin: 11/13/24 10:00 Dose: 3 tab Documented By: Admin: 11/13/24 06:05 Dose: 3 tab Documented By: Admin: 11/12/24 17:20 Dose: 3 tab Documented By: Admin: 11/12/24 13:03 Dose: 3 tab Documented By: Admin: 11/12/24 08:42 Dose: 3 tab Documented By: Admin: 11/12/24 05:44 Dose: 3 tab Documented By: JULIO CESAR Admin: 11/11/24 19:43 Dose: Not Given Documented By: Admin: 11/11/24 17:44 Dose: 3 tab Documented By: Admin: 11/11/24 12:09 Dose: 3 tab Documented By: Admin: 11/11/24 05:32 Dose: 3 tab Documented By: Admin: 11/10/24 16:44 Dose: 3 tab Documented By: Admin: 11/10/24 12:30 Dose: 3 tab Documented By: Admin: 11/10/24 11:32 Dose: 3 tab Documented By: Admin: 11/10/24 06:05 Dose: 3 tab Documented By: Admin: 11/09/24 22:47 Dose: 3 tab Documented By: CARMEL Entacapone (Entacapone 200 Mg Tab) 200 mg PO QID@0630,0800,1200,1700 JACQUES Stop: 12/09/24 21:44 Last Admin: 11/17/24 17:52 Dose: 200 mg Documented By: Admin: 11/17/24 13:26 Dose: 200 mg Documented By: Admin: 11/17/24 13:25 Dose: Not Given Documented By: Admin: 11/17/24 05:52 Dose: 200 mg Documented By: Admin: 11/16/24 16:51 Dose: 200 mg Documented By: Admin: 11/16/24 12:29 Dose: 200 mg Documented By: Admin: 11/16/24 07:31 Dose: 200 mg Documented By: Admin: 11/16/24 06:07 Dose: 200 mg Documented By: Admin: 11/15/24 17:17 Dose: 200 mg Documented By: Admin: 11/15/24 12:41 Dose: 200 mg Documented By: Admin: 11/15/24 07:35 Dose: 200 mg Documented By: Admin: 11/15/24 05:43 Dose: 200 mg Documented By: Admin: 11/14/24 17:33 Dose: 200 mg Documented By: Admin: 11/14/24 12:15 Dose: 200 mg Documented By: Admin: 11/14/24 07:29 Dose: 200 mg Documented By: Admin: 11/14/24 05:44 Dose: 200 mg Documented By: Admin: 11/13/24 17:52 Dose: 200 mg Documented By: Admin: 11/13/24 12:46 Dose: 200 mg Documented By: Admin: 11/13/24 07:48 Dose: 200 mg Documented By: KJSky Admin: 11/13/24 06:05 Dose: 200 mg Documented By: Admin: 11/12/24 17:20 Dose: 200 mg Documented By: Admin: 11/12/24 13:03 Dose: 200 mg Documented By: Admin: 11/12/24 08:35 Dose: 200 mg Documented By: Admin: 11/12/24 05:43 Dose: 200 mg Documented By: JULIO CESAR Admin: 11/11/24 19:43 Dose: Not Given Documented By: Admin: 11/11/24 17:42 Dose: 200 mg Documented By: Admin: 11/11/24 12:09 Dose: 200 mg Documented By: Admin: 11/11/24 05:34 Dose: 200 mg Documented By: Admin: 11/10/24 16:45 Dose: 200 mg Documented By: Admin: 11/10/24 11:33 Dose: 200 mg Documented By: Admin: 11/10/24 07:38 Dose: 200 mg Documented By: Admin: 11/10/24 06:05 Dose: 200 mg Documented By: Admin: 11/09/24 22:46 Dose: 200 mg Documented By: CARMEL Finasteride (Finasteride 5 Mg Tab) 5 mg PO QDD [facility]ACQU[facility] Stop: 12/10/24 16:29 Last Admin: 11/17/24 15:48 Dose: 5 mg Documented By: Admin: 11/16/24 16:51 Dose: 5 mg Documented By: Admin: 11/15/24 17:17 Dose: 5 mg Documented By: Admin: 11/14/24 16:01 Dose: 5 mg Documented By: Admin: 11/13/24 17:51 Dose: 5 mg Documented By: Admin: 11/12/24 17:19 Dose: 5 mg Documented By: Admin: 11/11/24 17:39 Dose: 5 mg Documented By: Admin: 11/10/24 16:42 Dose: 5 mg Documented By: EDGAR Folic Acid (Folic Acid 1 Mg Tab) 1 mg PO QAM [facility] Stop: 12/10/24 08:59 Last Admin: 11/17/24 13:26 Dose: 1 mg Documented By: Admin: 11/16/24 10:45 Dose: 1 mg Documented By: Admin: 11/15/24 09:35 Dose: 1 mg Documented By: Admin: 11/14/24 10:03 Dose: 1 mg Documented By: Admin: 11/13/24 10:02 Dose: 1 mg Documented By: Admin: 11/12/24 08:41 Dose: 1 mg Documented By: Admin: 11/11/24 12:11 Dose: 1 mg Documented By: Admin: 11/10/24 12:29 Dose: 1 mg Documented By: EDGAR Guaifenesin (Guaifenesin Sugar Free 100 Mg/5 Ml Udc) 100 mg PO Q6 [facility] Stop: 12/10/24 18:29 Last Admin: 11/17/24 13:27 Dose: Not Given Documented By: Admin: 11/17/24 05:21 Dose: Not Given Documented By: Admin: 11/17/24 00:01 Dose: Not Given Documented By: Admin: 11/16/24 18:11 Dose: Not Given Documented By: Admin: 11/16/24 14:26 Dose: Not Given Documented By: Admin: 11/16/24 06:09 Dose: 100 mg Documented By: Admin: 11/16/24 00:38 Dose: Not Given Documented By: Admin: 11/15/24 18:00 Dose: 100 mg Documented By: Admin: 11/15/24 12:41 Dose: 100 mg Documented By: Admin: 11/15/24 05:43 Dose: 100 mg Documented By: Admin: 11/15/24 00:08 Dose: Not Given Documented By: Admin: 11/14/24 17:32 Dose: 100 mg Documented By: Admin: 11/14/24 12:16 Dose: 100 mg Documented By: Admin: 11/14/24 05:43 Dose: 100 mg Documented By: Admin: 11/14/24 00:23 Dose: Not Given Documented By: Admin: 11/13/24 17:56 Dose: 100 mg Documented By: Admin: 11/13/24 12:52 Dose: 100 mg Documented By: Admin: 11/13/24 06:06 Dose: 100 mg Documented By: Admin: 11/13/24 00:43 Dose: 100 mg Documented By: Admin: 11/12/24 17:21 Dose: 100 mg Documented By: Admin: 11/12/24 13:03 Dose: 100 mg Documented By: Admin: 11/12/24 05:42 Dose: 100 mg Documented By: JULIO CESAR Admin: 11/12/24 00:33 Dose: 100 mg Documented By: JULIO CESAR Admin: 11/11/24 17:38 Dose: 100 mg Documented By: Admin: 11/11/24 12:10 Dose: 100 mg Documented By: Admin: 11/11/24 05:35 Dose: 100 mg Documented By: Admin: 11/11/24 00:09 Dose: Not Given Documented By: Admin: 11/10/24 20:54 Dose: 100 mg Documented By: ESTEFANY Sodium Chloride (Nss) 500 mls @ 60 mls/hr IV .Q8H20M JACQUES Stop: 11/18/24 01:19 Last Admin: 11/17/24 17:37 Dose: 60 mls/hr Documented By: MES Lactobacillus Acidophilus (Advanced Probiotic 625 Mg Capsule) 1,250 mg PO DAILY JACQUES Stop: 12/13/24 08:59 Last Admin: 11/17/24 13:26 Dose: 1,250 mg Documented By: Admin: 11/16/24 12:29 Dose: 1,250 mg Documented By: Admin: 11/15/24 09:35 Dose: 1,250 mg Documented By: Admin: 11/14/24 10:02 Dose: 1,250 mg Documented By: Admin: 11/13/24 10:02 Dose: 1,250 mg Documented By: IVY Leflunomide (Leflunomide 10 Mg Tab) 20 mg PO QDB JACQU[facility] Stop: 12/10/24 07:29 Last Admin: 11/17/24 13:26 Dose: 20 mg Documented By: Admin: 11/16/24 07:31 Dose: 20 mg Documented By: Admin: 11/15/24 07:34 Dose: 20 mg Documented By: Admin: 11/14/24 07:28 Dose: 20 mg Documented By: Admin: 11/13/24 07:45 Dose: 20 mg Documented By: Admin: 11/12/24 08:41 Dose: 20 mg Documented By: Admin: 11/11/24 12:12 Dose: 20 mg Documented By: Admin: 11/10/24 07:38 Dose: 20 mg Documented By: EDGAR Levothyroxine Sodium (Levothyroxine Sodium 75 Mcg Tablet) 75 mcg PO DAILYBB JACQUES Stop: 12/10/24 06:29 Last Admin: 11/17/24 05:52 Dose: 75 mcg Documented By: Admin: 11/16/24 06:07 Dose: 75 mcg Documented By: Admin: 11/15/24 05:45 Dose: 75 mcg Documented By: Admin: 11/14/24 05:44 Dose: 75 mcg Documented By: Admin: 11/13/24 06:05 Dose: 75 mcg Documented By: Admin: 11/12/24 05:42 Dose: 75 mcg Documented By: JULIO CESAR Admin: 11/11/24 05:32 Dose: 75 mcg Documented By: Admin: 11/10/24 06:06 Dose: 75 mcg Documented By: CARMEL Lidocaine (Lidocaine 5% 1 Patch) 1 patch TD QAM [facility] Stop: 12/13/24 09:29 Last Admin: 11/17/24 09:59 Dose: 1 patch Documented By: Admin: 11/16/24 10:46 Dose: 1 patch Documented By: Admin: 11/15/24 09:35 Dose: 1 patch Documented By: Admin: 11/14/24 10:02 Dose: 1 patch Documented By: Admin: 11/13/24 10:22 Dose: 1 patch Documented By: IVY Midodrine (Midodrine Hcl 2.5 Mg Tab) 2.5 mg PO DAILY [facility] Stop: 12/16/24 08:59 Last Admin: 11/17/24 09:59 Dose: Not Given Documented By: Admin: 11/16/24 10:45 Dose: 2.5 mg Documented By: ROB Miscellaneous (Remove Lidoderm Patch) 1 each N/A DAILY@2100 [facility] Stop: 12/13/24 20:59 Last Admin: 11/16/24 21:04 Dose: 1 each Documented By: Admin: 11/15/24 20:11 Dose: 1 each Documented By: Admin: 11/14/24 20:42 Dose: 1 each Documented By: Admin: 11/13/24 21:44 Dose: 1 each Documented By: SUZI Pantoprazole Sodium (Pantoprazole 40 Mg Tab) 40 mg PO QAM [facility] Stop: 12/12/24 10:29 Last Admin: 11/17/24 13:26 Dose: 40 mg Documented By: Admin: 11/16/24 10:46 Dose: 40 mg Documented By: Admin: 11/15/24 09:35 Dose: 40 mg Documented By: Admin: 11/14/24 10:03 Dose: 40 mg Documented By: Admin: 11/13/24 10:03 Dose: 40 mg Documented By: Admin: 11/12/24 11:32 Dose: 40 mg Documented By: ROSE Prednisone (Prednisone 10 Mg Tablet) 10 mg PO QDB [facility] Stop: 12/10/24 07:29 Last Admin: 11/17/24 10:00 Dose: 10 mg Documented By: Admin: 11/16/24 07:31 Dose: 10 mg Documented By: Admin: 11/15/24 07:35 Dose: 10 mg Documented By: Admin: 11/14/24 07:29 Dose: 10 mg Documented By: Admin: 11/13/24 07:52 Dose: 10 mg Documented By: Admin: 11/12/24 08:42 Dose: 10 mg Documented By: Admin: 11/11/24 12:09 Dose: 10 mg Documented By: Admin: 11/10/24 07:38 Dose: 10 mg Documented By: EDGAR Thiamine HCl (Thiamine Hcl 100 Mg Tab) 100 mg PO QAM [facility] Stop: 12/10/24 08:59 Last Admin: 11/17/24 13:26 Dose: 100 mg Documented By: Admin: 11/16/24 10:46 Dose: 100 mg Documented By: Admin: 11/15/24 09:35 Dose: 100 mg Documented By: Admin: 11/14/24 10:02 Dose: 100 mg Documented By: Admin: 11/13/24 10:03 Dose: 100 mg Documented By: Admin: 11/12/24 08:42 Dose: 100 mg Documented By: Admin: 11/11/24 12:10 Dose: 100 mg Documented By: Admin: 11/10/24 12:29 Dose: 100 mg Documented By: EDGAR Trolamine Salicylate (Trolamine Salicylate 10% Crm 255 Appln/85 Gm Tube) 1 appln EXT BID [facility] Stop: 12/13/24 09:29 Last Admin: 11/17/24 10:01 Dose: 1 appln Documented By: Admin: 11/16/24 21:04 Dose: 1 appln Documented By: Admin: 11/16/24 10:46 Dose: 1 appln Documented By: Admin: 11/15/24 20:11 Dose: 1 appln Documented By: Admin: 11/15/24 09:34 Dose: 1 appln Documented By: Admin: 11/14/24 20:40 Dose: 1 appln Documented By: Admin: 11/14/24 10:02 Dose: 1 appln Documented By: Admin: 11/13/24 21:45 Dose: 1 appln Documented By: Admin: 11/13/24 10:22 Dose: 1 appln Documented By: IVY Vitamin D (Cholecalciferol 25 Mcg (1000 Units) Tab) 25 mcg PO DAILYBB [facility] Stop: 12/10/24 06:29 Last Admin: 11/17/24 05:52 Dose: 25 mcg Documented By: Admin: 11/16/24 06:07 Dose: 25 mcg Documented By: Admin: 11/15/24 05:44 Dose: 25 mcg Documented By: Admin: 11/14/24 05:44 Dose: 25 mcg Documented By: Admin: 11/13/24 06:05 Dose: 25 mcg Documented By: Admin: 11/12/24 05:43 Dose: 25 mcg Documented By: JULIO CESAR Admin: 11/11/24 05:34 Dose: 25 mcg Documented By: Admin: 11/10/24 06:06 Dose: 25 mcg Documented By: CARMEL Warfarin Sodium (Warfarin Sod 5 Mg Tab) 5 mg PO DAILY@1600 [facility] Stop: 12/16/24 15:59 Last Admin: 11/16/24 17:03 Dose: 5 mg Documented By: IVY Discontinued Medications Acetaminophen (Acetaminophen 500 Mg Tab) 500 mg PO QID PRN PRN Reason: Breakthrough Pain, Mild Stop: 12/09/24 21:44 Last Admin: 11/14/24 13:43 Dose: 500 mg Documented By: Admin: 11/14/24 03:24 Dose: 500 mg Documented By: Admin: 11/12/24 06:02 Dose: 500 mg Documented By: JULIO CESAR Admin: 11/11/24 12:13 Dose: 500 mg Documented By: Admin: 11/10/24 06:04 Dose: 500 mg Documented By: Admin: 11/09/24 22:44 Dose: 500 mg Documented By: CARMEL Albuterol (Albut/Ipratrop 3mg/0.5mg Neb 3 Ml Vial) 3 ml NEB QIDR [facility]; Protocol Stop: 12/10/24 18:59 Last Admin: 11/16/24 07:23 Dose: 3 ml Documented By: Admin: 11/15/24 20:25 Dose: 3 ml Documented By: Admin: 11/15/24 15:37 Dose: 3 ml Documented By: Admin: 11/15/24 10:53 Dose: 3 ml Documented By: Admin: 11/15/24 07:23 Dose: 3 ml Documented By: Admin: 11/14/24 19:53 Dose: 3 ml Documented By: Admin: 11/14/24 15:19 Dose: 3 ml Documented By: Admin: 11/14/24 10:24 Dose: 3 ml Documented By: Admin: 11/14/24 07:19 Dose: 3 ml Documented By: Admin: 11/13/24 18:50 Dose: 3 ml Documented By: Admin: 11/13/24 14:24 Dose: 3 ml Documented By: Admin: 11/13/24 11:18 Dose: Not Given Documented By: Admin: 11/13/24 07:27 Dose: 3 ml Documented By: Admin: 11/12/24 18:11 Dose: 3 ml Documented By: Admin: 11/12/24 15:24 Dose: 3 ml Documented By: Admin: 11/12/24 10:40 Dose: 3 ml Documented By: Admin: 11/12/24 07:04 Dose: 3 ml Documented By: Admin: 11/11/24 19:48 Dose: 3 ml Documented By: Admin: 11/11/24 14:56 Dose: 3 ml Documented By: Admin: 11/11/24 10:07 Dose: 3 ml Documented By: Admin: 11/11/24 07:17 Dose: 3 ml Documented By: Admin: 11/10/24 18:15 Dose: 3 ml Documented By: EAGLE Albuterol (Albut/Ipratrop 3mg/0.5mg Neb 3 Ml Vial) 3 ml NEB NOW STA; Protocol Stop: 11/11/24 04:39 Last Admin: 11/11/24 05:08 Dose: 3 ml Documented By: NI Albuterol (Albut/Ipratrop 3mg/0.5mg Neb 3 Ml Vial) 3 ml NEB NOW STA; Protocol Stop: 11/13/24 02:46 Last Admin: 11/13/24 02:50 Dose: 3 ml Documented By: GAMAL Amantadine HCl (Amantadine Hcl 100 Mg Capsule) 100 mg PO BID [facility] Stop: 12/10/24 12:14 Last Admin: 11/10/24 13:20 Dose: 100 mg Documented By: EDGAR Amoxicillin (Amoxicillin 500 Mg Cap) 500 mg PO BID [facility]; Protocol Stop: 11/15/24 20:59 Last Admin: 11/11/24 21:00 Dose: 500 mg Documented By: JULIO CESAR Admin: 11/11/24 12:12 Dose: 500 mg Documented By: Admin: 11/10/24 21:00 Dose: 500 mg Documented By: ESTEFANY Amoxicillin/Clavulanate Potassium (Amoxicillin/Clavulanate 875 Mg Tab) 1 tab PO BIDM JACQU[facility]; Protocol Stop: 11/15/24 17:01 Last Admin: 11/15/24 17:17 Dose: 1 tab Documented By: Admin: 11/15/24 07:35 Dose: 1 tab Documented By: Admin: 11/14/24 17:34 Dose: 1 tab Documented By: Admin: 11/14/24 07:28 Dose: 1 tab Documented By: Admin: 11/13/24 17:52 Dose: 1 tab Documented By: Admin: 11/13/24 07:48 Dose: 1 tab Documented By: Admin: 11/12/24 17:19 Dose: 1 tab Documented By: CA Calcium Carbonate (Calcium Carbonate 1250mg Tab) 1 tab PO QDB [facility] Stop: 12/10/24 07:29 Last Admin: 11/10/24 16:38 Dose: Not Given Documented By: BJS Carbamazepine (Carbamazepine 200 Mg Tablet) 200 mg PO 0630,1200,1700,2200 [facility] Stop: 12/09/24 21:59 Last Admin: 11/17/24 13:25 Dose: 200 mg Documented By: Admin: 11/17/24 05:52 Dose: 200 mg Documented By: Admin: 11/16/24 21:05 Dose: 200 mg Documented By: Admin: 11/16/24 16:51 Dose: 200 mg Documented By: Admin: 11/16/24 12:29 Dose: 200 mg Documented By: Admin: 11/16/24 06:07 Dose: 200 mg Documented By: Admin: 11/15/24 22:32 Dose: 200 mg Documented By: Admin: 11/15/24 17:16 Dose: 200 mg Documented By: Admin: 11/15/24 12:41 Dose: 200 mg Documented By: Admin: 11/15/24 05:41 Dose: 200 mg Documented By: Admin: 11/14/24 21:35 Dose: 200 mg Documented By: Admin: 11/14/24 17:34 Dose: 200 mg Documented By: Admin: 11/14/24 12:14 Dose: 200 mg Documented By: Admin: 11/14/24 05:44 Dose: 200 mg Documented By: Admin: 11/13/24 21:46 Dose: 200 mg Documented By: Admin: 11/13/24 17:50 Dose: 200 mg Documented By: Admin: 11/13/24 12:46 Dose: 200 mg Documented By: Admin: 11/13/24 06:06 Dose: 200 mg Documented By: Admin: 11/12/24 21:06 Dose: 200 mg Documented By: Admin: 11/12/24 17:19 Dose: 200 mg Documented By: Admin: 11/12/24 13:03 Dose: 200 mg Documented By: Admin: 11/12/24 05:43 Dose: 200 mg Documented By: JULIO CESAR Admin: 11/11/24 22:22 Dose: 200 mg Documented By: JULIO CESAR Admin: 11/11/24 17:41 Dose: 200 mg Documented By: Admin: 11/11/24 12:13 Dose: 200 mg Documented By: RLVikas Admin: 11/11/24 05:32 Dose: 200 mg Documented By: Admin: 11/10/24 20:58 Dose: 200 mg Documented By: Admin: 11/10/24 16:43 Dose: 200 mg Documented By: Admin: 11/10/24 12:28 Dose: 200 mg Documented By: Admin: 11/10/24 06:05 Dose: 200 mg Documented By: Admin: 11/09/24 22:45 Dose: 200 mg Documented By: CARMEL Doxycycline Hyclate (Doxycycline Hyclate 100 Mg Cap) 100 mg PO BID [facility] Stop: 11/15/24 20:59 Last Admin: 11/15/24 09:35 Dose: 100 mg Documented By: KJSky Admin: 11/14/24 20:41 Dose: 100 mg Documented By: Admin: 11/14/24 10:02 Dose: 100 mg Documented By: Admin: 11/13/24 21:44 Dose: 100 mg Documented By: Admin: 11/13/24 10:02 Dose: 100 mg Documented By: Admin: 11/12/24 21:05 Dose: 100 mg Documented By: Admin: 11/12/24 08:41 Dose: 100 mg Documented By: Admin: 11/11/24 21:00 Dose: 100 mg Documented By: JULIO CESAR Admin: 11/11/24 12:12 Dose: 100 mg Documented By: Admin: 11/10/24 20:59 Dose: 100 mg Documented By: ESTEFANY Ferrous Sulfate (Ferrous Sulfate 325 Mg Tab) 325 mg PO [id number] [facility] Stop: 12/10/24 07:29 Last Admin: 11/10/24 07:38 Dose: 325 mg Documented By: EDGAR Furosemide (Furosemide Inj 20 Mg/2 Ml Vial) 20 mg IV ONE ONE Stop: 11/13/24 07:30 Last Admin: 11/13/24 07:45 Dose: 20 mg Documented By: IVY Furosemide (Furosemide Inj 20 Mg/2 Ml Vial) 20 mg IV 17 ONE Stop: 11/16/24 17:01 Last Admin: 11/16/24 16:51 Dose: 20 mg Documented By: IVY Heparin Sodium (Porcine) (Heparin Sod 5,000 Unit/0.5 Ml Vial) 5,000 units SQ Q12 [facility] Stop: 12/09/24 20:59 Last Admin: 11/10/24 11:48 Dose: 5,000 units Documented By: Admin: 11/09/24 22:45 Dose: 5,000 units Documented By: CARMEL Heparin Sodium (Porcine) (Heparin Sod (Porcine) 1000 Unit/Ml) 3,000 units IV NOW ONE Stop: 11/11/24 19:53 Last Admin: 11/11/24 20:30 Dose: 3,000 units Documented By: JULIO CESAR Co-signed By: ALEJANDRINA Heparin Sodium/Dextrose (Heparin Iv Adult Wt-Based Standard *No* Initial Bolus Protocol) 1 each IV ONE STA; Protocol Stop: 11/10/24 19:35 Last Admin: 11/10/24 20:54 Dose: 1 each Documented By: ESTEFANY Hydralazine HCl (Hydralazine Hcl 20 Mg/Ml Vial) 10 mg IV NOW STA Stop: 11/09/24 19:13 Last Admin: 11/09/24 19:33 Dose: 10 mg Documented By: RAMIN Hydralazine HCl (Hydralazine Hcl 20 Mg/Ml Vial) 10 mg IV Q6H PRN PRN Reason: Blood Pressure - High Stop: 12/09/24 19:30 Last Admin: 11/09/24 23:01 Dose: 10 mg Documented By: CARMEL Hydralazine HCl (Hydralazine Hcl 20 Mg/Ml Vial) 2.5 mg IV NOW ONE Stop: 11/15/24 02:57 Last Admin: 11/15/24 03:24 Dose: 2.5 mg Documented By: TIFFANY Hydralazine HCl (Hydralazine Hcl 20 Mg/Ml Vial) 2.5 mg IV NOW ONE Stop: 11/16/24 03:10 Last Admin: 11/16/24 03:20 Dose: 2.5 mg Documented By: TIFFANY Hydralazine HCl (Hydralazine Hcl 20 Mg/Ml Vial) 2.5 mg IV NOW ONE Stop: 11/17/24 02:48 Last Admin: 11/17/24 03:09 Dose: 2.5 mg Documented By: TIFFANY Sodium Chloride (Nss) 1,000 mls @ 999 mls/hr IV .Q1H1M ONE Stop: 11/09/24 17:56 Last Infusion: 11/09/24 18:11 Dose: Infused Documented By: Admin: 11/09/24 17:10 Dose: 999 mls/hr Documented By: DARYA Ceftriaxone Sodium (Rocephin) 2,000 mg in 50 mls @ 100 mls/hr IV NOW STA Stop: 11/09/24 19:43 Last Infusion: 11/09/24 20:22 Dose: Infused Documented By: Admin: 11/09/24 19:30 Dose: 100 mls/hr Documented By: RAMIN Sodium Chloride (Nss) 1,000 mls @ 80 mls/hr IV .[id number] JACQUES Stop: 11/10/24 07:44 Last Infusion: 11/10/24 16:38 Dose: Infused Documented By: Admin: 11/09/24 19:30 Dose: 80 mls/hr Documented By: RAMIN Acetaminophen (Ofirmev) 1,000 mg in 100 mls @ 400 mls/hr IV NOW STA Stop: 11/10/24 18:38 Last Admin: 11/10/24 22:35 Dose: Not Given Documented By: ESTEFANY Methylprednisolone 60 mg/ (Syringe) 0.96 mls @ 1.5 mls/min IV ONE ONE Stop: 11/10/24 18:31 Last Admin: 11/10/24 18:50 Dose: 1.5 mls/min Documented By: EDGAR Heparin Sodium/Dextrose (Heparin 51448 Unit/500 Ml D5w) 25,000 units in 500 mls @ 0 mls/hr IV .Q0M [facility]; Protocol Stop: 12/10/24 19:59 Last Titration: 11/17/24 05:22 Dose: Infused Documented By: TIFFANY Co-signed By: ASM Titration: 11/16/24 19:27 Dose: 0 units/hr, 0 mls/hr Documented By: IVY Co-signed By: NAB Admin: 11/16/24 18:50 Dose: 1,550 units/hr, 31 mls/hr Documented By: JORGE Co-signed By: ASM Titration: 11/16/24 17:11 Dose: Infused Documented By: JORGE Co-signed By: ASM Titration: 11/16/24 06:56 Dose: 1,550 units/hr, 31 mls/hr Documented By: TIFFANY Co-signed By: KJSky Admin: 11/16/24 01:03 Dose: 1,550 units/hr, 31 mls/hr Documented By: TIFFANY Co-signed By: SOLA Titration: 11/16/24 00:48 Dose: Infused Documented By: TIFFANY Co-signed By: SOLA Titration: 11/15/24 19:13 Dose: 1,550 units/hr, 31 mls/hr Documented By: TIFFANY Co-signed By: IVY Admin: 11/15/24 08:40 Dose: 1,550 units/hr, 31 mls/hr Documented By: IVY Co-signed By: EP Titration: 11/15/24 07:53 Dose: Infused Documented By: IVY Co-signed By: EP Titration: 11/14/24 19:12 Dose: 1,550 units/hr, 31 mls/hr Documented By: TIFFANY Co-signed By: IVY Admin: 11/14/24 15:45 Dose: 1,550 units/hr, 31 mls/hr Documented By: IVY Co-signed By: AM Titration: 11/14/24 15:00 Dose: Infused Documented By: IVY Co-signed By: AM Titration: 11/14/24 06:54 Dose: 1,550 units/hr, 31 mls/hr Documented By: IVY Co-signed By: CEW Titration: 11/14/24 06:01 Dose: 1,550 units/hr, 31 mls/hr Documented By: CEW Co-signed By: HDC Admin: 11/13/24 22:52 Dose: 1,550 units/hr, 31 mls/hr Documented By: CEW Co-signed By: SOLA Titration: 11/13/24 21:03 Dose: Infused Documented By: CEW Co-signed By: SOLA Titration: 11/13/24 19:17 Dose: 1,500 units/hr, 30 mls/hr Documented By: SUZI Co-signed By: KJSky Titration: 11/13/24 14:37 Dose: 1,500 units/hr, 30 mls/hr Documented By: IVY Co-signed By: GG Titration: 11/13/24 07:01 Dose: 1,450 units/hr, 29 mls/hr Documented By: IVY Co-signed By: CEW Admin: 11/13/24 04:01 Dose: 1,450 units/hr, 29 mls/hr Documented By: SUZI Co-signed By: HDC Titration: 11/13/24 03:14 Dose: Infused Documented By: CEDebi Co-signed By: HDC Titration: 11/12/24 19:09 Dose: 1,450 units/hr, 29 mls/hr Documented By: CA Co-signed By: CHANTELLEW Admin: 11/12/24 09:59 Dose: 1,450 units/hr, 29 mls/hr Documented By: CA Co-signed By: WS Titration: 11/12/24 09:59 Dose: Infused Documented By: ROSE Co-signed By: WS Titration: 11/12/24 07:14 Dose: 1,450 units/hr, 29 mls/hr Documented By: JULIO CESAR Co-signed By: CA Titration: 11/12/24 04:32 Dose: 1,450 units/hr, 29 mls/hr Documented By: JULIO CESAR Co-signed By: TMG Admin: 11/11/24 20:30 Dose: 1,450 units/hr, 29 mls/hr Documented By: JULIO CESAR Co-signed By: TP Titration: 11/11/24 20:30 Dose: Infused Documented By: JULIO CESAR Co-signed By: TP Titration: 11/11/24 19:53 Dose: 1,450 units/hr, 29 mls/hr Documented By: JULIO CESAR Co-signed By: TMG Titration: 11/11/24 19:39 Dose: 1,300 units/hr, 26 mls/hr Documented By: JULIO CESAR Co-signed By: RLG Admin: 11/11/24 17:45 Dose: 1,300 units/hr, 26 mls/hr Documented By: ARIC Co-signed By: NANCY Titration: 11/11/24 16:56 Dose: Infused Documented By: ARIC Co-signed By: NANCY Titration: 11/11/24 12:38 Dose: 1,300 units/hr, 26 mls/hr Documented By: ARIC Co-signed By: RAMIN(2) Titration: 11/11/24 07:17 Dose: 1,250 units/hr, 25 mls/hr Documented By: ESTEFANY Co-signed By: ARIC Titration: 11/11/24 03:47 Dose: 1,250 units/hr, 25 mls/hr Documented By: ESTEFANY Co-signed By: LIEN Admin: 11/10/24 20:49 Dose: 1,200 units/hr, 24 mls/hr Documented By: ESTEFANY Co-signed By: GARCIA Magnesium Sulfate/Dextrose (Magnesium Sulfate / D5w) 1 gm in 100 mls @ 50 mls/hr IV ONE ONE Stop: 11/11/24 06:37 Last Infusion: 11/11/24 10:18 Dose: Infused Documented By: Admin: 11/11/24 05:31 Dose: 50 mls/hr Documented By: ESTEFANY Methylprednisolone 60 mg/ (Syringe) 0.96 mls @ 1.5 mls/min IV NOW STA Stop: 11/11/24 15:27 Last Admin: 11/11/24 15:47 Dose: 1.5 mls/min Documented By: ARIC Piperacillin Sod/Tazobactam Sod (Zosyn) 4.5 gm in 100 mls @ 200 mls/hr IV NOW STA; Protocol Stop: 11/12/24 09:03 Last Infusion: 11/12/24 10:30 Dose: Infused Documented By: Admin: 11/12/24 09:57 Dose: 200 mls/hr Documented By: ROSE Magnesium Sulfate/Dextrose (Magnesium Sulfate / D5w) 1 gm in 100 mls @ 50 mls/hr IV ONE ONE Stop: 11/13/24 04:44 Last Infusion: 11/13/24 06:25 Dose: Infused Documented By: Admin: 11/13/24 03:55 Dose: 50 mls/hr Documented By: SUZI Ioversol (Optiray 320 100ml) 92 ml IV ONCE ONE Stop: 11/09/24 19:21 Last Admin: 11/09/24 19:20 Dose: 92 ml Documented By: WILSON Ioversol (Optiray 320 125ml) 115 ml IV ONCE ONE Stop: 11/11/24 16:15 Last Admin: 11/11/24 16:16 Dose: 115 ml Documented By: JULES Labetalol HCl (Labetalol Hcl Iv 5 Mg/Ml 20ml) 10 mg IV NOW STA Stop: 11/09/24 19:35 Last Admin: 11/09/24 20:35 Dose: Not Given Documented By: RAMIN Melatonin (Melatonin 3 Mg Tab) 9 mg PO HS PRN PRN Reason: Sleep Stop: 12/09/24 22:31 Last Admin: 11/09/24 22:44 Dose: 9 mg Documented By: CARMEL Methylprednisolone (Methylprednisolone 125 Mg/2 Ml Vial) 60 mg IV NOW STA Stop: 11/11/24 15:25 Last Admin: 11/11/24 20:26 Dose: Not Given Documented By: JULIO CESAR Metoprolol Tartrate (Metoprolol Tartrate 1 Mg/Ml Vial) 2.5 mg IV NOW STA Stop: 11/13/24 01:50 Last Admin: 11/13/24 01:57 Dose: 2.5 mg Documented By: SUZI Metoprolol Tartrate (Metoprolol Tartrate 1 Mg/Ml Vial) 2.5 mg IV NOW STA Stop: 11/14/24 05:51 Last Admin: 11/14/24 06:27 Dose: 2.5 mg Documented By: SUZI Midodrine (Midodrine Hcl 2.5 Mg Tab) 2.5 mg PO TID@0800,1200,1700 [facility]AC[facility] Stop: 12/10/24 16:59 Last Admin: 11/12/24 13:03 Dose: 2.5 mg Documented By: Admin: 11/12/24 08:40 Dose: 2.5 mg Documented By: Admin: 11/11/24 19:43 Dose: Not Given Documented By: Admin: 11/11/24 17:43 Dose: 2.5 mg Documented By: Admin: 11/11/24 12:13 Dose: 2.5 mg Documented By: Admin: 11/10/24 18:24 Dose: Not Given Documented By: EDGAR Midodrine (Midodrine Hcl 2.5 Mg Tab) 2.5 mg PO TID JACQUES Stop: 12/11/24 20:59 Last Admin: 11/12/24 09:57 Dose: 2.5 mg Documented By: Admin: 11/11/24 21:00 Dose: 2.5 mg Documented By: JULIO CESAR Midodrine (Midodrine Hcl 2.5 Mg Tab) 2.5 mg PO TID@0630,1200,1700 [facility] Stop: 12/12/24 16:59 Last Admin: 11/14/24 12:15 Dose: 2.5 mg Documented By: Admin: 11/14/24 05:46 Dose: Not Given Documented By: Admin: 11/13/24 17:52 Dose: 2.5 mg Documented By: Admin: 11/13/24 12:48 Dose: 2.5 mg Documented By: Admin: 11/13/24 05:43 Dose: Not Given Documented By: Admin: 11/12/24 17:20 Dose: 2.5 mg Documented By: ROSE Midodrine (Midodrine Hcl 2.5 Mg Tab) 2.5 mg PO BID@0900,1500 [facility] Stop: 12/14/24 14:59 Last Admin: 11/15/24 09:35 Dose: 2.5 mg Documented By: Admin: 11/14/24 15:56 Dose: 2.5 mg Documented By: IVY Nitroglycerin (Nitroglycerin 2% Ointment 30gm Tube) 1 inch EXT Q6H [facility] Stop: 12/09/24 19:14 Last Admin: 11/10/24 13:20 Dose: 1 inch Documented By: Admin: 11/10/24 07:35 Dose: 1 inch Documented By: Admin: 11/10/24 02:31 Dose: 1 inch Documented By: Admin: 11/09/24 19:28 Dose: 1 inch Documented By: RAMIN Potassium Phosphate (Pot Phosphate Monobasic W/ Sod Tab) 2 tab PO QID@1000,1300,1700,2100 [facility] Stop: 12/10/24 09:59 Last Admin: 11/10/24 20:57 Dose: 2 tab Documented By: Admin: 11/10/24 16:47 Dose: 2 tab Documented By: Admin: 11/10/24 13:21 Dose: 2 tab Documented By: Admin: 11/10/24 12:28 Dose: 2 tab Documented By: EDGAR Warfarin Sodium (Warfarin Sod 5 Mg Tab) 5 mg PO DAILY@1600 [facility] Stop: 12/11/24 16:04 Last Admin: 11/12/24 17:19 Dose: 5 mg Documented By: Admin: 11/11/24 17:39 Dose: 5 mg Documented By: ARIC Warfarin Sodium (Warfarin Sod 10 Mg Tab) 10 mg PO DAILY@1600 [facility] Stop: 12/13/24 15:59 Last Admin: 11/15/24 17:16 Dose: 10 mg Documented By: Admin: 11/14/24 16:00 Dose: 10 mg Documented By: Admin: 11/13/24 17:49 Dose: 10 mg Documented By: IVY Zonisamide (Zonisamide 100 Mg Capsule) 100 mg PO [facility] Stop: 12/09/24 21:44 Last Admin: 11/15/24 20:11 Dose: 100 mg Documented By: Admin: 11/14/24 20:40 Dose: 100 mg Documented By: Admin: 11/13/24 21:45 Dose: 100 mg Documented By: Admin: 11/12/24 21:05 Dose: 100 mg Documented By: Admin: 11/11/24 21:00 Dose: 100 mg Documented By: JULIO CESAR Admin: 11/10/24 20:59 Dose: 100 mg Documented By: Admin: 11/09/24 22:45 Dose: 100 mg Documented By: CARMEL Zonisamide (Zonisamide 100 Mg Capsule) 200 mg PO [facility] Stop: 12/16/24 19:29 Last Admin: 11/16/24 21:04 Dose: 200 mg Documented By: NAB Description This is a 21 electrode EEG with a single channel dedicated to limited EKG. The electrodes were placed in accordance with the International 10-20 system. REPORT: At the onset of the EEG the patient is awake. The background is symmetric. The posterior dominant rhythm is 6-7 Hz. Drowsiness is characterized by reduced blink rate and decreased myogenic artifact. No stage II sleep transient are seen. Interpretation This is an abnormal awake and drowsy routine EEG due to generalized background slowing suggestive of a mild non specific encephalopathy.
[2024-11-17] MEDS: ZONISAMIDE 100 MG CAPSULE PO SCH (21:51)
[2024-11-18 01:08] LABS: Appearance Urine Clear (Clear); Bacteria Urine Automated None Seen (None Seen); Cast Urine Automated 0-2 /lpf (0-2); Epithelial Cell Urine Auto 0-2 /hpf (0-2); Glucose Urine UA Negative (Negative); RBC Urine Automated 0-2 /hpf (0-2); WBC Urine Automated 0-5 /hpf (0-5)
--- NOTE | 2024-11-18 05:36 | CT Scan Report ---
EXAM: CT head/brain wo con CLINICAL HISTORY: None TECHNIQUE: Multiple axial images are obtained from the skull base to the vertex without contrast. CT scan was performed according to ALARA (as low as reasonable achievable). COMPARISON: 19:15:54 [employer]. FINDINGS: There is cerebral atrophy. No evidence of space occupying lesion, hemorrhage, edema, mass effect, midline shift, extra axial collection, or hydrocephalus is noted. Basal cisterns are symmetric and normal in size and configuration. There are scattered periventricular hypodensities as can be seen with chronic microvascular ischemic changes. The lowe-white matter differentiation is preserved. Visualized paranasal sinuses and mastoid air cells are well aerated. Orbital contents are within normal limits. Bony structures are intact. IMPRESSION: 1. No evidence of acute intracranial abnormality is demonstrated. 2. Chronic microvascular ischemic changes.-stable. 3. Cerebral atrophy.-stable. MRI brain for better evaluation if clinically indicated. Electronically signed by Enrrique Escobedo 11-18-2024 05:36 AM
[2024-11-18] MEDS ORDERED: CARBAMAZEPINE 200 MG PO SCH (06:30)
[2024-11-18 06:44] LABS: Hematocrit (blood only) 41.3 % (42.0-52.0); Hemoglobin 13.3 g/dl (14.0-18.0); Mean Corpuscular Hemoglobin 29.9 pg (25.0-34.0); Mean Corpuscular Volume 92.8 fL (80.0-100.0); Platelet Count 229 K/uL (130-400); RDW Standard Deviation 50.6 fL (36.4-46.3); Red Blood Count 4.45 M/uL (4.70-6.10); White Blood Count 8.16 K/ul (4.8-10.8)
[2024-11-18 07:07] LABS: Anion Gap 7.0 (3-11); Blood Urea Nitrogen 34.0 mg/dl (6-23); Calcium 8.3 mg/dl (8.6-10.3); Carbon Dioxide 25.0 mmol/L (21-32); Chloride 104.0 mmol/L (98-107); Creatinine Clr Calc Pharmacy 45.0 ml/min; Glucose 82.0 mg/dl (70-99(Fasting)); Potassium 3.9 mmol/L (3.5-5.1); Sodium 136.0 mmol/L (136-145)
[2024-11-18 07:19] LABS: INR 2.4 (0.9-1.1); Prothrombin Time 24.0 Seconds (9.0-12.0)
[2024-11-18 07:52] LABS: Magnesium 2.1 mg/dl (1.7-2.4)
[2024-11-18] MEDS: SODIUM CHLORIDE 0.9% 1,000 ML IV ONE (08:37)
--- NOTE | 2024-11-18 11:59 | Hospitalist Progress Note ---
Date of Service November 18, 2024 Assessment & Plan (1) Parkinson disease: (2) Generalized weakness: Plan: This is a 74-year-old male with significant past medical history of Parkinson's disease,hypothyroidism, chronic diastolic heart failure, history of liver heman gioma, nonrheumatic mitral valve regurgitation, history of simple partial seizure rheumatoid arthritis long-term steroid therapy who presents to ED with generalized weakness. In setting of Parkinson's disease with likely progression - on Sinemet and entacapone c/b significant bradykinesia/rigidity, orthostatic hypotension, per Dr. Mustafa "has such advanced Parkinsons disease we really are not going to change his treatments" -Bilateral PE, UTI and PNA initially contributing to weakness as well -Consulted neurology -consistent with advancing Parkinson's, recommending continue Sinemet regimen and trial of amantadine 100mg BID -Based on discussion with family and acute illness, will hold off on amantadine trial for now as they wish to discuss this with his primary neurologist -Speech evaluation and Video swallow with mild oropharyngeal dysphagia that does not impact the safety of patient's swallowing function -Continue aspiration precautions, repositioning -Pt does have more increased excessive daytime sleepiness; suspecting this to be more of a nonmotor symptom of his PD -Would benefit from sleep hygiene, increased PT when able and environmental modifications (more challenging in PCU setting) for sleep/wake cycles -PT/OT evals - recommending inpatient rehab (3) Unresponsiveness: Plan: Pt with intermittent episodes of unresponsiveness. Early on in hospital stay was accompanied with hyperventilation and hypoxia, but of recent has not been accompanied with either but more of a profound state of unarousability raising the question of possible seizure likely activity and post ictal state vs hospital based delirium in setting of progressed PD Previous episode 11/13 while sitting in wheel chair upright with kyphotic posturing and head tucked into chest, have typically occurred in PM Nocturnal sleep study negative, AM cortisol WNL Occurred again AM of 11/17: 10:30-11:30 AM. Hypersomnolence, VSS stable and O2 sats 95% on room air, sleeping and difficult to arouse Stat CT head read "Motion limited exam. Artifact versus trace subdural hemorrhages. Recommend follow-up head CT in 12 to 24 hours to reevaluate". Repeat image Obtained repeat stat CT head with read "Motion limited exam. Artifact versus trace subdural hemorrhages. Recommend follow-up head CT in 12 to 24 hours to reevaluate, or sooner if clinically indicated." Repeat CT head overnight without acute intracranial abnormality is demonstrated Recurrent hypersomnolence episodes during admission - workup during these times with multiple CT head, VBGs negative and VSS stable. Discussed with daughter today these are likely due to progressive Parkinson's and prolonged hospital day. Discussed with Dr. Tobias - recommends continuing current Parkinson's and seizure regimen as is (4) Seizure-like activity: Plan: Family at bedside reporting seizure-like activity last evening around 1900 on 11/17, not witnessed by staff Tonic clonic movements lasting approx. [address] head obtained - negative for intracranial abnormality Stat Tegretol level sent - 10.3 in Epic, within normal range (not yet in [employer]) Given increased Zonegran dose last night 200mg HS x 1 11/[address] Tobias today - does not feel consistent with seizure-like activity. Suspects related to hospital based delirium - does not recommend any medication changes at this time, continue home regimen EEG obtained 12/13 -This is an abnormal awake and drowsy routine EEG due to generalized background slowing suggestive of a mild non-specific encephalopathy Seizure precautions - no recurrent episodes (5) Sinus bradycardia: Plan: Bradycardia reading overnight in 30s - false reading as lead fell off Tele checked overnight - sinus saloni to NSR with HR 50-60s, similar to previous (6) Hypoxia: Plan: Resolved. Saturating at 95% on room air (7) Bilateral pulmonary embolism: Plan: Continues on Heparin infusion; not a good DOAC candidate given interaction with carbamazepine 2D echo EF > 70%, rvsf normal, trace TR, no right heart strain INR therapeutic, discontinued IV heparin as on 11/17 Continue 5mg coumadin daily, repeat INR in AM (8) Enterococcus UTI: Plan: Urine culture growing Enterococcus faecalis, sensitive to amoxicillin Augmentin course completed on 11/15 Repeat urine study requested on 11/17 due to darkened color - negative (9) CAP (community acquired pneumonia): Plan: CT chest revealing possible TEE infiltrate with significant atelectasis noted, likely in setting of HH Completed doxycycline, augmentin course 11/15 S/p IV solumedrol 60mg x 1 11/10 CXR shows improvement 11/15 vs 11/13 but still with pleural effusions present No SOB, saturating at 94% on room air Encourage continued incentive spirometry use, antitussives (10) Rheumatoid arthritis: (11) Chronic steroid use: Plan: Has been taking Arava and daily prednisone at home, continue (12) Chronic diastolic (congestive) heart failure: Plan: Pt with stable weights but net + fluid Lasix 20mg IV x 1 given on 11/13 with resulting increase in Cr to 1.5 (from 1.1) Given gentle fluids and Cr improved to 1.28 Monitor volume status closely given patient's complex course (13) Labile hypertension: Plan: Orthostatic hypotension in setting of autonomic dysfunction in relation to PD BP significantly elevates overnight to ranges above 190-[address] Ortez as outpatient 2.5mg TID Dose was reduced during hospitalization to 2.5mg daily given hypertension but increasing to BID as patient returns closer to baseline health Recommended to obtain standing BPs as able for more accurate read but difficult given patient's frailty Plan DVT prophylaxis: coumadin Code: DNR/DNI Dispo: Admitted to PCU, will continue given intermittent periods of hypersomnolence. PT/OT recommending inpatient rehab Patient seen in collaboration with Dr. Alejandra. Please see addendum. I spent a total of 55 minutes coordinating, documenting, and providing care for this patient excluding time spent in the performance of separately billed services or time spent by another provider/QHP. Admission and Anticipated Discharge Date Admission Date: November 09, 2024 Supervising Physician Co-Signing Physician Notes delayed entry date of service noted above Attending Addendum: Case reviewed with the advanced practitioner. I have reviewed the advanced practitioner's documentation on the date of service referenced in note, and I agree with, and take responsibility for the plan of care. please refer to her notes for full details patient seen and examined, records reviewed by myself as well diagnoses and plan of care as per advanced practitioner's notes I spent a total of 35 minutes coordinating, documenting, and providing care for this patient, excluding time spent in the performance of separately billed services or time spent by another provider/QHP. Marshal Alejandra MD Subjective Pt seen and examined in room 207. Initially hypotensive early this AM but improved with IV fluids and AM midodrine dose. at bedside. Patient resting comfortably, awake and able to answer questions without issue. States he is feeling sad about prolonged hospitalization. Not in pain. Still feeling tired. No F/C, CP, SOB, N/V, abd pain. Review of Systems Review of Systems: At least ten systems reviewed and negative except as noted in the HPI. Physical Exam Physical Exam: Gen: WD/WN, NAD, sitting upright in bed, A&Ox3, slow but clear speech HEENT: Kyphotic posture, Normocephalic, atraumatic, conjunctivae moist, sclerae anicteric, mucous membranes moist Lung: Air movement improved from previous,bibasilar rales, scattered rhonchi improve with coughing Heart: bradycardic rate, regular rhythm Abdomen: Soft, NT, ND +BS x 4 Neuro: Masked facies, bradykinesia, at baseline Extremities: no edema Skin: Warm, no rash Results & Data Results & Data Vital Signs (Past 12 Hours) Vital Signs Temp Pulse Pulse Resp BP Pulse Ox O2 Del Method 11/18/24 11:26 Room Air 11/18/24 11:06 36.4 C L 59 L 19 107/68 93 Room Air 11/18/24 10:43 99/67 L 11/18/24 09:05 86/56 L 11/18/24 08:18 84/54 L 11/18/24 08:18 73/46 L 11/18/24 08:14 36.4 C L 64 21 93 Room Air 11/18/24 07:00 67 11/18/24 03:02 36.5 C 51 L 14 145/81 H 95 Room Air Laboratory Results Short CBC 11/18/24 Range/Units 06:27 WBC 8.16 (4.8-10.8) K/ul Hgb 13.3 L (14.0-18.0) g/dl Hct 41.3 L (42.0-52.0) % Plt Count 229 (130-400) K/uL BMP 11/18/24 06:27 Sodium 136 Potassium 3.9 Chloride 104 Carbon Dioxide 25 BUN 34 H Creatinine 1.28 Glucose 82 Calcium 8.3 L Liver Function 11/18/24 Range/Units 06:27 Albumin 3.2 L (3.4-5.0) gm/dl Urine 11/17/24 Range/Units Unknown Urine Color Dark Yellow Urine Appearance Clear (Clear) Urine pH 6.0 (4.5-7.5) Ur Specific [place] 1.020 (1.000-1.030) Urine Protein Trace H (Negative) Urine Glucose (UA) Negative (Negative) Diagnostic Findings Chest X-Ray 11/09/24 16:22 EXAM: Radiographs of the Chest 2 Views INDICATION: Wheezing. Fatigue. TECHNIQUE: Frontal and lateral views of the chest. COMPARISON: No relevant prior studies available. FINDINGS: Lungs and pleural spaces: No change left pleural effusion/thickening and airspace consolidation in the left lung base likely reflecting compression from large hiatal hernia. There is crowded vasculature from shallow inspiration in the right lung base. No pneumothorax. Heart: Stable large cardiac shadow. Mediastinum: See above. Bones/joints: No fracture, erosion or dislocation. IMPRESSION: Stable large hiatal hernia with chronic left basilar atelectasis and pleural thickening/effusion. ACT 112: N/A Electronically signed by Marina Donnelly 11-09-2024 5:[address] 11/09/24 16:22 EXAM: CT Head Without Intravenous Contrast INDICATION: Pain TECHNIQUE: Axial computed tomography images of the head/brain without intravenous contrast. Sagittal and/or coronal reformats are provided. Sagittal and coronal reformatted images were created and reviewed. This CT exam was performed using one or more of the following dose reduction techniques: automated exposure control, adjustment of the mA and/or kV according to patient size, and/or use of iterative reconstruction technique. COMPARISON: 10/29/2023 FINDINGS: Limitations: None. Brain and extra-axial spaces: There is age appropriate cortical atrophy and chronic ischemic periventricular white matter hypodensity. No acute infarct, hemorrhage or mass noted. Bones/joints: No fracture. Soft tissues: There is increasing periosteal reaction and soft tissue swelling over the right frontal bone lytic lesion. Vasculature: No acute abnormality noted. Sinuses: No layering fluid in the visualized portions of the paranasal sinuses. Mastoid air cells: No mastoid effusion. Orbits: No significant abnormality noted. IMPRESSION: 1. Cerebral atrophy. No acute changes in the brain. 2. There is increasing periosteal reaction and soft tissue swelling over the right frontal bone lytic lesion. Correlate clinically. ACT 112: Positive. There are findings on this exam that require communication between the performing entity and the patient following Patient Test Result Information Act ([place] ACT 112) guidelines. Electronically signed by Marina Donnelly 11-09-2024 5:[address] 11/09/24 18:48 CT chest with contrast. History: Decreased oxygenation. Comparison: October 10, 2023. Technique: Helical CT imaging of the chest performed with IV contrast Dose reduction techniques were achieved by using automatic exposure control and/or adjustment of mA and/or kV according to patient size and/or use of iterative reconstruction technique. Findings: In[employer] Mixer film demonstrates opacified left pulmonary base with obscuration left hemidiaphragm and heart border. Lung windows demonstrate prominent pulmonary vasculature. Groundglass attenuation and densities consistent with left upper lobe subsegmental and left lower lobe multisegmental atelectasis. This has progressed when compared to prior study. Soft tissue windows demonstrate calcified atherosclerotic changes coronary vasculature. Mild cardiomegaly. Small pericardial effusion. Trace right and moderate size left pleural effusion. Left pleural effusion is new when compared to prior study. Hiatal hernia containing the gastric viscus with mass effect on the dorsal heart is noted. Findings similar to prior study. Partially included peripheral nodular enhancing hypodensity left liver lobe. This is incompletely evaluated on this exam. Favor hemangioma. Bone windows demonstrate no acute osseous process. Impression: 1. Hiatal hernia containing gastric viscus similar to prior study with interval increasing multisegmental left lower lobe atelectasis and new left upper lobe subsegmental atelectasiswith elements of interstitial and airspace disease and moderate pleural effusion. Pneumonia must be considered. 2. Incompletely evaluated left liver lobe lesion favored to represent a hemangioma. Please see above for details. Electronically signed by Alfonso Haas 11-09-2024 8:27 PM Chest X-Ray 11/10/24 18:25 EXAM: Portable AP chest radiograph TECHNIQUE: AP portable radiograph of the chest was obtained. INDICATION: Shortness of breath Comparison: Chest CT November 09, 2024 FINDINGS: LINES and TUBES: CARDIOVASCULAR: Cardiac silhouette is stably enlarged in size. LUNGS/PLEURA: No focal consolidation identified. Small pleural fluids. No discernible pneumothorax. Bilateral pulmonary embolism was better identified in the CT thorax from 1 day previous. OSSEOUS/OTHER: Large hiatal hernia is again seen. No displaced acute osseous process identified. IMPRESSION: Unchanged cardiomegaly and large hiatal hernia redemonstrated. Bilateral pulmonary embolism was better identified in the CT thorax from 1 day previous. Notification to clinician of alert: Ian Vannesa was notified about above findings by phone on November 10, 2024 at 7:25 PM by Benedicto Medina MD. Readback confirmation was obtained. Electronically signed by Benedicto Medina 11-10-2024 7:26 PM Venous Doppler Study 11/11/24 08:00 BILATERAL LOWER EXTREMITY VENOUS DOPPLER HISTORY: pe COMPARISON STUDY: 10/10/2023 FINDINGS: No evidence of DVT seen at the right lower extremity. At the left leg there is thrombus in the distal femoral vein, popliteal vein, posterior tibial vein, and peroneal vein. IMPRESSION: DVT at the left lower extremity as described. ACT 112: Negative or not required by law. Electronically signed by: Larry Burnham M.D. 11/11/2024 8:52 AM Chest CTA 11/11/24 15:39 EXAMINATION: [place] CT angio chest PE CLINICAL HISTORY: Known pulmonary embolism PRIORS: 11/09/2024 CT TECHNIQUE: Contiguous axial images were obtained through the chest with the use of intravenous contrast. Sagittal and coronal reformations are supplied. FINDINGS: Motion artifact noted. The pulmonary arteries are well evaluated. Again noted is mild to moderate pulmonary embolism within the right lower lobe segmental and subsegmental pulmonary arteries, unchanged. No additional pulmonary embolism identified. Allowing for arms within the [id number] and beam hardening artifact, enlargement of the heart is noted. No flattening of the interventricular septum or features of heart strain. Atherosclerotic disease of the coronary arteries present. Elevation of the left hemidiaphragm with large hiatal hernia present and intrathoracic stomach. This creates localized left lower lobe hypoventilatory changes and atelectasis/airspace consolidation in the left upper and lower lobes, unchanged. Mild airspace consolidation in the right lower lobe, appearing in the interval. A moderate left pleural effusion is present, unchanged. No adenopathy is identified. Trachea and mainstem bronchi are patent. Limited visualization of the upper abdomen shows no acute abnormality. No acute osseous abnormality. IMPRESSION: 1. Right segmental and subsegmental lower lobe pulmonary embolism, with small clot burden and no CT evidence of heart strain. This is unchanged when compared to examination from 11/09/2024. 2. Large intrathoracic hiatal hernia with elevation of the left hemidiaphragm and compressive atelectasis in the left lung. 3. Moderate left pleural effusion, unchanged. Electronically signed by Magaly Meade 06-24-2025 4:40 PM Chest X-Ray 11/13/24 02:45 EXAM: XR chest 1V portable CLINICAL HISTORY: sob TECHNIQUE: An X-ray image of the chest is obtained in AP projection. COMPARISON: 11/11/2024. FINDINGS: Pulmonary Parenchyma: Still noted obliteraion of the left costophrenic angle with left basal parenchymal opacification and mediastinal shift to the left, denoting left lung volume loss. Still noted minimal right pleural effusion in the form of right costophrenic angle obliteration. Still noted bilateral peribronchial thickening possibly related to the ongoing bronchiectasis (stable). Still noted sliding hiatus hernia (stable). Heart and Mediastinum: Suggested cardiomegaly (stable). No mediastinal widening or masses. No hilar or mediastinal lymphadenopathy. Bony Thorax: Bony thorax appears intact without fractures or deformities. Soft Tissues: Soft tissues overlying the chest wall are unremarkable. IMPRESSION: 1. Left moderate and right minimal pleural effusion. (stable) 2. Still noted left basal opacity with mediastinal shift to the left. 3. Still noted bilateral peribronchial thickening possibly related to the ongoing bronchiectasis (stable). 4. Still noted sliding hiatus hernia (stable). 5. Suggested cardiomegaly (stable). Electronically signed by Juventino Zapata 11-13-2024 04:05 AM Videofluoroscopic Swallow 11/13/24 10:30 FL video swallow CLINICAL HISTORY: r/o aspiration. TECHNIQUE: Video fluoroscopic evaluation of swallowing was performed in the AP and lateral projections by the speech pathology staff. The patient is fed nectar-thick and thin liquid barium, a barium coated wafer, and barium pudding. FLUOROSCOPY TIME: 29 seconds. COMPARISON: None FINDINGS: No aspiration demonstrated with any barium consistency. IMPRESSION: No aspiration seen. ACT 112: Negative or not required by law. Electronically signed by: Larry Burnham M.D. 11/13/2024 1:47 PM Cervical Spine X-Ray 11/13/24 14:10 XR cervical spine 2 or 3V CLINICAL HISTORY: pain COMPARISON STUDY: None FINDINGS: Exam is limited due to patient inability to cooperate with the exam. Shoulders obscure the lower cervical spine on the lateral view. C7 is completely obscured and C6 is partially obscured. There is degenerative disc disease most severe at C5-6. There is grade 1 anterolisthesis of C3 on 4 and C4 on 5. No fracture seen at the visualized cervical spine. IMPRESSION: 1. Limited exam. 2. No fracture seen at the cervical spine. 3. Degenerative changes and alignment abnormality. ACT 112: Negative or not required by law. Electronically signed by: Larry Burnham M.D. 11/13/2024 3:[address] 11/13/24 15:34 CT HEAD: HISTORY: Trauma TECHNIQUE: Noncontrast CT examination of the head is performed. Coronal and sagittal reformats were created. COMPARISON: Brain CT 4 days previous FINDINGS: There is no evidence of intracranial hemorrhage, focal mass effect or midline shift. No fluid collection is identified. The ventricular system is midline and symmetric. No evidence of acute major vascular territory infarction. Age-related involutional changes of the brain and chronic white matter ischemic changes. No calvarial fracture is identified. 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 The mastoids are well aerated. IMPRESSION: No acute intracranial process identified. 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 11/13/24 15:42 CT CERVICAL SPINE WITHOUT CONTRAST: HISTORY: Trauma TECHNIQUE: Noncontrast CT examination of the cervical spine is performed. Coronal and sagittal reformats were created. COMPARISON: Thoracic CT November 11, 2024 FINDINGS: CERVICAL SPINE: There is no significant vertebral body height loss. No acute traumatic fracture identified. Mild anterior offsets of C3 on C4 and C4 on C5. Mild posterior offsets of C5 on C6 and C6 on C7 Multilevel degenerative changes characterized by disc osteophyte complex, bilateral facet and uncovertebral hypertrophy resulting and neural foraminal narrowing at multiple levels, worst at Visualized soft tissues of neck are unremarkable. Redemonstrated loculated large left pleural fluid, better delineated in the recent thoracic CT dated November 11, 2024 IMPRESSION: No acute traumatic fracture of the cervical spine. Multilevel degenerative changes as above. Redemonstrated loculated large left pleural fluid, better delineated in the recent thoracic CT dated November 11, 2024 Electronically signed by Benedicto Medina 11-13-2024 4:25 PM Chest X-Ray 11/15/24 07:35 XR chest 1V portable HISTORY: 74 years-old Male volume overload acute shortness of breath COMPARISON: 11/13/2024 TECHNIQUE: AP view of the chest FINDINGS: Study is limited secondary to positioning of the patient's head and neck. Large hiatal hernia redemonstrated. Cardiomegaly. Left greater than right pleural effusions with left lung volume loss and left greater than right bibasilar consolidation redemonstrated. Pulmonary vascular congestion with interstitial coarsening has slightly progressed. IMPRESSION: 1. Cardiomegaly with suggestion of mild interstitial pulmonary edema. 2. Left greater than right pleural effusions with left basilar predominant consolidation again noted. 3. Large hiatal hernia. ACT 112: Negative or not required by law. The above report was generated using voice recognition software. It may contain grammatical, syntax or spelling errors. Electronically signed by: Juancho Alcantara M.D. 11/15/2024 8:[address] 11/16/24 19:25 Exam(s): CT HEAD Without Contrast EXAM: CT Head Without Intravenous Contrast CLINICAL HISTORY: Reason for exam: sz, heparin. TECHNIQUE: Axial computed tomography images of the head/brain without intravenous contrast. CTDI is 38.78 mGy and DLP is 468.31 mGy-cm. Automated exposure control was utilized for the study. A dose lowering technique was utilized adhering to the principles of ALARA. COMPARISON: Prior head CT from December 13, 2024. FINDINGS: This study is limited secondary to motion artifact. Brain: Unremarkable. No hemorrhage. No significant white matter disease. No edema. Ventricles: Unremarkable. No ventriculomegaly. Bones/joints: Unremarkable. No acute fracture. Soft tissues: Unremarkable. Sinuses: Unremarkable as visualized. No acute sinusitis. Mastoid air cells: Unremarkable as visualized. No mastoid effusion. IMPRESSION: No evidence of acute intracranial pathology in this limited study. Electronically signed by: Yuki Sam MD 11/16/24 23:[address] 11/17/24 12:16 CT head/brain wo con CLINICAL HISTORY: lethargic. TECHNIQUE: Multiple axial CT images of the head were obtained without contrast. A dose lowering technique was utilized adhering to the principles of ALARA. COMPARISON: 11/16/2024 FINDINGS: There is motion artifact. There are small areas of increased density at the left temporoparietal subdural space in the right parietal subdural space which could represent trace subdural hemorrhage or artifact. No other intracranial hemorrhage seen. No mass effect, midline shift, or hydrocephalus. 2 cm oval mildly expansile lucent lesion at the right frontal skull is stable. No skull fracture seen. Visualized paranasal sinuses and mastoid air cells are clear. IMPRESSION: 1. Motion limited exam. 2. Artifact versus trace subdural hemorrhages. Recommend follow-up head CT in 12 to 24 hours to reevaluate, or sooner if clinically indicated. ACT 112: Negative or not required by law. The above report was generated using voice recognition software. It may contain grammatical, syntax or spelling errors. Electronically signed by: Larry Burnham M.D. 11/17/2024 1:[address] 11/17/24 21:00 EXAM: CT head/brain wo con CLINICAL HISTORY: None TECHNIQUE: Multiple axial images are obtained from the skull base to the vertex without contrast. CT scan was performed according to ALARA (as low as reasonable achievable). COMPARISON: 19:15:54 [employer]. FINDINGS: There is cerebral atrophy. No evidence of space occupying lesion, hemorrhage, edema, mass effect, midline shift, extra axial collection, or hydrocephalus is noted. Basal cisterns are symmetric and normal in size and configuration. There are scattered periventricular hypodensities as can be seen with chronic microvascular ischemic changes. The lowe-white matter differentiation is preserved. Visualized paranasal sinuses and mastoid air cells are well aerated. Orbital contents are within normal limits. Bony structures are intact. IMPRESSION: 1. No evidence of acute intracranial abnormality is demonstrated. 2. Chronic microvascular ischemic changes.-stable. 3. Cerebral atrophy.-stable. MRI brain for better evaluation if clinically indicated. Electronically signed by Enrrique Escobedo 11-18-2024 05:36 AM (1) Parkinson disease Dyskinesia presence: unspecified whether dyskinesia Fluctuating manifestations: unspecified whether manifestations fluctuate Qualified Code(s): G20.A1 - Parkinson's disease without dyskinesia, without mention of fluctuations
[2024-11-19] MEDS: MIDODRINE HCL 2.5 MG TAB PO SCH (05:48)
[2024-11-19 06:34] LABS: Anion Gap 6.0 (3-11); Blood Urea Nitrogen 32.0 mg/dl (6-23); Calcium 8.4 mg/dl (8.6-10.3); Carbon Dioxide 26.0 mmol/L (21-32); Chloride 103.0 mmol/L (98-107); Creatinine Clr Calc Pharmacy 45.4 ml/min; Glucose 94.0 mg/dl (70-99(Fasting)); Potassium 4.0 mmol/L (3.5-5.1); Sodium 135.0 mmol/L (136-145)
[2024-11-19 06:59] LABS: INR 1.5 (0.9-1.1); Prothrombin Time 15.3 Seconds (9.0-12.0)
[2024-11-19 07:22] LABS: Hematocrit (blood only) 42.3 % (42.0-52.0); Hemoglobin 13.5 g/dl (14.0-18.0); Immature Granulocytes # (auto) 0.27 K/uL (0.01-0.20); Immature Granulocytes % (auto) 2.4 %; Mean Corpuscular Hemoglobin 29.9 pg (25.0-34.0); Mean Corpuscular Volume 93.8 fL (80.0-100.0); Platelet Count 236 K/uL (130-400); RDW Standard Deviation 51.3 fL (36.4-46.3); Red Blood Count 4.51 M/uL (4.70-6.10); White Blood Count 11.03 K/ul (4.8-10.8)
[2024-11-19] MEDS ORDERED: ENOXAPARIN 1 MG/KG SQ SCH (11:30)
--- NOTE | 2024-11-19 13:02 | Hospitalist Progress Note ---
Date of Service November 19, 2024 Assessment & Plan (1) Parkinson disease: (2) Generalized weakness: Plan: 74-year-old male with significant past medical history of Parkinson's disease,hypothyroidism, chronic diastolic heart failure, history of liver hemangioma, nonrheumatic mitral valve regurgitation, history of simple partial seizure rheumatoid arthritis long-term steroid therapy who presented to ED with generalized weakness. In setting of Parkinson's disease with likely progression - on Sinemet and entacapone c/b significant bradykinesia/rigidity, orthostatic hypotension, per Dr. Mustafa "has such advanced Parkinsons disease we really are not going to ch kim his treatments" Bilateral PE, UTI and PNA initially contributing to weakness as well Consulted neurology -consistent with advancing Parkinson's, recommending continue Sinemet regimen and trial of amantadine 100mg BID Based on discussion with family and acute illness, will hold off on amantadine trial for now as they wish to discuss this with his primary neurologist Speech evaluation and Video swallow with mild oropharyngeal dysphagia that does not impact the safety of patient's swallowing function Continue aspiration precautions, repositioning Pt does have more increased excessive daytime sleepiness; suspecting this to be more of a nonmotor symptom of his PD Would benefit from sleep hygiene, increased PT when able and environmental modifications (more challenging in PCU setting) for sleep/wake cycles PT/OT evals - recommending inpatient rehab, tentatively planning for [facility] Note extensive advanced care planning discussion by previous provider on 11/11. Patient made DNR/DNI at that time, continue full treatment of acute on chronic conditions. (3) Unresponsiveness: Plan: Pt with intermittent episodes of unresponsiveness. Early on in hospital stay was accompanied with hyperventilation and hypoxia, but of recent has not been accompanied with either but more of a profound state of unarousability raising the question of possible seizure likely activity and post ictal state vs hospital based delirium in setting of progressed PD Previous episode 11/13 while sitting in wheel chair upright with kyphotic posturing and head tucked into chest, have typically occurred in PM Nocturnal sleep study negative, AM cortisol WNL Occurred again AM of 11/17: 10:30-11:30 AM. Hypersomnolence, VSS stable and O2 sats 95% on room air, sleeping and difficult to arouse Stat CT head read "Motion limited exam. Artifact versus trace subdural hemorrhages. Recommend follow-up head CT in 12 to 24 hours to reevaluate". Repeat image Obtained repeat stat CT head with read "Motion limited exam. Artifact versus trace subdural hemorrhages. Recommend follow-up head CT in 12 to 24 hours to reevaluate, or sooner if clinically indicated." Repeat CT head overnight without acute intracranial abnormality is demonstrated Recurrent hypersomnolence episodes during admission - workup during these times with multiple CT head, VBGs negative and VSS stable. Likely due to progressive Parkinson's and prolonged hospital day. Previous provider discussed with Dr. Tobias - recommends continuing current Parkinson's and seizure regimen as is. (4) Seizure-like activity: Plan: Family at bedside reporting seizure-like activity last evening around 1900 on 11/17, not witnessed by staff Tonic clonic movements lasting approx. [address] head obtained - negative for intracranial abnormality Stat Tegretol level sent - 10.3 in Epic, within normal range (not yet in [employer]) Given increased Zonegran dose last night 200mg HS x 1 11/17 Previous provider discussed with Dr. Tobias - does not feel consistent with seizure-like activity. Suspects related to hospital based delirium - does not recommend any medication changes at this time, continue home regimen EEG obtained 11/17 -This is an abnormal awake and drowsy routine EEG due to generalized background slowing suggestive of a mild non-specific encephalopathy Seizure precautions - no recurrent episodes (5) Sinus bradycardia: Plan: Bradycardia reading overnight in 30s - false reading as lead fell off Tele checked overnight - sinus saloni to NSR with HR 50-60s, similar to previous (6) Hypoxia: Plan: Resolved. Saturating at 95% on room air (7) Bilateral pulmonary embolism: Plan: s/p IV Heparin - INR therapeutic, discontinued IV heparin on 11/17 Not a good DOAC candidate given interaction with carbamazepine 2D echo EF > 70%, rvsf normal, trace TR, no right heart strain Coumadin held on 11/17 and 11/18 due to concerns for possible subdural hemorrhage - repeat head CT negative INR 1.5 - will start Lovenox bridge and resume Coumadin 5mg daily (8) Enterococcus UTI: Plan: Urine culture growing Enterococcus faecalis, sensitive to amoxicillin Augmentin course completed on 11/15 Repeat urine study requested on 11/17 due to darkened color - negative (9) CAP (community acquired pneumonia): Plan: CT chest revealing possible TEE infiltrate with significant atelectasis noted, likely in setting of HH Completed doxycycline, augmentin course 11/15 S/p IV solumedrol 60mg x 1 11/10 CXR shows improvement 11/15 vs 11/13 but still with pleural effusions present No SOB, saturating at 94% on room air Encourage continued incentive spirometry use, antitussives (10) Rheumatoid arthritis: (11) Chronic steroid use: Plan: Has been taking Arava and daily prednisone at home, continue (12) Chronic diastolic (congestive) heart failure: Plan: Pt with stable weights but net + fluid Lasix 20mg IV x 1 given on 11/13 with resulting increase in Cr to 1.5 (from 1.1) Given gentle fluids and Cr improved to 1.28 Monitor volume status closely given patient's complex course (13) Labile hypertension: Plan: Orthostatic hypotension in setting of autonomic dysfunction in relation to PD Follows with Dr. Ortez as outpatient - [employer] dose midodrine 2.5mg TID Dose was reduced during hospitalization to 2.5mg daily given hypertension but increasing to BID as patient returns closer to baseline health Recommended to obtain standing BPs as able for more accurate read but difficult given patient's frailty Plan DVT prophylaxis: coumadin/Lovenox Code: DNR/DNI Dispo: PT/OT recommending inpatient rehab, tentatively planning on [facility] Patient seen in collaboration with Dr. Plaza. Please see addendum. I spent a total of 35 minutes coordinating, documenting, and providing care for this patient excluding time spent in the performance of separately billed services or time spent by another provider/QHP. Admission and Anticipated Discharge Date Admission Date: November 09, 2024 Supervising Physician Co-Signing Physician Notes Pt seen and examined by me , care coordinated w/ LADRIÁN Paredes, pls refer to her note above for further detail. Pt currently in reclining chair, resting, awakes to voice and participates in conversation, then falls asleep on and off. Family present at the bedside. Currently on RA. Has no complaints besides some back ache and RN repositioning the pt to help with comfort. Breath sounds decreased w/ minimal rhonchi. no wheezing. Heart sounds regular. abdomen soft, nontender. Pt breathing comfortably on RA. INR 1.5 today (coumadine previously held), resume coumadin, and provide lovenox bridge. Encouraged spirometer, flutter valve, when pt awake. Cont. to closely monitor. Plan for DC to rehab/ [facility] Subjective Follow up for generalized weakness, Parkinson's, PE. Patient seen and examined. Sitting up in the chair. Sleeping upon my arrival but awakens easily to verbal stimuli. Offers no complaints. Review of Systems Review of Systems: ROS per HPI, all other systems reviewed and negative Physical Exam Constitutional: no acute distress Chronically ill appearing Respiratory: no respiratory distress Auscultation: + diminished lung sounds (BL) Cardiovascular: Rate/Rhythm: regular rate and regular rhythm Vessels: normal peripheral pulses Extremities: no edema Skin: no rashes, warm and dry Neurologic: no focal motor deficits Psychiatric: A+Ox3, euthymic affect Results & Data Results & Data Vital Signs (Past 12 Hours) Vital Signs Temp Pulse Pulse Resp BP BP Pulse Ox 11/19/24 10:41 71 18 109/65 96 11/19/24 07:19 11/19/24 07:15 36.7 C 64 18 132/78 94 11/19/24 07:13 70 11/19/24 03:12 36.4 C L 69 18 160/87 H 95 O2 Del Method 11/19/24 10:41 Room Air 11/19/24 07:19 Room Air 11/19/24 07:15 Room Air 11/19/24 07:13 11/19/24 03:12 Room Air Laboratory Results Short CBC 11/19/24 11/19/24 Range/Units 05:43 07:09 WBC Cancelled 11.03 H Hgb Cancelled 13.5 L Hct Cancelled 42.3 Plt Count Cancelled 236 BMP 11/19/24 05:43 Sodium 135 L Potassium 4.0 Chloride 103 Carbon Dioxide 26 BUN 32 H Creatinine 1.27 Glucose 94 Calcium 8.4 L Medications Administered Current Inpatient Medications Acetaminophen (Acetaminophen 500 Mg Tab) 1,000 mg PO Q8H PRN PRN Reason: Pain Stop: 12/14/24 15:41 Last Admin: 11/19/24 16:50 Dose: 1,000 mg Albuterol (Albut/Ipratrop 3mg/0.5mg Neb 3 Ml Vial) 3 ml NEB Q2H PRN; Protocol PRN Reason: sob wheeze Stop: 12/11/24 04:37 Last Admin: 11/18/24 15:47 Dose: 3 ml Carbamazepine (Carbamazepine 200 Mg Tablet) 200 mg PO DAILY@0630,1200,1700,2200 JACQUES Stop: 12/18/24 06:29 Last Admin: 11/19/24 16:28 Dose: 200 mg Carbidopa/Levodopa (Carbidopa/Levodopa 25/100mg Tab) 3 tab PO QID@0630,0900,1200,1700 JACQUES Stop: 12/09/24 21:44 Last Admin: 11/19/24 16:28 Dose: 3 tab Enoxaparin Sodium (Enoxaparin 80 Mg/0.8 Ml Syr) 70 mg SQ Q12H JACQUES Stop: 12/19/24 11:44 Last Admin: 11/19/24 13:09 Dose: 70 mg Entacapone (Entacapone 200 Mg Tab) 200 mg PO QID@0630,0800,1200,1700 JACQUES Stop: 12/09/24 21:44 Last Admin: 11/19/24 16:30 Dose: 200 mg Finasteride (Finasteride 5 Mg Tab) 5 mg PO QDD JACQUES Stop: 12/10/24 16:29 Last Admin: 11/19/24 16:27 Dose: 5 mg Folic Acid (Folic Acid 1 Mg Tab) 1 mg PO QAM JACQUES Stop: 12/10/24 08:59 Last Admin: 11/19/24 08:44 Dose: 1 mg Guaifenesin (Guaifenesin Sugar Free 100 Mg/5 Ml Udc) 100 mg PO Q6 JACQUES Stop: 12/10/24 18:29 Last Admin: 11/19/24 16:31 Dose: Not Given Lactobacillus Acidophilus (Advanced Probiotic 625 Mg Capsule) 1,250 mg PO DAILY JACQUES Stop: 12/13/24 08:59 Last Admin: 11/19/24 08:45 Dose: 1,250 mg Leflunomide (Leflunomide 10 Mg Tab) 20 mg PO QDB JACQUES Stop: 12/10/24 07:29 Last Admin: 11/19/24 08:43 Dose: 20 mg Levothyroxine Sodium (Levothyroxine Sodium 75 Mcg Tablet) 75 mcg PO DAILYBB JACQUES Stop: 12/10/24 06:29 Last Admin: 11/19/24 05:53 Dose: 75 mcg Lidocaine (Lidocaine 5% 1 Patch) 1 patch TD QAM JACQUES Stop: 12/13/24 09:29 Last Admin: 11/19/24 08:46 Dose: Not Given Lorazepam (Lorazepam 2 Mg/1 Ml Vial) 1 mg IV Q10M PRN PRN Reason: seizures Stop: 12/16/24 19:18 Melatonin (Melatonin 3 Mg Tab) 9 mg PO HS PRN PRN Reason: Sleep Stop: 12/09/24 20:59 Midodrine (Midodrine Hcl 2.5 Mg Tab) 2.5 mg PO BID@0600,1200 [facility] Stop: 12/19/24 05:59 Last Admin: 11/19/24 13:11 Dose: 2.5 mg Miscellaneous (Remove Lidoderm Patch) 1 each N/A DAILY@2100 [facility] Stop: 12/13/24 20:59 Last Admin: 11/18/24 20:07 Dose: 1 each Pantoprazole Sodium (Pantoprazole 40 Mg Tab) 40 mg PO QAM [facility] Stop: 12/12/24 10:29 Last Admin: 11/19/24 08:45 Dose: 40 mg Prednisone (Prednisone 10 Mg Tablet) 10 mg PO QDB [facility] Stop: 12/10/24 07:29 Last Admin: 11/19/24 08:45 Dose: 10 mg Thiamine HCl (Thiamine Hcl 100 Mg Tab) 100 mg PO QAM [facility] Stop: 12/10/24 08:59 Last Admin: 11/19/24 08:45 Dose: 100 mg Trolamine Salicylate (Trolamine Salicylate 10% Crm 255 Appln/85 Gm Tube) 1 appln EXT BID [facility] Stop: 12/13/24 09:29 Last Admin: 11/19/24 08:43 Dose: 1 appln Vitamin D (Cholecalciferol 25 Mcg (1000 Units) Tab) 25 mcg PO DAILYBB [facility] Stop: 12/10/24 06:29 Last Admin: 11/19/24 05:54 Dose: 25 mcg Warfarin Sodium (Warfarin Sod 5 Mg Tab) 5 mg PO DAILY@1600 [facility] Stop: 12/16/24 15:59 Last Admin: 11/19/24 16:27 Dose: 5 mg Zonisamide (Zonisamide 100 Mg Capsule) 100 mg PO HS [facility] Stop: 12/17/24 20:59 Last Admin: 11/18/24 20:08 Dose: 100 mg (1) Parkinson disease Dyskinesia presence: unspecified whether dyskinesia Fluctuating manifestations: unspecified whether manifestations fluctuate Qualified Code(s): G20.A1 - Parkinson's disease without dyskinesia, without mention of fluctuations
[2024-11-19] MEDS: ENOXAPARIN 80 MG/0.8 ML SYR SQ SCH (13:09)
[2024-11-19] MEDS: ENOXAPARIN 1 MG/KG SQ SCH (13:33)
[2024-11-20 06:35] LABS: Hematocrit (blood only) 39.6 % (42.0-52.0); Hemoglobin 13.1 g/dl (14.0-18.0); Mean Corpuscular Hemoglobin 30.8 pg (25.0-34.0); Mean Corpuscular Volume 93.2 fL (80.0-100.0); Platelet Count 240 K/uL (130-400); RDW Standard Deviation 51.8 fL (36.4-46.3); Red Blood Count 4.25 M/uL (4.70-6.10); White Blood Count 10.51 K/ul (4.8-10.8)
[2024-11-20 06:58] LABS: INR 1.2 (0.9-1.1); Prothrombin Time 13.0 Seconds (9.0-12.0)
[2024-11-20 07:03] LABS: Anion Gap 6.0 (3-11); Blood Urea Nitrogen 29.0 mg/dl (6-23); Calcium 8.6 mg/dl (8.6-10.3); Carbon Dioxide 27.0 mmol/L (21-32); Chloride 104.0 mmol/L (98-107); Creatinine Clr Calc Pharmacy 49.7 ml/min; Glucose 87.0 mg/dl (70-99(Fasting)); Magnesium 2.1 mg/dl (1.7-2.4); Potassium 4.0 mmol/L (3.5-5.1); Sodium 137.0 mmol/L (136-145)
[2024-11-20] MEDS ORDERED: SODIUM PHOSPHATE 3 MMOL/1 ML INFUSION IV STA (07:19)
[2024-11-20 07:29] VITALS: TEMP 97.7
[2024-11-20] MEDS: SODIUM PHOSPHATE 6 MMOL in SODIUM CHLORIDE 0.9% 250 ML IV ONE (08:18)
[2024-11-20 11:08] VITALS: RESP 16; O2SAT 94
--- NOTE | 2024-11-20 12:14 | Discharge Summary ---
Date of Service November 20, 2024 Admission HPI Per Admitting Provider Is a 74-year-old male with significant past medical history of Parkinson's disease,hypothyroidism, chronic diastolic heart failure, history of liver hemangioma, nonrheumatic mitral valve regurgitation, history of simple partial seizure rheumatoid arthritis long-term steroid therapy was brought into the emergency room with progressive weakness and tiredness for the last 2 days. He also complained of nonspecific pain in the left shoulder and weakness got worse this morning. He felt feverish but no documented temperature. The has been noting fluctuating blood pressure at home without any chest pain and/or pal pitation, any headache or blurring of vision or any numbness or tingling involving any of the extremities. He denies any abdominal pain, any nausea or vomiting but recently has noted to have desaturation with minimal movement and that happened also in the emergency room He was noted to have possible UTI and will have a CAT scan of the chest to evaluate any further disease in the chest. Will be admitted to medical telemetry unit for continuation of care. Admission Exam Per Admitting Provider Physical Exam: Lying in bed looking tired and lethargic with no apparent distress Constitutional: well developed, well nourished, + ill appearing and average body habitus Eyes: PERRL, conjunctivae normal, anicteric sclerae ENMT: external ear and nose normal, oropharynx normal Neck: trachea midline, no thyromegaly Respiratory: no respiratory distress Auscultation: lungs clear to auscultation bilaterally and + diminished lung sounds (On the left lower lung) Cardiovascular: Rate/Rhythm: regular rate and regular rhythm; not tachycardic Heart Sounds: normal S1 and normal S2; no murmur Extremities: no edema Gastrointestinal (Abdomen): Inspection/Auscultation: normal bowel sounds; abdomen not distended Percussion/Palpation: abdomen soft; abdomen nontender Musculoskeletal: Has arthritic changes involving the extremities but no acute arthritis Neurologic: normal touch/pain/proprioception and moves all extremities; no focal motor deficits Generally weak and lethargic Lymphatic: no cervical or axillary lymphadenopathy Principal Diagnosis Mixed generalized weakness in the setting of advanced Parkinson's disease, UTI, Bilateral pulmonary embolism Discharge Exam Constitutional no acute distress chronically ill appearing Respiratory normal respiratory effort; no respiratory distress Auscultation: + diminished lung sounds Cardiovascular Rate/Rhythm: regular rate and regular rhythm Vessels: normal peripheral pulses Extremities: no edema Gastrointestinal (Abdomen) Percussion/Palpation: abdomen soft; abdomen nontender Musculoskeletal Spine: + kyphosis Skin no rashes, warm and dry Psychiatric Orientation: alert and oriented x 3 Affect: + flat affect Discharge Data Allergies Allergy/AdvReac Type Severity Reaction Status Date / Time No Known Allergies Allergy Verified 11/09/24 17:21 Consultations 11/10/24 08:01 Consult Neurology Routine 11/12/24 08:01 Consult Pulmonology Routine 11/13/24 16:21 Consult Neurology Routine Ordered Studies Laboratory Results WBC 10.51 K/ul (4.8-10.8) 11/20/24 06:05 RBC 4.25 M/uL (4.70-6.10) L 11/20/24 06:05 Hgb 13.1 g/dl (14.0-18.0) L 11/20/24 06:05 Hct 39.6 % (42.0-52.0) L 11/20/24 06:05 MCV 93.2 fL (80.0-100.0) 11/20/24 06:05 MCH 30.8 pg (25.0-34.0) 11/20/24 06:05 MCHC 33.1 g/dL (32.0-36.0) 11/20/24 06:05 RDW Std Deviation 51.8 fL (36.4-46.3) H 11/20/24 06:05 RDW Coeff of Armen 15.5 % (11.5-14.5) H 11/20/24 06:05 Plt Count 240 K/uL (130-400) 11/20/24 06:05 MPV 9.3 fL (9.4-12.4) L 11/20/24 06:05 Immature Gran % (Auto) 2.4 % 11/19/24 07:09 Neut % (Auto) 74.3 % 11/19/24 07:09 Lymph % (Auto) 10.3 % 11/19/24 07:09 Mineral % (Auto) 12.1 % 11/19/24 07:09 Eos % (Auto) 0.4 % 11/19/24 07:09 Baso % (Auto) 0.5 % 11/19/24 07:09 Neut # (Auto) 8.20 K/uL (1.40-6.50) H 11/19/24 07:09 Lymph # (Auto) 1.14 K/uL (1.20-3.40) L 11/19/24 07:09 Mineral # (Auto) 1.33 K/uL (0.11-0.59) H 11/19/24 07:09 Eos # (Auto) 0.04 K/uL (0.00-0.50) 11/19/24 07:09 Baso # (Auto) 0.05 K/uL (0.00-0.20) 11/19/24 07:09 Immature Gran # (Auto) 0.27 K/uL (0.01-0.20) H 11/19/24 07:09 Absolute Nucleated RBC Cancelled 11/19/24 05:43 Nucleated RBC % (auto) Cancelled 11/19/24 05:43 Platelet Estimate Cancelled 11/19/24 05:43 Polychromasia 1+ 11/15/24 06:21 PT 13.0 Seconds (9.0-12.0) H 11/20/24 06:05 INR 1.2 (0.9-1.1) H 11/20/24 06:05 APTT 30 Seconds (21-31) 11/10/24 19:50 PTT Ratio 1.1 11/10/24 19:50 Heparin Anti-Xa, Unfract < 0.10 IU/ml (0.3-0.7) L 11/17/24 03:28 ABG pH 7.45 (7.35-7.45) 11/13/24 16:10 ABG pCO2 37 mmHg (35-46) 11/13/24 16:10 ABG pO2 74 mmHg (80-95) L 11/13/24 16:10 ABG HCO3 26 mmol/L (19-24) H 11/13/24 16:10 ABG O2 Saturation 97.3 % (90-95) H 11/13/24 16:10 ABG Base Excess 1.8 mEq/L (-9-1.8) 11/13/24 16:10 Ronnie Test Pos (Pos) 11/13/24 16:10 VBG pH 7.42 (7.36-7.41) H 11/17/24 16:21 VBG pCO2 37 mmHg (38-50) L 11/17/24 16:21 VBG pO2 61 mmHg 11/17/24 16:21 VBG HCO3 24 mmol/L 11/17/24 16:21 VBG O2 Saturation 89.8 % 11/17/24 16:21 VBG Base Excess -0.2 mEq/L 11/17/24 16:21 Oxygen Given 2L 11/13/24 16:10 Sodium 137 mmol/L (136-145) 11/20/24 06:05 Potassium 4.0 mmol/L (3.5-5.1) 11/20/24 06:05 Chloride 104 mmol/L (98-107) 11/20/24 06:05 Carbon Dioxide 27 mmol/L (21-32) 11/20/24 06:05 Anion Gap 6 (3-11) 11/20/24 06:05 BUN 29 mg/dl (6-23) H 11/20/24 06:05 Creatinine 1.16 mg/dl (0.6-1.4) 11/20/24 06:05 Est Cr Clr Drug Dosing 49.7 ml/min 11/20/24 06:05 eGFR 65.68 11/20/24 06:05 BUN/Creatinine Ratio 25.0 (10-20) H 11/20/24 06:05 Glucose 87 mg/dl (70-99(Fasting)) 11/20/24 06:05 POC Glucose 112 mg/dl (70-99) H 11/16/24 19:20 Calcium 8.6 mg/dl (8.6-10.3) 11/20/24 06:05 Ionized Calcium 1.11 mmol/L (1.12-1.32) L 11/13/24 07:15 Phosphorus 2.2 mg/dl (2.5-4.9) L 11/20/24 06:05 Magnesium 2.1 mg/dl (1.7-2.4) 11/20/24 06:05 Total Bilirubin 0.5 mg/dl (0.2-1.0) 11/14/24 08:12 AST 25 U/L (13-39) 11/14/24 08:12 ALT 4 U/L (7-52) L 11/14/24 08:12 Alkaline Phosphatase 111 U/L (34-104) H 11/14/24 08:12 Ammonia 41.0 umol/L (18-72) 11/13/24 16:08 Troponin I High Sens 9.9 pg/ml (0-20) 11/09/24 16:02 B-Natriuretic Peptide 138 pg/ml (0-100) H 11/11/24 09:58 Total Protein 6.4 gm/dl (6.0-8.3) 11/14/24 08:12 Albumin 3.2 gm/dl (3.4-5.0) L 11/18/24 06:27 Globulin 3.2 gm/dl (2.5-4.0) 11/14/24 08:12 Albumin/Globulin Ratio 1.0 (0.9-2) 11/14/24 08:12 Lipase 45 U/L (11-82) 11/09/24 16:02 Vitamin B12 182 pg/ml (180-914) 11/10/24 05:44 Procalcitonin 0.08 ng/ml (0-0.5) 11/19/24 07:10 TSH 1.397 uIu/ml (0.300-4.500) 11/09/24 16:02 Cortisol AM Sample 17.11 mcg/dl (6.2-22.6) 11/18/24 06:27 Urine Color Dark Yellow 11/17/24 Unknown Urine Appearance Clear (Clear) 11/17/24 Unknown Urine pH 6.0 (4.5-7.5) 11/17/24 Unknown Ur Specific [place] 1.020 (1.000-1.030) 11/17/24 Unknown Urine Protein Trace (Negative) H 11/17/24 Unknown Urine Glucose (UA) Negative (Negative) 11/17/24 Unknown Urine Ketones Trace (Negative) H 11/17/24 Unknown Urine Blood Negative (Negative) 11/17/24 Unknown Urine Nitrite Negative (Negative) 11/17/24 Unknown Urine Bilirubin Negative (Negative) 11/17/24 Unknown Urine Urobilinogen Negative (Negative) 11/17/24 Unknown Ur Leukocyte Esterase Negative (Negative) 11/17/24 Unknown Urine WBC (Auto) 0-5 /hpf (0-5) 11/17/24 Unknown Urine RBC (Auto) 0-2 /hpf (0-2) 11/17/24 Unknown U Hyaline Cast (Auto) 0-2 /lpf (0-2) 11/17/24 Unknown U Epithel Cells (Auto) 0-2 /hpf (0-2) 11/17/24 Unknown Urine Bacteria (Auto) None Seen (None Seen) 11/17/24 Unknown Urine Comment 11/17/24 Unknown Carbamazepine 12.8 mg/L (4.0-12.0) H 11/09/24 16:02 Adenovirus (PCR) Not Detected (NotDetected) 11/09/24 17:12 B. pertussis DNA (PCR) Not Detected (NotDetected) 11/09/24 17:12 B.parapertussis DNA PCR Not Detected (NotDetected) 11/09/24 17:12 Lyme Disease Screen Negative (Negative) 11/09/24 16:02 C. pneumoniae DNA (PCR) Not Detected (NotDetected) 11/09/24 17:12 Coronavirus OC43 (PCR) Not Detected (NotDetected) 11/09/24 17:12 Coronavirus HKU1 (PCR) Not Detected (NotDetected) 11/09/24 17:12 Coronavirus 229E (PCR) Not Detected (NotDetected) 11/09/24 17:12 SARS-CoV-2 (PCR) Not Detected (NotDetected) 11/09/24 17:12 Coronavirus NL63 (PCR) Not Detected (NotDetected) 11/09/24 17:12 Human Metapneumovir PCR Not Detected (NotDetected) 11/09/24 17:12 Influenza Type A (PCR) Not Detected (NotDetected) 11/09/24 17:12 Influenza Type B (PCR) Not Detected (NotDetected) 11/09/24 17:12 M. pneumoniae (PCR) Not Detected (NotDetected) 11/09/24 17:12 Parainfluenza 1 (PCR) Not Detected (NotDetected) 11/09/24 17:12 Parainfluenza 2 (PCR) Not Detected (NotDetected) 11/09/24 17:12 Parainfluenza 3 (PCR) Not Detected (NotDetected) 11/09/24 17:12 Parainfluenza 4 (PCR) Not Detected (NotDetected) 11/09/24 17:12 RSV (PCR) Not Detected (NotDetected) 11/09/24 17:12 Entero/Rhino (PCR) Not Detected (NotDetected) 11/09/24 17:12 Ref Lab Test Result See Scanned Report 11/16/24 19:[address] 11/09/24 18:48 CT chest with contrast. History: Decreased oxygenation. Comparison: October 10, 2023. Technique: Helical CT imaging of the chest performed with IV contrast Dose reduction techniques were achieved by using automatic exposure control and/or adjustment of mA and/or kV according to patient size and/or use of iterative reconstruction technique. Findings: Hospice Case Manager film demonstrates opacified left pulmonary base with obscuration left hemidiaphragm and heart border. Lung windows demonstrate prominent pulmonary vasculature. Groundglass attenuation and densities consistent with left upper lobe subsegmental and left lower lobe multisegmental atelectasis. This has progressed when compared to prior study. Soft tissue windows demonstrate calcified atherosclerotic changes coronary vasculature. Mild cardiomegaly. Small pericardial effusion. Trace right and moderate size left pleural effusion. Left pleural effusion is new when compared to prior study. Hiatal hernia containing the gastric viscus with mass effect on the dorsal heart is noted. Findings similar to prior study. Partially included peripheral nodular enhancing hypodensity left liver lobe. This is incompletely evaluated on this exam. Favor hemangioma. Bone windows demonstrate no acute osseous process. Impression: 1. Hiatal hernia containing gastric viscus similar to prior study with interval increasing multisegmental left lower lobe atelectasis and new left upper lobe subsegmental atelectasiswith elements of interstitial and airspace disease and moderate pleural effusion. Pneumonia must be considered. 2. Incompletely evaluated left liver lobe lesion favored to represent a hemangioma. Please see above for details. Electronically signed by Alfonso Haas 11-09-2024 8:27 PM Venous Doppler Study 11/11/24 08:00 BILATERAL LOWER EXTREMITY VENOUS DOPPLER HISTORY: pe COMPARISON STUDY: 10/10/2023 FINDINGS: No evidence of DVT seen at the right lower extremity. At the left leg there is thrombus in the distal femoral vein, popliteal vein, posterior tibial vein, and peroneal vein. IMPRESSION: DVT at the left lower extremity as described. ACT 112: Negative or not required by law. Electronically signed by: Larry Burnham M.D. 11/11/2024 8:52 AM Chest CTA 11/11/24 15:39 EXAMINATION: [place] CT angio chest PE CLINICAL HISTORY: Known pulmonary embolism PRIORS: 11/09/2024 CT TECHNIQUE: Contiguous axial images were obtained through the chest with the use of intravenous contrast. Sagittal and coronal reformations are supplied. FINDINGS: Motion artifact noted. The pulmonary arteries are well evaluated. Again noted is mild to moderate pulmonary embolism within the right lower lobe segmental and subsegmental pulmonary arteries, unchanged. No additional pulmonary embolism identified. Allowing for arms within the [id number] and beam hardening artifact, enlargement of the heart is noted. No flattening of the interventricular septum or features of heart strain. Atherosclerotic disease of the coronary arteries present. Elevation of the left hemidiaphragm with large hiatal hernia present and intrathoracic stomach. This creates localized left lower lobe hypoventilatory changes and atelectasis/airspace consolidation in the left upper and lower lobes, unchanged. Mild airspace consolidation in the right lower lobe, appearing in the interval. A moderate left pleural effusion is present, unchanged. No adenopathy is identified. Trachea and mainstem bronchi are patent. Limited visualization of the upper abdomen shows no acute abnormality. No acute osseous abnormality. IMPRESSION: 1. Right segmental and subsegmental lower lobe pulmonary embolism, with small clot burden and no CT evidence of heart strain. This is unchanged when compared to examination from 11/09/2024. 2. Large intrathoracic hiatal hernia with elevation of the left hemidiaphragm and compressive atelectasis in the left lung. 3. Moderate left pleural effusion, unchanged. Electronically signed by Magaly Meade 11-11-2024 4:40 PM Videofluoroscopic Swallow 11/13/24 10:30 FL video swallow CLINICAL HISTORY: r/o aspiration. TECHNIQUE: Video fluoroscopic evaluation of swallowing was performed in the AP and lateral projections by the speech pathology staff. The patient is fed nectar-thick and thin liquid barium, a barium coated wafer, and barium pudding. FLUOROSCOPY TIME: 29 seconds. COMPARISON: None FINDINGS: No aspiration demonstrated with any barium consistency. IMPRESSION: No aspiration seen. ACT 112: Negative or not required by law. Electronically signed by: Larry Burnham M.D. 11/13/2024 1:47 PM Cervical Spine X-Ray 11/13/24 14:10 XR cervical spine 2 or 3V CLINICAL HISTORY: pain COMPARISON STUDY: None FINDINGS: Exam is limited due to patient inability to cooperate with the exam. Shoulders obscure the lower cervical spine on the lateral view. C7 is completely obscured and C6 is partially obscured. There is degenerative disc disease most severe at C5-6. There is grade 1 anterolisthesis of C3 on 4 and C4 on 5. No fracture seen at the visualized cervical spine. IMPRESSION: 1. Limited exam. 2. No fracture seen at the cervical spine. 3. Degenerative changes and alignment abnormality. ACT 112: Negative or not required by law. Electronically signed by: Larry Burnham M.D. 11/13/2024 3:[address] 11/13/24 15:42 CT CERVICAL SPINE WITHOUT CONTRAST: HISTORY: Trauma TECHNIQUE: Noncontrast CT examination of the cervical spine is performed. Coronal and sagittal reformats were created. COMPARISON: Thoracic CT November 11, 2024 FINDINGS: CERVICAL SPINE: There is no significant vertebral body height loss. No acute traumatic fracture identified. Mild anterior offsets of C3 on C4 and C4 on C5. Mild posterior offsets of C5 on C6 and C6 on C7 Multilevel degenerative changes characterized by disc osteophyte complex, bilateral facet and uncovertebral hypertrophy resulting and neural foraminal narrowing at multiple levels, worst at Visualized soft tissues of neck are unremarkable. Redemonstrated loculated large left pleural fluid, better delineated in the recent thoracic CT dated November 11, 2024 IMPRESSION: No acute traumatic fracture of the cervical spine. Multilevel degenerative changes as above. Redemonstrated loculated large left pleural fluid, better delineated in the recent thoracic CT dated November 11, 2024 Electronically signed by Benedicto Medina 11-13-2024 4:25 PM Chest X-Ray 11/15/24 07:35 XR chest 1V portable HISTORY: 74 years-old Male volume overload acute shortness of breath COMPARISON: 11/13/2024 TECHNIQUE: AP view of the chest FINDINGS: Study is limited secondary to positioning of the patient's head and neck. Large hiatal hernia redemonstrated. Cardiomegaly. Left greater than right pleural effusions with left lung volume loss and left greater than right bibasilar consolidation redemonstrated. Pulmonary vascular congestion with interstitial coarsening has slightly progressed. IMPRESSION: 1. Cardiomegaly with suggestion of mild interstitial pulmonary edema. 2. Left greater than right pleural effusions with left basilar predominant consolidation again noted. 3. Large hiatal hernia. ACT 112: Negative or not required by law. The above report was generated using voice recognition software. It may contain grammatical, syntax or spelling errors. Electronically signed by: Juancho Alcantara M.D. 11/15/2024 8:[address] 11/17/24 21:00 EXAM: CT head/brain wo con CLINICAL HISTORY: None TECHNIQUE: Multiple axial images are obtained from the skull base to the vertex without contrast. CT scan was performed according to ALARA (as low as reasonable achievable). COMPARISON: 19:15:54 BACK TENDER. FINDINGS: There is cerebral atrophy. No evidence of space occupying lesion, hemorrhage, edema, mass effect, midline shift, extra axial collection, or hydrocephalus is noted. Basal cisterns are symmetric and normal in size and configuration. There are scattered periventricular hypodensities as can be seen with chronic microvascular ischemic changes. The lowe-white matter differentiation is preserved. Visualized paranasal sinuses and mastoid air cells are well aerated. Orbital contents are within normal limits. Bony structures are intact. IMPRESSION: 1. No evidence of acute intracranial abnormality is demonstrated. 2. Chronic microvascular ischemic changes.-stable. 3. Cerebral atrophy.-stable. MRI brain for better evaluation if clinically indicated. Electronically signed by Enrrique Escobedo 11-18-2024 05:36 AM Hospital Course (1) Parkinson disease: (2) Generalized weakness: 74-year-old male with significant past medical history of Parkinson's disease,hypothyroidism, chronic diastolic heart failure, history of liver hemangioma, nonrheumatic mitral valve regurgitation, history of simple partial seizure rheumatoid arthritis long-term steroid therapy who presented to ED with generalized weakness. In setting of Parkinson's disease with likely progression - on Sinemet and entacapone c/b significant bradykinesia/rigidity, orthostatic hypotension, per Dr. Mustafa "has such advanced Parkinsons disease we really are not going to change his treatments" Bilateral PE, UTI and PNA initially contributing to weakness as well Consulted neurology -consistent with advancing Parkinson's, recommending continue Sinemet regimen and trial of amantadine 100mg BID Based on discussion with family and acute illness, will hold off on amantadine trial for now as they wish to discuss this with his primary neurologist Speech evaluation and Video swallow with mild oropharyngeal dysphagia that does not impact the safety of patient's swallowing function Continue aspiration precautions, repositioning Pt does have more increased excessive daytime sleepiness; suspecting this to be more of a nonmotor symptom of his PD Would benefit from sleep hygiene, increased PT when able and environmental modifications (more challenging in PCU setting) for sleep/wake cycles PT/OT evals - recommending inpatient rehab, plan to d/c to [facility] Extensive advanced care planning discussion by previous provider on 11/11. Patient made DNR/DNI at that time, continue full treatment of acute on chronic conditions. (3) Unresponsiveness: Pt with intermittent episodes of unresponsiveness. Early on in hospital stay was accompanied with hyperventilation and hypoxia, but of recent has not been accompanied with either but more of a profound state of unarousability raising the question of possible seizure likely activity and post ictal state vs hospital based delirium in setting of progressed PD Previous episode 11/13 while sitting in wheel chair upright with kyphotic posturing and head tucked into chest, have typically occurred in PM Nocturnal sleep study negative, AM cortisol WNL Occurred again AM of 11/17: 10:30-11:30 AM. Hypersomnolence, VSS stable and O2 sats 95% on room air, sleeping and difficult to arouse Stat CT head read "Motion limited exam. Artifact versus trace subdural hemorrhages. Recommend follow-up head CT in 12 to 24 hours to reevaluate". Repeat image Obtained repeat stat CT head with read "Motion limited exam. Artifact versus trace subdural hemorrhages. Recommend follow-up head CT in 12 to 24 hours to reevaluate, or sooner if clinically indicated." Repeat CT head overnight without acute intracranial abnormality is demonstrated Recurrent hypersomnolence episodes during admission - workup during these times with multiple CT head, VBGs negative and VSS stable. Likely due to progressive Parkinson's and prolonged hospital day. Previous provider discussed with Dr. Tobias - recommends continuing current Parkinson's and seizure regimen as is. (4) Seizure-like activity: Family at bedside reporting seizure-like activity last evening around 1900 on 11/17, not witnessed by staff Tonic clonic movements lasting approx. [address] head obtained - negative for intracranial abnormality Stat Tegretol level sent - 10.3 in Epic, within normal range (not yet in [employer]) Given increased Zonegran dose last night 200mg HS x 1 11/17 Previous provider discussed with Dr. Tobias - does not feel consistent with seizure-like activity. Suspects related to hospital based delirium - does not recommend any medication changes at this time, continue home regimen EEG obtained 11/17 -This is an abnormal awake and drowsy routine EEG due to generalized background slowing suggestive of a mild non-specific encephalopathy Seizure precautions - no recurrent episodes (5) Bilateral pulmonary embolism: s/p IV Heparin - discontinued IV heparin on 11/17 Not a good DOAC candidate given interaction with carbamazepine 2D echo EF > 70%, rvsf normal, trace TR, no right heart strain Coumadin held on 11/17 and 11/18 due to concerns for possible subdural hemorrhage - repeat head CT negative 11/19: INR 1.5 - will start Lovenox bridge and resume Coumadin 5mg daily 11/20: INR 1.2 - continue Lovenox bridge/Coumadin at discharge (6) Labile hypertension: Orthostatic hypotension in setting of autonomic dysfunction in relation to PD Follows with Dr. Ortez as outpatient - TRIAGE CLINICIAN dose midodrine 2.5mg TID Dose was reduced during hospitalization to 2.5mg daily given hypertension but ultimately increased back to home dosing TID Recommended to obtain standing BPs as able for more accurate read but difficult given patient's frailty (7) Chronic diastolic (congestive) heart failure: Pt with stable weights but net + fluid Lasix 20mg IV x 1 given on 11/13 with resulting increase in Cr to 1.5 (from 1.1) Given gentle fluids and Cr improved to 1.28 Monitor volume status closely given patient's complex course (8) Sinus bradycardia: Bradycardia reading overnight in 30s - false reading as lead fell off Tele checked overnight - sinus saloni to NSR with HR 50-60s, similar to previous (9) Hypoxia: Resolved. Saturating at 95% on room air (10) Enterococcus UTI: Urine culture growing Enterococcus faecalis, sensitive to amoxicillin Augmentin course completed on 11/15 Repeat urine study requested on 11/17 due to darkened color - negative (11) CAP (community acquired pneumonia): CT chest revealing possible TEE infiltrate with significant atelectasis noted, likely in setting of HH Completed doxycycline, augmentin course 11/15 S/p IV solumedrol 60mg x 1 11/10 CXR shows improvement 11/15 vs 11/13 but still with pleural effusions present No SOB, saturating at 94% on room air Encourage continued incentive spirometry use, antitussives (12) Rheumatoid arthritis: (13) Chronic steroid use: Has been taking Arava and daily prednisone at home, continue (14) Hypogonadism male: Patient on IM testosterone every 2 weeks - received dose on 11/20/24 Total Time Total Time Spent Total Time Spent (In Minutes): 60 Discharge Plan Discharge Items Patient Disposition: Transfer Inpatient Rehab Fac Reason For Visit: Generalized Weakness Discharge Diagnosis: Ambulatory Dysfunction in the setting of advanced Parkinsons disease, UTI, pneumonia Bilateral Pulmonary Embolism Condition on Discharge: Fair Activity: As commented below Activity Comment: As per PT Non-emergency contact: Primary Care Provider Call non-emergency contact if: you have any medication questions, your symptoms worsen, your pain is not controlled and your pain is worsening Follow-up/Referrals: Emerald Dutton MD [Primary Care Provider] - Diet: Low Sodium (2gm) Diet Texture: Easy to Chew Addtl Attending Provider Instructions: Patient presented for evaluation of generalized weakness. Found to have UTI and pneumonia - completed treatment courses for both during admission. Had episodes of waxing and waning mental status throughout admission and was evaluated by neurology - please see discharge summary for full details Patient found to have bilateral pulmonary embolism. Was treated with IV Heparin and started on Coumadin which had to be held due to concerns for possible subdural hemorrhage. INR then became subtherapeutic and patient was started on Lovenox bridge which will be continued at discharge as INR is 1.2. Pending Studies at Discharge: No Stand-Alone Forms: [facility] Skilled Items Patient informed of condition?: Yes DNR: Yes Discharge Level of Care: Acute rehab Communicable Disease: No Discharge Prognosis: Stable Lines: None Urinary Catheter: No Medications and DC Order Prescriptions: New thiamine HCl (vitamin B1) 100 mg Tablet 100 mg PO QAM Qty: 1 0RF pantoprazole 40 mg Tablet,Delayed Release (Dr/Ec) 40 mg PO QAM Qty: 1 0RF lidocaine 5 % Adhesive Patch,Medicated 1 patch transdermal QAM Qty: 1 0RF warfarin 5 mg Tablet 5 mg PO DAILY@1600 Qty: 1 0RF folic acid 1 mg Tablet 1 mg PO QAM Qty: 1 0RF enoxaparin [Lovenox] 80 mg/0.8 mL Syringe 70 mg subcut Q12H Qty: 8 0RF Continued finasteride [Proscar] 5 mg tablet 5 mg PO QDD Rx Instructions: take 1/2 hour before supper leflunomide [Arava] 20 mg tablet 20 mg PO QDB carbidopa-levodopa 25-100 mg tablet 3 tab PO QID Rx Instructions: TAKES AT 0630, 0900, 1200, 1700 testosterone cypionate 200 mg/mL oil 100 mg IM DIRECTED PRN (Reason: NEEDED) cholecalciferol (vitamin D3) 25 mcg (1,000 unit) tablet 25 mcg PO DAILYBB midodrine 2.5 mg tablet 2.5 mg PO TID Rx Instructions: 0630, 1200, 1700 levothyroxine [Synthroid] 75 mcg tablet 75 mcg PO DAILYBB zonisamide [Zonegran] 100 mg capsule 100 mg PO HS carbamazepine [Tegretol] 200 mg tablet 200 mg PO QID Rx Instructions: 0630, 1200, 1700, 2200 melatonin 5 mg tablet 10 mg PO HS PRN (Reason: Sleep) ferrous sulfate [FeroSul] 325 mg (65 mg iron) tablet 325 mg PO 5XWK Rx Instructions: SUNDAY THROUGH SUNDAY WITH ORANGE JUICE AT BREAKFAST entacapone 200 mg tablet 200 mg PO QID Rx Instructions: 0630, 0800, 1200, 1700 acetaminophen [Tylenol] 325 mg Tablet 500 mg PO QID PRN (Reason: Breakthrough Pain, Mild) calcium carbonate [Calcium 600] 600 mg calcium (1,500 mg) Tablet 600 mg PO QDB prednisone 10 mg tablet 10 mg PO QDB Discontinued tamsulosin 0.4 mg capsule 0.4 mg PO QDD Hold Instructions: Until further recommendations from urology Rx Instructions: ON HOLDtake 1/2 hour before supper cholecalciferol (vitamin D3) [Vitamin D3] 25 mcg (1,000 unit) Capsule 25 mcg PO QDB Discharge Orders: Discharge Order (Routine); Ordered 11/20/24 Ordered By: Leatha Andres Admission Data Admit Date/Time: 11/09/24 19:15 Attending Provider: Ja Plaza Admit Provider: Solomon Pablo Primary Care Provider: Emerald Dutton Other Providers: Solomon Pablo; Rachid Tobias; [facility]; Shad Mello Other Interventions: Discharge Summary Assessment (RN) Last Done: 11/20/24 13:28 Supervising Physician Co-Signing Physician Notes Pt seen and examined by me , care coordinated w/ L. ADRIÁN Andres, pls refer to her note above for further detail. Pt currently in reclining chair, resting. Currently breathing comfortably on RA. Breath sounds decreased w/ minimal rhonchi. no wheezing. Heart sounds regular. abdomen soft, nontender. INR 1.2 today (warfarin previously held), resumed warfarin, and started lovenox bridge. Encouraged spirometer, flutter valve, when pt awake. Cont. to closely monitor. Plan for DC to rehab/ [facility] Bola
[2024-11-20] MEDS: MIDODRINE HCL 2.5 MG TAB PO SCH (12:21)
[2024-11-20] MEDS: TESTOSTERONE CYPIONATE IM 200 MG/ML VIAL IM ONE (12:24)
[2024-11-20 13:29] VITALS: BP 127/76; PULSE 88
== END 2024-11-20 15:46 | DRG 56 ==
LOC: ED 15:32 → 2N 19:15 → SUATTDRO 19:15 → 2N 21:24 → 2E 11-11 19:35
DX: E86.0 Dehydration; B95.2 Enterococcus as the cause of diseases classified elsewhere; K44.9 Diaphragmatic hernia without obstruction or gangrene; N39.0 Urinary tract infection, site not specified; Z79.890 Hormone replacement therapy; I34.0 Nonrheumatic mitral (valve) insufficiency; Z79.52 Long term (current) use of systemic steroids; G40.89 Other seizures; E27.40 Unspecified adrenocortical insufficiency; G20.A1 Parkinson's disease without dyskinesia, without mention of fluctuations; N40.0 Benign prostatic hyperplasia without lower urinary tract symptoms; R62.7 Adult failure to thrive; E29.1 Testicular hypofunction; I87.2 Venous insufficiency (chronic) (peripheral); I16.0 Hypertensive urgency; I26.99 Other pulmonary embolism without acute cor pulmonale; I95.1 Orthostatic hypotension; J90 Pleural effusion, not elsewhere classified; R25.8 Other abnormal involuntary movements; I50.32 Chronic diastolic (congestive) heart failure; R00.1 Bradycardia, unspecified; R09.02 Hypoxemia; M06.9 Rheumatoid arthritis, unspecified; E03.9 Hypothyroidism, unspecified

== ENCOUNTER 2025-03-24 16:59 | Observation (INO) ==
--- NOTE | 2025-03-24 17:38 | Emergency Department Note ---
Impression & Plan Tongue laceration, Laceration of head, Fall, Anticoagulant long-term use ED Provider Note NAME: CARI HOWELL AGE: 74 SEX: M : 1950 ARRIVES VIA: Walk-In INFORMANT: Patient ED PROVIDER(S): Mike Quinn DO CHIEF COMPLAINT: Fall HPI: Patient is a 74-year-old male with a past medical history of PE on Coumadin who presents to the ER following a mechanical fall with his walker as he was turning he lost his balance and fell. He hit his head. He did bite his tongue. Denies any loss consciousness. Admits to a headache. No neck pain. No chest pain back pain or any other extremity pain. No tingling or numbness. He notes he does have some bleeding of his mouth. ADDITIONAL HISTORY OBTAINED: Per HPI Chronic Medical/Social Conditions Affecting Care: Per HPI PAST MEDICAL HISTORY:See Below PAST SURGICAL HISTORY:See Below FAMILY HISTORY:See Below SOCIAL HISTORY:See Below HOME MEDICATIONS:See Below ALLERGIES:See Below VITALS:See Below PHYSICAL EXAMINATION: GENERAL: alert, chronically ill-appearing, sitting up in bed bent over HEAD: normal cephalic, 3 cm laceration to the frontal scalp EYE EXAM: normal conjunctiva, PERRL and EOM's grossly intact OROPHARYNX: Laceration on the right side of the tongue with a small amount of oozing. Laceration in the middle of the tongue which is slightly macerated. Small amount of venous oozing. Buccal mucosa appears intact. NECK: supple, no nuchal rigidity, no adenopathy, non-tender CHEST: stable to compression anteriorly and posteriorly LUNGS: clear to auscultation. Normal chest wall mechanics HEART: no murmurs, S1 normal and S2 normal ABDOMEN: abdomen soft, non-tender, normo-active bowel sounds, no masses, no rebound or guarding. PELVIS: stable to compression anteriorly and posteriorly BACK: Back is symmetrical on inspection and there is no deformity, no midline tenderness, no CVA tenderness. UPPER EXTREMITIES: full active and passive range of motion of all joints without tenderness to palpation LOWER EXTREMITIES: full active and passive range of motion of all joints without tenderness to palpation NEURO EXAM: Normal sensorium, cranial nerves II-XII grossly intact, normal speech, no gross weakness of arms, no gross weakness of legs. GCS: 15. MEDICAL DECISION MAKING: Patient is a 74-year-old male who presents ER following mechanical fall. Laceration on the scalp was repaired by myself with 2 cristobal and measured 2.5 cm in length. 2 lacerations on the tongue attempted to stop the bleeding with pressure and TXA topically. This did improve significantly but still had increased swelling of the tongue and small venous oozing. notes he has no mechanical valve and was placed on Coumadin for PEs from October/November. Will reverse with IV vitamin K. With the patient's current state of health I do favor are it is prudent to watch him overnight to make sure this bleeding continues to ranjit. He has continued to improve after the vitamin K. Discussed case with the hospitalist for further evaluation management treatment and observation overnight. Consults/Care Managements Discussions: Per MDM Triage Nursing notes reviewed. Limited review of prior medical records performed Vital Signs: reviewed and remarkable for HTN Differential diagnosis: Differential diagnoses include major intracranial, cervical, spinal, thoracic, abdominal, pelvic and neurologic injury. Fracture, contusion, sprain, strain, laceration, abrasions included as well. ER treatment provided: See below Diagnostics interpreted by me include EKG and cardiac monitoring as listed below: -Cardiac Monitoring: An order was placed for continuous cardiac monitoring. The monitor shows a rate of 70 with sinus rhythm. -ECG: none -Laboratory studies:Interpreted by me as stated above in MDM and shown below. Imaging studies: Xrays: As interpreted by me:none CTs show: CT of the head per my pleurae interpretation showed no obvious large bleed CT of the head face cervical spine was negative per radiology Procedures:Laceration repair of scalp: Wound measured 2.5 cm cm. Anesthetized with let gel. The wound was inspected for foreign bodies, tendon, artery and bone or joint involvement and none was found. The wound was irrigated with saline and closed with 2 cristobal and a clean dressing was applied. The patient tolerated the procedure well. Procedure #2: TXA was applied to a 4 x 4 and pressure was applied to both wounds on the tongue for 5 minutes. Bleeding improved significantly and initially stopped on 2 separate occasions. It did recur and started to slightly ooze. IV vitamin K was given. Critical Care: None Past Med/Surg History Problem List (Updated 03/24/25 @ 20:36 by Mike Quinn DO) Anticoagulant long-term use (Acute) Fall (Acute) Laceration of head (Acute) Tongue laceration (Acute) History of pulmonary embolism Hypogonadism male Paraesophageal hernia Labile hypertension Parkinson disease (Acute) Chronic steroid use ACTH deficiency (Acute) Postural hypotension BPH loc w urin obs/LUTS Chronic diastolic (congestive) heart failure Parkinson's disease dementia Rheumatoid arthritis Medical History (Updated 03/24/25 @ 20:36 by Mike Quinn DO) Hypothyroidism Epilepsy last seizure-several years ago unable to recall date Inguinal hernia, right Paraesophageal hernia Chronic diastolic (congestive) heart failure Postural hypotension states can also happen while sitting History of DVT (deep vein thrombosis) (10/2024) bilateral lower extremity meterman (current) use of anticoagulants Rheumatoid arthritis History of pulmonary embolism taking warfarin ACTH deficiency BPH loc w urin obs/LUTS Parkinson's disease dementia Parkinson disease Pleural effusion History of venous stasis ulcer of lower extremity Hypothermia history of-hospitalization [facility] Chronic venous insufficiency Nonrheumatic mitral valve regurgitation Spinal stenosis Surgical History (Updated 03/19/25 @ 11:16 by Tiffany Matute) Hx of right cataract extraction (03/17/25) S/P correction of deviated nasal septum History of hernia repair History of left knee replacement Hx of laminectomy Family History Other Leukemia Lung cancer Social History Smoking Status: Never smoker Second Hand Exposure: No; Do You Dip or Chew Tobacco: No; Hx Alcohol Use: No Hx Substance Use: No Preferred Language: Italian Communication Ability: Effective Photo Optics Technician Required: No Beliefs That Will Affect Care: None Current Living Situation: Spouse Feels Safe at Home: Yes Assistive Devices: Glasses, Walker and Wheelchair Allergies Allergies Allergy/AdvReac Type Severity Reaction Status Date / Time No Known Allergies Allergy Verified 03/24/25 19:46 Home Meds Home Medications Medication Instructions Recorded Confirmed finasteride 5 mg tablet (Proscar) 5 mg PO QDD 12/03/20 03/24/25 leflunomide 20 mg tablet (Arava) 20 mg PO QDB 12/03/20 03/24/25 carbamazepine 200 mg tablet 200 mg PO QID 08/03/21 03/24/25 (Tegretol) levothyroxine 75 mcg tablet 75 mcg PO DAILYBB 08/03/21 03/24/25 (Synthroid) zonisamide 100 mg capsule 100 mg PO HS 08/03/21 03/24/25 (Zonegran) carbidopa 25 mg-levodopa 100 mg 3 tab PO QID 02/07/22 03/24/25 tablet melatonin 5 mg tablet 10 mg PO HS PRN Sleep 08/21/23 03/24/25 entacapone 200 mg tablet 200 mg PO QID 10/10/23 03/24/25 acetaminophen 325 mg tablet 500 mg PO QID PRN Breakthrough 10/29/23 03/24/25 (Tylenol) Pain, Mild midodrine 2.5 mg tablet 2.5 mg PO TID 02/21/24 03/24/25 ferrous sulfate 325 mg (65 mg 325 mg PO 5XWK 08/25/24 03/24/25 iron) tablet (FeroSul) amantadine HCl 100 mg capsule 100 mg PO DAILY 12/10/24 03/24/25 famotidine 20 mg tablet 20 mg PO HS 12/10/24 03/24/25 testosterone cypionate 200 mg/mL 100 mg IM Q14D 12/10/24 03/24/25 intramuscular oil warfarin 5 mg tablet See Rx Instructions .Route .COMPLEX 03/04/25 03/24/25 cholecalciferol (vitamin D3) 25 25 mcg PO DAILY 03/24/25 03/24/25 mcg (1,000 unit) tablet (Vitamin D3) cyanocobalamin (vitamin B-12) 1,000 mcg PO DAILY 03/24/25 03/24/25 1,000 mcg tablet (Vitamin B-12) sodium di- and 1 tab PO DAILY 03/24/25 03/24/25 monophosphate-potassium phos monobasic 250 mg tablet (M-Pphc-Mmwbfic) Previous Rx's Medication Instructions Recorded pantoprazole 40 mg tablet,delayed 40 mg PO QAM #1 tab 11/20/24 release prednisone 5 mg tablet 7.5 mg (1.5 x 5 mg) PO DAILY Take 02/18/25 1.5 tablets daily. 30 days #45 tabs Results & Data (ED) Vital Signs Vital Signs - 24 hr 03/24/25 17:15 03/24/25 17:56 03/24/25 17:57 Temperature 36.7 C Temperature Source Temporal Artery Scan Pulse Rate 80 Pulse Rate [Apical] 77 Respiratory Rate 18 18 Blood Pressure 200/105 H Blood Pressure [Right Arm] 217/121 H Blood Pressure Mean 136 Blood Pressure Mean [Right Arm] 153 Pulse Oximetry 96 95 95 Oxygen Delivery Method Room Air Room Air Room Air Sepsis New/Unexplained Change in Mental Status No Sepsis Action Taken by Nursing No Action Required 03/24/25 17:59 03/24/25 19:30 Temperature Temperature Source Pulse Rate 76 Pulse Rate [Apical] 70 Respiratory Rate 17 Blood Pressure Blood Pressure [Right Arm] 155/102 H Blood Pressure Mean Blood Pressure Mean [Right Arm] 119 Pulse Oximetry 96 Oxygen Delivery Method Room Air Sepsis New/Unexplained Change in Mental Status Sepsis Action Taken by Nursing Laboratory Data 03/24/25 17:51 03/24/25 17:51 Lab Results 03/24/25 Range/Units 17:51 WBC 5.59 (4.8-10.8) K/ul RBC 5.23 (4.70-6.10) M/uL Hgb 15.6 (14.0-18.0) g/dl Hct 47.8 (42.0-52.0) % MCV 91.4 (80.0-100.0) fL MCH 29.8 (25.0-34.0) pg MCHC 32.6 (32.0-36.0) g/dL RDW Std Deviation 54.5 H (36.4-46.3) fL RDW Coeff of Armen 16.4 H (11.5-14.5) % Plt Count 184 (130-400) K/uL MPV 9.9 (9.4-12.4) fL Immature Gran % (Auto) 1.1 % Neut % (Auto) 70.0 % Lymph % (Auto) 18.6 % Gilmer % (Auto) 8.9 % Eos % (Auto) 0.5 % Baso % (Auto) 0.9 % Neut # (Auto) 3.91 (1.40-6.50) K/uL Lymph # (Auto) 1.04 L (1.20-3.40) K/uL Gilmer # (Auto) 0.50 (0.11-0.59) K/uL Eos # (Auto) 0.03 (0.00-0.50) K/uL Baso # (Auto) 0.05 (0.00-0.20) K/uL Immature Gran # (Auto) 0.06 (0.01-0.20) K/uL PT 22.0 H (9.0-12.0) Seconds INR 2.2 H (0.9-1.1) Sodium 144 (136-145) mmol/L Potassium 4.1 (3.5-5.1) mmol/L Chloride 111 H (98-107) mmol/L Carbon Dioxide 25 (21-32) mmol/L Anion Gap 8 (3-11) BUN 47 H (6-23) mg/dl Creatinine 1.29 (0.6-1.4) mg/dl Est Cr Clr Drug Dosing Not Reportable eGFR 57.82 BUN/Creatinine Ratio 36.4 H (10-20) Glucose 108 H (70-99(Fasting)) mg/dl Calcium 9.4 (8.6-10.3) mg/dl Total Bilirubin 0.4 (0.2-1.0) mg/dl AST 29 (13-39) U/L ALT 16 (7-52) U/L Alkaline Phosphatase 83 (34-104) U/L Total Protein 7.9 (6.0-8.3) gm/dl Albumin 4.2 (3.4-5.0) gm/dl Globulin 3.7 (2.5-4.0) gm/dl Albumin/Globulin Ratio 1.1 (0.9-2) Administered Medications Sodium Chloride (1/2 Nss) 1,000 mls @ 60 mls/hr IV .[id number] ONE Stop: 03/25/25 12:34 Last Admin: 03/24/25 20:09 Dose: 60 mls/hr Documented By: ROSARIO Discontinued Medications Acetaminophen (Acetaminophen 325 Mg Tab) 650 mg PO NOW STA Stop: 03/24/25 18:10 Last Admin: 03/24/25 18:32 Dose: 650 mg Documented By: NICOLÁS Phytonadione 10 mg/ Dextrose 51 mls @ 102 mls/hr IV ONE ONE Stop: 03/24/25 19:47 Last Infusion: 03/24/25 20:14 Dose: Infused Documented By: Admin: 03/24/25 19:31 Dose: 102 mls/hr Documented By: ROSARIO Lidocaine (Lidocaine/Epineph/Tetracaine 1 Ea Syr) 1 each EXT NOW STA Stop: 03/24/25 17:32 Last Admin: 03/24/25 18:32 Dose: 1 each Documented By: NICOLÁS Tranexamic Acid (Txa 10% Non-Iv Routes 100 Mg/Ml Vial) 1,000 mg TOP ONE ONE Stop: 03/24/25 18:09 Last Admin: 03/24/25 18:32 Dose: 1,000 mg Documented By: NICOLÁS Imaging Data Radiologist's Impression: Face CT 03/24/25 17:30 CT maxillofacial without contrast History: Trauma Comparison: None Technique: Using thin collimation multidetector helical acquisition technique, axial and coronal thin section CT images were reconstructed through the facial bones. Images were reviewed in bone and soft tissue windows. One or more of the following dose-optimizing techniques was utilized for this exam: automated exposure control, adjustment of the mA and/or kV according to patient size, and/or use of iterative reconstruction technique. Findings: There is no significant soft tissue swelling of the face. There is no evident fracture of the facial bones. The cribriform plate appears intact. Alignment of the facial bones appears normal. There is no hematoma, soft tissue mass or gas visualized within the orbits. Small mucous retention cyst in the right maxillary sinus. Impression: Normal CT study of the facial bones. Electronically signed by Matt Miguel 03-24-2025 7:[address] 03/24/25 17:30 CT head without contrast History: Trauma Comparison: None Technique: Using multidetector thin collimation helical acquisition technique, axial, coronal and sagittal CT images from the skull base to the vertex were obtained without intravenous contrast. Dose reduction techniques were achieved by using automatic exposure control and/or adjustment of mA and/or kV according to patient size and/or use of iterative reconstruction technique. Findings: No intracranial hemorrhage, mass-effect, or midline shift. The ventricles are proportionate to the cerebral sulci. The lowe to white matter differentiation of the cerebral hemispheres is preserved. The basal cisterns are patent. The visualized paranasal sinuses are clear. Mastoid air cells are clear. Stable 2 cm lucency in the right frontal bone, is solitary. No associated bony destruction. Impression: No acute intracranial pathology. Electronically signed by Matt Miguel 03-24-2025 6:[address] 03/24/25 17:31 CT cervical spine without IV contrast History: Trauma Comparison: None Technique: Using multidetector thin collimation helical acquisition technique, axial, coronal and sagittal CT images through the cervical spine were obtained without intravenous contrast. Dose reduction techniques were achieved by using automatic exposure control and/or adjustment of mA and/or kV according to patient size and/or use of iterative reconstruction technique. Findings: The cervical vertebrae are normally aligned. Straightened cervical lordosis. No acute fracture or subluxation. No prevertebral edema. Advanced multifocal areas of discogenic and facet degenerative changes with associated hypertrophy. No abnormality of the paraspinous soft tissues. Impression: No acute fracture or traumatic subluxation. Electronically signed by Matt Miguel 03-24-2025 7:00 PM Discharge Plan Visit Data Chief Complaint: Fall Stated Complaint: LOST BALANCE AND FELL, ON WARFARIN ED Provider: Mike Quinn Discharge Problem: Tongue laceration, Laceration of head, Fall, Anticoagulant long-term use Condition: Fair Forms Stand Alone Forms: [facility] Prescriptions Prescriptions: No Action finasteride [Proscar] 5 mg tablet 5 mg PO QDD Rx Instructions: take 1/2 hour before supper leflunomide [Arava] 20 mg tablet 20 mg PO QDB carbidopa-levodopa 25-100 mg tablet 3 tab PO QID Rx Instructions: TAKES AT 0630, 0900, 1200, 1700 testosterone cypionate 200 mg/mL oil 100 mg IM Q14D Rx Instructions: LAST TAKEN 03/18/25 midodrine 2.5 mg tablet 2.5 mg PO TID Rx Instructions: 0630, 1200, 1700 famotidine 20 mg tablet 20 mg PO HS amantadine HCl 100 mg capsule 100 mg PO DAILY prednisone 5 mg tablet 7.5 mg PO DAILY 30 Days Qty: 45 5RF Rx Instructions: Please take 1.5 tablets daily. levothyroxine [Synthroid] 75 mcg tablet 75 mcg PO DAILYBB zonisamide [Zonegran] 100 mg capsule 100 mg PO HS carbamazepine [Tegretol] 200 mg tablet 200 mg PO QID Rx Instructions: 0630, 1200, 1700, 2200 melatonin 5 mg tablet 10 mg PO HS PRN (Reason: Sleep) ferrous sulfate [FeroSul] 325 mg (65 mg iron) tablet 325 mg PO 5XWK Rx Instructions: SUNDAY THROUGH SUNDAY WITH ORANGE JUICE AT BREAKFAST warfarin 5 mg tablet See Rx Instructions .ROUTE .COMPLEX Rx Instructions: OF 03/20/25--10 mg every e, Fri; 5 mg all other days entacapone 200 mg tablet 200 mg PO QID Rx Instructions: 0630, 0800, 1200, 1700 with sinemet acetaminophen [Tylenol] 325 mg Tablet 500 mg PO QID PRN (Reason: Breakthrough Pain, Mild) pantoprazole 40 mg Tablet,Delayed Release (Dr/Ec) 40 mg PO QAM Qty: 1 0RF cyanocobalamin (vitamin B-12) [Vitamin B-12] 1,000 mcg Tablet 1,000 mcg PO DAILY [id number] 250 mg Tablet 1 tab PO DAILY cholecalciferol (vitamin D3) [Vitamin D3] 25 mcg (1,000 unit) Tablet 25 mcg PO DAILY Referrals Referrals: Emerald Dutton MD [Primary Care Provider] - Discharge Problem: Tongue laceration Qualifiers: Encounter type: initial encounter Qualified Code(s): S01.512A - Laceration without foreign body of oral cavity, initial encounter Laceration of head Qualifiers: Encounter type: initial encounter Location of open wound of head: scalp Foreign body presence: without foreign body Qualified Code(s): S01.01XA - Laceration without foreign body of scalp, initial encounter Fall Qualifiers: Encounter type: initial encounter Qualified Code(s): W19.XXXA - Unspecified fall, initial encounter
[2025-03-24 18:13] LABS: Hematocrit (blood only) 47.8 % (42.0-52.0); Hemoglobin 15.6 g/dl (14.0-18.0); Immature Granulocytes # (auto) 0.06 K/uL (0.01-0.20); Immature Granulocytes % (auto) 1.1 %; Mean Corpuscular Hemoglobin 29.8 pg (25.0-34.0); Mean Corpuscular Volume 91.4 fL (80.0-100.0); Platelet Count 184 K/uL (130-400); RDW Standard Deviation 54.5 fL (36.4-46.3); Red Blood Count 5.23 M/uL (4.70-6.10); White Blood Count 5.59 K/ul (4.8-10.8)
[2025-03-24] MEDS: TXA 10% Non-IV Routes 100 MG/ML VIAL TOP ONE (18:32)
[2025-03-24] MEDS: LIDOCAINE/EPINEPH/TETRACAINE 1 EA SYR EXT STA (18:32)
[2025-03-24] MEDS: ACETAMINOPHEN 325 MG TAB PO STA (18:32)
[2025-03-24 18:33] LABS: Alanine Aminotransferase 16 U/L (7-52); Albumin Globulin Ratio 1.1 (0.9-2); Albumin Level 4.2 gm/dl (3.4-5.0); Alkaline Phosphatase 83 U/L (34-104); Anion Gap 8 (3-11); Bilirubin,Total 0.4 mg/dl (0.2-1.0); Blood Urea Nitrogen 47 mg/dl (6-23); Calcium 9.4 mg/dl (8.6-10.3); Carbon Dioxide 25 mmol/L (21-32); Chloride 111 mmol/L (98-107); Globulin 3.7 gm/dl (2.5-4.0); Glucose 108 mg/dl (70-99(Fasting)); Potassium 4.1 mmol/L (3.5-5.1); Sodium 144 mmol/L (136-145); Total Protein 7.9 gm/dl (6.0-8.3)
[2025-03-24 18:50] LABS: INR 2.2 (0.9-1.1); Prothrombin Time 22.0 Seconds (9.0-12.0)
--- NOTE | 2025-03-24 18:58 | CT Scan Report ---
CT head without contrast History: Trauma Comparison: None Technique: Using multidetector thin collimation helical acquisition technique, axial, coronal and sagittal CT images from the skull base to the vertex were obtained without intravenous contrast. Dose reduction techniques were achieved by using automatic exposure control and/or adjustment of mA and/or kV according to patient size and/or use of iterative reconstruction technique. Findings: No intracranial hemorrhage, mass-effect, or midline shift. The ventricles are proportionate to the cerebral sulci. The lowe to white matter differentiation of the cerebral hemispheres is preserved. The basal cisterns are patent. The visualized paranasal sinuses are clear. Mastoid air cells are clear. Stable 2 cm lucency in the right frontal bone, is solitary. No associated bony destruction. Impression: No acute intracranial pathology. Electronically signed by Matt Miguel 03-24-2025 6:58 PM
--- NOTE | 2025-03-24 19:00 | CT Scan Report ---
CT cervical spine without IV contrast History: Trauma Comparison: None Technique: Using multidetector thin collimation helical acquisition technique, axial, coronal and sagittal CT images through the cervical spine were obtained without intravenous contrast. Dose reduction techniques were achieved by using automatic exposure control and/or adjustment of mA and/or kV according to patient size and/or use of iterative reconstruction technique. Findings: The cervical vertebrae are normally aligned. Straightened cervical lordosis. No acute fracture or subluxation. No prevertebral edema. Advanced multifocal areas of discogenic and facet degenerative changes with associated hypertrophy. No abnormality of the paraspinous soft tissues. Impression: No acute fracture or traumatic subluxation. Electronically signed by Matt Miguel 03-24-2025 7:00 PM
--- NOTE | 2025-03-24 19:00 | CT Scan Report ---
CT maxillofacial without contrast History: Trauma Comparison: None Technique: Using thin collimation multidetector helical acquisition technique, axial and coronal thin section CT images were reconstructed through the facial bones. Images were reviewed in bone and soft tissue windows. One or more of the following dose-optimizing techniques was utilized for this exam: automated exposure control, adjustment of the mA and/or kV according to patient size, and/or use of iterative reconstruction technique. Findings: There is no significant soft tissue swelling of the face. There is no evident fracture of the facial bones. The cribriform plate appears intact. Alignment of the facial bones appears normal. There is no hematoma, soft tissue mass or gas visualized within the orbits. Small mucous retention cyst in the right maxillary sinus. Impression: Normal CT study of the facial bones. Electronically signed by Matt Miguel 03-24-2025 7:00 PM
[2025-03-24] MEDS ORDERED: PHYTONADIONE 5 MG in DEXTROSE 5% 50 ML IV ONE (19:16)
[2025-03-24] MEDS: PHYTONADIONE 10 MG in DEXTROSE 5% 50 ML IV ONE (19:31)
[2025-03-24] MEDS ORDERED: ACETAMINOPHEN 1,000 MG/100 ML VIAL IV PRN (19:55)
[2025-03-24] MEDS ORDERED: PROMETHAZINE 6.25 MG/50.25 ML BAG IV PRN (19:55)
--- NOTE | 2025-03-24 20:06 | History & Physical Report ---
Date of Service March 24, 2025 Assessment & Plan (1) Fall: (2) Anticoagulant long-term use: (3) Tongue laceration: (4) Parkinson disease: (5) History of pulmonary embolism: (6) Labile hypertension: (7) Chronic diastolic (congestive) heart failure: (8) Rheumatoid arthritis: (9) Chronic steroid use: (10) ACTH deficiency: (11) BPH loc w urin obs/LUTS: Plan This is a 74-year-old male with significant past medical history of Parkinson's disease, hypothyroidism, chronic diastolic heart failure, history of liver hemangioma, nonrheumatic mitral valve regurgitation, history of simple partial seizure, rheumatoid arthritis on long-term steroid therapy, history of PE on coumadin who presents to ED after a mechanical fall at home. Mechanical fall Tongue laceration Anti-coagulant use Head, face and c-spine CTs reviewed - no acute pathology VSS, hgb stable at 15.6 S/p TXA and IV vitamin K in ED Monitor for recurrent tongue bleeding Repeat H&H this evening, type and screen Hold coumadin Keep NPO for now PT/OT evals, fall precautions Parkinson disease At baseline. Continue home Sinemet, entacapone, amantadine History of simple partial seizure Continue home Tegretol, Zonegran History of PE Dx October 2024 Home regimen 10mg Tues, 5mg all other days per 03/20 coag clinic note Hold coumadin for now Reversed as above with vit K as above Rheumatoid arthritis Chronic steroid use Stable. Continue Arava and daily prednisone Chronic diastolic (congestive) heart failure Euvolemic. Receiving gentle fluids while NPO Monitor volume status closely Labile hypertension Orthostatic hypotension in setting of autonomic dysfunction in relation to PD BP significantly elevates overnight to ranges above 190-200 systolic Continue midodrine 2.5mg TID BPH Continue finasteride DVT Ppx: SCDs for now, resume coumadin as able Code status: FULL per discussion with patient/ this evening PCP: [place] Dispo: Admitted to [facility] tele Patient seen in collaboration with Dr. Robison. Please see addendum. I spent a total of 75 minutes coordinating, documenting, and providing care for this patient excluding time spent in the performance of separately billed services or time spent by another provider/QHP. History of Present Illness Chief Complaint: fall Primary Care Provider: Emerald Dutton MD This is a 74-year-old male with significant past medical history of Parkinson's disease, hypothyroidism, chronic diastolic heart failure, history of liver hemangioma, nonrheumatic mitral valve regurgitation, history of simple partial seizure, rheumatoid arthritis on long-term steroid therapy, history of PE on coumadin who presents to ED after fall at home. Patient was ambulating in the hallway with his walker when he turned, lost his balance and fell forward, hitting his head into it bookshelf. Due to bleeding from head injury, brought him in to ED for further evaluation. Denies any loss of consciousness. Did have a dull headache initially which improved after Tylenol. Did have some bleeding of his mouth from where he bit his tongue, which has improved since arrival to the ED. Patient is on coumadin for history of PE this past October, which he last took this morning. Denies any fever, chills, lightheadedness, chest pain, shortness of breath, nausea, vomiting, abdominal pain, dysuria, diarrhea or constipation. Has been participating with home PT/OT and ambulates with a walker or wheelchair. Allergies Allergy/AdvReac Type Severity Reaction Status Date / Time No Known Allergies Allergy Verified 03/24/25 19:46 Home Medications Medication Instructions Recorded Confirmed Type finasteride 5 mg tablet (Proscar) 5 mg PO QDD 12/03/20 03/24/25 History leflunomide 20 mg tablet (Arava) 20 mg PO QDB 12/03/20 03/24/25 History carbamazepine 200 mg tablet 200 mg PO QID 08/03/21 03/24/25 History (Tegretol) levothyroxine 75 mcg tablet 75 mcg PO DAILYBB 08/03/21 03/24/25 History (Synthroid) zonisamide 100 mg capsule 100 mg PO HS 08/03/21 03/24/25 History (Zonegran) carbidopa 25 mg-levodopa 100 mg 3 tab PO QID 02/07/22 03/24/25 History tablet melatonin 5 mg tablet 10 mg PO HS PRN Sleep 08/21/23 03/24/25 History entacapone 200 mg tablet 200 mg PO QID 10/10/23 03/24/25 History acetaminophen 325 mg tablet 500 mg PO QID PRN Breakthrough 10/29/23 03/24/25 History (Tylenol) Pain, Mild midodrine 2.5 mg tablet 2.5 mg PO TID 02/21/24 03/24/25 History ferrous sulfate 325 mg (65 mg 325 mg PO 5XWK 08/25/24 03/24/25 History iron) tablet (FeroSul) pantoprazole 40 mg tablet,delayed 40 mg PO QAM #1 tab 11/20/24 03/24/25 Rx release amantadine HCl 100 mg capsule 100 mg PO DAILY 12/10/24 03/24/25 History famotidine 20 mg tablet 20 mg PO HS 12/10/24 03/24/25 History testosterone cypionate 200 mg/mL 100 mg IM Q14D 12/10/24 03/24/25 History intramuscular oil prednisone 5 mg tablet 7.5 mg (1.5 x 5 mg) PO DAILY Take 02/18/25 03/24/25 Rx 1.5 tablets daily. 30 days #45 tabs warfarin 5 mg tablet See Rx Instructions .Route .COMPLEX 03/04/25 03/24/25 History cholecalciferol (vitamin D3) 25 25 mcg PO DAILY 03/24/25 03/24/25 History mcg (1,000 unit) tablet (Vitamin D3) cyanocobalamin (vitamin B-12) 1,000 mcg PO DAILY 03/24/25 03/24/25 History 1,000 mcg tablet (Vitamin B-12) sodium di- and 1 tab PO DAILY 03/24/25 03/24/25 History monophosphate-potassium phos monobasic 250 mg tablet (Phospho-Ayesha Neutral) Past Med/Surg History Problem List (Updated 03/24/25 @ 21:14 by Damari De Leon PA-C) Anticoagulant long-term use (Acute) Fall (Acute) Laceration of head (Acute) Tongue laceration (Acute) History of pulmonary embolism Paraesophageal hernia Labile hypertension Parkinson disease (Acute) Chronic steroid use ACTH deficiency (Acute) Postural hypotension BPH loc w urin obs/LUTS Chronic diastolic (congestive) heart failure Parkinson's disease dementia Rheumatoid arthritis Medical History (Updated 03/24/25 @ 21:14 by Damari De Leon PA-C) Hypogonadism male Hypothyroidism Epilepsy last seizure-several years ago unable to recall date Inguinal hernia, right Paraesophageal hernia Chronic diastolic (congestive) heart failure Postural hypotension states can also happen while sitting History of DVT (deep vein thrombosis) (10/2024) bilateral 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 Rheumatoid arthritis History of pulmonary embolism taking warfarin ACTH deficiency BPH loc w urin obs/LUTS Parkinson's disease dementia Parkinson disease Pleural effusion History of venous stasis ulcer of lower extremity Hypothermia history of-hospitalization [facility] Chronic venous insufficiency Nonrheumatic mitral valve regurgitation Spinal stenosis Surgical History Hx of right cataract extraction (03/17/25) S/P correction of deviated nasal septum History of hernia repair History of left knee replacement Hx of laminectomy Family History Other Leukemia Lung cancer Social History Smoking Status: Never smoker Second Hand Exposure: No; Do You Dip or Chew Tobacco: No; Hx Alcohol Use: No Hx Substance Use: No Preferred Language: Syriac Communication Ability: Effective Internet Sales Manager Required: No Beliefs That Will Affect Care: None Current Living Situation: Spouse Feels Safe at Home: Yes Assistive Devices: Glasses, Walker and Wheelchair Review of Systems Review of Systems: At least ten systems reviewed and negative except as noted in the HPI. Physical Exam Physical Exam: General Appearance: WD/WN, vitals as above, NAD, sitting up in bed, pleasant Head: normocephalic, + 3 cm lac on frontal scalp, no bleeding Eyes: normal inspection, PERRL ENT: external ear and nose normal, + laceration and swelling on R side of tongue with dried blood Neck: normal visual inspection Respiratory: normal respiratory effort, lungs clear to auscultation Cardiovascular: regular rate, rhythm, no murmur Abdomen/GI: normal bowel sounds, soft, nontender, no hepatosplenomegaly Extremities/Musculoskeletal: no cyanosis or clubbing, extremities motor strength 5/5 Neurologic: PERRL, +masked facies, slowed but clear speech, bradykinesia Psychiatric: A+Ox3, euthymic affect Skin: no rashes, normal color, warm/dry Results & Data Results & Data Vital Signs (Past 12 Hours) Vital Signs Temp Pulse Pulse Resp BP BP Pulse Ox 03/24/25 19:30 70 17 155/102 H 96 03/24/25 17:59 76 03/24/25 17:57 95 03/24/25 17:56 77 18 217/121 H 95 03/24/25 17:15 36.7 C 80 18 200/105 H 96 O2 Del Method 03/24/25 19:30 Room Air 03/24/25 17:59 03/24/25 17:57 Room Air 03/24/25 17:56 Room Air 03/24/25 17:15 Room Air Laboratory Results Short CBC 03/24/25 Range/Units 17:51 WBC 5.59 (4.8-10.8) K/ul Hgb 15.6 (14.0-18.0) g/dl Hct 47.8 (42.0-52.0) % Plt Count 184 (130-400) K/uL BMP 03/24/25 17:51 Sodium 144 Potassium 4.1 Chloride 111 H Carbon Dioxide 25 BUN 47 H Creatinine 1.29 Glucose 108 H Calcium 9.4 Liver Function 03/24/25 Range/Units 17:51 Total Bilirubin 0.4 (0.2-1.0) mg/dl AST 29 (13-39) U/L ALT 16 (7-52) U/L Alkaline Phosphatase 83 (34-104) U/L Albumin 4.2 (3.4-5.0) gm/dl Diagnostic Findings Face CT 03/24/25 17:30 CT maxillofacial without contrast History: Trauma Comparison: None Technique: Using thin collimation multidetector helical acquisition technique, axial and coronal thin section CT images were reconstructed through the facial bones. Images were reviewed in bone and soft tissue windows. One or more of the following dose-optimizing techniques was utilized for this exam: automated exposure control, adjustment of the mA and/or kV according to patient size, and/or use of iterative reconstruction technique. Findings: There is no significant soft tissue swelling of the face. There is no evident fracture of the facial bones. The cribriform plate appears intact. Alignment of the facial bones appears normal. There is no hematoma, soft tissue mass or gas visualized within the orbits. Small mucous retention cyst in the right maxillary sinus. Impression: Normal CT study of the facial bones. Electronically signed by Matt Miguel 03-24-2025 7:[address] 03/24/25 17:30 CT head without contrast History: Trauma Comparison: None Technique: Using multidetector thin collimation helical acquisition technique, axial, coronal and sagittal CT images from the skull base to the vertex were obtained without intravenous contrast. Dose reduction techniques were achieved by using automatic exposure control and/or adjustment of mA and/or kV according to patient size and/or use of iterative reconstruction technique. Findings: No intracranial hemorrhage, mass-effect, or midline shift. The ventricles are proportionate to the cerebral sulci. The lowe to white matter differentiation of the cerebral hemispheres is preserved. The basal cisterns are patent. The visualized paranasal sinuses are clear. Mastoid air cells are clear. Stable 2 cm lucency in the right frontal bone, is solitary. No associated bony destruction. Impression: No acute intracranial pathology. Electronically signed by Matt Miguel 03-24-2025 6:[address] 03/24/25 17:31 CT cervical spine without IV contrast History: Trauma Comparison: None Technique: Using multidetector thin collimation helical acquisition technique, axial, coronal and sagittal CT images through the cervical spine were obtained without intravenous contrast. Dose reduction techniques were achieved by using automatic exposure control and/or adjustment of mA and/or kV according to patient size and/or use of iterative reconstruction technique. Findings: The cervical vertebrae are normally aligned. Straightened cervical lordosis. No acute fracture or subluxation. No prevertebral edema. Advanced multifocal areas of discogenic and facet degenerative changes with associated hypertrophy. No abnormality of the paraspinous soft tissues. Impression: No acute fracture or traumatic subluxation. Electronically signed by Matt Miguel 03-24-2025 7:00 PM Supervising Physician Co-Signing Physician Notes IM ATTENDING : Patient seen and examined. History obtained from patient and records. Concur with salient points upon review of preceding documentation by Ms. Damari De Leon PA-C. I take responsibility for plan of care below. FINAL ASSESSMENT AND PLAN as follows : Traumatic tongue swelling/bleeding injury secondary to mechanical fall In the setting of Coumadin coagulopathy given history PE/DVT status post vitamin K administration at the ER Patient currently hemodynamically stable. Parkinson's disease, stable on regimen Seizure disorder, stable on regimen Orthostatic hypotension secondary to autonomic dysfunction on midodrine RA on chronic steroid Rx and Arava GERD on PPI History of BPH Chronic anemia (hemoglobin better to baseline) OBS Admit to med/tele Hold Coumadin for now Repeat CT head after [address] soft tissue neck to image extent tongue swelling May benefit from ENT consultation if with worsening Follow H&H, transfuse PRBC if hemoglobin less than 7 and or for symptomatic anemia PT OT eval prior to discharge DVT prophylaxis. SCDs if INR less than 2 while Coumadin on hold Full code Patient requesting updates providers. Ms. Guerda Aguilar, contact #[phone]. I spent a total of 30 minutes coordinating, documenting, and providing care for this patientexcludingtime spent by another provider/QHP. Text document was generated using [employer] voice recognition software. It may contain grammatical or spelling errors. Kindly contact undersigned for clarification of any documentation item in question. (1) Fall Encounter type: initial encounter Qualified Code(s): W19.XXXA - Unspecified fall, initial encounter (3) Tongue laceration Encounter type: initial encounter Qualified Code(s): S01.512A - Laceration without foreign body of oral cavity, initial encounter (4) Parkinson disease Dyskinesia presence: unspecified whether dyskinesia Fluctuating manifestations: unspecified whether manifestations fluctuate Qualified Code(s): G20.A1 - Parkinson's disease without dyskinesia, without mention of fluctuations
[2025-03-24] MEDS: SODIUM CHLORIDE 0.45 % 1,000 ML IV ONE (20:09)
[2025-03-24] MEDS ORDERED: MELATONIN 3 MG TAB PO PRN (21:37)
[2025-03-24] MEDS: ACETAMINOPHEN 1,000 MG/100 ML VIAL IV SCH (21:41)
[2025-03-24 21:58] LABS: Hematocrit (blood only) 45.9 % (42.0-52.0); Hemoglobin 14.9 g/dl (14.0-18.0)
[2025-03-24 23:00] VITALS: RESP 18
[2025-03-25] MEDS ORDERED: POLYETHYLENE (MIRALAX) 17 GM PACK PO PRN (00:19)
[2025-03-25] MEDS: Patient's HEIGHT &/or WEIGHT Needed SCH (00:19)
[2025-03-25] MEDS ORDERED: ONDANSETRON INJ 2 MG/ML 2 ML VIAL IV PRN (00:19)
[2025-03-25] MEDS: ZONISAMIDE 100 MG CAPSULE PO ONE (00:20)
--- NOTE | 2025-03-25 01:02 | Communication Note ---
Date of Service: March 25, 2025 Floor RN uncomfortable administering oral medications given patient tongue swelling and some trouble handling saliva. Unable to administer oral meds including AED Rx given aspiration risk. IV Keppra 1 dose for now for seizure prophylaxis while patient unable to take oral meds safely. AP Aspiration risk N.p.o., aspiration precautions, FURNACE CONVERTER laureen in a.m. Later made aware of incidental finding of left upper lobe consolidation on soft tissue neck CT AP Aspiration pneumonia Unasyn course
[2025-03-25] MEDS: CARBIDOPA/LEVODOPA 25/100MG TAB PO SCH (02:12)
[2025-03-25] MEDS: FAMOTIDINE 20 MG TAB PO SCH (02:13)
[2025-03-25] MEDS: ENTACAPONE 200 MG TAB PO SCH (02:13)
--- NOTE | 2025-03-25 03:09 | CT Scan Report ---
EXAM: CT head/brain wo con CLINICAL HISTORY: ffup, head trauma, coumadin TECHNIQUE: Multiple axial images were obtained from the skull base to the vertex without contrast. CT scan was performed according to ALARA (as low as reasonably achievable). COMPARISON: 17:18:34 DIRECTOR OF ATHLETICS. FINDINGS: Suboptimal evaluation due to multiple artiafcts. There is cerebral atrophy. No evidence of a space-occupying lesion, hemorrhage, edema, mass effect, midline shift, extra-axial collection, or hydrocephalus is noted. Basal cisterns are symmetric and normal in size and configuration. There are scattered periventricular hypodensities, as can be seen with chronic microvascular ischemic changes. The lowe-white matter differentiation is preserved. The visualized paranasal sinuses and mastoid air cells are well aerated. Orbital contents are within normal limits. Bony structures are intact. IMPRESSION: 1. No evidence of acute intracranial abnormality is demonstrated. 2. Chronic microvascular ischemic changes?stable. 3. Cerebral atrophy?stable. Electronically signed by Enrrique Escobedo 03-25-2025 03:08 AM
--- NOTE | 2025-03-25 03:25 | CT Scan Report ---
EXAM: CT soft tissue neck wo con CLINICAL HISTORY: tongue swelling TECHNIQUE: Computed tomography of the neck was performed without intravenous contrast. Contiguous axial images were obtained. Reformatted coronal and sagittal images were also reviewed. If IV contrast material had not been administered, the likelihood of detecting abnormalities relevant to the patient's condition would have been substantially decreased. CT scan was performed according to ALARA (as low as reasonably achievable). COMPARISON: none. FINDINGS: The right half of the tongue appears mildly bulky and shows internal tiny ill-defined hyperdensity. A polyp is noted in the right maxillary sinus. Included intracranial structures, orbits, and paranasal sinuses are grossly unremarkable. The nasopharynx, oropharynx, oral cavity, hypopharynx, and larynx are grossly unremarkable. The parotid, submandibular, and thyroid glands are grossly unremarkable. Scattered bilateral jugulodigastric lymph nodes are present; however, none are pathologically enlarged. No acute osseous abnormality detected. The largest area of consolidation is noted involving the left upper lobe of the lung. Mild left-sided pleural effusion is present. Degenerative changes are seen in the visualized spine. IMPRESSION: The right half of the tongue appears mildly bulky and shows internal tiny ill-defined hyperdensity. MRI correlation/post-contrast evaluation is suggested. No other abnormality is seen. The largest area of consolidation is noted involving the left upper lobe of the lung. Mild left-sided pleural effusion is present. Electronically signed by Enrrique Escobedo 03-25-2025 03:25 AM
[2025-03-25] MEDS: LEVOTHYROXINE SODIUM 75 MCG TABLET PO SCH (07:49)
[2025-03-25] MEDS: MIDODRINE HCL 2.5 MG TAB PO SCH (07:54)
[2025-03-25] MEDS: LEFLUNOMIDE 10 MG TAB PO SCH (08:01)
[2025-03-25] MEDS: AMANTADINE HCL 100 MG CAPSULE PO SCH (08:04)
[2025-03-25] MEDS: AMPICILLIN/SULBACTAM SOD 3,000 MG/100 ML BAG IV SCH (08:06)
[2025-03-25] MEDS: POT PHOSPHATE MONOBASIC W/ SOD TAB PO SCH (09:22)
[2025-03-25] MEDS: CYANOCOBALAMIN (B-12) 500 MCG TABLET PO SCH (09:23)
[2025-03-25] MEDS: FERROUS SULFATE 325 MG TAB PO SCH (09:23)
[2025-03-25 09:42] LABS: Hematocrit (blood only) 39.7 % (42.0-52.0); Hemoglobin 12.7 g/dl (14.0-18.0); Mean Corpuscular Hemoglobin 29.2 pg (25.0-34.0); Mean Corpuscular Volume 91.3 fL (80.0-100.0); Platelet Count 164 K/uL (130-400); RDW Standard Deviation 54.2 fL (36.4-46.3); Red Blood Count 4.35 M/uL (4.70-6.10); White Blood Count 7.50 K/ul (4.8-10.8)
[2025-03-25 09:54] LABS: Anion Gap 4.0 (3-11); Blood Urea Nitrogen 37.0 mg/dl (6-23); Calcium 8.3 mg/dl (8.6-10.3); Carbon Dioxide 26.0 mmol/L (21-32); Chloride 112.0 mmol/L (98-107); Creatinine Clr Calc Pharmacy 54.3 ml/min; Glucose 95.0 mg/dl (70-99(Fasting)); Potassium 3.5 mmol/L (3.5-5.1); Sodium 142.0 mmol/L (136-145)
[2025-03-25 10:05] LABS: INR 1.4 (0.9-1.1); Prothrombin Time 14.2 Seconds (9.0-12.0)
[2025-03-25] MEDS: CHOLECALCIFEROL 25 MCG (1000 UNITS) TAB PO SCH (10:19)
--- NOTE | 2025-03-25 14:09 | Hospitalist Progress Note ---
Date of Service March 25, 2025 Assessment & Plan (1) Fall: (2) Anticoagulant long-term use: (3) Tongue laceration: (4) Parkinson disease: (5) History of pulmonary embolism: (6) Labile hypertension: (7) Chronic diastolic (congestive) heart failure: (8) Rheumatoid arthritis: (9) Chronic steroid use: (10) ACTH deficiency: (11) BPH loc w urin obs/LUTS: Plan This is a 74-year-old male with significant past medical history of Parkinson's disease, hypothyroidism, chronic diastolic heart failure, history of liver hemangioma, nonrheumatic mitral valve regurgitation, history of simple partial seizure, rheumatoid arthritis on long-term steroid therapy, history of PE on coumadin who presents to ED after a mechanical fall at home. Mechanical fall Tongue laceration Anti-coagulant use Head, face and c-spine CTs reviewed - no acute pathology VSS, hgb stable at 15.6 S/p TXA and IV vitamin K in ED No more evidence of continued tongue bleed Hemoglobin remains stable at 12.7 He has been able to eat and drink Will restart Coumadin from tomorrow Awaiting PT and OT evaluation Abnormal chest x-ray Left upper lobe lung mass He remains free from any symptoms Will get CT scan of the chest with intravenous contrast after discussion with the Parkinson disease At baseline. Continue home Sinemet, entacapone, amantadine Will continue current medications and no significant symptoms History of simple partial seizure Continue home Tegretol, Zonegran History of PE Dx October 2024 Home regimen 10mg Tues, 5mg all other days per 03/20 coag clinic note Hold coumadin for now Reversed as above with vit K as above Will restart Coumadin from tomorrow Rheumatoid arthritis Chronic steroid use Stable. Continue Arava and daily prednisone No acute arthritis involving any of the joint but he does have changes due to rheumatoid arthritis in joints Chronic diastolic (congestive) heart failure Euvolemic. Receiving gentle fluids while NPO Monitor volume status closely Labile hypertension Orthostatic hypotension in setting of autonomic dysfunction in relation to PD BP significantly elevates overnight to ranges above 190-200 systolic Continue midodrine 2.5mg TID BPH Continue finasteride DVT Ppx: SCDs for now, resume coumadin as able Code status: FULL per discussion with patient/ this evening PCP: Nato Dispo: Admitted to med tele Admission and Anticipated Discharge Date Admission Date: March 24, 2025 Subjective 03/25/2025 The patient was seen and examined in telemetry unit, He was admitted with mechanical fall and tongue laceration Has been feeling better since admission and is able to eat and drink Denies any significant symptoms at rest Review of Systems Review of Systems: All systems reviewed and are unremarkable except as noted below Physical Exam Physical Exam: Lying in bed without any acute distress Constitutional: well developed, well nourished and + ill appearing Eyes: PERRL, conjunctivae normal, anicteric sclerae ENMT: external ear and nose normal, oropharynx normal Neck: trachea midline, no thyromegaly Respiratory: no respiratory distress Auscultation: + diminished lung sounds and + crackles (Minimal crackles at the bases from) Cardiovascular: Rate/Rhythm: regular rate and regular rhythm; not tachycardic Heart Sounds: normal S1 and normal S2; no murmur Extremities: + edema (Trace edema bilaterally) Gastrointestinal (Abdomen): Inspection/Auscultation: normal bowel sounds; abdomen not distended Percussion/Palpation: abdomen soft; abdomen nontender Musculoskeletal: Has significant changes due to rheumatoid arthritis but no acute arthritis involving any of the joint small Neurologic: normal touch/pain/proprioception and moves all extremities; no focal motor deficits generally weak and lethargic Lymphatic: no cervical or axillary lymphadenopathy Results & Data Results & Data Vital Signs (Past 12 Hours) Vital Signs Temp Pulse Resp BP Pulse Ox O2 Del Method 03/25/25 11:00 36.5 C 74 120/82 93 Room Air 03/25/25 07:40 36.6 C 82 175/95 H 93 Room Air 03/25/25 05:56 167/89 H 03/25/25 05:24 180/102 H 03/25/25 03:37 188/102 H 03/25/25 02:34 36.4 C L 81 18 171/106 H 93 Room Air Laboratory Results Short CBC 03/24/25 03/24/25 03/25/25 Range/Units 17:51 21:40 09:01 WBC 5.59 7.50 (4.8-10.8) K/ul Hgb 15.6 14.9 12.7 L (14.0-18.0) g/dl Hct 47.8 45.9 39.7 L (42.0-52.0) % Plt Count 184 164 (130-400) K/uL BMP 03/24/25 03/25/25 17:51 09:01 Sodium 144 142 Potassium 4.1 3.5 Chloride 111 H 112 H Carbon Dioxide 25 26 BUN 47 H 37 H Creatinine 1.29 1.06 Glucose 108 H 95 Calcium 9.4 8.3 L Liver Function 03/24/25 Range/Units 17:51 Total Bilirubin 0.4 (0.2-1.0) mg/dl AST 29 (13-39) U/L ALT 16 (7-52) U/L Alkaline Phosphatase 83 (34-104) U/L Albumin 4.2 (3.4-5.0) gm/dl Medications Administered Current Inpatient Medications Amantadine HCl (Amantadine Hcl 100 Mg Capsule) 100 mg PO DAILY JACQUES Stop: 04/24/25 08:59 Last Admin: 03/25/25 08:04 Dose: 100 mg Carbamazepine (Carbamazepine 200 Mg Tablet) 200 mg PO QID@0630,1200,1700,2200 JACQUES Stop: 04/24/25 06:29 Last Admin: 03/25/25 13:16 Dose: Not Given Carbidopa/Levodopa (Carbidopa/Levodopa 25/100mg Tab) 3 tab PO QI D@0630,0900,1200,1700 JACQUES Stop: 04/24/25 00:18 Last Admin: 03/25/25 13:16 Dose: Not Given Cyanocobalamin (Cyanocobalamin (B-12) 500 Mcg Tablet) 1,000 mcg PO DAILY JACQUES Stop: 04/24/25 08:59 Last Admin: 03/25/25 09:23 Dose: 1,000 mcg Entacapone (Entacapone 200 Mg Tab) 200 mg PO QID@0630,0900,1200,1700 JACQUES Stop: 04/24/25 00:18 Last Admin: 03/25/25 13:17 Dose: Not Given Famotidine (Famotidine 20 Mg Tab) 20 mg PO HS JACQUES Stop: 04/24/25 00:18 Last Admin: 03/25/25 02:13 Dose: Not Given Ferrous Sulfate (Ferrous Sulfate 325 Mg Tab) 325 mg PO MoTuWeThFr@0900 JACQUES Stop: 04/24/25 08:59 Last Admin: 03/25/25 09:23 Dose: 325 mg Finasteride (Finasteride 5 Mg Tab) 5 mg PO QDD [facility] Stop: 04/24/25 16:29 Promethazine HCl (Phenergan) 6.25 mg in 50.25 mls @ 201 mls/hr IV Q6H PRN PRN Reason: Nausea And Vomiting Stop: 04/23/25 19:54 Acetaminophen (Ofirmev) 1,000 mg in 100 mls @ 400 mls/hr IV Q8H JACQUES Stop: 03/27/25 20:59 Last Infusion: 03/25/25 13:54 Dose: Infused Ampicillin Sodium/Sulbactam Sodium (Unasyn) 3,000 mg in 100 mls @ 200 mls/hr IV Q6H [facility] Stop: 03/30/25 06:59 Last Admin: 03/25/25 13:32 Dose: 200 mls/hr Leflunomide (Leflunomide 10 Mg Tab) 20 mg PO QDB [facility] Stop: 04/24/25 07:29 Last Admin: 03/25/25 08:01 Dose: 20 mg Levothyroxine Sodium (Levothyroxine Sodium 75 Mcg Tablet) 75 mcg PO DAILYBB [facility] Stop: 04/24/25 06:29 Last Admin: 03/25/25 07:49 Dose: 75 mcg Melatonin (Melatonin 3 Mg Tab) 9 mg PO HS PRN PRN Reason: Sleep Stop: 04/23/25 21:36 Midodrine (Midodrine Hcl 2.5 Mg Tab) 2.5 mg PO TID@0630,1200,1700 [facility] Stop: 04/24/25 06:29 Last Admin: 03/25/25 13:17 Dose: Not Given Ondansetron HCl (Ondansetron Inj 2 Mg/Ml 2 Ml Vial) 4 mg IV Q6H PRN PRN Reason: Nausea Stop: 04/24/25 00:18 Pantoprazole Sodium (Pantoprazole 40 Mg Tab) 40 mg PO QAM [facility] Stop: 04/24/25 08:59 Last Admin: 03/25/25 09:22 Dose: 40 mg Polyethylene Glycol (Polyethylene (Miralax) 17 Gm Pack) 17 gm PO DAILY PRN PRN Reason: Constipation Stop: 04/24/25 00:18 Potassium Phosphate (Pot Phosphate Monobasic W/ Sod Tab) 1 tab PO DAILY [facility] Stop: 04/24/25 08:59 Last Admin: 03/25/25 09:22 Dose: 1 tab Prednisone (Prednisone 2.5 Mg Tab) 7.5 mg PO DAILY JACQUES Stop: 04/24/25 08:59 Last Admin: 03/25/25 09:23 Dose: 7.5 mg Vitamin D (Cholecalciferol 25 Mcg (1000 Units) Tab) 25 mcg PO DAILY JACQUES Stop: 04/24/25 08:59 Last Admin: 03/25/25 10:19 Dose: 25 mcg Zonisamide (Zonisamide 100 Mg Capsule) 100 mg PO HS JACQUES Stop: 04/24/25 20:59 (1) Fall Encounter type: initial encounter Qualified Code(s): W19.XXXA - Unspecified fall, initial encounter (3) Tongue laceration Encounter type: initial encounter Qualified Code(s): S01.512A - Laceration without foreign body of oral cavity, initial encounter (4) Parkinson disease Dyskinesia presence: unspecified whether dyskinesia Fluctuating manif estations: unspecified whether manifestations fluctuate Qualified Code(s): G20.A1 - Parkinson's disease without dyskinesia, without mention of fluctuations
[2025-03-25] MEDS: FINASTERIDE 5 MG TAB PO SCH (16:24)
[2025-03-25] MEDS: prednisoLONE acetate 1% OP SUSP 5 ML BTL OPR SCH (18:21)
[2025-03-25] MEDS: OPTIRAY 320 100ml IV ONE (18:46)
--- NOTE | 2025-03-25 19:32 | CT Scan Report ---
CT CHEST WITH CONTRAST: HISTORY: Shortness of breath TECHNIQUE: CT of the chest was obtained with intravenous contrast. Coronal and sagittal reformats were created. IV CONTRAST: 100 mL of OMNIPAQUE 300 COMPARISON: Thoracic CT November 11, 2024 FINDINGS: LOWER NECK: Normal thyroid. LYMPH NODES: A few small nonenlarged lymph nodes in the mediastinum. No lymphadenopathy by size criteria. CARDIOVASCULAR: Cardiac size is enlarged. Coronary artery and valvular calcifications are noted. No aortic aneurysm. LUNGS: There is a large left diaphragmatic hiatal hernia with intrathoracic stomach. There is moderate distention of the stomach with some twisting. The configuration of the stomach is overall similar to the November 11, 2024 examination. The trachea and central bronchi are widely patent. Bibasilar atelectasis. Small left pleural fluid. There are no suspicious pulmonary nodules in the aerated lungs PLEURA: There is no pneumothorax. UPPER ABDOMEN: Ill-defined left hepatic lobe hypodensity measuring 2.6 cm is probably a hemangioma. OSSEOUS STRUCTURES: No acute findings IMPRESSION: Large left diaphragmatic hernia with intrathoracic stomach. The stomach is moderately distended with some twisting with a degree of outlet obstruction is suggested. The configuration of the stomach is overall similar to the November 11, 2024 examination however recommend clinical correlation to exclude volvulus Electronically signed by Benedicto Medina 03-25-2025 7:32 PM
[2025-03-25] MEDS: ZONISAMIDE 100 MG CAPSULE PO SCH (21:58)
[2025-03-26 07:44] VITALS: BP 114/69; TEMP 97.5; O2SAT 91
--- NOTE | 2025-03-26 11:25 | Hospitalist Progress Note ---
Date of Service March 26, 2025 Assessment & Plan (1) Fall: (2) Anticoagulant long-term use: (3) Tongue laceration: (4) Parkinson disease: (5) History of pulmonary embolism: (6) Labile hypertension: (7) Chronic diastolic (congestive) heart failure: (8) Rheumatoid arthritis: (9) Chronic steroid use: (10) ACTH deficiency: (11) BPH loc w urin obs/LUTS: Plan This is a 74-year-old male with significant past medical history of Parkinson's disease, hypothyroidism, chronic diastolic heart failure, history of liver hemangioma, nonrheumatic mitral valve regurgitation, history of simple partial seizure, rheumatoid arthritis on long-term steroid therapy, history of PE on coumadin who presents to ED after a mechanical fall at home. Mechanical fall Tongue laceration Anti-coagulant use Head, face and c-spine CTs reviewed - no acute pathology VSS, hgb stable at 15.6 S/p TXA and IV vitamin K in ED No more evidence of continued tongue bleed Hemoglobin remains stable at 12.7 He has been able to eat and drink Will restart Coumadin from tomorrow Swelling of the tongue has improved and he has been eating and drinking reasonably He will be sent back home following PT evaluation if no other recommendation Discussed with the and she is agreeable to that He can have his cataract surgery as planned following discharge Abnormal chest x-ray Left upper lobe lung mass He remains free from any symptoms Will get CT scan of the chest with intravenous contrast after discussion with the CT scan of the chest with contrast did not show any evidence of mass and/or pneumonia it only showed evidence of hiatal hernia which has been there for a long time without any change Parkinson disease At baseline. Continue home Sinemet, entacapone, amantadine Will continue current medications and no significant symptoms Denies any other significant parkinsonian symptoms and the fall could be secondary to Parkinson disease History of simple partial seizure Continue home Tegretol, Zonegran History of PE Dx October 2024 Home regimen 10mg Tues, 5mg all other days per 03/20 coag clinic note Hold coumadin for now Reversed as above with vit K as above Will restart Coumadin from tomorrow Coumadin will be restarted from this afternoon Rheumatoid arthritis Chronic steroid use Stable. Continue Arava and daily prednisone No acute arthritis involving any of the joint but he does have changes due to rheumatoid arthritis in joints Rheumatoid arthritis seems to be controlled without any acute arthritis Chronic diastolic (congestive) heart failure Euvolemic. Receiving gentle fluids while NPO Monitor volume status closely Labile hypertension Orthostatic hypotension in setting of autonomic dysfunction in relation to PD BP significantly elevates overnight to ranges above 190-200 systolic Continue midodrine 2.5mg TID BPH Continue finasteride DVT Ppx: SCDs for now, resume coumadin as able Code status: FULL per discussion with patient/ this evening PCP: Nato Dispo: Admitted to [facility] tele Admission and Anticipated Discharge Date Admission Date: March 24, 2025 Subjective 03/25/2025 The patient was seen and examined in telemetry unit, He was admitted with mechanical fall and tongue laceration Has been feeling better since admission and is able to eat and drink Denies any significant symptoms at rest 03/26/2025 The patient was seen and examined in medical telemetry unit in presence of the He has been stable with minimal pain in the tongue He has been eating and drinking reasonably well Denies any other significant symptoms Review of Systems Review of Systems: All systems reviewed and are unremarkable except as noted below Physical Exam Physical Exam: Lying in bed without any acute distress Constitutional: well developed, well nourished and + ill appearing Eyes: PERRL, conjunctivae normal, anicteric sclerae ENMT: external ear and nose normal, oropharynx normal Examination of the tongue showed evidence of bleeding but no acute bleeding and the swelling has improved a lot Neck: trachea midline, no thyromegaly Respiratory: no respiratory distress Auscultation: + diminished lung sounds and + crackles (Minimal crackles at the bases from) Cardiovascular: Rate/Rhythm: regular rate and regular rhythm; not tachycardic Heart Sounds: normal S1 and normal S2; no murmur Extremities: + edema (Trace edema bilaterally) Gastrointestinal (Abdomen): Inspection/Auscultation: normal bowel sounds; abdomen not distended Percussion/Palpation: abdomen soft; abdomen nontender Musculoskeletal: No acute arthritis involving any of the joint Neurologic: normal touch/pain/proprioception and moves all extremities; no focal motor deficits Lymphatic: no cervical or axillary lymphadenopathy Results & Data Results & Data Vital Signs (Past 12 Hours) Vital Signs Temp Pulse Pulse Resp BP Pulse Ox O2 Del Method 03/26/25 08:45 Room Air 03/26/25 07:43 36.4 C L 66 18 114/69 91 Room Air 03/26/25 06:45 69 03/26/25 06:23 36.6 C 80 18 143/81 H 95 Room Air 03/26/25 02:38 36.6 C 72 18 189/93 H 92 Room Air 03/26/25 02:27 36.6 C 72 18 189/93 H 92 Room Air Medications Administered Current Inpatient Medications Amantadine HCl (Amantadine Hcl 100 Mg Capsule) 100 mg PO DAILY JACQUES Stop: 04/24/25 08:59 Last Admin: 03/26/25 08:45 Dose: 100 mg Bromfenac Sodium (Bromfenac Sodium 0.07% (Prolensa) 3 Ml Drops) 1 drops OPR DAILY JACQUES Stop: 04/25/25 08:59 Last Admin: 03/26/25 08:45 Dose: 1 drops Carbamazepine (Carbamazepine 200 Mg Tablet) 200 mg PO QID@0630,1200,1700,2200 JACQUES Stop: 04/24/25 06:29 Last Admin: 03/26/25 06:01 Dose: 200 mg Carbidopa/Levodopa (Carbidopa/Levodopa 25/100mg Tab) 3 tab PO QID@0630,0900,1200,1700 JACQUES Stop: 04/24/25 00:18 Last Admin: 03/26/25 08:45 Dose: 3 tab Cyanocobalamin (Cyanocobalamin (B-12) 500 Mcg Tablet) 1,000 mcg PO DAILY JACQUES Stop: 04/24/25 08:59 Last Admin: 03/26/25 08:45 Dose: 1,000 mcg Entacapone (Entacapone 200 Mg Tab) 200 mg PO QID@0630,0900,1200,1700 JACQUES Stop: 04/24/25 00:18 Last Admin: 03/26/25 08:45 Dose: 200 mg Famotidine (Famotidine 20 Mg Tab) 20 mg PO HS JACQUES Stop: 04/24/25 00:18 Last Admin: 03/25/25 21:53 Dose: 20 mg Ferrous Sulfate (Ferrous Sulfate 325 Mg Tab) 325 mg PO MoTuWeThFr@0900 JACQUES Stop: 04/24/25 08:59 Last Admin: 03/26/25 08:45 Dose: 325 mg Finasteride (Finasteride 5 Mg Tab) 5 mg PO QDD JACQUES Stop: 04/24/25 16:29 Last Admin: 03/25/25 16:24 Dose: 5 mg Promethazine HCl (Phenergan) 6.25 mg in 50.25 mls @ 201 mls/hr IV Q6H PRN PRN Reason: Nausea And Vomiting Stop: 04/23/25 19:54 Acetaminophen (Ofirmev) 1,000 mg in 100 mls @ 400 mls/hr IV Q8H JACQUES Stop: 03/27/25 20:59 Last Infusion: 03/26/25 05:13 Dose: Infused Ampicillin Sodium/Sulbactam Sodium (Unasyn) 3,000 mg in 100 mls @ 200 mls/hr IV Q6H JACQUES Stop: 03/30/25 06:59 Last Infusion: 03/26/25 06:38 Dose: Infused Leflunomide (Leflunomide 10 Mg Tab) 20 mg PO QDB [facility] Stop: 04/24/25 07:29 Last Admin: 03/26/25 08:45 Dose: 20 mg Levothyroxine Sodium (Levothyroxine Sodium 75 Mcg Tablet) 75 mcg PO DAILYBB [facility] Stop: 04/24/25 06:29 Last Admin: 03/26/25 06:06 Dose: 75 mcg Melatonin (Melatonin 3 Mg Tab) 9 mg PO HS PRN PRN Reason: Sleep Stop: 04/23/25 21:36 Midodrine (Midodrine Hcl 2.5 Mg Tab) 2.5 mg PO TID@0630,1200,1700 [facility] Stop: 04/24/25 06:29 Last Admin: 03/26/25 06:05 Dose: Not Given Ondansetron HCl (Ondansetron Inj 2 Mg/Ml 2 Ml Vial) 4 mg IV Q6H PRN PRN Reason: Nausea Stop: 04/24/25 00:18 Pantoprazole Sodium (Pantoprazole 40 Mg Tab) 40 mg PO QAM [facility] Stop: 04/24/25 08:59 Last Admin: 03/26/25 08:45 Dose: 40 mg Polyethylene Glycol (Polyethylene (Miralax) 17 Gm Pack) 17 gm PO DAILY PRN PRN Reason: Constipation Stop: 04/24/25 00:18 Potassium Phosphate (Pot Phosphate Monobasic W/ Sod Tab) 1 tab PO DAILY [facility] Stop: 04/24/25 08:59 Last Admin: 03/26/25 08:45 Dose: 1 tab Prednisolone Acetate (Prednisolone Acetate 1% Op Susp 5 Ml Btl) 1 drops OPR TID JACQUES Stop: 04/24/25 15:43 Last Admin: 03/26/25 08:45 Dose: 1 drops Prednisone (Prednisone 2.5 Mg Tab) 7.5 mg PO DAILY JACQUES Stop: 04/24/25 08:59 Last Admin: 03/26/25 08:45 Dose: 7.5 mg Vitamin D (Cholecalciferol 25 Mcg (1000 Units) Tab) 25 mcg PO DAILY JACQUES Stop: 04/24/25 08:59 Last Admin: 03/26/25 08:45 Dose: 25 mcg Zonisamide (Zonisamide 100 Mg Capsule) 100 mg PO HS JACQUES Stop: 04/24/25 20:59 Last Admin: 03/25/25 21:58 Dose: 100 mg (1) Fall Encounter type: initial encounter Qualified Code(s): W19.XXXA - Unspecified fall, initial encounter (3) Tongue laceration Encounter type: initial encounter Qualified Code(s): S01.512A - Laceration without foreign body of oral cavity, initial encounter (4) Parkinson disease Dyskinesia presence: unspecified whether dyskinesia Fluctuating manifestations: unspecified whether manifestations fluctuate Qualified Code(s): G20.A1 - Parkinson's disease without dyskinesia, without mention of fluctuations
[2025-03-26 14:15] VITALS: PULSE 77
--- NOTE | 2025-03-27 16:17 | Discharge Summary ---
Date of Service March 27, 2025 Admission HPI Per Admitting Provider This is a 74-year-old male with significant past medical history of Parkinson's disease, hypothyroidism, chronic diastolic heart failure, history of liver hemangioma, nonrheumatic mitral valve regurgitation, history of simple partial seizure, rheumatoid arthritis on long-term steroid therapy, history of PE on coumadin who presents to ED after fall at home. Patient was ambulating in the hallway with his walker when he turned, lost his balance and fell forward, hitting his head into it bookshelf. Due to bleeding from head injury, brought him in to ED for further evaluation. Denies any loss of consciousness. Did have a dull headache initially which improved after Tylenol. Did have some bleeding of his mouth from where he bit his tongue, which has improved since arrival to the ED. Patient is on coumadin for history of PE this past October, which he last took this morning. Denies any fever, chills, lightheadedness, chest pain, shortness of breath, nausea, vomiting, abdominal pain, dysuria, diarrhea or constipation. Has been participating with home PT/OT and ambulates with a walker or wheelchair. Principal Diagnosis Mechanical fall with history of Parkinson's disease, tongue laceration , history of PE on Coumadin, large left diaphragmatic hernia with intrathoracic stomach similar to that of November 11 2024 Discharge Exam Lying in bed without any acute distress Constitutional well developed, well nourished and + ill appearing Eyes PERRL, conjunctivae normal, anicteric sclerae ENMT external ear and nose normal, oropharynx normal Neck trachea midline, no thyromegaly Respiratory no respiratory distress Auscultation: + diminished lung sounds and + crackles (Minimal crackles at the bases from) Cardiovascular Rate/Rhythm: regular rate and regular rhythm; not tachycardic Heart Sounds: normal S1 and normal S2; no murmur Extremities: + edema (Trace edema bilaterally) Gastrointestinal (Abdomen) Inspection/Auscultation: normal bowel sounds; abdomen not distended Percussion/Palpation: abdomen soft; abdomen nontender Neurologic normal touch/pain/proprioception and moves all extremities; no focal motor deficits Lymphatic no cervical or axillary lymphadenopathy Discharge Data Allergies Allergy/AdvReac Type Severity Reaction Status Date / Time No Known Allergies Allergy Verified 03/27/25 08:47 Consultations 03/24/25 19:44 ED Decision to Admit Stat Ordered Studies 03/24/25 17:30 CT face [CT facial bones wo con] Stat CT head/brain wo con Stat 03/24/25 17:31 CT cervical spine wo con Stat 03/25/25 00:18 CT head/brain wo con Urgent CT soft tissue neck wo con Urgent 03/25/25 15:34 CT chest with contrast [CT chest diagnostic w con] Urgent Hospital Course (1) Fall: (2) Anticoagulant long-term use: (3) Tongue laceration: (4) Parkinson disease: (5) History of pulmonary embolism: (6) Labile hypertension: (7) Chronic diastolic (congestive) heart failure: (8) Rheumatoid arthritis: (9) Chronic steroid use: (10) ACTH deficiency: (11) BPH loc w urin obs/LUTS: Plan This is a 74-year-old male with significant past medical history of Parkinson's disease, hypothyroidism, chronic diastolic heart failure, history of liver hemangioma, nonrheumatic mitral valve regurgitation, history of simple partial seizure, rheumatoid arthritis on long-term steroid therapy, history of PE on coumadin who presents to ED after a mechanical fall at home. Mechanical fall Tongue laceration Anti-coagulant use Head, face and c-spine CTs reviewed - no acute pathology VSS, hgb stable at 15.6 S/p TXA and IV vitamin K in ED No more evidence of continued tongue bleed Hemoglobin remains stable at 12.7 He has been able to eat and drink Will restart Coumadin from tomorrow Swelling of the tongue has improved and he has been eating and drinking reasonably He will be sent back home following PT evaluation if no other recommendation Discussed with the and she is agreeable to that He can have his cataract surgery as planned following discharge Abnormal chest x-ray Left upper lobe lung mass He remains free from any symptoms Will get CT scan of the chest with intravenous contrast after discussion with the CT scan of the chest with contrast did not show any evidence of mass and/or pneumonia it only showed evidence of hiatal hernia which has been there for a long time without any change Parkinson disease At baseline. Continue home Sinemet, entacapone, amantadine Will continue current medications and no significant symptoms Denies any other significant parkinsonian symptoms and the fall could be secondary to Parkinson disease History of simple partial seizure Continue home Tegretol, Zonegran History of PE Dx October 2024 Home regimen 10mg Tues, 5mg all other days per 03/20 coag clinic note Hold coumadin for now Reversed as above with vit K as above Will restart Coumadin from tomorrow Coumadin will be restarted from this afternoon Rheumatoid arthritis Chronic steroid use Stable. Continue Arava and daily prednisone No acute arthritis involving any of the joint but he does have changes due to rheumatoid arthritis in joints Rheumatoid arthritis seems to be controlled without any acute arthritis Chronic diastolic (congestive) heart failure Euvolemic. Receiving gentle fluids while NPO Monitor volume status closely Labile hypertension Orthostatic hypotension in setting of autonomic dysfunction in relation to PD BP significantly elevates overnight to ranges above 190-200 systolic Continue midodrine 2.5mg TID BPH Continue finasteride DVT Ppx: SCDs for now, resume coumadin as able Code status: FULL per discussion with patient/ this evening PCP: Nato Dispo: Admitted to med tele Total Time Total Time Spent Total Time Spent (In Minutes): 45 Minutes Discharge Plan Discharge Items Patient Disposition: Home - Home Health Services Reason For Visit: FALL, TONGUE LACERATION, HEAD LACERATION Discharge Diagnosis: Mechanical fall with history of Parkinson's disease, tongue laceration , history of PE on Coumadin, large left diaphragmatic hernia with intrathoracic stomach similar to that of November 11 2024 Condition on Discharge: Fair Activity: Resume your previous activity Non-emergency contact: Primary Care Provider Call non-emergency contact if: you have any medication questions and your symptoms worsen Follow-up/Referrals: Emerald Dutton MD [Primary Care Provider] - (Date & Time 04/01/2025 4:00 PM Provider: Emerald Dutton MD General Internal Medicine [facility] ) Diet: Regular Diet Comment: minced and moist Addtl Attending Provider Instructions: Please take precautions to avoid fall Continue outpatient PT and OT No change in your medications- continue eyedrops as advised by your specialty finishing utility person You can restart your Coumadin from this evening and have regular follow-up with Coumadin clinic to adjust the doses Please keep appointments with a healthcare provider Pending Studies at Discharge: No Stand-Alone Forms: [employer] Rx, Smoking Cessation Medications and DC Order Prescriptions: Continued finasteride [Proscar] 5 mg tablet 5 mg PO QDD Rx Instructions: take 1/2 hour before supper leflunomide [Arava] 20 mg tablet 20 mg PO QDB carbidopa-levodopa 25-100 mg tablet 3 tab PO QID Rx Instructions: TAKES AT 0630, 0900, 1200, 1700 testosterone cypionate 200 mg/mL oil 100 mg IM Q14D Rx Instructions: LAST TAKEN 03/18/25 midodrine 2.5 mg tablet 2.5 mg PO TID Rx Instructions: 0630, 1200, 1700 famotidine 20 mg tablet 20 mg PO HS amantadine HCl 100 mg capsule 100 mg PO DAILY prednisone 5 mg tablet 7.5 mg PO DAILY 30 Days Qty: 45 5RF Rx Instructions: Please take 1.5 tablets daily. levothyroxine [Synthroid] 75 mcg tablet 75 mcg PO DAILYBB zonisamide [Zonegran] 100 mg capsule 100 mg PO HS carbamazepine [Tegretol] 200 mg tablet 200 mg PO QID Rx Instructions: 0630, 1200, 1700, 2200 melatonin 5 mg tablet 10 mg PO HS PRN (Reason: Sleep) ferrous sulfate [FeroSul] 325 mg (65 mg iron) tablet 325 mg PO [id number] Rx Instructions: SUNDAY THROUGH SUNDAY WITH ORANGE JUICE AT BREAKFAST warfarin 5 mg tablet See Rx Instructions .ROUTE .COMPLEX Rx Instructions: OF 03/20/25--10 mg every e, Fri; 5 mg all other days entacapone 200 mg tablet 200 mg PO QID Rx Instructions: 0630, 0800, 1200, 1700 with sinemet acetaminophen [Tylenol] 325 mg Tablet 500 mg PO QID PRN (Reason: Breakthrough Pain, Mild) pantoprazole 40 mg Tablet,Delayed Release (Dr/Ec) 40 mg PO QAM Qty: 1 0RF cyanocobalamin (vitamin B-12) [Vitamin B-12] 1,000 mcg Tablet 1,000 mcg PO DAILY cholecalciferol (vitamin D3) [Vitamin D3] 25 mcg (1,000 unit) Tablet 25 mcg PO DAILY Phospho-Ayesha 250 Neutral 250 mg Tablet 1 tab PO DAILY Admission Data Admit Date/Time: 03/24/25 20:57 Attending Provider: Solomon Pablo Admit Provider: Solomon Pablo Primary Care Provider: Emerald Dutton Other Providers: Nba Robison Other Interventions: Discharge Summary Assessment (RN) Last Done: 03/26/25 13:35
== END 2025-03-26 14:29 | disposition home health service (06) ==
LOC: 2S 16:59 → ED 16:59 → 2S 23:00 → 2N 03-25 17:32

== ENCOUNTER 2025-03-29 14:07 | Inpatient (IN) ==
--- NOTE | 2025-03-29 14:29 | Emergency Department Note ---
History of Present Illness General Chief complaint: Chest Pain Stated complaint: SOB, CHEST PAIN Time Seen by Provider: 03/29/25 14:18 History of Present Illness Maximum Pain Intensity: 9 This is a 74-year-old male with a complex past medical history that presents to the emergency via private vehicle with complaints of " shortness of breath, chest pain". History obtained from patient and at bedside. Reportedly today around 1 PM the patient began with trouble breathing and some discomfort in the chest. They did note some wheezing as well. He is anticoagulated secondary to history of PE but was off of the medication recently secondary to tongue trauma. He was recently hospitalized as well. No fevers. No chills. Home Medications Medication Instructions Recorded Confirmed Type finasteride 5 mg tablet (Proscar) 5 mg PO QDD 12/03/20 03/29/25 History leflunomide 20 mg tablet (Arava) 20 mg PO QDB 12/03/20 03/29/25 History carbamazepine 200 mg tablet 200 mg PO QID 08/03/21 03/29/25 History (Tegretol) levothyroxine 75 mcg tablet 75 mcg PO DAILYBB 08/03/21 03/29/25 History (Synthroid) zonisamide 100 mg capsule 100 mg PO HS 08/03/21 03/29/25 History (Zonegran) carbidopa 25 mg-levodopa 100 mg 3 tab PO QID 02/07/22 03/29/25 History tablet melatonin 5 mg tablet 10 mg PO HS PRN Sleep 08/21/23 03/29/25 History entacapone 200 mg tablet 200 mg PO QID 10/10/23 03/29/25 History acetaminophen 325 mg tablet 500 mg PO QID PRN Breakthrough 10/29/23 03/29/25 History (Tylenol) Pain, Mild midodrine 2.5 mg tablet 2.5 mg PO TID 02/21/24 03/29/25 History ferrous sulfate 325 mg (65 mg 325 mg PO 5XWK 08/25/24 03/29/25 History iron) tablet (FeroSul) pantoprazole 40 mg tablet,delayed 40 mg PO QAM #1 tab 11/20/24 03/29/25 Rx release amantadine HCl 100 mg capsule 100 mg PO DAILY 12/10/24 03/29/25 History famotidine 20 mg tablet 20 mg PO HS 12/10/24 03/29/25 History testosterone cypionate 200 mg/mL 100 mg IM Q14D 12/10/24 03/29/25 History intramuscular oil prednisone 5 mg tablet 7.5 mg (1.5 x 5 mg) PO DAILY Take 02/18/25 03/29/25 Rx 1.5 tablets daily. 30 days #45 tabs warfarin 5 mg tablet 5 mg PO UD 03/04/25 03/29/25 History cholecalciferol (vitamin D3) 25 25 mcg PO DAILY 03/24/25 03/29/25 History mcg (1,000 unit) tablet (Vitamin D3) cyanocobalamin (vitamin B-12) 1,000 mcg PO DAILY 03/24/25 03/29/25 History 1,000 mcg tablet (Vitamin B-12) sodium di- and 1 tab PO DAILY 03/24/25 03/29/25 History monophosphate-potassium phos monobasic 250 mg tablet (Phospho-Ayesha Neutral) Allergies Allergy/AdvReac Type Severity Reaction Status Date / Time No Known Allergies Allergy Verified 03/27/25 08:47 Past Med/Surg History Problem List (Updated 03/29/25 @ 18:02 by Marvin Plaza PA-C) Dyspnea (Acute) Pneumonia (Acute) Anticoagulant long-term use (Acute) Fall (Acute) Laceration of head (Acute) Tongue laceration (Acute) History of pulmonary embolism Paraesophageal hernia Labile hypertension Parkinson disease (Acute) Chronic steroid use ACTH deficiency (Acute) Postural hypotension BPH loc w urin obs/LUTS Chronic diastolic (congestive) heart failure Parkinson's disease dementia Rheumatoid arthritis Medical History Tongue laceration (03/24/25) fell at home & bit tongue, admit to [facility], d/c home 03/26/25- resolving Laceration of head (03/24/25) has 2 cristobal, needs to have removed on 04/01/25 Hx of fall (03/24/25) required admission to [facility], had two sutures placed on top of head; also bit his tongue; discharged 03/26/25 Hypogonadism male Hypothyroidism Epilepsy last seizure-several years ago unable to recall date Inguinal hernia, right Paraesophageal hernia Chronic diastolic (congestive) heart failure Postural hypotension states can also happen while sitting History of DVT (deep vein thrombosis) (10/2024) bilateral lower extremity custodial (current) use of anticoagulants Rheumatoid arthritis History of pulmonary embolism taking warfarin ACTH deficiency BPH loc w urin obs/LUTS Parkinson's disease dementia Pleural effusion History of venous stasis ulcer of lower extremity Hypothermia history of-hospitalization [facility] Chronic venous insufficiency Nonrheumatic mitral valve regurgitation Spinal stenosis Surgical History Hx of right cataract extraction (03/17/25) S/P correction of deviated nasal septum History of hernia repair History of left knee replacement Hx of laminectomy Family History Other Leukemia Lung cancer Social History Smoking Status: Never smoker Second Hand Exposure: No; Do You Dip or Chew Tobacco: No; Hx Alcohol Use: No Hx Substance Use: No Preferred Language: Yoruba Communication Ability: Effective Clinical Transplant Coordinator Required: No Beliefs That Will Affect Care: None Current Living Situation: Spouse Feels Safe at Home: Yes Assistive Devices: Walker and Wheelchair Review of Systems A total of 10 systems reviewed and were otherwise negative Physical Exam Vital Signs Vital Signs - 24 hr 03/29/25 14:12 03/29/25 14:30 03/29/25 16:01 Temperature 36.5 C Temperature Source Temporal Artery Scan Pulse Rate 83 80 Pulse Rate [Apical] 81 Respiratory Rate 18 20 Respiratory Effort / Characteristics Non-Labored Spontaneous Respiratory Depth Normal Blood Pressure 146/86 H Blood Pressure [Left Arm] 166/106 H Blood Pressure Mean 106 Blood Pressure Mean [Left Arm] 126 Blood Pressure Position Sitting Pulse Oximetry 94 95 Oxygen Delivery Method Room Air Room Air Sepsis Recent Fever Within 48 Hours No Sepsis New/Unexplained Change in Mental Status No Sepsis Action Taken by Nursing No Action Required 03/29/25 16:30 03/29/25 17:07 03/29/25 17:52 Temperature Temperature Source Pulse Rate 72 Pulse Rate [Apical] 72 Respiratory Rate 20 16 Respiratory Effort / Characteristics Respiratory Depth Blood Pressure 148/107 H Blood Pressure [Left Arm] 180/114 H Blood Pressure Mean Blood Pressure Mean [Left Arm] 136 Blood Pressure Position Pulse Oximetry 93 92 93 Oxygen Delivery Method Room Air Room Air Room Air Sepsis Recent Fever Within 48 Hours Sepsis New/Unexplained Change in Mental Status Sepsis Action Taken by Nursing VITAL SIGNS - Vital signs and nursing notes were reviewed. Stable and afebrile. GENERAL - 74-year-old male appearing his stated age who is in no acute distress. The patient does speak in abbreviated sentences in a low tone. Raspy voice appreciated. No stridor. SKIN - Without rashes. HEAD - NC/AT. EYES - PERRL with EOMI bilaterally. Sclera anicteric. EARS - No deformities of external structures noted on gross examination bilaterally. NOSE - Midline and without cyanosis. No epistaxis or purulent drainage noted. MOUTH/OROPHARYNX - Without perioral cyanosis. NECK - Neck with FROM. No nuchal rigidity. LUNGS -mild bilateral wheezing noted. No stridor. CARDIAC -regular rate and rhythm EXTREMITIES - No clubbing or peripheral cyanosis. +5/5 strength noted in UE/LE bilaterally. NEUROLOGIC - Cranial nerves grossly intact. PSYCH -alert, oriented and pleasant on exam Course Administered Medications Discontinued Medications Cefepime HCl (Maxipime 2000mg) 2,000 mg in 20 mls @ 5 mls/min IV NOW STA; Protocol Stop: 03/29/25 16:17 Last Admin: 03/29/25 16:57 Dose: 5 mls/min Documented By: DARINEL Ioversol (Optiray 320 100ml) 115 ml IV ONCE ONE Stop: 03/29/25 15:03 Last Admin: 03/29/25 15:03 Dose: 115 ml Documented By: JULES Medical Decision Making Laboratory Data 03/29/25 14:35 03/29/25 14:35 Lab Results 03/29/25 03/29/25 03/29/25 Range/Units 14:35 14:40 16:05 WBC 5.55 (4.8-10.8) K/ul RBC 4.84 (4.70-6.10) M/uL Hgb 14.3 (14.0-18.0) g/dl POC Hgb 15.0 (14.0-18.0) g/dl Hct 44.3 (42.0-52.0) % POC Hct 44 (42-52) % MCV 91.5 (80.0-100.0) fL MCH 29.5 (25.0-34.0) pg MCHC 32.3 (32.0-36.0) g/dL RDW Std Deviation 55.0 H (36.4-46.3) fL RDW Coeff of Armen 16.8 H (11.5-14.5) % Plt Count 166 (130-400) K/uL MPV 9.4 (9.4-12.4) fL Immature Gran % (Auto) 1.3 % Neut % (Auto) 69.5 % Lymph % (Auto) 15.7 % Jessamine % (Auto) 12.6 % Eos % (Auto) 0.4 % Baso % (Auto) 0.5 % Neut # (Auto) 3.86 (1.40-6.50) K/uL Lymph # (Auto) 0.87 L (1.20-3.40) K/uL Jessamine # (Auto) 0.70 H (0.11-0.59) K/uL Eos # (Auto) 0.02 (0.00-0.50) K/uL Baso # (Auto) 0.03 (0.00-0.20) K/uL Immature Gran # (Auto) 0.07 (0.01-0.20) K/uL PT 15.3 H (9.0-12.0) Seconds INR 1.5 H (0.9-1.1) APTT 29 (21-31) Seconds PTT Ratio 1.1 POC Sodium 141 (135-144) mmol/L Sodium 140 (136-145) mmol/L POC Potassium 3.8 (3.3-5.0) mmol/L Potassium 3.6 (3.5-5.1) mmol/L POC Chloride 107 (101-112) mmol/L Chloride 106 (98-107) mmol/L Carbon Dioxide 25 (21-32) mmol/L POC Total CO2 22 L (24-31) mmol/L Anion Gap 9 (3-11) POC Anion Gap 17.0 (16-25) mmol/L POC BUN 48 H (7-18) mg/dl BUN 50 H (6-23) mg/dl Creatinine 1.26 (0.6-1.4) mg/dl POC Creatinine 1.4 H (0.6-1.3) mg/dl Est Cr Clr Drug Dosing Not Reportable eGFR 59.48 BUN/Creatinine Ratio 39.7 H (10-20) Glucose 105 H (70-99(Fasting)) mg/dl POC Glucose (other) 108 H (70-99) mg/dl Calcium 8.7 (8.6-10.3) mg/dl POC Ioniz Calcium Misty 1.02 L (1.12-1.32) mmol/l Magnesium 2.2 (1.7-2.4) mg/dl Total Bilirubin 0.5 (0.2-1.0) mg/dl AST 27 (13-39) U/L ALT 5 L (7-52) U/L Alkaline Phosphatase 77 (34-104) U/L Troponin I High Sens 10.6 (0-20) pg/ml Total Protein 7.3 (6.0-8.3) gm/dl Albumin 3.9 (3.4-5.0) gm/dl Globulin 3.4 (2.5-4.0) gm/dl Albumin/Globulin Ratio 1.1 (0.9-2) TSH 4.264 (0.300-4.500) uIu/ml Nasal Screen MRSA (PCR) Negative (Negative) 03/29/25 Range/Units 16:33 WBC (4.8-10.8) K/ul RBC (4.70-6.10) M/uL Hgb (14.0-18.0) g/dl POC Hgb (14.0-18.0) g/dl Hct (42.0-52.0) % POC Hct (42-52) % MCV (80.0-100.0) fL MCH (25.0-34.0) pg MCHC (32.0-36.0) g/dL RDW Std Deviation (36.4-46.3) fL RDW Coeff of Armen (11.5-14.5) % Plt Count (130-400) K/uL MPV (9.4-12.4) fL Immature Gran % (Auto) % Neut % (Auto) % Lymph % (Auto) % Jessamine % (Auto) % Eos % (Auto) % Baso % (Auto) % Neut # (Auto) (1.40-6.50) K/uL Lymph # (Auto) (1.20-3.40) K/uL Jessamine # (Auto) (0.11-0.59) K/uL Eos # (Auto) (0.00-0.50) K/uL Baso # (Auto) (0.00-0.20) K/uL Immature Gran # (Auto) (0.01-0.20) K/uL PT (9.0-12.0) Seconds INR (0.9-1.1) APTT (21-31) Seconds PTT Ratio POC Sodium (135-144) mmol/L Sodium (136-145) mmol/L POC Potassium (3.3-5.0) mmol/L Potassium (3.5-5.1) mmol/L POC Chloride (101-112) mmol/L Chloride (98-107) mmol/L Carbon Dioxide (21-32) mmol/L POC Total CO2 (24-31) mmol/L Anion Gap (3-11) POC Anion Gap (16-25) mmol/L POC BUN (7-18) mg/dl BUN (6-23) mg/dl Creatinine (0.6-1.4) mg/dl POC Creatinine (0.6-1.3) mg/dl Est Cr Clr Drug Dosing eGFR BUN/Creatinine Ratio (10-20) Glucose (70-99(Fasting)) mg/dl POC Glucose (other) (70-99) mg/dl Calcium (8.6-10.3) mg/dl POC Ioniz Calcium Misty (1.12-1.32) mmol/l Magnesium (1.7-2.4) mg/dl Total Bilirubin (0.2-1.0) mg/dl AST (13-39) U/L ALT (7-52) U/L Alkaline Phosphatase (34-104) U/L Troponin I High Sens 9.8 (0-20) pg/ml Total Protein (6.0-8.3) gm/dl Albumin (3.4-5.0) gm/dl Globulin (2.5-4.0) gm/dl Albumin/Globulin Ratio (0.9-2) TSH (0.300-4.500) uIu/ml Nasal Screen MRSA (PCR) (Negative) Imaging Data Radiologist's Impression: Chest CTA 03/29/25 14:26 CT pulmonary angiogram with IV contrast History: Dyspnea COMPARISON: 03/25/2025 TECHNIQUE: CT angiography of the chest was performed without IV contrast followed by IV contrast, including 3D post processing CTA image reconstruction. Dose reduction techniques were achieved by using automatic exposure control and/or adjustment of mA and/or kV according to patient size and/or use of iterative reconstruction technique. FINDINGS: Diagnostic quality: Adequate There is no evidence for pulmonary embolism. The heart is not enlarged. Mild coronary calcification. There is no pericardial effusion. There are no abnormally enlarged hilar or mediastinal lymph nodes. The central tracheobronchial tree is clear. Small left pleural effusion. Left basilar atelectasis. Subtle patchy centrilobular nodular densities are seen throughout the right lower lobe. Trace right pleural effusion. Limited visualized upper abdomen. There is a large hiatal hernia, with the stomach residing in the left chest. No destructive osseous changes are seen. IMPRESSION: No evidence for pulmonary embolism. Small left and trace right pleural effusion are again seen. Persistent large hiatal hernia. Left basilar atelectasis. There are new subtle centrilobular nodules throughout the right lower lobe, consistent with infection. Electronically signed by Matt Miguel 03-29-2025 3:45 PM Soft Tissue Neck CT 03/29/25 14:26 CT neck with contrast History: Difficulty breathing Comparison: None Technique: Following intravenous administration of nonionic iodinated contrast medium, thin section helical CT images were obtained from the skull base down to the level of the aortic arch. Axial, coronal and sagittal reformations were performed with 2-3 mm slice thickness reconstruction. Images were reviewed in soft tissue, lung and bone windows. One or more of the following dose-optimizing techniques was utilized for this exam: automated exposure control, adjustment of the mA and/or kV according to patient size, and/or use of iterative reconstruction technique. Findings: Evaluation of the mucosal space demonstrates no evident abnormality in the nasopharynx, oropharynx, hypopharynx or the glottis. The tongue base appears normal. The major salivary glands appear unremarkable. The thyroid gland is unremarkable. There is no evident cervical lymphadenopathy. The fascial spaces in the neck are intact bilaterally. The major vascular structures in the neck appear unremarkable. Evaluation of the osseous structures demonstrate no worrisome lytic or sclerotic lesion. Degenerative changes of the cervical spine. Small mucous retention cyst in the right maxillary sinus. The mastoid air cells are clear. Impression: Normal CT study of the neck with contrast. No evident mass or adenopathy within the neck. Electronically signed by Matt Miguel 03-29-2025 4:31 PM MDM Narrative Patient was seen and evaluated as above in room A04b. Review was performed of triage nursing notes and vital signs. I did review pertinent previous visits and patient history. After obtaining a thorough history and physical examination the above work up was performed. Patient presents to us today for evaluation of dyspnea and chest pain. EKG was performed and per my interpretation reveals normal sinus rhythm at a rate of 81 bpm. There is no ST elevation on this rhythm tracing. QTc 436. QRS 90. Options of care were discussed with the patient. IV access was established per labs were drawn. Patient was sent promptly to CT for imaging of the chest as well as soft tissue neck noting recent tongue trauma to ensure no deep infectious process. imaging as above. The neck CT was rather unremarkable. However the chest CT did show trace right and small left pleural effusions. There was also note of persistent large hiatal hernia which is not felt to be acutely causing an issue here today. Additionally there was also note of new subtle central lobar nodules throughout the right lower lobe consistent with infection. We will treat for pneumonia at this time. Cefepime ordered with MRSA nasal swab pending no pneumonia and hospitalization. Labs reveal no leukocytosis or concerning anemia. INR 1.5. There is elevation of the BUN at 50 and creatinine of 1.26. Troponin within normal range x 2. TSH was euthyroid state. MRSA nasal screen negative. At this time I do believe that further evaluation and management in the patient setting is warranted. Case discussed with the hospitalist service. Please refer to documentation regarding his stay. GCS: 15 In the evaluation and treatment of this patient the following differential diagnoses were entertained: NE, PE, pneumonia, pneumothorax, dissection, among others. Impression & Plan Pneumonia, Anticoagulant long-term use, Dyspnea Discharge Plan Visit Data Chief Complaint: Chest Pain Stated Complaint: SOB, CHEST PAIN ED Provider: Marii Swain ED Midlevel Provider: Marvin Plaza Discharge Problem: Pneumonia, Anticoagulant long-term use, Dyspnea Patient Disposition: Admitted As Inpatient Condition: Fair Discharge Instructions Interventions: ED Discharge Assessment Last Done: 03/29/25 17:52 Forms Stand Alone Forms: My [employer] Prescriptions Prescriptions: No Action finasteride [Proscar] 5 mg tablet 5 mg PO QDD Rx Instructions: take 1/2 hour before supper leflunomide [Arava] 20 mg tablet 20 mg PO QDB carbidopa-levodopa 25-100 mg tablet 3 tab PO QID Rx Instructions: TAKES AT 0630, 0900, 1200, 1700 testosterone cypionate 200 mg/mL oil 100 mg IM Q14D Rx Instructions: LAST TAKEN 03/18/25 midodrine 2.5 mg tablet 2.5 mg PO TID Rx Instructions: 0630, 1200, 1700 famotidine 20 mg tablet 20 mg PO HS amantadine HCl 100 mg capsule 100 mg PO DAILY prednisone 5 mg tablet 7.5 mg PO DAILY 30 Days Qty: 45 5RF Rx Instructions: Please take 1.5 tablets daily. levothyroxine [Synthroid] 75 mcg tablet 75 mcg PO DAILYBB zonisamide [Zonegran] 100 mg capsule 100 mg PO HS carbamazepine [Tegretol] 200 mg tablet 200 mg PO QID Rx Instructions: 0630, 1200, 1700, 2200 melatonin 5 mg tablet 10 mg PO HS PRN (Reason: Sleep) ferrous sulfate [FeroSul] 325 mg (65 mg iron) tablet 325 mg PO 5XWK Rx Instructions: SUNDAY THROUGH SUNDAY WITH ORANGE JUICE AT BREAKFAST warfarin 5 mg tablet 5 mg PO UD Rx Instructions: OF 03/29/25--10 mg every Sun; 5 mg all other days entacapone 200 mg tablet 200 mg PO QID Rx Instructions: 0630, 0800, 1200, 1700 with sinemet acetaminophen [Tylenol] 325 mg Tablet 500 mg PO QID PRN (Reason: Breakthrough Pain, Mild) pantoprazole 40 mg Tablet,Delayed Release (Dr/Ec) 40 mg PO QAM Qty: 1 0RF cyanocobalamin (vitamin B-12) [Vitamin B-12] 1,000 mcg Tablet 1,000 mcg PO DAILY cholecalciferol (vitamin D3) [Vitamin D3] 25 mcg (1,000 unit) Tablet 25 mcg PO DAILY Phospho-Ayesha 250 Neutral 250 mg Tablet 1 tab PO DAILY Referrals Referrals: Emerald Dutton MD [Primary Care Provider] -
[2025-03-29 14:47] LABS: Hematocrit (blood only) 44.3 % (42.0-52.0); Hemoglobin 14.3 g/dl (14.0-18.0); Immature Granulocytes # (auto) 0.07 K/uL (0.01-0.20); Immature Granulocytes % (auto) 1.3 %; Mean Corpuscular Hemoglobin 29.5 pg (25.0-34.0); Mean Corpuscular Volume 91.5 fL (80.0-100.0); Platelet Count 166 K/uL (130-400); RDW Standard Deviation 55.0 fL (36.4-46.3); Red Blood Count 4.84 M/uL (4.70-6.10); White Blood Count 5.55 K/ul (4.8-10.8)
[2025-03-29] MEDS: OPTIRAY 320 100ml IV ONE (15:03)
[2025-03-29 15:05] LABS: Alanine Aminotransferase 5 U/L (7-52); Albumin Globulin Ratio 1.1 (0.9-2); Albumin Level 3.9 gm/dl (3.4-5.0); Alkaline Phosphatase 77 U/L (34-104); Anion Gap 9 (3-11); Bilirubin,Total 0.5 mg/dl (0.2-1.0); Blood Urea Nitrogen 50 mg/dl (6-23); Calcium 8.7 mg/dl (8.6-10.3); Carbon Dioxide 25 mmol/L (21-32); Chloride 106 mmol/L (98-107); Globulin 3.4 gm/dl (2.5-4.0); Glucose 105 mg/dl (70-99(Fasting)); Magnesium 2.2 mg/dl (1.7-2.4); Potassium 3.6 mmol/L (3.5-5.1); Sodium 140 mmol/L (136-145); Total Protein 7.3 gm/dl (6.0-8.3)
[2025-03-29 15:18] LABS: INR 1.5 (0.9-1.1); Partial Thromboplastin Time 29 Seconds (21-31); Prothrombin Time 15.3 Seconds (9.0-12.0)
[2025-03-29 15:20] LABS: Thyroid Stimulating Hormone 4.264 uIu/ml (0.300-4.500)
--- NOTE | 2025-03-29 15:45 | CT Scan Report ---
CT pulmonary angiogram with IV contrast History: Dyspnea COMPARISON: 03/25/2025 TECHNIQUE: CT angiography of the chest was performed without IV contrast followed by IV contrast, including 3D post processing CTA image reconstruction. Dose reduction techniques were achieved by using automatic exposure control and/or adjustment of mA and/or kV according to patient size and/or use of iterative reconstruction technique. FINDINGS: Diagnostic quality: Adequate There is no evidence for pulmonary embolism. The heart is not enlarged. Mild coronary calcification. There is no pericardial effusion. There are no abnormally enlarged hilar or mediastinal lymph nodes. The central tracheobronchial tree is clear. Small left pleural effusion. Left basilar atelectasis. Subtle patchy centrilobular nodular densities are seen throughout the right lower lobe. Trace right pleural effusion. Limited visualized upper abdomen. There is a large hiatal hernia, with the stomach residing in the left chest. No destructive osseous changes are seen. IMPRESSION: No evidence for pulmonary embolism. Small left and trace right pleural effusion are again seen. Persistent large hiatal hernia. Left basilar atelectasis. There are new subtle centrilobular nodules throughout the right lower lobe, consistent with infection. Electronically signed by Matt Miguel 03-29-2025 3:45 PM
--- NOTE | 2025-03-29 16:31 | CT Scan Report ---
CT neck with contrast History: Difficulty breathing Comparison: None Technique: Following intravenous administration of nonionic iodinated contrast medium, thin section helical CT images were obtained from the skull base down to the level of the aortic arch. Axial, coronal and sagittal reformations were performed with 2-3 mm slice thickness reconstruction. Images were reviewed in soft tissue, lung and bone windows. One or more of the following dose-optimizing techniques was utilized for this exam: automated exposure control, adjustment of the mA and/or kV according to patient size, and/or use of iterative reconstruction technique. Findings: Evaluation of the mucosal space demonstrates no evident abnormality in the nasopharynx, oropharynx, hypopharynx or the glottis. The tongue base appears normal. The major salivary glands appear unremarkable. The thyroid gland is unremarkable. There is no evident cervical lymphadenopathy. The fascial spaces in the neck are intact bilaterally. The major vascular structures in the neck appear unremarkable. Evaluation of the osseous structures demonstrate no worrisome lytic or sclerotic lesion. Degenerative changes of the cervical spine. Small mucous retention cyst in the right maxillary sinus. The mastoid air cells are clear. Impression: Normal CT study of the neck with contrast. No evident mass or adenopathy within the neck. Electronically signed by Matt Miguel 03-29-2025 4:31 PM
--- NOTE | 2025-03-29 16:43 | History & Physical Report ---
Date of Service March 29, 2025 Assessment & Plan (1) Pneumonia: (2) Parkinson disease: (3) Labile hypertension: (4) Rheumatoid arthritis: Plan This is a 74-year-old male with significant past medical history of Parkinson's disease, hypothyroidism, chronic diastolic heart failure, history of liver hemangioma, nonrheumatic mitral valve regurgitation, history of simple partial seizure, rheumatoid arthritis on long-term steroid therapy, history of PE on Coumadin who presents to ED today with chest tightness and dyspnea. Work-up in the ED included normal WBC at 5.55, INR subtherapeutic at 1.5, BUN 50, creatinine 1.26, troponin normal x 2 (10.6, 9.8). COVID, flu, RSV negative. MRSA swab negative. CTA chest negative for PE, showed persistent pleural effusions, persistent large hiatal hernia, new subtle centrilobular nodules throughout the RLL c/w infection. Pt referred for admission for further evaluation and management. #Pneumonia - presumed hospital-acquired in the setting of recent admission - Admit to med telemetry - Continue cefepime for now, MRSA swab negative - Incentive spirometry, flutter valve - Sputum culture - Guaifenesin BID - Not currently requiring oxygen #Parkinson disease Chronic - at baseline. Continue home Sinemet, entacapone, amantadine #History of simple partial seizure Continue home Tegretol, Zonegran #History of PE (October 2024) On warfarin 10mg Tues, 5mg all other days per 03/20 coag clinic note Reversed during last admission due to fall w/ tongue laceration Resumed on 03/28, INR today 1.5 #Rheumatoid arthritis #Chronic steroid use Chronic, stable. Continue Arava and daily prednisone #Chronic diastolic heart failure Monitor volume status closely #Labile hypertension Orthostatic hypotension in setting of autonomic dysfunction in relation to PD Currently hypertensive in the ED so will hold evening midodrine today #BPH Chronic, stable - continue finasteride Pt seen and reviewed with collaborating physician, Dr. Cristina. Plan of care discussed and as outlined above. Code status: full code DVT prophylaxis: on warfarin updated at bedside - all questions answered. Tyesha Beard PA-C History of Present Illness Chief Complaint: chest discomfort, shortness of breath Primary Care Provider: Emerald Dutton MD This is a 74-year-old male with significant past medical history of Parkinson's disease, hypothyroidism, chronic diastolic heart failure, history of liver hemangioma, nonrheumatic mitral valve regurgitation, history of simple partial seizure, rheumatoid arthritis on long-term steroid therapy, history of PE on Coumadin who presents to ED today with chest tightness and dyspnea. History obtained mostly from pt's due to his advanced Parkinson disease. Pt was recently admitted to [facility] 03/24-03/26/25 s/p fall at home with resultant tongue laceration in the setting of anticoagulant use. Given TXA and IV vitamin K in the ED with no evidence of ongoing bleeding, improvement in swelling. Restarted anticoagulation the evening of 03/26. Since being home, he overall seemed to be doing well until today. No additional falls. His noticed that he developed a cough productive of clear sputum overnight. Ate breakfast without incident this morning. Seemed a little more tired today than yesterday. Around 1 pm, he became short of breath without specific trigger. He complained of associated chest discomfort and tightness. This has since improved. No fevers, chills, vomiting. Moving bowels without difficulty. No overt aspiration events that his recalls. Allergies Allergy/AdvReac Type Severity Reaction Status Date / Time No Known Allergies Allergy Verified 03/27/25 08:47 Home Medications Medication Instructions Recorded Confirmed Type finasteride 5 mg tablet (Proscar) 5 mg PO QDD 12/03/20 03/29/25 History leflunomide 20 mg tablet (Arava) 20 mg PO QDB 12/03/20 03/29/25 History carbamazepine 200 mg tablet 200 mg PO QID 08/03/21 03/29/25 History (Tegretol) levothyroxine 75 mcg tablet 75 mcg PO DAILYBB 08/03/21 03/29/25 History (Synthroid) zonisamide 100 mg capsule 100 mg PO HS 08/03/21 03/29/25 History (Zonegran) carbidopa 25 mg-levodopa 100 mg 3 tab PO QID 02/07/22 03/29/25 History tablet melatonin 5 mg tablet 10 mg PO HS PRN Sleep 08/21/23 03/29/25 History entacapone 200 mg tablet 200 mg PO QID 10/10/23 03/29/25 History acetaminophen 325 mg tablet 500 mg PO QID PRN Breakthrough 10/29/23 03/29/25 History (Tylenol) Pain, Mild midodrine 2.5 mg tablet 2.5 mg PO TID 02/21/24 03/29/25 History ferrous sulfate 325 mg (65 mg 325 mg PO 5XWK 08/25/24 03/29/25 History iron) tablet (FeroSul) pantoprazole 40 mg tablet,delayed 40 mg PO QAM #1 tab 11/20/24 03/29/25 Rx release amantadine HCl 100 mg capsule 100 mg PO DAILY 12/10/24 03/29/25 History famotidine 20 mg tablet 20 mg PO HS 12/10/24 03/29/25 History testosterone cypionate 200 mg/mL 100 mg IM Q14D 12/10/24 03/29/25 History intramuscular oil prednisone 5 mg tablet 7.5 mg (1.5 x 5 mg) PO DAILY Take 02/18/25 03/29/25 Rx 1.5 tablets daily. 30 days #45 tabs warfarin 5 mg tablet 5 mg PO UD 03/04/25 03/29/25 History cholecalciferol (vitamin D3) 25 25 mcg PO DAILY 03/24/25 03/29/25 History mcg (1,000 unit) tablet (Vitamin D3) cyanocobalamin (vitamin B-12) 1,000 mcg PO DAILY 03/24/25 03/29/25 History 1,000 mcg tablet (Vitamin B-12) sodium di- and 1 tab PO DAILY 03/24/25 03/29/25 History monophosphate-potassium phos monobasic 250 mg tablet (Phospho-Ayesha Neutral) Past Med/Surg History Problem List (Updated 03/29/25 @ 19:39 by Estelle Beard PA-C) Dyspnea (Acute) Pneumonia (Acute) Anticoagulant long-term use (Acute) Fall (Acute) Laceration of head (Acute) Tongue laceration (Acute) History of pulmonary embolism Paraesophageal hernia Labile hypertension Parkinson disease (Acute) Chronic steroid use ACTH deficiency (Acute) Postural hypotension BPH loc w urin obs/LUTS Chronic diastolic (congestive) heart failure Parkinson's disease dementia Rheumatoid arthritis Medical History Tongue laceration (03/24/25) fell at home & bit tongue, admit to [facility], d/c home 03/26/25- resolving Laceration of head (03/24/25) has 2 cristobal, needs to have removed on 04/01/25 Hx of fall (03/24/25) required admission to [facility], had two sutures placed on top of head; also bit his tongue; discharged 03/26/25 Hypogonadism male Hypothyroidism Epilepsy last seizure-several years ago unable to recall date Inguinal hernia, right Paraesophageal hernia Chronic diastolic (congestive) heart failure Postural hypotension states can also happen while sitting History of DVT (deep vein thrombosis) (10/2024) bilateral lower extremity 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 Rheumatoid arthritis History of pulmonary embolism taking warfarin ACTH deficiency BPH loc w urin obs/LUTS Parkinson's disease dementia Pleural effusion History of venous stasis ulcer of lower extremity Hypothermia history of-hospitalization [facility] Chronic venous insufficiency Nonrheumatic mitral valve regurgitation Spinal stenosis Surgical History Hx of right cataract extraction (03/17/25) S/P correction of deviated nasal septum History of hernia repair History of left knee replacement Hx of laminectomy Family History Other Leukemia Lung cancer Social History Smoking Status: Never smoker Second Hand Exposure: No; Do You Dip or Chew Tobacco: No; Hx Alcohol Use: No Hx Substance Use: No Preferred Language: Setswana Communication Ability: Effective Flight Attendant/Inflight Manager Required: No Beliefs That Will Affect Care: None Current Living Situation: Spouse Feels Safe at Home: Yes Assistive Devices: Walker, Wheelchair and Other Review of Systems Review of Systems: All systems reviewed & are unremarkable except as noted in Subjective Physical Exam Physical Exam: General: awake, alert, NAD HEENT: no scleral icterus, moist mucus membranes Neck: supple, trachea midline Heart: RRR Lungs: rhonchi bilaterally but no tachypnea at present, no accessory muscle use Abdomen: soft, NT, +BS Extremities: compression stockings bilateral LE, +edema Skin: warm, dry, no jaundice, +scalp laceration healing with cristobal C/D/I Neurologic: +masked facies, slow quiet speech but clear, bradykinesia noted Results & Data Results & Data Vital Signs (Past 12 Hours) Vital Signs Temp Pulse Pulse Resp BP BP Pulse Ox 03/29/25 16:30 72 20 180/114 H 93 03/29/25 16:01 80 03/29/25 14:30 81 20 166/106 H 95 03/29/25 14:12 36.5 C 83 18 146/86 H 94 O2 Del Method 03/29/25 16:30 Room Air 03/29/25 16:01 03/29/25 14:30 Room Air 03/29/25 14:12 Room Air Laboratory Results Lab Results 03/29/25 03/29/25 Range/Units 14:35 14:40 WBC 5.55 (4.8-10.8) K/ul RBC 4.84 (4.70-6.10) M/uL Hgb 14.3 (14.0-18.0) g/dl POC Hgb 15.0 (14.0-18.0) g/dl Hct 44.3 (42.0-52.0) % POC Hct 44 (42-52) % MCV 91.5 (80.0-100.0) fL MCH 29.5 (25.0-34.0) pg MCHC 32.3 (32.0-36.0) g/dL RDW Std Deviation 55.0 H (36.4-46.3) fL RDW Coeff of Armen 16.8 H (11.5-14.5) % Plt Count 166 (130-400) K/uL MPV 9.4 (9.4-12.4) fL Immature Gran % (Auto) 1.3 % Neut % (Auto) 69.5 % Lymph % (Auto) 15.7 % Person % (Auto) 12.6 % Eos % (Auto) 0.4 % Baso % (Auto) 0.5 % Neut # (Auto) 3.86 (1.40-6.50) K/uL Lymph # (Auto) 0.87 L (1.20-3.40) K/uL Person # (Auto) 0.70 H (0.11-0.59) K/uL Eos # (Auto) 0.02 (0.00-0.50) K/uL Baso # (Auto) 0.03 (0.00-0.20) K/uL Immature Gran # (Auto) 0.07 (0.01-0.20) K/uL PT 15.3 H (9.0-12.0) Seconds INR 1.5 H (0.9-1.1) APTT 29 (21-31) Seconds PTT Ratio 1.1 POC Sodium 141 (135-144) mmol/L Sodium 140 (136-145) mmol/L POC Potassium 3.8 (3.3-5.0) mmol/L Potassium 3.6 (3.5-5.1) mmol/L POC Chloride 107 (101-112) mmol/L Chloride 106 (98-107) mmol/L Carbon Dioxide 25 (21-32) mmol/L POC Total CO2 22 L (24-31) mmol/L Anion Gap 9 (3-11) POC Anion Gap 17.0 (16-25) mmol/L POC BUN 48 H (7-18) mg/dl BUN 50 H (6-23) mg/dl Creatinine 1.26 (0.6-1.4) mg/dl POC Creatinine 1.4 H (0.6-1.3) mg/dl Est Cr Clr Drug Dosing Not Reportable eGFR 59.48 BUN/Creatinine Ratio 39.7 H (10-20) Glucose 105 H (70-99(Fasting)) mg/dl POC Glucose (other) 108 H (70-99) mg/dl Calcium 8.7 (8.6-10.3) mg/dl POC Ioniz Calcium Misty 1.02 L (1.12-1.32) mmol/l Magnesium 2.2 (1.7-2.4) mg/dl Total Bilirubin 0.5 (0.2-1.0) mg/dl AST 27 (13-39) U/L ALT 5 L (7-52) U/L Alkaline Phosphatase 77 (34-104) U/L Troponin I High Sens 10.6 (0-20) pg/ml Total Protein 7.3 (6.0-8.3) gm/dl Albumin 3.9 (3.4-5.0) gm/dl Globulin 3.4 (2.5-4.0) gm/dl Albumin/Globulin Ratio 1.1 (0.9-2) TSH 4.264 (0.300-4.500) uIu/ml Diagnostic Findings Chest CTA 03/29/25 14:26 CT pulmonary angiogram with IV contrast History: Dyspnea COMPARISON: 03/25/2025 TECHNIQUE: CT angiography of the chest was performed without IV contrast followed by IV contrast, including 3D post processing CTA image reconstruction. Dose reduction techniques were achieved by using automatic exposure control and/or adjustment of mA and/or kV according to patient size and/or use of iterative reconstruction technique. FINDINGS: Diagnostic quality: Adequate There is no evidence for pulmonary embolism. The heart is not enlarged. Mild coronary calcification. There is no pericardial effusion. There are no abnormally enlarged hilar or mediastinal lymph nodes. The central tracheobronchial tree is clear. Small left pleural effusion. Left basilar atelectasis. Subtle patchy centrilobular nodular densities are seen throughout the right lower lobe. Trace right pleural effusion. Limited visualized upper abdomen. There is a large hiatal hernia, with the stomach residing in the left chest. No destructive osseous changes are seen. IMPRESSION: No evidence for pulmonary embolism. Small left and trace right pleural effusion are again seen. Persistent large hiatal hernia. Left basilar atelectasis. There are new subtle centrilobular nodules throughout the right lower lobe, consistent with infection. Electronically signed by Matt Miguel 03-29-2025 3:45 PM Soft Tissue Neck CT 03/29/25 14:26 CT neck with contrast History: Difficulty breathing Comparison: None Technique: Following intravenous administration of nonionic iodinated contrast medium, thin section helical CT images were obtained from the skull base down to the level of the aortic arch. Axial, coronal and sagittal reformations were performed with 2-3 mm slice thickness reconstruction. Images were reviewed in soft tissue, lung and bone windows. One or more of the following dose-optimizing techniques was utilized for this exam: automated exposure control, adjustment of the mA and/or kV according to patient size, and/or use of iterative reconstruction technique. Findings: Evaluation of the mucosal space demonstrates no evident abnormality in the nasopharynx, oropharynx, hypopharynx or the glottis. The tongue base appears normal. The major salivary glands appear unremarkable. The thyroid gland is unremarkable. There is no evident cervical lymphadenopathy. The fascial spaces in the neck are intact bilaterally. The major vascular structures in the neck appear unremarkable. Evaluation of the osseous structures demonstrate no worrisome lytic or sclerotic lesion. Degenerative changes of the cervical spine. Small mucous retention cyst in the right maxillary sinus. The mastoid air cells are clear. Impression: Normal CT study of the neck with contrast. No evident mass or adenopathy within the neck. Electronically signed by Matt Miguel 03-29-2025 4:31 PM Medications Administered Discontinued Medications Ioversol (Optiray 320 100ml) 115 ml IV ONCE ONE Stop: 03/29/25 15:03 Last Admin: 03/29/25 15:03 Dose: 115 ml Documented By: JULES Supervising Physician Co-Signing Physician Notes Patient seen and examined at bedside. Patient familiar to this provider from prior admission. present as well. Has been having chest pain today, cough past few days. Feels fine otherwise. states he has been under the weather since fall. On exam, patient drooling, rhonchi noted bilaterally, no pitting edema. No leukocytosis, creatinine at baseline. CT chest showing infiltrates in RLL consistent with HAP. Complex case. Patient with severe to end stage Parkinsons disease presenting with chest pain likely 2/2 RLL HAP likely aspiration in etiology. HAP given recent hospitalization. Start broad spectrum coverage given pseudomonas risks. MRSA swab, sputum culture ordered. Speech consult given likely aspiration pneumonia. Will need GOC with primary neurologist given advanced stage of disease, and consideration for any other advanced therapies if available. PT/OT ordered. I have seen and discussed the case with the collaborating advanced practitioner. I agree with the above H&P. I have reviewed and confirmed the patients medical history, the findings on physical examination, and the patients diagnosis and treatment plan with Estelle Beard PA-C and agree with the information documented. I spent a total of 30 minutes coordinating, documenting, and providing care for this patient excluding time spent in the performance of separately billed services. All of the aforementioned completed outside of collaborating with the assigned advanced practitioner for a full treatment plan. I have reviewed the advanced practitioner's documentation, and I agree with, and take responsibility for the plan of care (1) Pneumonia Laterality: right Lung location: lower lobe of lung Pneumonia type: due to unspecified organism Qualified Code(s): J18.9 - Pneumonia, unspecified organism (2) Parkinson disease Dyskinesia presence: unspecified whether dyskinesia Fluctuating manifestations: unspecified whether manifestations fluctuate Qualified Code(s): G20.A1 - Parkinson's disease without dyskinesia, without mention of fluctuations
[2025-03-29] MEDS: CEFEPIME 2000MG 2,000 MG/20 ML SYR IV STA (16:57)
[2025-03-29] MEDS: ENTACAPONE 200 MG TAB PO SCH (20:38)
[2025-03-29] MEDS: ZONISAMIDE 100 MG CAPSULE PO SCH (20:38)
[2025-03-29] MEDS: CARBIDOPA/LEVODOPA 25/100MG TAB PO SCH (20:38)
[2025-03-29] MEDS: FINASTERIDE 5 MG TAB PO SCH (20:39)
[2025-03-29] MEDS: WARFARIN SOD 5 MG TAB PO SCH (20:39)
[2025-03-29] MEDS: MELATONIN 3 MG TAB PO PRN (20:39)
[2025-03-29] MEDS: Patient's HEIGHT &/or WEIGHT Needed STA (20:40)
[2025-03-29] MEDS: ACETAMINOPHEN 500 MG TAB PO PRN (20:40)
[2025-03-29] MEDS: FAMOTIDINE 20 MG TAB PO SCH (20:41)
[2025-03-30] MEDS: CEFEPIME 2000MG 2,000 MG/20 ML SYR IV SCH ×2 (00:29→21:25)
[2025-03-30] MEDS: MIDODRINE HCL 2.5 MG TAB PO SCH (06:24)
[2025-03-30] MEDS: LEVOTHYROXINE SODIUM 75 MCG TABLET PO SCH (06:24)
[2025-03-30 07:00] LABS: Hematocrit (blood only) 39.8 % (42.0-52.0); Hemoglobin 13.3 g/dl (14.0-18.0); Immature Granulocytes # (auto) 0.06 K/uL (0.01-0.20); Immature Granulocytes % (auto) 0.5 %; Mean Corpuscular Hemoglobin 30.2 pg (25.0-34.0); Mean Corpuscular Volume 90.5 fL (80.0-100.0); Platelet Count 155 K/uL (130-400); RDW Standard Deviation 55.5 fL (36.4-46.3); Red Blood Count 4.40 M/uL (4.70-6.10); White Blood Count 11.11 K/ul (4.8-10.8)
[2025-03-30 07:28] LABS: Anion Gap 8.0 (3-11); Blood Urea Nitrogen 38.0 mg/dl (6-23); Calcium 8.7 mg/dl (8.6-10.3); Carbon Dioxide 23.0 mmol/L (21-32); Chloride 110.0 mmol/L (98-107); Creatinine Clr Calc Pharmacy 50.5 ml/min; Glucose 91.0 mg/dl (70-99(Fasting)); Potassium 3.7 mmol/L (3.5-5.1); Sodium 141.0 mmol/L (136-145)
[2025-03-30 07:35] LABS: INR 1.5 (0.9-1.1); Prothrombin Time 15.9 Seconds (9.0-12.0)
[2025-03-30] MEDS: LEFLUNOMIDE 10 MG TAB PO SCH (07:59)
[2025-03-30] MEDS: CYANOCOBALAMIN (B-12) 500 MCG TABLET PO SCH (08:00)
[2025-03-30] MEDS: CHOLECALCIFEROL 25 MCG (1000 UNITS) TAB PO SCH (08:00)
[2025-03-30] MEDS: AMANTADINE HCL 100 MG CAPSULE PO SCH (08:00)
[2025-03-30] MEDS: POT PHOSPHATE MONOBASIC W/ SOD TAB PO SCH (08:00)
[2025-03-30] MEDS: FERROUS SULFATE 325 MG TAB PO SCH (08:00)
--- NOTE | 2025-03-30 13:01 | Hospitalist Progress Note ---
Date of Service March 30, 2025 Assessment & Plan (1) Pneumonia: (2) Parkinson disease: (3) Labile hypertension: (4) Rheumatoid arthritis: Plan This is a 74-year-old male with significant past medical history of Parkinson's disease, hypothyroidism, chronic diastolic heart failure, history of liver hemangioma, nonrheumatic mitral valve regurgitation, history of simple partial seizure, rheumatoid arthritis on long-term steroid therapy, history of PE on Coumadin who presents to ED today with chest tightness and dyspnea. Work-up in the ED included normal WBC at 5.55, INR subtherapeutic at 1.5, BUN 50, creatinine 1.26, troponin normal x 2 (10.6, 9.8). COVID, flu, RSV negative. MRSA swab negative. CTA chest negative for PE, showed persistent pleural effusions, persistent large hiatal hernia, new subtle centrilobular nodules throughout the RLL c/w infection. Pt referred for admission for further evaluation and management. #Pneumonia - presumed hospital-acquired in the setting of recent admission CTA showed normalnew subpleural centrilobular nodules throughout the right lower lobe consistent with infection -Started on intravenous cefepime and will continue , MRSA swab negative - Incentive spirometry, flutter valve-while awake - Sputum culture-not taken - Guaifenesin BID - Saturating normally on room air Discharge clinically much bettercontinue current management Strongly advised to [place] take precaution during eating to avoid aspiration #Parkinson disease Chronic - at baseline. Continue home Sinemet, entacapone, amantadine Does not have any increased in symptoms #History of simple partial seizure Continue home Tegretol, Zonegran #History of PE (October 2024) On warfarin 10mg Tu, 5mg all other days per 03/20 coag clinic note Reversed during last admission due to fall w/ tongue laceration Resumed on 03/28, INR today 1.5 Will give additional dose of Coumadin today #Rheumatoid arthritis #Chronic steroid use Chronic, stable. Continue Arava and daily prednisone Continue current therapy #Chronic diastolic heart failure Monitor volume status closely #Labile hypertension Orthostatic hypotension in setting of autonomic dysfunction in relation to PD Currently hypertensive in the ED so will hold evening midodrine today #BPH Chronic, stable - continue finasteride Pt seen and reviewed with collaborating physician, Dr. Cristina. Plan of care discussed and as outlined above. Code status: full code DVT prophylaxis: on warfarin updated at bedside - all questions answered. Admission and Anticipated Discharge Date Admission Date: March 29, 2025 Subjective 03/30/2025 The patient was seen and examined in medical telemetry unit in presence of the He was discharged from the hospital recently following a fall Was brought in with increasing shortness of breath and noted to have pneumonia He has been feeling much better since admission and saturating normally on room air Denies any other significant symptoms Review of Systems Review of Systems: All systems reviewed and are unremarkable except as noted below Physical Exam Physical Exam: Sitting on a chair without any acute distress Constitutional: well developed, well nourished, + ill appearing and average body habitus Eyes: PERRL, conjunctivae normal, anicteric sclerae ENMT: external ear and nose normal, oropharynx normal Neck: Leaning towards the left side which has been most of the time and seems to permanent Respiratory: no respiratory distress Auscultation: + diminished lung sounds (Decreased breath sounds in the left lung area mostly) and + crackles (Minimal crackles bilaterally) Cardiovascular: Rate/Rhythm: regular rate and regular rhythm; not tachycardic Heart Sounds: normal S1 and normal S2; no murmur Extremities: no edema Gastrointestinal (Abdomen): Inspection/Auscultation: normal bowel sounds; abdomen not distended Percussion/Palpation: abdomen soft; abdomen nontender Musculoskeletal: Has significant osteoarthritic changes but no acute arthritis involving any of the joint Neurologic: normal touch/pain/proprioception, moves all extremities and + focal motor deficit Remains generally weak Lymphatic: no cervical or axillary lymphadenopathy Results & Data Results & Data Vital Signs (Past 12 Hours) Vital Signs Temp Pulse Pulse Resp BP Pulse Ox O2 Del Method 03/30/25 11:30 36.3 C L 59 L 20 148/79 H 92 Room Air 03/30/25 08:25 36.8 C 73 20 108/70 93 Room Air 03/30/25 05:06 75 03/30/25 04:39 36.5 C 73 20 122/74 91 Room Air Laboratory Results Short CBC 03/29/25 03/30/25 Range/Units 14:35 06:07 WBC 5.55 11.11 H (4.8-10.8) K/ul Hgb 14.3 13.3 L (14.0-18.0) g/dl Hct 44.3 39.8 L (42.0-52.0) % Plt Count 166 155 (130-400) K/uL BMP 03/29/25 03/30/25 14:35 06:07 Sodium 140 141 Potassium 3.6 3.7 Chloride 106 110 H Carbon Dioxide 25 23 BUN 50 H 38 H Creatinine 1.26 1.14 Glucose 105 H 91 Calcium 8.7 8.7 Liver Function 03/29/25 Range/Units 14:35 Total Bilirubin 0.5 (0.2-1.0) mg/dl AST 27 (13-39) U/L ALT 5 L (7-52) U/L Alkaline Phosphatase 77 (34-104) U/L Albumin 3.9 (3.4-5.0) gm/dl Diagnostic Findings Laboratory Results WBC 11.11 K/ul (4.8-10.8) H 03/30/25 06:07 RBC 4.40 M/uL (4.70-6.10) L 03/30/25 06:07 Hgb 13.3 g/dl (14.0-18.0) L 03/30/25 06:07 POC Hgb 15.0 g/dl (14.0-18.0) 03/29/25 14:40 Hct 39.8 % (42.0-52.0) L 03/30/25 06:07 POC Hct 44 % (42-52) 03/29/25 14:40 MCV 90.5 fL (80.0-100.0) 03/30/25 06:07 MCH 30.2 pg (25.0-34.0) 03/30/25 06:07 MCHC 33.4 g/dL (32.0-36.0) 03/30/25 06:07 RDW Std Deviation 55.5 fL (36.4-46.3) H 03/30/25 06:07 RDW Coeff of Armen 16.9 % (11.5-14.5) H 03/30/25 06:07 Plt Count 155 K/uL (130-400) 03/30/25 06:07 MPV 10.3 fL (9.4-12.4) 03/30/25 06:07 Immature Gran % (Auto) 0.5 % 03/30/25 06:07 Neut % (Auto) 79.0 % 03/30/25 06:07 Lymph % (Auto) 10.8 % 03/30/25 06:07 Mercer % (Auto) 8.9 % 03/30/25 06:07 Eos % (Auto) 0.4 % 03/30/25 06:07 Baso % (Auto) 0.4 % 03/30/25 06:07 Neut # (Auto) 8.78 K/uL (1.40-6.50) H 03/30/25 06:07 Lymph # (Auto) 1.20 K/uL (1.20-3.40) 03/30/25 06:07 Mercer # (Auto) 0.99 K/uL (0.11-0.59) H 03/30/25 06:07 Eos # (Auto) 0.04 K/uL (0.00-0.50) 03/30/25 06:07 Baso # (Auto) 0.04 K/uL (0.00-0.20) 03/30/25 06:07 Immature Gran # (Auto) 0.06 K/uL (0.01-0.20) 03/30/25 06:07 PT 15.9 Seconds (9.0-12.0) H 03/30/25 06:07 INR 1.5 (0.9-1.1) H 03/30/25 06:07 APTT 29 Seconds (21-31) 03/29/25 14:35 PTT Ratio 1.1 03/29/25 14:35 POC Sodium 141 mmol/L (135-144) 03/29/25 14:40 Sodium 141 mmol/L (136-145) 03/30/25 06:07 POC Potassium 3.8 mmol/L (3.3-5.0) 03/29/25 14:40 Potassium 3.7 mmol/L (3.5-5.1) 03/30/25 06:07 POC Chloride 107 mmol/L (101-112) 03/29/25 14:40 Chloride 110 mmol/L (98-107) H 03/30/25 06:07 Carbon Dioxide 23 mmol/L (21-32) 03/30/25 06:07 POC Total CO2 22 mmol/L (24-31) L 03/29/25 14:40 Anion Gap 8 (3-11) 03/30/25 06:07 POC Anion Gap 17.0 mmol/L (16-25) 03/29/25 14:40 POC BUN 48 mg/dl (7-18) H 03/29/25 14:40 BUN 38 mg/dl (6-23) H 03/30/25 06:07 Creatinine 1.14 mg/dl (0.6-1.4) 03/30/25 06:07 POC Creatinine 1.4 mg/dl (0.6-1.3) H 03/29/25 14:40 Est Cr Clr Drug Dosing 50.5 ml/min 03/30/25 06:07 eGFR 67.07 03/30/25 06:07 BUN/Creatinine Ratio 33.3 (10-20) H 03/30/25 06:07 Glucose 91 mg/dl (70-99(Fasting)) 03/30/25 06:07 POC Glucose (other) 108 mg/dl (70-99) H 03/29/25 14:40 Calcium 8.7 mg/dl (8.6-10.3) 03/30/25 06:07 POC Ioniz Calcium Misty 1.02 mmol/l (1.12-1.32) L 03/29/25 14:40 Magnesium 2.2 mg/dl (1.7-2.4) 03/29/25 14:35 Total Bilirubin 0.5 mg/dl (0.2-1.0) 03/29/25 14:35 AST 27 U/L (13-39) 03/29/25 14:35 ALT 5 U/L (7-52) L 03/29/25 14:35 Alkaline Phosphatase 77 U/L (34-104) 03/29/25 14:35 Troponin I High Sens 9.8 pg/ml (0-20) 03/29/25 16:33 Total Protein 7.3 gm/dl (6.0-8.3) 03/29/25 14:35 Albumin 3.9 gm/dl (3.4-5.0) 03/29/25 14:35 Globulin 3.4 gm/dl (2.5-4.0) 03/29/25 14:35 Albumin/Globulin Ratio 1.1 (0.9-2) 03/29/25 14:35 TSH 4.264 uIu/ml (0.300-4.500) 03/29/25 14:35 Nasal Screen MRSA (PCR) Negative (Negative) 03/29/25 16:05 Impressions Chest CTA 03/29/25 14:26 CT pulmonary angiogram with IV contrast History: Dyspnea COMPARISON: 03/25/2025 TECHNIQUE: CT angiography of the chest was performed without IV contrast followed by IV contrast, including 3D post processing CTA image reconstruction. Dose reduction techniques were achieved by using automatic exposure control and/or adjustment of mA and/or kV according to patient size and/or use of iterative reconstruction technique. FINDINGS: Diagnostic quality: Adequate There is no evidence for pulmonary embolism. The heart is not enlarged. Mild coronary calcification. There is no pericardial effusion. There are no abnormally enlarged hilar or mediastinal lymph nodes. The central tracheobronchial tree is clear. Small left pleural effusion. Left basilar atelectasis. Subtle patchy centrilobular nodular densities are seen throughout the right lower lobe. Trace right pleural effusion. Limited visualized upper abdomen. There is a large hiatal hernia, with the stomach residing in the left chest. No destructive osseous changes are seen. IMPRESSION: No evidence for pulmonary embolism. Small left and trace right pleural effusion are again seen. Persistent large hiatal hernia. Left basilar atelectasis. There are new subtle centrilobular nodules throughout the right lower lobe, consistent with infection. Electronically signed by Matt Miguel 03-29-2025 3:45 PM Soft Tissue Neck CT 03/29/25 14:26 CT neck with contrast History: Difficulty breathing Comparison: None Technique: Following intravenous administration of nonionic iodinated contrast medium, thin section helical CT images were obtained from the skull base down to the level of the aortic arch. Axial, coronal and sagittal reformations were performed with 2-3 mm slice thickness reconstruction. Images were reviewed in soft tissue, lung and bone windows. One or more of the following dose-optimizing techniques was utilized for this exam: automated exposure control, adjustment of the mA and/or kV according to patient size, and/or use of iterative reconstruction technique. Findings: Evaluation of the mucosal space demonstrates no evident abnormality in the nasopharynx, oropharynx, hypopharynx or the glottis. The tongue base appears normal. The major salivary glands appear unremarkable. The thyroid gland is unremarkable. There is no evident cervical lymphadenopathy. The fascial spaces in the neck are intact bilaterally. The major vascular structures in the neck appear unremarkable. Evaluation of the osseous structures demonstrate no worrisome lytic or sclerotic lesion. Degenerative changes of the cervical spine. Small mucous retention cyst in the right maxillary sinus. The mastoid air cells are clear. Impression: Normal CT study of the neck with contrast. No evident mass or adenopathy within the neck. Electronically signed by Matt Miguel 03-29-2025 4:31 PM Medications Administered Current Inpatient Medications Acetaminophen (Acetaminophen 500 Mg Tab) 500 mg PO QID PRN PRN Reason: Breakthrough Pain, Mild Stop: 04/28/25 17:22 Last Admin: 03/30/25 12:41 Dose: 500 mg Amantadine HCl (Amantadine Hcl 100 Mg Capsule) 100 mg PO DAILY JACQUES Stop: 04/29/25 08:59 Last Admin: 03/30/25 08:00 Dose: 100 mg Carbamazepine (Carbamazepine 200 Mg Tablet) 200 mg PO QID@0630,1200,1700,2200 JACQUES Stop: 04/28/25 17:24 Last Admin: 03/30/25 11:36 Dose: 200 mg Carbidopa/Levodopa (Carbidopa/Levodopa 25/100mg Tab) 3 tab PO QID@0630,0900,1200,1700 JACQUES Stop: 04/28/25 17:24 Last Admin: 03/30/25 11:36 Dose: 3 tab Cyanocobalamin (Cyanocobalamin (B-12) 500 Mcg Tablet) 1,000 mcg PO DAILY JACQUES Stop: 04/29/25 08:59 Last Admin: 03/30/25 08:00 Dose: 1,000 mcg Entacapone (Entacapone 200 Mg Tab) 200 mg PO QID@0630,0800,1200,1700 JACQUES Stop: 04/28/25 17:24 Last Admin: 03/30/25 11:36 Dose: 200 mg Famotidine (Famotidine 20 Mg Tab) 20 mg PO HS JACQUES Stop: 04/28/25 20:59 Last Admin: 03/29/25 20:41 Dose: 20 mg Ferrous Sulfate (Ferrous Sulfate 325 Mg Tab) 325 mg PO [id number]@0900 JACQUES Stop: 04/29/25 08:59 Last Admin: 03/30/25 08:00 Dose: 325 mg Finasteride (Finasteride 5 Mg Tab) 5 mg PO QDD [facility] Stop: 04/28/25 17:24 Last Admin: 03/29/25 20:39 Dose: 5 mg Cefepime HCl (Maxipime 2000mg) 2,000 mg in 20 mls @ 5 mls/min IV Q12H [facility]; Protocol Stop: 04/05/25 20:00 Leflunomide (Leflunomide 10 Mg Tab) 20 mg PO QDB [facility] Stop: 04/29/25 07:29 Last Admin: 03/30/25 07:59 Dose: 20 mg Levothyroxine Sodium (Levothyroxine Sodium 75 Mcg Tablet) 75 mcg PO DAILYBB JACQUES Stop: 04/29/25 06:29 Last Admin: 03/30/25 06:24 Dose: 75 mcg Melatonin (Melatonin 3 Mg Tab) 9 mg PO HS PRN PRN Reason: Sleep Stop: 04/28/25 17:39 Last Admin: 03/29/25 20:39 Dose: 9 mg Midodrine (Midodrine Hcl 2.5 Mg Tab) 2.5 mg PO TID@0630,1200,1700 [facility] Stop: 04/29/25 06:29 Last Admin: 03/30/25 11:40 Dose: Not Given Pantoprazole Sodium (Pantoprazole 40 Mg Tab) 40 mg PO QAM [facility] Stop: 04/29/25 08:59 Last Admin: 03/30/25 08:00 Dose: 40 mg Potassium Phosphate (Pot Phosphate Monobasic W/ Sod Tab) 1 tab PO DAILY [facility] Stop: 04/29/25 08:59 Last Admin: 03/30/25 08:00 Dose: 1 tab Prednisone (Prednisone 2.5 Mg Tab) 7.5 mg PO DAILY [facility] Stop: 04/29/25 08:59 Last Admin: 03/30/25 08:00 Dose: 7.5 mg Vitamin D (Cholecalciferol 25 Mcg (1000 Units) Tab) 25 mcg PO DAILY [facility] Stop: 04/29/25 08:59 Last Admin: 03/30/25 08:00 Dose: 25 mcg Warfarin Sodium (Warfarin Sod 5 Mg Tab) 5 mg PO [id number]@1600 [facility] Stop: 04/28/25 17:29 Last Admin: 03/29/25 20:39 Dose: 5 mg Warfarin Sodium (Warfarin Sod 10 Mg Tab) 10 mg PO Tu@1600 [facility] Stop: 04/30/25 15:59 Zonisamide (Zonisamide 100 Mg Capsule) 100 mg PO HS [facility] Stop: 04/28/25 20:59 Last Admin: 03/29/25 20:38 Dose: 100 mg (1) Pneumonia Laterality: right Lung location: lower lobe of lung Pneumonia type: due to unspecified organism Qualified Code(s): J18.9 - Pneumonia, unspecified organism (2) Parkinson disease Dyskinesia presence: unspecified whether dyskinesia Fluctuating manifestations: unspecified whether manifestations fluctuate Qualified Code(s): G20.A1 - Parkinson's disease without dyskinesia, without mention of fluctuations
[2025-03-30] MEDS: WARFARIN SOD 5 MG TAB PO ONE (14:03)
[2025-03-30] MEDS: ALBUTEROL 0.083% NEBU SOLN 3 ML VIAL NEB PRN (15:15)
[2025-03-30 18:54] LABS: Chlamydia pneumoniae PCR Not Detected (NotDetected); Coronavirus 229E PCR Not Detected (NotDetected); Coronavirus CoV-2 (COVID19)PCR Not Detected (NotDetected); Coronavirus HKU1 PCR Not Detected (NotDetected); Coronavirus NL63 PCR Not Detected (NotDetected); Coronavirus OC43PCR Not Detected (NotDetected); Human Metapneumovirus PCR Not Detected (NotDetected); Parainfluenza Virus 1 PCR Not Detected (NotDetected); Parainfluenza Virus 2 PCR Not Detected (NotDetected); Parainfluenza Virus 3 PCR Not Detected (NotDetected); Parainfluenza Virus 4 PCR Not Detected (NotDetected); Respiratory Syncytial VirusPCR Not Detected (NotDetected); Rhinovirus/Enterovirus PCR Not Detected (NotDetected)
[2025-03-31 07:16] LABS: Hematocrit (blood only) 38.5 % (42.0-52.0); Hemoglobin 12.6 g/dl (14.0-18.0); Immature Granulocytes # (auto) 0.09 K/uL (0.01-0.20); Immature Granulocytes % (auto) 1.3 %; Mean Corpuscular Hemoglobin 29.8 pg (25.0-34.0); Mean Corpuscular Volume 91.0 fL (80.0-100.0); Platelet Count 155 K/uL (130-400); RDW Standard Deviation 56.5 fL (36.4-46.3); Red Blood Count 4.23 M/uL (4.70-6.10); White Blood Count 6.78 K/ul (4.8-10.8)
[2025-03-31 07:33] LABS: Anion Gap 6.0 (3-11); Blood Urea Nitrogen 37.0 mg/dl (6-23); Calcium 9.0 mg/dl (8.6-10.3); Carbon Dioxide 26.0 mmol/L (21-32); Chloride 108.0 mmol/L (98-107); Creatinine Clr Calc Pharmacy 48.4 ml/min; Glucose 93.0 mg/dl (70-99(Fasting)); Magnesium 2.2 mg/dl (1.7-2.4); Potassium 3.9 mmol/L (3.5-5.1); Sodium 140.0 mmol/L (136-145)
[2025-03-31] MEDS ORDERED: POTASSIUM PHOS 3 MMOL/1 ML INFUSION IV STA (07:54)
[2025-03-31 07:55] LABS: INR 1.8 (0.9-1.1); Prothrombin Time 18.3 Seconds (9.0-12.0)
[2025-03-31] MEDS: POTASSIUM PHOSPHATE 15 MMOL in SODIUM CHLORIDE 0.9% 250 ML IV ONE (08:44)
[2025-03-31] MEDS: prednisoLONE acetate 1% OP SUSP 5 ML BTL OPR SCH (11:02)
[2025-03-31] MEDS: CEFEPIME 2000MG 2,000 MG/20 ML SYR IV SCH (14:36)
[2025-03-31] MEDS: LACTATED RINGER'S 1,000 ML IV SCH (15:37)
[2025-03-31] MEDS: WARFARIN SOD 10 MG TAB PO SCH (16:23)
[2025-03-31] MEDS ORDERED: CEFDINIR 300 MG CAP PO SCH (21:00)
[2025-03-31] MEDS: DOCUSATE SODIUM 100 MG CAP PO SCH (21:53)
[2025-04-01 07:14] LABS: Hematocrit (blood only) 39.4 % (42.0-52.0); Hemoglobin 12.9 g/dL (14.0-18.0); Immature Granulocytes # (auto) 0.06 K/uL (0.01-0.20); Immature Granulocytes % (auto) 0.9 %; Mean Corpuscular Hemoglobin 29.4 pg (25.0-34.0); Mean Corpuscular Volume 89.7 fL (80.0-100.0); Platelet Count 168 K/uL (130-400); RDW Standard Deviation 55.3 fL (36.4-46.3); Red Blood Count 4.39 M/uL (4.70-6.10); White Blood Count 7.02 K/ul (4.8-10.8)
[2025-04-01 07:28] LABS: Anion Gap 7.0 (3-11); Blood Urea Nitrogen 28.0 mg/dl (6-23); Calcium 8.8 mg/dl (8.6-10.3); Carbon Dioxide 26.0 mmol/L (21-32); Chloride 107.0 mmol/L (98-107); Creatinine Clr Calc Pharmacy 50.1 ml/min; Glucose 93.0 mg/dl (70-99(Fasting)); Potassium 3.9 mmol/L (3.5-5.1); Sodium 140.0 mmol/L (136-145)
[2025-04-01 07:40] LABS: INR 2.0 (0.9-1.1); Prothrombin Time 20.3 Seconds (9.0-12.0)
[2025-04-01] MEDS: TESTOSTERONE CYPIONATE IM 200 MG/ML VIAL IM SCH (11:45)
[2025-04-01] MEDS: POLYETHYLENE (MIRALAX) 17 GM PACK PO SCH (13:37)
--- NOTE | 2025-04-01 14:59 | Hospitalist Progress Note ---
Date of Service April 01, 2025 Assessment & Plan (1) Pneumonia: (2) Parkinson disease: (3) Labile hypertension: (4) Rheumatoid arthritis: Plan Patient is a 74 Yr old male with significant past medical history of Parkinson's disease, hypothyroidism, chronic diastolic heart failure, history of liver hemangioma, nonrheumatic mitral valve regurgitation, history of simple partial seizure, rheumatoid arthritis on long-term steroid therapy, history of PE on Coumadin who presents to ED today with chest tightness and dyspnea. Work-up in the ED included normal WBC at 5.55, INR subtherapeutic at 1.5, BUN 50, creatinine 1.26, troponin normal x 2 (10.6, 9.8). COVID, flu, RSV negative. MRSA swab negative. CTA chest negative for PE, showed persistent pleural effusions, persistent large hiatal hernia, new subtle centrilobular nodules throughout the RLL c/w infection. Pt referred for admission for further evaluation and management. Pneumonia - presumed hospital-acquired in the setting of recent admission Vs Aspiration H/O Large Hiatal Hernia --Chest CTA:No evidence for pulmonary embolism. Small left and trace right pleural effusion are again seen. Persistent large hiatal hernia. Left basilar atelectasis. There are new subtle centrilobular nodules throughout the right lower lobe, consistent with infection. --Biofire: Negative -- Nasal MRSA negative --Continue IV cefepime - Incentive spirometry, flutter valve Saturating low 90s on room air Aspiration precautions Plan for video swallow study Parkinson disease Chronic - at baseline Continue home Sinemet, entacapone, amantadine Recent mechanical fall resulting in head trauma Tongue laceration S/P scalp cristobal Plan for staple removal tomorrow History of simple partial seizure Continue home Tegretol, Zonegran History of PE (October 2024) On warfarin 10mg Tues, 5mg all other days per 03/20 coag clinic note Reversed during last admission due to fall w/ tongue laceration Monitor INR: 2.0 today Continue Coumadin Rheumatoid arthritis Chronic steroid use Chronic, stable. Continue Arava and daily prednisone Chronic diastolic heart failure Monitor volume status Labile hypertension Orthostatic hypotension in setting of autonomic dysfunction in relation to PD Also on midodrine Monitor blood pressure BPH Chronic, stable - continue finasteride PSA 4.2 Needs follow-up with Dr. Birch as outpatient DVT Px: Warfarin Code status: Full code Disposition PT OT prior to discharge Admission and Anticipated Discharge Date Admission Date: March 29, 2025 Subjective Patient is seen and examined at bedside Sleeping but awakes easily during my encounter Discussed with patient's at bedside Patient offers no specific complaints Denies any chest pain, dyspnea, nausea, vomiting, abdominal pain, dizziness Review of Systems Review of Systems: All systems reviewed & are unremarkable except as noted in Subjective Physical Exam Physical Exam: Physical Exam: Vitals signs as noted above General Appearance:Moderately built and nourished, no apparent distress, chronic ill-appearing Head: normocephalic, Atraumatic,+ Cristobal Eyes: normal inspection, EOMI Neck: supple, Trachea midline Respiratory/Chest:Decreased breath sounds, CTA, No accessory muscle use Cardiovascular: S1, S2, No murmur Abdomen/GI:Soft, Non tender, Bowel sounds present Extremities/Musculoskeletal:normal inspection, Trace edema, RA changes Neurologic/Psych:AAOX3, grossly no focal neurological deficits Skin: normal color, warm Results & Data Results & Data Vital Signs (Past 12 Hours) Vital Signs Temp Pulse Pulse Resp BP BP Pulse Ox 04/01/25 11:43 36.6 C 70 18 154/81 H 91 04/01/25 08:02 75 04/01/25 07:33 37.0 C 69 18 159/93 H 90 04/01/25 03:30 36.7 C 82 18 198/95 H 92 O2 Del Method 04/01/25 11:43 Room Air 04/01/25 08:02 04/01/25 07:33 Room Air 04/01/25 03:30 Room Air Laboratory Results Short CBC 04/01/25 Range/Units 06:34 WBC 7.02 (4.8-10.8) K/ul Hgb 12.9 L (14.0-18.0) g/dL Hct 39.4 L (42.0-52.0) % Plt Count 168 (130-400) K/uL BMP 04/01/25 06:34 Sodium 140 Potassium 3.9 Chloride 107 Carbon Dioxide 26 BUN 28 H Creatinine 1.15 Glucose 93 Calcium 8.8 (1) Pneumonia Laterality: right Lung location: lower lobe of lung Pneumonia type: due to unspecified organism Qualified Code(s): J18.9 - Pneumonia, unspecified organism (2) Parkinson disease Dyskinesia presence: unspecified whether dyskinesia Fluctuating manifestations: unspecified whether manifestations fluctuate Qualified Code(s): G20.A1 - Parkinson's disease without dyskinesia, without mention of fluctuations
[2025-04-01] MEDS ORDERED: PHA DELIRIUM CONSULT PRN (22:03)
[2025-04-02] MEDS: LACTATED RINGER'S 1,000 ML IV ONE (12:47)
--- NOTE | 2025-04-02 13:02 | Hospitalist Progress Note ---
Date of Service April 02, 2025 Assessment & Plan (1) Pneumonia: (2) Parkinson disease: (3) Labile hypertension: (4) Rheumatoid arthritis: Plan Patient is a 74 Yr old male with significant past medical history of Parkinson's disease, hypothyroidism, chronic diastolic heart failure, history of liver hemangioma, nonrheumatic mitral valve regurgitation, history of simple partial seizure, rheumatoid arthritis on long-term steroid therapy, history of PE on Coumadin who presents to ED today with chest tightness and dyspnea. Work-up in the ED included normal WBC at 5.55, INR subtherapeutic at 1.5, BUN 50, creatinine 1.26, troponin normal x 2 (10.6, 9.8). COVID, flu, RSV negative. MRSA swab negative. CTA chest negative for PE, showed persistent pleural effusions, persistent large hiatal hernia, new subtle centrilobular nodules throughout the RLL c/w infection. Pt referred for admission for further evaluation and management. Pneumonia - presumed hospital-acquired in the setting of recent admission Vs Aspiration H/O Large Hiatal Hernia --Chest CTA:No evidence for pulmonary embolism. Small left and trace right pleural effusion are again seen. Persistent large hiatal hernia. Left basilar atelectasis. There are new subtle centrilobular nodules throughout the right lower lobe, consistent with infection. --Biofire: Negative -- Nasal MRSA negative --Continue IV cefepime>> transition to oral antibiotics - Incentive spirometry, flutter valve Saturating low 90s on room air Aspiration precautions Scheduled for video swallow study tomorrow Patient's family not interested in rehab, prefers home with home health Parkinson disease Chronic - at baseline Continue home Sinemet, entacapone, amantadine Recent mechanical fall resulting in head trauma Tongue laceration S/P scalp cristobal Plan for staple removal today History of simple partial seizure Continue home Tegretol, Zonegran History of PE (October 2024) On warfarin 10mg Tues, 5mg all other days per 03/20 coag clinic note Reversed during last admission due to fall w/ tongue laceration Monitor INR: 2.0 today Continue Coumadin Labs pending today Rheumatoid arthritis Chronic steroid use Chronic, stable. Continue Arava and daily prednisone Chronic diastolic heart failure Monitor volume status Labile hypertension Orthostatic hypotension in setting of autonomic dysfunction in relation to PD Also on midodrine Monitor blood pressure BPH Chronic, stable - continue finasteride PSA 4.2 Needs follow-up with Dr. Birch as outpatient DVT Px: Warfarin Code status: Full code Disposition PT recommends acute rehab Case management to help with discharge planning Admission and Anticipated Discharge Date Admission Date: March 29, 2025 Subjective Patient is seen and examined at bedside Drowsy during my encounter today No issues overnight per staff Plan to remove scapular cristobal today No distress on exam labs pending Review of Systems Review of Systems: Other Physical Exam Physical Exam: Physical Exam: Vitals signs as noted above General Appearance:Moderately built and nourished, no apparent distress, chronic ill-appearing Head: normocephalic, Atraumatic,+ Cristobal Eyes: normal inspection, EOMI Neck: supple, Trachea midline Respiratory/Chest:Decreased breath sounds, CTA, No accessory muscle use Cardiovascular: S1, S2, No murmur Abdomen/GI:Soft, Non tender, Bowel sounds present Extremities/Musculoskeletal:normal inspection, Trace edema, RA changes Neurologic/Psych:AAOX3, grossly no focal neurological deficits Skin: normal color, warm Results & Data Results & Data Vital Signs (Past 12 Hours) Vital Signs Temp Pulse Pulse Resp BP BP Pulse Ox 04/02/25 12:51 36.4 C L 77 18 128/78 94 04/02/25 07:29 37.1 C 61 18 145/80 H 91 04/02/25 07:28 73 04/02/25 03:01 36.5 C 64 18 177/77 H 90 O2 Del Method 04/02/25 12:51 Room Air 04/02/25 07:29 Room Air 04/02/25 07:28 04/02/25 03:01 Room Air (1) Pneumonia Laterality: right Lung location: lower lobe of lung Pneumonia type: due to unspecified organism Qualified Code(s): J18.9 - Pneumonia, unspecified organism (2) Parkinson disease Dyskinesia presence: unspecified whether dyskinesia Fluctuating manifestations: unspecified whether manifestations fluctuate Qualified Code(s): G20.A1 - Parkinson's disease without dyskinesia, without mention of fluctuations
--- NOTE | 2025-04-02 13:04 | Electrocardiogram Report ---
Test Reason : Blood Pressure : */* mmHG Vent. Rate : 81 BPM Atrial Rate : 81 BPM P-R Int : 152 ms QRS Dur : 90 ms QT Int : 376 ms P-R-T Axes : 48 9 43 degrees QTcB Int : 436 ms Normal sinus rhythm Normal ECG When compared with ECG of 09-Nov-2024 16:12, No significant change was found Confirmed by Albert Correia ([id number]) on 04/02/2025 1:04:19 PM Referred By: Confirmed By: Albert Correia
--- NOTE | 2025-04-02 14:26 | Fluoroscopy Report ---
FL video swallow CLINICAL HISTORY: r/o aspiration. TECHNIQUE: Video fluoroscopic evaluation of swallowing was performed in the AP and lateral projection s by the speech pathology staff. The patient is fed nectar-thick and thin liquid barium, a barium coa john wafer, and barium pudding. FLUOROSCOPY TIME: 1 minute 28 seconds. COMPARISON: None FINDINGS: No aspiration seen with liquid. There is a small diverticulum at the anterior upper esophag us just below the epiglottis. IMPRESSION: No aspiration seen. ACT 112: Negative or not required by law. Electronically signed by: Larry Burnham M.D. 04/02/2025 2:25 PM
[2025-04-02] MEDS ORDERED: AMOXICILLIN/CLAVULANATE 500 MG TAB PO SCH (17:00)
[2025-04-02] MEDS: AMOXICILLIN/CLAVULANATE 875 MG TAB PO SCH (17:11)
[2025-04-02] MEDS ORDERED: PHA DELIRIUM CONSULT PRN (23:02)
[2025-04-02 23:19] LABS: Anion Gap 5.0 (3-11); Blood Urea Nitrogen 32.0 mg/dl (6-23); Calcium 8.5 mg/dl (8.6-10.3); Carbon Dioxide 27.0 mmol/L (21-32); Chloride 106.0 mmol/L (98-107); Creatinine Clr Calc Pharmacy 46.4 ml/min; Glucose 96.0 mg/dl (70-99(Fasting)); Potassium 3.9 mmol/L (3.5-5.1); Sodium 138.0 mmol/L (136-145)
[2025-04-02 23:43] LABS: INR 2.2 (0.9-1.1); Prothrombin Time 22.0 Seconds (9.0-12.0)
[2025-04-03 06:47] LABS: Anion Gap 6.0 (3-11); Blood Urea Nitrogen 27.0 mg/dl (6-23); Calcium 8.7 mg/dl (8.6-10.3); Carbon Dioxide 26.0 mmol/L (21-32); Chloride 107.0 mmol/L (98-107); Creatinine Clr Calc Pharmacy 50.5 ml/min; Glucose 87.0 mg/dl (70-99(Fasting)); Potassium 3.8 mmol/L (3.5-5.1); Sodium 139.0 mmol/L (136-145)
[2025-04-03 07:03] LABS: INR 2.1 (0.9-1.1); Prothrombin Time 20.9 Seconds (9.0-12.0)
[2025-04-03 07:50] VITALS: RESP 16; O2SAT 93
--- NOTE | 2025-04-03 10:43 | Hospitalist Progress Note ---
Date of Service April 03, 2025 Assessment & Plan (1) Pneumonia: (2) Parkinson disease: (3) Labile hypertension: (4) Rheumatoid arthritis: Plan Patient is a 74 Yr old male with significant past medical history of Parkinson's disease, hypothyroidism, chronic diastolic heart failure, history of liver hemangioma, nonrheumatic mitral valve regurgitation, history of simple partial seizure, rheumatoid arthritis on long-term steroid therapy, history of PE on Coumadin who presents to ED today with chest tightness and dyspnea. Work-up in the ED included normal WBC at 5.55, INR subtherapeutic at 1.5, BUN 50, creatinine 1.26, troponin normal x 2 (10.6, 9.8). COVID, flu, RSV negative. MRSA swab negative. CTA chest negative for PE, showed persistent pleural effusions, persistent large hiatal hernia, new subtle centrilobular nodules throughout the RLL c/w infection. Pt referred for admission for further evaluation and management. Pneumonia - presumed hospital-acquired in the setting of recent admission Vs Aspiration H/O Large Hiatal Hernia --Chest CTA:No evidence for pulmonary embolism. Small left and trace right pleural effusion are again seen. Persistent large hiatal hernia. Left basilar atelectasis. There are new subtle centrilobular nodules throughout the right lower lobe, consistent with infection. --Biofire: Negative -- Nasal MRSA negative --Video swallow: No aspiration seen. --Continue IV cefepime>> transitioned to oral antibiotics to complete the course - Incentive spirometry, flutter valve Saturating well on room air Aspiration precautions Patient and his family not interested in rehab, prefers home with home health Plan to discharge home with home health Parkinson disease Chronic - at baseline Continue home Sinemet, entacapone, amantadine Recent mechanical fall resulting in head trauma Tongue laceration S/P scalp cristobal--removed on 04/02/25 History of simple partial seizure Continue home Tegretol, Zonegran History of PE (October 2024) On warfarin 10mg Tues, 5mg all other days per 03/20 coag clinic note Reversed during last admission due to fall w/ tongue laceration Monitor INR: 2.1 today Continue Coumadin Rheumatoid arthritis Chronic steroid use Chronic, stable. Continue Arava and daily prednisone Chronic diastolic heart failure Monitor volume status Labile hypertension Orthostatic hypotension in setting of autonomic dysfunction in relation to PD Also on midodrine Monitor blood pressure BPH Chronic, stable - continue finasteride PSA 4.2 Needs follow-up with Dr. Birch as outpatient DVT Px: Warfarin Code status: Full code Disposition PT recommends acute rehab Patient and family prefers to be discharged home with home health Admission and Anticipated Discharge Date Admission Date: March 29, 2025 Subjective Patient is seen and examined at bedside Offers no complaints today Discussed with patient's at bedside Patient denies any chest pain, dyspnea, nausea, vomiting, abdominal pain, dizziness Plan to be discharged home today Review of Systems Review of Systems: All systems reviewed & are unremarkable except as noted in Subjective Physical Exam Physical Exam: Physical Exam: Vitals signs as noted above General Appearance:Moderately built and nourished, no apparent distress, chronic ill-appearing Head: normocephalic, Atraumatic Eyes: normal inspection, EOMI Neck: supple, Trachea midline Respiratory/Chest:Decreased breath sounds, CTA, No accessory muscle use Cardiovascular: S1, S2, No murmur Abdomen/GI:Soft, Non tender, Bowel sounds present Extremities/Musculoskeletal:normal inspection, Trace edema, RA changes Neurologic/Psych:AAOX3, grossly no focal neurological deficits Skin: normal color, warm Results & Data Results & Data Vital Signs (Past 12 Hours) Vital Signs Temp Pulse Pulse Resp BP Pulse Ox O2 Del Method 04/03/25 09:03 70 04/03/25 07:49 36.8 C 58 L 16 162/89 H 93 Room Air 04/03/25 04:02 36.4 C L 66 18 162/87 H 91 Room Air 04/02/25 22:58 36.6 C 59 L 18 131/78 92 Room Air 04/02/25 22:51 Room Air Laboratory Results [facility] 04/02/25 04/03/25 22:30 05:51 Sodium 138 139 Potassium 3.9 3.8 Chloride 106 107 Carbon Dioxide 27 26 BUN 32 H 27 H Creatinine 1.24 1.14 Glucose 96 87 Calcium 8.5 L 8.7 (1) Pneumonia Laterality: right Lung location: lower lobe of lung Pneumonia type: due to unspecified organism Qualified Code(s): J18.9 - Pneumonia, unspecified organism (2) Parkinson disease Dyskinesia presence: unspecified whether dyskinesia Fluctuating manifestations: unspecified whether manifestations fluctuate Qualified Code(s): G20.A1 - Parkinson's disease without dyskinesia, without mention of fluctuations
[2025-04-03 11:02] VITALS: PULSE 73; TEMP 97.7
--- NOTE | 2025-04-03 11:08 | Discharge Summary ---
Date of Service April 03, 2025 Admission HPI Per Admitting Provider This is a 74-year-old male with significant past medical history of Parkinson's disease, hypothyroidism, chronic diastolic heart failure, history of liver hemangioma, nonrheumatic mitral valve regurgitation, history of simple partial seizure, rheumatoid arthritis on long-term steroid therapy, history of PE on Coumadin who presents to ED today with chest tightness and dyspnea. History obtained mostly from pt's due to his advanced Parkinson disease. Pt was recently admitted to [facility] 03/24-03/26/25 s/p fall at home with resultant tongue laceration in the setting of anticoagulant use. Given TXA and IV vitamin K in the ED with no evidence of ongoing bleeding, improvement in swelling. Restarted anticoagulation the evening of 03/26. Since being home, he overall seemed to be doing well until today. No additional falls. His noticed that he developed a cough productive of clear sputum overnight. Ate breakfast without incident this morning. Seemed a little more tired today than yesterday. Around 1 pm, he b ecame short of breath without specific trigger. He complained of associated chest discomfort and tightness. This has since improved. No fevers, chills, vomiting. Moving bowels without difficulty. No overt aspiration events that his recalls. Admission Exam Per Admitting Provider General: awake, alert, NAD HEENT: no scleral icterus, moist mucus membranes Neck: supple, trachea midline Heart: RRR Lungs: rhonchi bilaterally but no tachypnea at present, no accessory muscle use Abdomen: soft, NT, +BS Extremities: compression stockings bilateral LE, +edema Skin: warm, dry, no jaundice, +scalp laceration healing with cristobal C/D/I Neurologic: +masked facies, slow quiet speech but clear, bradykinesia noted Principal Diagnosis Pneumonia Parkinson's disease Mechanical fall Discharge Data Allergies Allergy/AdvReac Type Severity Reaction Status Date / Time No Known Allergies Allergy Verified 03/27/25 08:47 Consultations 03/29/25 16:33 ED Decision to Admit Stat Procedures Performed Laboratory Results WBC 7.02 K/ul (4.8-10.8) 04/01/25 06:34 RBC 4.39 M/uL (4.70-6.10) L 04/01/25 06:34 Hgb 12.9 g/dL (14.0-18.0) L 04/01/25 06:34 POC Hgb 15.0 g/dl (14.0-18.0) 03/29/25 14:40 Hct 39.4 % (42.0-52.0) L 04/01/25 06:34 POC Hct 44 % (42-52) 03/29/25 14:40 MCV 89.7 fL (80.0-100.0) 04/01/25 06:34 MCH 29.4 pg (25.0-34.0) 04/01/25 06:34 MCHC 32.7 g/dL (32.0-36.0) 04/01/25 06:34 RDW Std Deviation 55.3 fL (36.4-46.3) H 04/01/25 06:34 RDW Coeff of Armen 16.9 % (11.5-14.5) H 04/01/25 06:34 Plt Count 168 K/uL (130-400) 04/01/25 06:34 MPV 9.6 fL (9.4-12.4) 04/01/25 06:34 Immature Gran % (Auto) 0.9 % 04/01/25 06:34 Neut % (Auto) 70.4 % 04/01/25 06:34 Lymph % (Auto) 15.5 % 04/01/25 06:34 [place] % (Auto) 11.5 % 04/01/25 06:34 Eos % (Auto) 1.0 % 04/01/25 06:34 Baso % (Auto) 0.7 % 04/01/25 06:34 Neut # (Auto) 4.94 K/uL (1.40-6.50) 04/01/25 06:34 Lymph # (Auto) 1.09 K/uL (1.20-3.40) L 04/01/25 06:34 [place] # (Auto) 0.81 K/uL (0.11-0.59) H 04/01/25 06:34 Eos # (Auto) 0.07 K/uL (0.00-0.50) 04/01/25 06:34 Baso # (Auto) 0.05 K/uL (0.00-0.20) 04/01/25 06:34 Immature Gran # (Auto) 0.06 K/uL (0.01-0.20) 04/01/25 06:34 PT 20.9 Seconds (9.0-12.0) H 04/03/25 05:51 INR 2.1 (0.9-1.1) H 04/03/25 05:51 APTT 29 Seconds (21-31) 03/29/25 14:35 PTT Ratio 1.1 03/29/25 14:35 POC Sodium 141 mmol/L (135-144) 03/29/25 14:40 Sodium 139 mmol/L (136-145) 04/03/25 05:51 POC Potassium 3.8 mmol/L (3.3-5.0) 03/29/25 14:40 Potassium 3.8 mmol/L (3.5-5.1) 04/03/25 05:51 POC Chloride 107 mmol/L (101-112) 03/29/25 14:40 Chloride 107 mmol/L (98-107) 04/03/25 05:51 Carbon Dioxide 26 mmol/L (21-32) 04/03/25 05:51 POC Total CO2 22 mmol/L (24-31) L 03/29/25 14:40 Anion Gap 6 (3-11) 04/03/25 05:51 POC Anion Gap 17.0 mmol/L (16-25) 03/29/25 14:40 POC BUN 48 mg/dl (7-18) H 03/29/25 14:40 BUN 27 mg/dl (6-23) H 04/03/25 05:51 Creatinine 1.14 mg/dl (0.6-1.4) 04/03/25 05:51 POC Creatinine 1.4 mg/dl (0.6-1.3) H 03/29/25 14:40 Est Cr Clr Drug Dosing 50.5 ml/min 04/03/25 05:51 eGFR 67.07 04/03/25 05:51 BUN/Creatinine Ratio 23.7 (10-20) H 04/03/25 05:51 Glucose 87 mg/dl (70-99(Fasting)) 04/03/25 05:51 POC Glucose (other) 108 mg/dl (70-99) H 03/29/25 14:40 Calcium 8.7 mg/dl (8.6-10.3) 04/03/25 05:51 POC Ioniz Calcium Misty 1.02 mmol/l (1.12-1.32) L 03/29/25 14:40 Phosphorus 2.3 mg/dl (2.5-4.9) L 04/02/25 22:30 Magnesium 2.2 mg/dl (1.7-2.4) 03/31/25 06:47 Total Bilirubin 0.5 mg/dl (0.2-1.0) 03/29/25 14:35 AST 27 U/L (13-39) 03/29/25 14:35 ALT 5 U/L (7-52) L 03/29/25 14:35 Alkaline Phosphatase 77 U/L (34-104) 03/29/25 14:35 Troponin I High Sens 9.8 pg/ml (0-20) 03/29/25 16:33 Total Protein 7.3 gm/dl (6.0-8.3) 03/29/25 14:35 Albumin 3.9 gm/dl (3.4-5.0) 03/29/25 14:35 Globulin 3.4 gm/dl (2.5-4.0) 03/29/25 14:35 Albumin/Globulin Ratio 1.1 (0.9-2) 03/29/25 14:35 Prostate Specific Ag 4.254 ng/ml (0-4) H 04/01/25 06:34 TSH 4.264 uIu/ml (0.300-4.500) 03/29/25 14:35 Nasal Screen MRSA (PCR) Negative (Negative) 03/29/25 16:05 Adenovirus (PCR) Not Detected (NotDetected) 03/30/25 Unknown B. pertussis DNA (PCR) Not Detected (NotDetected) 03/30/25 Unknown B.parapertussis DNA PCR Not Detected (NotDetected) 03/30/25 Unknown C. pneumoniae DNA (PCR) Not Detected (NotDetected) 03/30/25 Unknown Coronavirus OC43 (PCR) Not Detected (NotDetected) 03/30/25 Unknown Coronavirus HKU1 (PCR) Not Detected (NotDetected) 03/30/25 Unknown Coronavirus 229E (PCR) Not Detected (NotDetected) 03/30/25 Unknown SARS-CoV-2 (PCR) Not Detected (NotDetected) 03/30/25 Unknown Coronavirus NL63 (PCR) Not Detected (NotDetected) 03/30/25 Unknown Human Metapneumovir PCR Not Detected (NotDetected) 03/30/25 Unknown Influenza Type A (PCR) Not Detected (NotDetected) 03/30/25 Unknown Influenza Type B (PCR) Not Detected (NotDetected) 03/30/25 Unknown M. pneumoniae (PCR) Not Detected (NotDetected) 03/30/25 Unknown Parainfluenza 1 (PCR) Not Detected (NotDetected) 03/30/25 Unknown Parainfluenza 2 (PCR) Not Detected (NotDetected) 03/30/25 Unknown Parainfluenza 3 (PCR) Not Detected (NotDetected) 03/30/25 Unknown Parainfluenza 4 (PCR) Not Detected (NotDetected) 03/30/25 Unknown RSV (PCR) Not Detected (NotDetected) 03/30/25 Unknown Entero/Rhino (PCR) Not Detected (NotDetected) 03/30/25 Unknown Impressions Chest CTA 03/29/25 14:26 CT pulmonary angiogram with IV contrast History: Dyspnea COMPARISON: 03/25/2025 TECHNIQUE: CT angiography of the chest was performed without IV contrast followed by IV contrast, including 3D post processing CTA image reconstruction. Dose reduction techniques were achieved by using automatic exposure control and/or adjustment of mA and/or kV according to patient size and/or use of iterative reconstruction technique. FINDINGS: Diagnostic quality: Adequate There is no evidence for pulmonary embolism. The heart is not enlarged. Mild coronary calcification. There is no pericardial effusion. There are no abnormally enlarged hilar or mediastinal lymph nodes. The central tracheobronchial tree is clear. Small left pleural effusion. Left basilar atelectasis. Subtle patchy centrilobular nodular densities are seen throughout the right lower lobe. Trace right pleural effusion. Limited visualized upper abdomen. There is a large hiatal hernia, with the stomach residing in the left chest. No destructive osseous changes are seen. IMPRESSION: No evidence for pulmonary embolism. Small left and trace right pleural effusion are again seen. Persistent large hiatal hernia. Left basilar atelectasis. There are new subtle centrilobular nodules throughout the right lower lobe, consistent with infection. Electronically signed by Matt Miguel 03-29-2025 3:45 PM Soft Tissue Neck CT 03/29/25 14:26 CT neck with contrast History: Difficulty breathing Comparison: None Technique: Following intravenous administration of nonionic iodinated contrast medium, thin section helical CT images were obtained from the skull base down to the level of the aortic arch. Axial, coronal and sagittal reformations were performed with 2-3 mm slice thickness reconstruction. Images were reviewed in soft tissue, lung and bone windows. One or more of the following dose-optimizing techniques was utilized for this exam: automated exposure control, adjustment of the mA and/or kV according to patient size, and/or use of iterative reconstruction technique. Findings: Evaluation of the mucosal space demonstrates no evident abnormality in the nasopharynx, oropharynx, hypopharynx or the glottis. The tongue base appears normal. The major salivary glands appear unremarkable. The thyroid gland is unremarkable. There is no evident cervical lymphadenopathy. The fascial spaces in the neck are intact bilaterally. The major vascular structures in the neck appear unremarkable. Evaluation of the osseous structures demonstrate no worrisome lytic or sclerotic lesion. Degenerative changes of the cervical spine. Small mucous retention cyst in the right maxillary sinus. The mastoid air cells are clear. Impression: Normal CT study of the neck with contrast. No evident mass or adenopathy within the neck. Electronically signed by Matt Miguel 03-29-2025 4:31 PM Videofluoroscopic Swallow 04/02/25 13:30 FL video swallow CLINICAL HISTORY: r/o aspiration. TECHNIQUE: Video fluoroscopic evaluation of swallowing was performed in the AP and lateral projections by the speech pathology staff. The patient is fed nectar-thick and thin liquid barium, a barium coated wafer, and barium pudding. FLUOROSCOPY TIME: 1 minute 28 seconds. COMPARISON: None FINDINGS: No aspiration seen with liquid. There is a small diverticulum at the anterior upper esophagus just below the epiglottis. IMPRESSION: No aspiration seen. ACT 112: Negative or not required by law. Electronically signed by: Larry Burnham M.D. 04/02/2025 2:25 PM Ordered Studies 03/29/25 14:26 CT angio chest PE protocol Stat CT soft tissue neck w con Stat 04/02/25 13:30 FL video swallow Routine Hospital Course (1) Pneumonia: (2) Parkinson disease: (3) Labile hypertension: (4) Rheumatoid arthritis: Plan Patient is a 74 Yr old male with significant past medical history of Parkinson's disease, hypothyroidism, chronic diastolic heart failure, history of liver hemangioma, nonrheumatic mitral valve regurgitation, history of simple partial seizure, rheumatoid arthritis on long-term steroid therapy, history of PE on Coumadin who presents to ED today with chest tightness and dyspnea. Work-up in the ED included normal WBC at 5.55, INR subtherapeutic at 1.5, BUN 50, creatinine 1.26, troponin normal x 2 (10.6, 9.8). COVID, flu, RSV negative. MRSA swab negative. CTA chest negative for PE, showed persistent pleural effusions, persistent large hiatal hernia, new subtle centrilobular nodules throughout the RLL c/w infection. Pt referred for admission for further evaluation and management. Pneumonia - presumed hospital-acquired in the setting of recent admission Vs Aspiration H/O Large Hiatal Hernia --Chest CTA:No evidence for pulmonary embolism. Small left and trace right ple ural effusion are again seen. Persistent large hiatal hernia. Left basilar atelectasis. There are new subtle centrilobular nodules throughout the right lower lobe, consistent with infection. --Biofire: Negative -- Nasal MRSA negative --Video swallow: No aspiration seen. --Continue IV cefepime>> transitioned to oral antibiotics to complete the course - Incentive spirometry, flutter valve Saturating well on room air Aspiration precautions Patient and his family not interested in rehab, prefers home with home health Plan to discharge home with home health Parkinson disease Chronic - at baseline Continue home Sinemet, entacapone, amantadine Recent mechanical fall resulting in head trauma Tongue laceration S/P scalp cristobal--removed on 04/02/25 History of simple partial seizure Continue home Tegretol, Zonegran History of PE (October 2024) On warfarin 10mg Tues, 5mg all other days per 03/20 coag clinic note Reversed during last admission due to fall w/ tongue laceration Monitor INR: 2.1 today Continue Coumadin Rheumatoid arthritis Chronic steroid use Chronic, stable. Continue Arava and daily prednisone Chronic diastolic heart failure Monitor volume status Labile hypertension Orthostatic hypotension in setting of autonomic dysfunction in relation to PD Also on midodrine Monitor blood pressure BPH Chronic, stable - continue finasteride PSA 4.2 Needs follow-up with Dr. Birch as outpatient DVT Px: Warfarin Code status: Full code Disposition PT recommends acute rehab Patient and family prefers to be discharged home with home health Total Time Total Time Spent Total Time Spent (In Minutes): 53 minutes Discharge Plan Discharge Items Patient Disposition: Home - Home Health Services Reason For Visit: PNEUMONIA Discharge Diagnosis: Pneumonia Parkinson's disease Mechanical fall Condition on Discharge: Fair Activity: Per Instructions section Exercise/Sports: Gradually increase as tolerated Non-emergency contact: Primary Care Provider Call non-emergency contact if: you have any medication questions, your symptoms worsen, your pain is concerning for you and you have a fever Follow-up/Referrals: Emerald Dutton MD [Primary Care Provider] - (Date & Time 04/06/2025 11:40 AM Provider: Kely Ortez MD General Internal Medicine [facility] ) Diet: Regular Diet Comment: Minced and Moist Addtl Attending Provider Instructions: -- Follow-up with your primary care physician Dr. Dutton on 04/06/2025 11:40 AM -- Complete the antibiotic course Augmentin as prescribed -- Your blood pressure was noted to be variable while you are hospitalized. Monitor your blood pressure regularly at home and discuss with your primary care physician for adjustment of medications as needed. (You may not need midodrine if your blood pressure is persistently elevated) Seek immediate medical attention if your symptoms reoccur or worsen Please review medication list provided on discharge for any medication changes as instructed. Please call if you have any questions or problems. You can reach a [facility] hospitalist on duty at [facility] 24 hours a day by calling [phone] Pending Studies at Discharge: No Stand-Alone Forms: My [facility], Smoking Cessation Medications and DC Order Prescriptions: New amoxicillin-pot clavulanate 875-125 mg Tablet 1 tab PO BIDM Qty: 7 0RF Advanced Probiotic 625 mg (10 billion cell) Capsule 1 cap PO DAILY Qty: 7 0RF Continued finasteride [Proscar] 5 mg tablet 5 mg PO QDD Rx Instructions: take 1/2 hour before supper leflunomide [Arava] 20 mg tablet 20 mg PO QDB carbidopa-levodopa 25-100 mg tablet 3 tab PO QID Rx Instructions: TAKES AT 0630, 0900, 1200, 1700 testosterone cypionate 200 mg/mL oil 100 mg IM Q14D Rx Instructions: LAST TAKEN 03/18/25 midodrine 2.5 mg tablet 2.5 mg PO TID Rx Instructions: 0630, 1200, 1700 famotidine 20 mg tablet 20 mg PO HS amantadine HCl 100 mg capsule 100 mg PO DAILY prednisone 5 mg tablet 7.5 mg PO DAILY 30 Days Qty: 45 5RF Rx Instructions: Please take 1.5 tablets daily. levothyroxine [Synthroid] 75 mcg tablet 75 mcg PO DAILYBB zonisamide [Zonegran] 100 mg capsule 100 mg PO HS carbamazepine [Tegretol] 200 mg tablet 200 mg PO QID Rx Instructions: 0630, 1200, 1700, 2200 melatonin 5 mg tablet 10 mg PO HS PRN (Reason: Sleep) ferrous sulfate [FeroSul] 325 mg (65 mg iron) tablet 325 mg PO [id number] Rx Instructions: SUNDAY THROUGH SUNDAY WITH ORANGE JUICE AT BREAKFAST warfarin 5 mg tablet 5 mg PO UD Rx Instructions: OF 03/29/25--10 mg every Sun; 5 mg all other days entacapone 200 mg tablet 200 mg PO QID Rx Instructions: 0630, 0800, 1200, 1700 with sinemet acetaminophen [Tylenol] 325 mg Tablet 500 mg PO QID PRN (Reason: Breakthrough Pain, Mild) pantoprazole 40 mg Tablet,Delayed Release (Dr/Ec) 40 mg PO QAM Qty: 1 0RF cyanocobalamin (vitamin B-12) [Vitamin B-12] 1,000 mcg Tablet 1,000 mcg PO DAILY cholecalciferol (vitamin D3) [Vitamin D3] 25 mcg (1,000 unit) Tablet 25 mcg PO DAILY Phospho-Ayesha 250 Neutral 250 mg Tablet 1 tab PO DAILY Discharge Orders: Discharge Order (Routine); Ordered 04/03/25 Ordered By: Louis Estrada Admission Data Admit Date/Time: 03/29/25 16:57 Attending Provider: Louis Estrada Admit Provider: Steven Cristina Primary Care Provider: Emerald Dutton Other Providers: Steven Cristina
[2025-04-03] MEDS: ADVANCED PROBIOTIC 625 MG CAPSULE PO SCH (12:31)
[2025-04-03 15:23] VITALS: BP 145/80
== END 2025-04-03 16:09 | disposition home health service (06) | DRG 194 ==
LOC: ED 14:07 → 2W 16:57 → SUATTDRO 16:57 → 2W 17:52